=== PATIENT | male | born 1985 | race Caucasian/White ===

== ENCOUNTER 2018-03-03 08:31 | Inpatient (IN) | payer BC ==
--- NOTE | 2018-03-03 08:36 | EDPHY ---
H & P Time Seen by Provider: 03/03/18 08:36 - Medical/Surgical History Hx Asthma: No Hx Chronic Respiratory Disease: No Hx Diabetes: No Hx Cardiac Disease: No Hx Renal Disease: No Hx Cirrhosis: No Hx Alcoholism: No Hx HIV/AIDS: No Hx Splenectomy or Spleen Trauma: No Other PMH: HTN- no meds - Social History Smoking Status: Never smoked Constitutional: Initial Vital Signs Temperature (C) 36.8 C 03/03/18 08:36 Heart Rate 135 H 03/03/18 08:36 Respiratory Rate 18 03/03/18 08:36 Blood Pressure 123/74 H 03/03/18 08:36 O2 Sat (%) 97 03/03/18 08:36 O2 Delivery Mode Room Air Allergies/Adverse Reactions: cephalexin monohydrate [From Keflex] Allergy (Unknown, Verified 11/04/15 17:18) Unknown Penicillins Allergy (Unknown, Verified 11/04/15 17:18) Unknown Home Medications: Medication Instructions Recorded Metoprolol Succinate Xr [Toprol Xl 100 mg PO DAILY 03/03/18 100 mg (*)] amLODIPine BESYLATE [Norvasc 5 mg 5 mg PO DAILY 03/03/18 (*)] Medical Decision Making - Diagnostics Imaging Results: Imaging Impressions Abdomen CT 03/03/18 08:44 Impression: 1. Multiple lytic osseous lesions consistent with metastases or less likely myeloma. 2. Multiple low-attenuation hepatic lesions, suspicious for metastases, but indeterminate. 3. No definite primary malignancy identified. 4. Diffuse bowel wall thickening, with trace ascites. 5. Mildly prominent mesenteric lymph nodes without pathologic enlargement. 6. Additional findings as above. Findings discussed with Michael Cedillo MD on 03/03/2018 at 10:14 a.m. Imaging: Discussed imaging studies w/ order desk caller Radiologist, I viewed and interpreted images myself ED Course/Re-evaluation: CHIEF COMPLAINT: Diarrhea, appetite loss HISTORY OF PRESENT ILLNESS: The patient is a 32 y/o male arriving with his complaining of appetite loss and persistent diarrhea for over two weeks. He had acute onset appetite loss on the 19 of February and a few days afterwards he became significantly fatigued and developed diarrhea. This has since been persistent and he reports 5-10 episodes of non-bloody diarrhea daily and is vomiting on average once per day. He describes his diarrhea as sometimes "dark" with occasionally "fatty-looking tissue in it." Every time he drinks water he develops abdominal cramping, but otherwise denies pain. He saw a doctor for this last week and provided a stool sample to our lab 3 days ago that he does not yet know the results from. He denies antibiotic use, recent travel, drinking from streams, or any other obvious precipitating event. He did travel to [place] over 6 months ago. He is normally healthy. REVIEW OF SYSTEMS: A comprehensive 10 system review of systems is otherwise negative aside from elements mentioned in the history of present illness and medical decision making. PHYSICAL EXAM: HR, BP, O2 Sat, RR. Temp noted General Appearance: Alert, dehydrated, appropriate, pale, thin, ill-appearing. Head: Atraumatic without scalp tenderness or obvious injury Eyes: Pupils equal, round, reactive to light and accommodation, EOMI, no trauma , no injection. Nose: Atraumatic, no rhinorrhea, clear. Throat: Mucus membranes dry. Neck: Supple, nontender, no lymphadenopathy. Respiratory: No retractions, no distress, no wheezes, and no accessory muscle use. Lungs are clear to auscultation bilaterally. Cardiovascular: Tachycardic regular rate and rhythm, no murmurs, rubs, or gallops. Good capillary refill all extremities. Gastrointestinal: Abdomen is soft, diffuse tenderness, non-distended, no masses , no rebound, no guarding, no peritoneal signs. Musculoskeletal: Normal active ROM of all extremities, atraumatic. Neurological: Alert, appropriate, and interactive. The patient has non-focal cranial nerves, motor, sensory, and cerebellar exam. Skin: No rashes, good turgor, no nodules on palpation. Past medical history: Denies Past surgical history: Melanoma resection 2 years ago. Family history: Noncontributory Social history: at bedside. Lives in [place]. Employed at [employer]. DIAGNOSTICS/PROCEDURES/CRITICAL CARE TIME: Abdominal CT: Diffuse colitis, lytic spine lesions, liver lesions, suspect malignancy. Brain MRI: bony metastases. DIFFERENTIAL DIAGNOSIS: The differential diagnosis for the patient's diarrhea and vomiting included but was not limited to infectious causes like hepatitis, gastroenteritis, gastritis, appendicitis, and medication side effect. MEDICAL DECISION MAKING: This is a cachectic but normally healthy 32 y/o male who presents with a 2-week history of persistent diarrhea, intermittent vomiting, and pronounced fatigue. He is pale, thin, and dry on exam with diffuse abdominal tenderness. Recent GI stool panel was negative for pathogens. Presentation is concerning for infections like hepatitis, inflammatory bowel issue, or malignancy. Plan for IV , labs, symptom management, abdominal CT. 2L IV NS and 4mg IV Zofran. Labs indicate dehydration. LFTs are reasonable, pointing away from something like Hepatitis A. 0926: Reassessed patient. He still feels poor, but says "there's moisture in my mouth now." Abdominal CT shows lytic lesions in spine, liver lesions, diffuse colitis. Patient had melanoma resection in [address] Hardin. 1034: Consulted with Dr. Jean, oncology. He will consult during admission. Reassessed patient and discussed findings. Plan for brain MRI and admission. 1120: Spoke with hospitalist service. Dr. Vigil accepts admission. - Data Points Laboratory Results: Laboratory Results 03/03/18 08:45 03/03/18 08:45 03/03/18 03/03/18 03/03/18 10:40 08:49 08:45 WBC RBC Hgb POC Hgb 17.3 gm/dL gm/dL (13.7-17.5) Hct POC Hct 51 % % (40-51) MCV MCH MCHC RDW Plt Count MPV Neut % (Auto) Lymph % (Auto) [place] % (Auto) Eos % (Auto) Baso % (Auto) Nucleat RBC Rel Count Absolute Neuts (auto) Absolute Lymphs (auto) Absolute Monos (auto) Absolute Eos (auto) Absolute Basos (auto) Absolute Nucleated RBC Immature Gran % Seg Neutrophils % Band Neutrophils % Lymphocytes % Monocytes % Eosinophils % Basophils % Metamyelocytes % Myelocytes % Promyelocytes % Blast Cells % Immature Gran # Absolute Seg Neuts Absolute Band Neuts Absolute Lymphocytes Absolute Monocytes Absolute Eosinophils Absolute Basophils Absolute Metamyelocyte Absolute Myelocytes Absolute Promyelocytes Absolute Plasma Cells Nucleated RBCs Absolute Blast Cells Plasma Cells % Platelet Estimate Polychromasia POC Sodium 130 mEq/L L mEq/L (135-145) Sodium 129 mEq/L L mEq/L (135-145) POC Potassium 3.1 mEq/L L mEq/L (3.3-5.0) Potassium 3.2 mEq/L L mEq/L (3.5-5.2) POC Chloride 91 mEq/L L mEq/L (97-110) Chloride 97 mEq/L mEq/L (97-110) Carbon Dioxide 21 mEq/l L mEq/l (22-31) Anion Gap 11 mEq/L mEq/L (6-14) POC BUN 11 mg/dL mg/dL (7-23) BUN 12 mg/dL mg/dL (7-23) Creatinine 1.1 mg/dL mg/dL (0.7-1.3) POC Creatinine 1.1 mg/dL mg/dL (0.7-1.3) Estimated GFR > 60 Glucose 127 mg/dL H mg/dL (70-100) POC Glucose 137 mg/dL H mg/dL (70-100) Calcium 7.1 mg/dL L mg/dL (8.5-10.4) Total Bilirubin 0.7 mg/dL mg/dL (0.1-1.4) Conjugated Bilirubin 0.5 mg/dL mg/dL (0.0-0.5) Unconjugated Bilirubin 0.2 mg/dL mg/dL (0.0-1.1) AST 15 IU/L L IU/L (17-59) ALT 26 IU/L IU/L (21-72) Alkaline Phosphatase 62 IU/L IU/L (38-126) Total Protein 3.5 g/dL L g/dL (6.3-8.2) Albumin 1.7 g/dL L g/dL (3.5-5.0) Lipase 14 IU/L L IU/L (23-300) Urine Color YELLOW Urine Appearance CLEAR Urine pH 6.0 (5.0-7.5) Ur Specific [place] 1.014 (1.002-1.030) Urine Protein NEGATIVE (NEGATIVE) Urine Ketones NEGATIVE (NEGATIVE) Urine Blood NEGATIVE (NEGATIVE) Urine Nitrate NEGATIVE (NEGATIVE) Urine Bilirubin NEGATIVE (NEGATIVE) Urine Urobilinogen NEGATIVE EU EU (0.2-1.0) Ur Leukocyte Esterase NEGATIVE (NEGATIVE) Urine RBC NONE SEEN /hpf /hpf (0-3) Urine WBC 0-1 /hpf /hpf (0-3) Ur Epithelial Cells NONE SEEN /lpf /lpf (NONE-1+) Urine Glucose NEGATIVE (NEGATIVE) 03/03/18 08:45 WBC 12.96 10^3/uL H 10^3/uL (3.80-9.50) RBC 5.86 10^6/uL 10^6/uL (4.40-6.38) Hgb 17.4 g/dL g/dL (13.7-17.5) POC Hgb Hct 48.6 % % (40.0-51.0) POC Hct MCV 82.9 fL fL (81.5-99.8) MCH 29.7 pg pg (27.9-34.1) MCHC 35.8 g/dL g/dL (32.4-36.7) RDW 12.2 % % (11.5-15.2) Plt Count 398 10^3/uL 10^3/uL (150-400) MPV 10.1 fL fL (8.7-11.7) Neut % (Auto) Not Reported Lymph % (Auto) Not Reported [place] % (Auto) Not Reported Eos % (Auto) Not Reported Baso % (Auto) Not Reported Nucleat RBC Rel Count Not Reported Absolute Neuts (auto) Not Reported Absolute Lymphs (auto) Not Reported Absolute Monos (auto) Not Reported Absolute Eos (auto) Not Reported Absolute Basos (auto) Not Reported Absolute Nucleated RBC Not Reported Immature Gran % Not Reported Seg Neutrophils % 34.9 % % Band Neutrophils % 38.8 % % Lymphocytes % 10.7 % % Monocytes % 10.7 % % Eosinophils % 0.0 % % Basophils % 0.0 % % Metamyelocytes % 4.9 % % Myelocytes % 0.0 % % Promyelocytes % 0.0 % % Blast Cells % 0.0 % % Immature Gran # Not Reported Absolute Seg Neuts 4.52 10^3/uL 10^3/uL (1.70-6.50) Absolute Band Neuts 5.03 10^3/uL H 10^3/uL (0.00-0.70) Absolute Lymphocytes 1.39 10^3/uL 10^3/uL (1.00-3.00) Absolute Monocytes 1.39 10^3/uL H 10^3/uL (0.30-0.80) Absolute Eosinophils 0.00 10^3/uL L 10^3/uL (0.03-0.40) Absolute Basophils 0.00 10^3/uL L 10^3/uL (0.02-0.10) Absolute Metamyelocyte 0.64 10^3/mL H 10^3/mL (0.00-0.00) Absolute Myelocytes 0.00 10^3/mL 10^3/mL (0.00-0.00) Absolute Promyelocytes 0.00 10^3/uL 10^3/uL (0.00-0.00) Absolute Plasma Cells 0.00 10^3/uL 10^3/uL (0.00-0.00) Nucleated RBCs 1.0 /100 WBC H /100 WBC (0-0) Absolute Blast Cells 0.00 10^3/uL 10^3/uL (0.00-0.00) Plasma Cells % 0.0 % % Platelet Estimate ADEQUATE (ADEQ) Polychromasia 1+ H POC Sodium Sodium POC Potassium Potassium POC Chloride Chloride Carbon Dioxide Anion Gap POC BUN BUN Creatinine POC Creatinine Estimated GFR Glucose POC Glucose Calcium Total Bilirubin Conjugated Bilirubin Unconjugated Bilirubin AST ALT Alkaline Phosphatase Total Protein Albumin Lipase Urine Color Urine Appearance Urine pH Ur Specific [place] Urine Protein Urine Ketones Urine Blood Urine Nitrate Urine Bilirubin Urine Urobilinogen Ur Leukocyte Esterase Urine RBC Urine WBC Ur Epithelial Cells Urine Glucose Medications Given: Discontinued Medications Sodium Chloride (Ns) 1,000 mls @ 0 mls/hr IV EDNOW ONE; Wide Open PRN Reason: Protocol Stop: 03/03/18 08:45 Last Admin: 03/03/18 08:52 Dose: 1,000 mls Sodium Chloride (Ns) 1,000 mls @ 0 mls/hr IV EDNOW ONE; Wide Open PRN Reason: Protocol Stop: 03/03/18 08:45 Last Admin: 03/03/18 08:52 Dose: Not Given Ondansetron HCl (Zofran) 4 mg IVP EDNOW ONE Stop: 03/03/18 08:45 Last Admin: 03/03/18 08:52 Dose: 4 mg Point of Care Test Results: Chemistry 03/03/18 08:49 POC Sodium 130 mEq/L L mEq/L (135-145) POC Potassium 3.1 mEq/L L mEq/L (3.3-5.0) POC Chloride 91 mEq/L L mEq/L (97-110) POC BUN 11 mg/dL mg/dL (7-23) POC Creatinine 1.1 mg/dL mg/dL (0.7-1.3) POC Glucose 137 mg/dL H mg/dL (70-100) ISTAT H&H 03/03/18 08:49 POC Hgb 17.3 gm/dL gm/dL (13.7-17.5) POC Hct 51 % % (40-51) Departure - Departure Disposition: [facility] In[facility] Acute Clinical Impression: Malignancy, Anorexia, Dehydration, possible melanoma Diarrhea Qualifiers: Diarrhea type: unspecified type Qualified Code(s): R19.7 - Diarrhea, unspecified Condition: Fair Report Scribed for: Michael Cedillo Report Scribed by: Dorie Strickland Date of Report: 03/03/18 Time of Report: 09:30
[2018-03-03] MEDS ORDERED: NS 1,000 ML IV ONE (08:44)
[2018-03-03] MEDS ORDERED: ONDANSETRON 4 MG/2 ML VIAL IVP ONE (08:44)
[2018-03-03] MEDS: NS 1,000 ML IV ONE ×2 (08:51→08:52)
[2018-03-03 08:58] LABS: PLATELET COUNT 398 10^3/uL (150-400)
[2018-03-03] MEDS ORDERED: IOPAMIDOL (ISOVUE-300) 100 ML BTL ONE ×2 (09:12→18:24)
[2018-03-03] MEDS ORDERED: GADOBUTROL 10 ML VIAL IVP ONE (10:51)
[2018-03-03] MEDS ORDERED: ONDANSETRON DISINTEGRATING 4 MG TAB PO PRN (12:23)
[2018-03-03] MEDS ORDERED: ONDANSETRON 4 MG/2 ML VIAL IVP PRN (12:23)
--- NOTE | 2018-03-03 12:41 | PDGENHP ---
History and Physical - History of Present Illness 32 Year old male with pmh of HTN and localized melanoma who presented to the ER with complaints of diarrhea, nausea, vomiting, and anorexia for the last 10 days. He says he was in his normal state of health up until 10 days ago when he developed progressive diarrhea, inability to tolerate PO without becoming nauseated and then throwing up. He denies having any pain. He says that his stools have been intermittently dark but he does not think they are black or tarry. He thinks he has been losing weight but is not sure how much. He had low grade fevers, and some night sweats the last two days as well. He denied any headaches, dizziness, changes in vision or other neurologic symptoms. He relates that he had a mole back in 2016 that was cancerous and saw a local mental health coordinator who excised it. He followed up with an oncologist who ordered a few blood tests and told him they thought he had no recurrence. He gets quarterly mole checks where his lymph nodes are also evaluated but has never had any recurrence that he knew of. History Information - Allergies/Home Medication List Allergies/Adverse Reactions: cephalexin monohydrate [From [place]] Allergy (Unknown, Verified 11/04/15 17:18) Unknown Penicillins Allergy (Unknown, Verified 11/04/15 17:18) Unknown Home Medications: Metoprolol Succinate Xr [Toprol Xl 100 mg (*)] 100 mg PO DAILY 03/03/18 [Last Taken Unknown] amLODIPine BESYLATE [Norvasc 5 mg (*)] 5 mg PO DAILY 03/03/18 [Last Taken Unknown] I have personally reviewed and updated: family history, medical history, social history, surgical history - Past Medical History cancer (cancerous mole), hypertension - Surgical History Reports: no pertinent surgical hx - Family History Positive for: non-pertinent - Social History Smoking Status: Never smoked Alcohol Use: Occasionally Drug Use: None Review of Systems Review of Systems: ROS: 10pt was reviewed & negative except for what was stated in HPI & below Physical Exam Physical Exam: Temp Pulse Resp BP Pulse Ox 36.8 C 115 H 16 134/70 H 96 03/03/18 08:36 03/03/18 12:09 03/03/18 12:09 03/03/18 12:09 03/03/18 12:09 Constitutional: cachectic Eyes: PERRL, anicteric sclera, EOMI Ears, Nose, Mouth, Throat: dry mucous membranes Cardiovascular: no murmur, rub, or gallop, tachycardia Peripheral Pulses: 2+: dorsalis-pedis (R), dorsalis-pedis (L) Respiratory: no respiratory distress, no rales or rhonchi, clear to auscultation Gastrointestinal: normoactive bowel sounds, soft, non-tender abdomen, no palpable masses Genitourinary: no bladder fullness, no bladder tenderness Skin: warm, normal color, no rashes or abrasions, no fluctuance, no induration, No mottled Musculoskeletal: full muscle strength, no muscle tenderness, normal joint ROM, no joint effusions Neurologic: AAOx3, CN II-XII Intact Psychiatric: interacting appropriately, not anxious, not encephalopathic, thought process linear Lymph, Heme, Immunologic: no cervical LAD, no supraclavicular LAD Lab Data & Imaging Review 03/03/18 08:45 03/03/18 08:45 WBC 12.96 10^3/uL (3.80-9.50) H 03/03/18 08:45 RBC 5.86 10^6/uL (4.40-6.38) 03/03/18 08:45 Hgb 17.4 g/dL (13.7-17.5) 03/03/18 08:45 POC Hgb 17.3 gm/dL (13.7-17.5) 03/03/18 08:49 Hct 48.6 % (40.0-51.0) 03/03/18 08:45 POC Hct 51 % (40-51) 03/03/18 08:49 MCV 82.9 fL (81.5-99.8) 03/03/18 08:45 MCH 29.7 pg (27.9-34.1) 03/03/18 08:45 MCHC 35.8 g/dL (32.4-36.7) 03/03/18 08:45 RDW 12.2 % (11.5-15.2) 03/03/18 08:45 Plt Count 398 10^3/uL (150-400) 03/03/18 08:45 MPV 10.1 fL (8.7-11.7) 03/03/18 08:45 Neut % (Auto) Not Reported 03/03/18 08:45 Lymph % (Auto) Not Reported 03/03/18 08:45 Bartholomew % (Auto) Not Reported 03/03/18 08:45 Eos % (Auto) Not Reported 03/03/18 08:45 Baso % (Auto) Not Reported 03/03/18 08:45 Nucleat RBC Rel Count Not Reported 03/03/18 08:45 Absolute Neuts (auto) Not Reported 03/03/18 08:45 Absolute Lymphs (auto) Not Reported 03/03/18 08:45 Absolute Monos (auto) Not Reported 03/03/18 08:45 Absolute Eos (auto) Not Reported 03/03/18 08:45 Absolute Basos (auto) Not Reported 03/03/18 08:45 Absolute Nucleated RBC Not Reported 03/03/18 08:45 Immature Gran % Not Reported 03/03/18 08:45 Seg Neutrophils % 34.9 % 03/03/18 08:45 Band Neutrophils % 38.8 % 03/03/18 08:45 Lymphocytes % 10.7 % 03/03/18 08:45 Monocytes % 10.7 % 03/03/18 08:45 Eosinophils % 0.0 % 03/03/18 08:45 Basophils % 0.0 % 03/03/18 08:45 Metamyelocytes % 4.9 % 03/03/18 08:45 Myelocytes % 0.0 % 03/03/18 08:45 Promyelocytes % 0.0 % 03/03/18 08:45 Blast Cells % 0.0 % 03/03/18 08:45 Immature Gran # Not Reported 03/03/18 08:45 Absolute Seg Neuts 4.52 10^3/uL (1.70-6.50) 03/03/18 08:45 Absolute Band Neuts 5.03 10^3/uL (0.00-0.70) H 03/03/18 08:45 Absolute Lymphocytes 1.39 10^3/uL (1.00-3.00) 03/03/18 08:45 Absolute Monocytes 1.39 10^3/uL (0.30-0.80) H 03/03/18 08:45 Absolute Eosinophils 0.00 10^3/uL (0.03-0.40) L 03/03/18 08:45 Absolute Basophils 0.00 10^3/uL (0.02-0.10) L 03/03/18 08:45 Absolute Metamyelocyte 0.64 10^3/mL (0.00-0.00) H 03/03/18 08:45 Absolute Myelocytes 0.00 10^3/mL (0.00-0.00) 03/03/18 08:45 Absolute Promyelocytes 0.00 10^3/uL (0.00-0.00) 03/03/18 08:45 Absolute Plasma Cells 0.00 10^3/uL (0.00-0.00) 03/03/18 08:45 Nucleated RBCs 1.0 /100 WBC (0-0) H 03/03/18 08:45 Absolute Blast Cells 0.00 10^3/uL (0.00-0.00) 03/03/18 08:45 Plasma Cells % 0.0 % 03/03/18 08:45 Platelet Estimate ADEQUATE (ADEQ) 03/03/18 08:45 Polychromasia 1+ H 03/03/18 08:45 POC Sodium 130 mEq/L (135-145) L 03/03/18 08:49 Sodium 129 mEq/L (135-145) L 03/03/18 08:45 POC Potassium 3.1 mEq/L (3.3-5.0) L 03/03/18 08:49 Potassium 3.2 mEq/L (3.5-5.2) L 03/03/18 08:45 POC Chloride 91 mEq/L (97-110) L 03/03/18 08:49 Chloride 97 mEq/L (97-110) 03/03/18 08:45 Carbon Dioxide 21 mEq/l (22-31) L 03/03/18 08:45 Anion Gap 11 mEq/L (6-14) 03/03/18 08:45 POC BUN 11 mg/dL (7-23) 03/03/18 08:49 BUN 12 mg/dL (7-23) 03/03/18 08:45 Creatinine 1.1 mg/dL (0.7-1.3) 03/03/18 08:45 POC Creatinine 1.1 mg/dL (0.7-1.3) 03/03/18 08:49 Estimated GFR > 60 03/03/18 08:45 Glucose 127 mg/dL (70-100) H 03/03/18 08:45 POC Glucose 137 mg/dL (70-100) H 03/03/18 08:49 Calcium 7.1 mg/dL (8.5-10.4) L 03/03/18 08:45 Total Bilirubin 0.7 mg/dL (0.1-1.4) 03/03/18 08:45 Conjugated Bilirubin 0.5 mg/dL (0.0-0.5) 03/03/18 08:45 Unconjugated Bilirubin 0.2 mg/dL (0.0-1.1) 03/03/18 08:45 AST 15 IU/L (17-59) L 03/03/18 08:45 ALT 26 IU/L (21-72) 03/03/18 08:45 Alkaline Phosphatase 62 IU/L (38-126) 03/03/18 08:45 Total Protein 3.5 g/dL (6.3-8.2) L 03/03/18 08:45 Albumin 1.7 g/dL (3.5-5.0) L 03/03/18 08:45 Lipase 14 IU/L (23-300) L 03/03/18 08:45 Urine Color YELLOW 03/03/18 10:40 Urine Appearance CLEAR 03/03/18 10:40 Urine pH 6.0 (5.0-7.5) 03/03/18 10:40 Ur Specific [place] 1.014 (1.002-1.030) 03/03/18 10:40 Urine Protein NEGATIVE (NEGATIVE) 03/03/18 10:40 Urine Ketones NEGATIVE (NEGATIVE) 03/03/18 10:40 Urine Blood NEGATIVE (NEGATIVE) 03/03/18 10:40 Urine Nitrate NEGATIVE (NEGATIVE) 03/03/18 10:40 Urine Bilirubin NEGATIVE (NEGATIVE) 03/03/18 10:40 Urine Urobilinogen NEGATIVE EU (0.2-1.0) 03/03/18 10:40 Ur Leukocyte Esterase NEGATIVE (NEGATIVE) 03/03/18 10:40 Urine RBC NONE SEEN /hpf (0-3) 03/03/18 10:40 Urine WBC 0-1 /hpf (0-3) 03/03/18 10:40 Ur Epithelial Cells NONE SEEN /lpf (NONE-1+) 03/03/18 10:40 Urine Glucose NEGATIVE (NEGATIVE) 03/03/18 10:40 Assessment & Plan Assessment: multiple masses-CT and MRI reviewed by myself and findings highly suspicious and concerning for metastatic disease particularly given his history of melanoma. Also with a mass in the calvarium on MRI but no neurological symptoms on examination. No transaminitis on labs, but does have mild bandemia. Oncology has been consulted and expect patient will need biopsy but will await oncology evaluation. Diarrhea- patient does have a bandemia, and fevers so could have infectious etiology but certainly could be related to masses on imaging. -stools studies -IVNS -loperamide if testing negative Hyponatremia- hypovolemic hyponatremia from poor po intake. -IVNS resuscitation -repeat Na, if fails to correct, check urine lytes, osm to evaluate cause NV- due to multiple masses in liver and throughout PRN zofran protein calorie malnutrition- poor po intake, appears cachectic. Plan: diarrhea Abdominal masses
[2018-03-03] MEDS: NS 1,000 ML IV SCH ×2 (12:44→19:58)
[2018-03-03] MEDS ORDERED: PROTOCOL POTASSIUM 1 DOSE MISC PRN (13:24)
[2018-03-03] MEDS ORDERED: PROTOCOL MAGNESIUM 1 DOSE IV PRN (13:24)
[2018-03-03] MEDS ORDERED: PROTOCOL K PHOSPHATE 1 DOSE IV PRN (13:24)
--- NOTE | 2018-03-03 13:55 | ASMTCMCOM ---
CM Note CM Note Notes: Patient admitted via ED with c/o anorexia and diarrhea. 32 year old male who had melanoma removed sometime ago. Has had follow up and now presents to the ED with likely metastatic disease via imaging. He lives in [place] with his and children. 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 CM to follow for needs, Kurt alvarez requested on his behalf. Plan: TBD Date Signed: 03/03/2018 01:54 PM Electronically Signed By:Cira Wellington RN
--- NOTE | 2018-03-03 14:08 | PDMN ---
Medical Necessity Medical necessity: [facility] oncology: pt presents with decreased appetite, fatigue, abd pain, diarrhea, N,V, CT shows mult. lytic osseous lesions consistent with metastases or less likely myeloma mult hepatic lesions, pt also with hyponatremia, PMHx melanoma 2016. HTN. anticipate > 2 MN ongoing med nec care, further monitoring and eval- Oncology consult pend.
[2018-03-03 15:15] LABS: INR 1.68 (0.83-1.16); PROTIME(PATIENT) 19.9 SEC (12.0-15.0)
[2018-03-03] MEDS ORDERED: NS 500 ML IV ONE (15:53)
[2018-03-03] MEDS: ACETAMINOPHEN 325 MG TAB PO PRN (16:26)
[2018-03-03] MEDS ORDERED: MAGNESIUM SULF 1 GM/DEXTROSE 100 ML IV ONE (17:02)
[2018-03-03] MEDS ORDERED: POTASSIUM Cl (KCl) 100 ML IV SCH (17:30)
--- NOTE | 2018-03-03 17:58 | GCON ---
INPATIENT ONCOLOGY CONSULTATION DATE OF CONSULTATION: 03/03/2018 REFERRING PHYSICIAN: Kleber Mancia MD The patient's oncologist is Dr. Bekah French. REASON FOR CONSULTATION: Possible metastatic melanoma. HISTORY OF PRESENT ILLNESS: The patient is a 32-year-old man who comes into the hospital after not feeling well for several weeks. He has a history of superficial melanoma diagnosed in December 2015. This was on the right side of his lower back. It was removed by Dr. Rodriguez. It was 0.88 mm in thickness with 7 mitoses per high-powered field. At the time, the risk of positive sentinel lymph node and recurrence was felt to be low and no further evaluation was performed. He is seen regularly by Dr. Bekah French for medical oncology followup and does see Dr. Rodriguez every 3 months for skin checks. He also had an episode of hematochezia and had a colonoscopy about a year ago, which was unremarkable. He reports about 2 weeks ago, he began to feel fatigue and malaise. He had poor appetite and vomited a few times. He ultimately sought medical attention. The night before admission, he had a fever to 101.9. His laboratory results revealed leukocytosis with a white count of 13,000 with a left shift. There were 4500 neutrophils, 5000 bands, a few metamyelocytes, and nucleated red blood cells. The remainder of the CBC was normal. Liver function tests notable for an albumin of 1.7, otherwise essentially normal. He had a CT scan performed of the abdomen. This showed multiple indeterminate lesions in the liver, the largest measuring 1 cm, suspicious for metastases. There was mild diffuse thickening of the small bowel without obstruction. There were multiple lytic osseous lesions, most conspicuous in the spine with no pathologic fractures. There was also some mildly prominent mesenteric lymph nodes without pathologic enlargement. He seemed better after the administration of IV fluids. PAST MEDICAL HISTORY: Hypertension. CURRENT MEDICATIONS: Include Lovenox, metoprolol, Zofran. ALLERGIES: To penicillin. FAMILY HISTORY: Noncontributory. SOCIAL HISTORY: He is a nonsmoker. Drinks alcohol occasionally. 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. He is and has 3 children. REVIEW OF SYSTEMS: Aside from pertinent positives in HPI, a 14-point review of systems is negative. PHYSICAL EXAMINATION: VITAL SIGNS: His temperature was 37.3, blood pressure 120/72, heart rate 137, oxygen saturation 95% on room air. GENERAL: He was thin and pale, though in no acute distress. HEENT: Sclerae anicteric. Oropharynx was clear. NECK: Supple without lymphadenopathy. LUNGS: Clear to auscultation bilaterally. CARDIAC: Regular rate and rhythm. No murmurs, gallops, or rubs. ABDOMEN: Normoactive bowel sounds. Nontender. EXTREMITIES: Without edema. 2+ pulses. NEUROLOGIC: Alert and oriented x3. Strength and sensation were normal. LABORATORY/IMAGING DATA: Reviewed in the HPI. IMPRESSION: This is a 32-year-old man with a history of stage I melanoma, now presenting with 2 weeks of fatigue, malaise, fever, possible lesions up to a centimeter in size in the liver, and some apparent lytic bone lesions. Obviously, given his history of melanoma that is the top diagnosis on the differential. However, there are some atypical features about that scenario, including the fact that the melanoma was fairly superficial and unlikely to metastasize, and the fact that his illness seems to be fairly acute in onset. We will need a tissue biopsy, preferably one of the liver lesions, to establish a diagnosis. Other things in the differential include hematological disorder such as myeloma or lymphoma, another malignancy, or a nonmalignant inflammatory condition masquerading as a malignancy. I emphasized to Ganga and his that there is much we do not know at this point and that we need additional laboratory testing as well as a definitive biopsy to establish a diagnosis. PLAN: 1. Ultrasound-guided liver biopsy of one of the lesions. If the lesions cannot be identified on ultrasound, then a biopsy of one of the bone lesions can be done. 2. I sent additional blood tests including serum protein electrophoresis, kappa lambda light chains, and LDH to look for potential hematological disorders. 3. I will order a CT scan of the chest to see if there are any other lesions there. Thank you for this interesting consultation. We will continue to follow patient with you closely while he is in the hospital. /[id number]/MODL MTDD
[2018-03-03] MEDS ORDERED: POTASSIUM CL 20 MEQ/15 ML UDCUP PO ONE (18:00)
[2018-03-04] MEDS: ACETAMINOPHEN 325 MG TAB PO PRN ×2 (02:25→20:40)
[2018-03-04 04:52] LABS: PLATELET COUNT 291 10^3/uL (150-400)
[2018-03-04 05:19] LABS: INR 1.81 (0.83-1.16); PROTIME(PATIENT) 21.1 SEC (12.0-15.0)
[2018-03-04] MEDS ORDERED: LIDOCAINE 1% 300 MG/30 ML SDV ONE (09:09)
[2018-03-04] MEDS: ENOXAPARIN 40 MG/0.4 ML SYR SC SCH (10:02)
[2018-03-04] MEDS: METOPROLOL SUCCINATE XR 100 MG TAB PO SCH (10:03)
[2018-03-04] MEDS: POTASSIUM CL 20 MEQ/15 ML UDCUP PO ONE ×2 (10:04→16:29)
--- NOTE | 2018-03-04 10:35 | SOAPPROG ---
SOAP Progress Note Assessment/Plan: Assessment: 1. history of stage I melanoma 2. Fever 3. Leukocytosis with left shift 4. ?lesions in liver 5. scattered lytic bone lesions 6. subcm lung nodules Differential diagnosis remains extremely broad. Could be an atypical infection, lymphoma, myeloma, melanoma, or other malignancy. Plan: - attempt biopsy of liver lesion - if that is not possible, could consider biopsy of one of the bone lesions - consider ID consult at some point if current workup is not diagnostic 25min spent w/ pt and in coordination of care. 03/04/18 10:33 Subjective: feels about the same. thirsty. Objective: exam: thin, pale, NAD exam unchanged Vital Signs Temp Pulse Resp BP Pulse Ox 36.8 C 105 H 14 109/60 96 03/04/18 08:33 03/04/18 08:33 03/04/18 08:33 03/04/18 08:33 03/04/18 08:33 Microbiology 03/04/18 06:00 Gastrointestinal Tract Panel (PCR) - Final Stool No Organism Detected By Pcr Laboratory Results 03/04/18 04:08 03/04/18 04:08 03/03/18 03/04/18 03/05/18 05:59 05:59 05:59 Intake Total 3018 Balance 3018 PT 21.1 SEC (12.0-15.0) H 03/04/18 04:08 INR 1.81 (0.83-1.16) H 03/04/18 04:08 ICD10 Worksheet Patient Problems: Problems Problem Status Onset Anorexia Acute Dehydration Acute Diarrhea Acute Malignancy Acute
[2018-03-04 12:28] LABS: INR 1.69 (0.83-1.16)
[2018-03-04] MEDS ORDERED: MIDAZOLAM 2 MG/2 ML VIAL IVP PRN (12:36)
[2018-03-04] MEDS ORDERED: MEPERIDINE 25 MG/ML SYR IVP PRN (12:36)
[2018-03-04] MEDS ORDERED: NALOXONE HCL 0.4 MG/ML INJ IVP PRN (12:36)
[2018-03-04] MEDS ORDERED: GLUCAGON HCL 1 MG VIAL IVP PRN (12:36)
[2018-03-04] MEDS ORDERED: fentaNYL 100 MCG/2 ML INJ IVP PRN (12:36)
[2018-03-04] MEDS ORDERED: PROTAMINE SULFATE 50 MG/5 ML VIAL IVP PRN (12:36)
[2018-03-04] MEDS ORDERED: FLUMAZENIL 0.5 MG/5 ML MDV IVP PRN (12:36)
[2018-03-04] MEDS ORDERED: HEPARIN 10,000 UNIT/10 ML MDV (1,000 UNIT/ML) IVP PRN (12:36)
[2018-03-04] MEDS ORDERED: ALTEPLASE 2 MG VIAL IVP PRN (12:36)
[2018-03-04 13:43] LABS: HEPATITIS B CORE AB TOTAL NEGATIVE (NEGATIVE); HEPATITIS C ANTIBODY TOTAL NEGATIVE (NEGATIVE); HIV TYPE 1 AND 2 NEGATIVE (NEGATIVE)
--- NOTE | 2018-03-04 14:32 | PDPROPOC ---
Sedation Plan of Care Sedation Plan of Care: vital signs stable, mental status noted, patient educated of risks, benefits, alternatives, patient can tolerate sedation ASA Classification: ASA 2 Planned drugs: fentanyl, midazolam Mallampati Score: Class 1 Mallampati Reference Image: Patient passed 3-3-2 rule?: Yes
--- NOTE | 2018-03-04 14:32 | PDHPUP ---
History & Physical Update H&P update statement: This history and physical update is based on an assessment of the patient which was completed after admission or registration (within 24 hours), but prior to the surgery/procedure. Liver lesions with history of melanoma, US guided liver lesion biopsy H&P update: H&P reviewed & patient examined, no change in patient's condition since H&P completed
--- NOTE | 2018-03-04 14:33 | PDRADPN ---
Radiology Procedure Note Date of Procedure: 03/04/18 Radiologist: Antelmo Vidal Anesthesia: IV Sedation Pre-op Diagnosis: Melanoma Post-op Diagnosis: Melanoma Indication: Liver lesions Procedure: US guided liver lesions biopsy Finding(s): Numerous hypoechoic liver lesions, dominant 1 cm lesion right lobe targeted. 18 ga cores. Inf/Abcess present in the surg proc area at time of surgery?: No
--- NOTE | 2018-03-04 17:46 | HOSPPROG ---
Hospitalist Progress Note Assessment/Plan: 32yo M with history of stage 1 melanoma s/p excision here with 1.5 weeks of diarrhea, vomiting found to have multiple masses on imaging. First encounter with patient, chart reviewed. 1. Multiple lung (small, <4mm), hepatic (up to 1cm), and bony lytic lesions: Also with mass in calvarium on MRI. Unclear etiology but highly suspicious for metastatic disease with unknown primary. Also on differential is infection ( brucella, fungal - blastomyces, coccidiomyces), Langerhans cell histiocytosis. He does have bandemia and fevers so infection is a possibility. HIV, hep C negative. - Await liver biopsy results - Oncology consulted, discussed with Dr Jean - If liver bx unrevealing, will likely need bone biopsy and will plan to consult ID - SPEP, free light chains pending 2. Coagulopathy: Unclear etiology. LFTs ok. Possibly nutritional. S/p FFP for procedure. Monitor. 3. Diarrhea, n/v: GI PCR negative. Suspect related to #1. - Continue IVF, loperamide PRN. 4. Tachycardia: Probably due to dehydration. PE on differential. No pericardial effusion seen on chest CT (not great test for this). - Check ECG. Cont fluids. 5. Hyponatremia: Didn't improve with isotonic fluids. Likely at least some component of hypovolemia/poor PO but also suspicious for SIADH. - Will check urine lytes/osms. 6. Protein calorie malnutrition: Appears cachectic, BMI 22 - Dietary consult 7. Electrolyte abnormalities: Due to GI losses. - Replacement protocol VTE ppx: LMWH Diet: regular Dispo: Remain inpatient for further evaluation of new masses. Unsafe for dc as not tolerating PO. Subjective: Feeling better than when he came in. Tolerated a few sips of water but not much else. No fever or chills. No rash Objective: Vital Signs Temp Pulse Resp BP Pulse Ox 36.8 C 127 H 19 132/83 H 97 03/04/18 16:57 03/04/18 16:57 03/04/18 16:57 03/04/18 16:57 03/04/18 16:57 Microbiology 03/04/18 06:00 Gastrointestinal Tract Panel (PCR) - Final Stool No Organism Detected By Pcr Laboratory Results 03/04/18 04:08 03/04/18 04:08 03/03/18 03/04/18 03/05/18 05:59 05:59 05:59 Intake Total 3018 Balance 3018 PT 20.0 SEC (12.0-15.0) H 03/04/18 12:05 INR 1.69 (0.83-1.16) H 03/04/18 12:05 - Physical Exam Constitutional: no apparent distress, not in pain, other (thin) Eyes: PERRL, anicteric sclera, EOMI, other (left conjunctival injection) Ears, Nose, Mouth, Throat: moist mucous membranes, hearing normal, ears appear normal, no oral mucosal ulcers Cardiovascular: no murmur, rub, or gallop, tachycardia, No JVD, No edema Respiratory: no respiratory distress, no rales or rhonchi, clear to auscultation Gastrointestinal: normoactive bowel sounds, soft, non-tender abdomen, no palpable masses Genitourinary: no bladder fullness, no bladder tenderness, no renal bruits Skin: other (few telangiectasias (normal)) Musculoskeletal: full muscle strength, no muscle tenderness, normal joint ROM Neurologic: AAOx3, sensation intact bilaterally Psychiatric: interacting appropriately, not anxious, not encephalopathic, thought process linear ICD10 Worksheet Patient Problems: Problems Problem Status Onset Anorexia Acute Dehydration Acute Diarrhea Acute Malignancy Acute
[2018-03-04] MEDS: LOPERAMIDE HCL 2 MG CAP PO PRN (20:47)
--- NOTE | 2018-03-04 21:31 | ASMTCMCOM ---
CM Note CM Note Notes: Met with patient per his request. He is frustrated over timing of testings. I explained my role as disability case manager to help him with with any care needs when he is medically ready to discharge or help home connect to resources in the community. Cm to follow for needs. Biopsy today. Pln: TBD Date Signed: 03/04/2018 01:14 PM Electronically Signed By:Cira Wellington RN
[2018-03-05] MEDS: LOPERAMIDE HCL 2 MG CAP PO PRN (03:19)
--- NOTE | 2018-03-05 05:55 | CPEKG ---
Test Reason : OPEN Blood Pressure : / mmHG Vent. Rate : 126 BPM Atrial Rate : 127 BPM P-R Int : 123 ms QRS Dur : 093 ms QT Int : 303 ms P-R-T Axes : 083 065 -42 degrees QTc Int : 439 ms Sinus tachycardia Borderline T abnormalities, diffuse leads Confirmed by Tyler Will ([id number]) on 03/05/2018 5:54:35 AM Referred By: Confirmed By:Tyler Will
[2018-03-05 06:03] LABS: PLATELET COUNT 353 10^3/uL (150-400)
[2018-03-05] MEDS ORDERED: POTASSIUM CL 10 MEQ TAB PO ONE ×2 (07:40→18:26)
[2018-03-05] MEDS: ENOXAPARIN 40 MG/0.4 ML SYR SC SCH ×3 (08:05→08:39)
[2018-03-05] MEDS: METOPROLOL SUCCINATE XR 100 MG TAB PO SCH (08:36)
--- NOTE | 2018-03-05 11:54 | SOAPPROG ---
[facility] Progress Note Assessment/Plan: Assessment: 1. Metastatic melanoma (prelim results on liver biopsy) 2. Hypokalemia Discussed diagnosis with patient. This is an incurable disease in its metastatic state but can be treated. BRAF mutation test pending on tumor. If BRAF mutation, optimal first line Rx would be BRAF/MEK inhibitors, given what seems to be fairly rapid progression and severe constitutional symptoms. If BRAF WT, then would treat with nivolumab. Will hopefully have those results early next week. Pt can be discharged once his symptoms are better controlled. Consider antiemetics, low dose dex (2-4 mg/d), medical marijuanna or marinol (for appetite stimulation). 35 min spent w/ pt and in coordination of care. Subjective: feeling a little better. Objective: Vital Signs Temp Pulse Resp BP Pulse Ox 37.3 C 108 H 18 119/69 96 03/05/18 07:53 03/05/18 08:36 03/05/18 07:53 03/05/18 08:36 03/05/18 07:53 Microbiology 03/04/18 06:00 Gastrointestinal Tract Panel (PCR) - Final Stool No Organism Detected By Pcr Laboratory Results 03/05/18 04:27 03/05/18 04:27 03/04/18 03/05/18 03/06/18 05:59 05:59 05:59 Intake Total 3018 2575 Output Total 300 Balance 3018 2275 PT 20.0 SEC (12.0-15.0) H 03/04/18 12:05 INR 1.69 (0.83-1.16) H 03/04/18 12:05 ICD10 Worksheet Patient Problems: Problems Problem Status Onset Anorexia Acute Dehydration Acute Diarrhea Acute Malignancy Acute
[2018-03-05] MEDS ORDERED: CODEINE SULF 30 MG TAB PO PRN (14:54)
[2018-03-05] MEDS ORDERED: PROMETHAZINE HCL 25 MG/ML INJ IVP PRN (14:54)
[2018-03-05] MEDS: NS 1,000 ML IV SCH (15:13)
[2018-03-05] MEDS: LOPERAMIDE HCL 2 MG CAP PO SCH ×2 (16:19→19:59)
[2018-03-05] MEDS: SIMETHICONE 80 MG TAB CHEW PO SCH ×2 (18:08→21:56)
--- NOTE | 2018-03-05 18:13 | HOSPPROG ---
Hospitalist Progress Note Assessment/Plan: 32yo M with history of stage 1 melanoma s/p excision here with 1.5 weeks of diarrhea, vomiting found to have multiple masses on imaging. 1. Metastatic malignant melanoma: Per prelim liver biopsy results. Mets to bone , liver, and likely lung. Has mass in calvarium on MRI as well. - Awaiting molecular studies, should get back early next week - Will need to follow up with Dr Jean re: treatment 2. Diarrhea: GI PCR negative. Has diffuse small bowel and rectal thickening on CT. Suspect related to #1. - Schedule imodium, trial codeine, simethicone - If not improving, consider cholestyramine, dicyclomine 3. Nausea: Minimal. Responding to current therapy. Has appetite so will hold on initiating mirtazepine/marinol, etc. 4. Pain: None. Consider dexamethasone if occurs given extensive bony involvement. 5. Coagulopathy: Unclear etiology. LFTs ok. Likely nutritional. S/p FFP for procedure. Monitor. 6. Sinus tachycardia: Due to dehydration. Continue IVF. 7. Hyponatremia: Better with isotonic fluids. Urine studies c/w combo of poor PO and SIADH. Monitor daily. 8. Protein calorie malnutrition: Appears cachectic, BMI 22, albumin 1.5. Dietary consulted. 9. Electrolyte abnormalities: Due to GI losses, poor PO. Replacement protocol. Social: He and have 3 young children. Will discuss resources for family with CM. VTE ppx: LMWH Diet: regular Dispo: Remain inpatient, unsafe to dc as high risk for significant dehydration and electrolyte abnormalities until tolerating PO. Subjective: He was informed of path results this morning. Understandably sad/ upset. Biggest concern with getting out of hospital is diarrhea and abdominal bloating. No pain. Minimal nausea. No emesis. Objective: Vital Signs Temp Pulse Resp BP Pulse Ox 37.1 C 118 H 18 122/78 H 96 03/05/18 16:22 03/05/18 16:22 03/05/18 16:22 03/05/18 16:22 03/05/18 16:22 Laboratory Results 03/05/18 04:27 03/04/18 03/05/18 03/06/18 05:59 05:59 05:59 Intake Total 3018 2575 1000 Output Total 300 Balance 3018 2275 1000 PT 20.0 SEC (12.0-15.0) H 03/04/18 12:05 INR 1.69 (0.83-1.16) H 03/04/18 12:05 - Physical Exam Constitutional: cachectic Eyes: PERRL, anicteric sclera, EOMI Ears, Nose, Mouth, Throat: moist mucous membranes, hearing normal, ears appear normal, no oral mucosal ulcers Cardiovascular: no murmur, rub, or gallop, tachycardia, No edema Respiratory: no respiratory distress, no rales or rhonchi, clear to auscultation Gastrointestinal: normoactive bowel sounds, no palpable masses, tenderness Genitourinary: no bladder fullness, no bladder tenderness, no renal bruits Skin: no rashes or abrasions, no fluctuance, no induration Musculoskeletal: full muscle strength, no muscle tenderness, normal joint ROM Neurologic: AAOx3, sensation intact bilaterally Psychiatric: interacting appropriately, not anxious, not encephalopathic, thought process linear ICD10 Worksheet Patient Problems: Problems Problem Status Onset Anorexia Acute Dehydration Acute Diarrhea Acute Malignancy Acute
[2018-03-05] MEDS ORDERED: NS BOLUS 500 ML (Wide open) IV ONE (20:30)
[2018-03-06] MEDS ORDERED: NS 500 ML IV ONE (00:03)
[2018-03-06] MEDS: NS 1,000 ML IV SCH (01:41)
[2018-03-06 03:05] LABS: INR 1.61 (0.83-1.16); PROTIME(PATIENT) 19.3 SEC (12.0-15.0)
[2018-03-06] MEDS: LOPERAMIDE HCL 2 MG CAP PO SCH ×4 (06:20→21:40)
[2018-03-06] MEDS ORDERED: POTASSIUM CL 10 MEQ TAB PO ONE ×2 (07:33→20:17)
[2018-03-06] MEDS: SIMETHICONE 80 MG TAB CHEW PO SCH ×4 (09:12→21:41)
--- NOTE | 2018-03-06 09:38 | SOAPPROG ---
SOAP Progress Note Assessment/Plan: Assessment: 1. Metastatic melanoma (final results on liver biopsy) 2. Hypokalemia Pt continues to have poor appetite. Likely due to the disseminated malignancy, though seems somewhat out of proportion to the degree of metastatic burden. Plan; - trial of zofran q8h standing, alexsander prior to meals - can consider marinol as second line agent - will check AM cortisol. - await BRAF results to determine best first line therapy. 25 min spent w/ pt and in coordination of care. d/w dr barber. Subjective: continued vomiting after meals. some orthostatic hypotension last night. Objective: Vital Signs Temp Pulse Resp BP Pulse Ox 36.9 C 103 H 16 106/57 L 94 03/06/18 07:47 03/06/18 07:47 03/06/18 07:47 03/06/18 07:47 03/06/18 07:47 Laboratory Results 03/06/18 02:45 03/06/18 02:45 03/05/18 03/06/18 03/07/18 05:59 05:59 05:59 Intake Total 2575 4587 Output Total 300 500 Balance 2275 4087 PT 19.3 SEC (12.0-15.0) H 03/06/18 02:45 INR 1.61 (0.83-1.16) H 03/06/18 02:45 ICD10 Worksheet Patient Problems: Problems Problem Status Onset Anorexia Acute Dehydration Acute Diarrhea Acute Malignancy Acute
--- NOTE | 2018-03-06 14:40 | ASMTCMCOM ---
CM Note CM Note Notes: Plan of care reviewed in rounds. Patient is a 32 year old male diagnosed with metastatic melanoma . He is and has 3 children,. Good support. Some testing pending. Palliative care ordered and patient seen by Pinky. He has challenged with oral intake and diarrhea. Medications adjusted. Will refer to "[facility]" for support. CM to follow for needs. Plan: TBD Date Signed: 03/06/2018 02:40 PM Electronically Signed By:Cira Wellington RN
--- NOTE | 2018-03-06 15:21 | HOSPPROG ---
Hospitalist Progress Note Assessment/Plan: 32yo M with history of stage 1 melanoma s/p excision here with 1.5 weeks of diarrhea, vomiting found to have multiple masses on imaging. 1. Metastatic malignant melanoma: Per prelim liver biopsy results. Mets to bone , liver, and likely lung. Has mass in calvarium on MRI as well. - Rather rapid progression of symptoms is concerning - Palliative care has been consulted - Awaiting molecular studies in order to determine tx options, should get back early next week 2. Diarrhea, n/v: GI PCR negative. Has . His symptoms are rather severe without significant imaging findings (diffuse small bowel and rectal thickening on CT) to correlate with malignancy. - Appreciate palliative assistance with mgmt - Schedule phenergan with meals and make available PRN - Continue imodium, add lomotil PRN - Check AM cortisol, TSH, fecal calprotectin - Will discuss with GI in AM 3. Coagulopathy: Unclear etiology. LFTs ok. Likely nutritional. S/p FFP for procedure. Monitor. 4. Sinus tachycardia: Due to dehydration. Continue IVF. 5. Hyponatremia: Better with isotonic fluids. Urine studies c/w combo of poor PO and SIADH. Monitor daily. 6. Protein calorie malnutrition: Appears cachectic, BMI 22, albumin 1.5. Dietary consulted. Holding on parenteral/enteral nutrition. 7. Electrolyte abnormalities: Due to GI losses, poor PO. Replacement protocol. Social: He and have 3 young children. Will discuss resources for family with CM. VTE ppx: LMWH Diet: regular Dispo: Remain inpatient, unsafe to dc as high risk for significant dehydration and electrolyte abnormalities until tolerating PO. Discussed at length today with patient and . Subjective: Worse today. Not able to keep anything down. Diarrhea a bit less. Appetite ok. No fevers. Family/ concerned re: his rapid decline. Objective: Vital Signs Temp Pulse Resp BP Pulse Ox 36.9 C 115 H 18 109/62 96 03/06/18 11:57 03/06/18 11:57 03/06/18 11:57 03/06/18 11:57 03/06/18 11:57 Laboratory Results 03/06/18 02:45 03/06/18 02:45 03/05/18 03/06/18 03/07/18 05:59 05:59 05:59 Intake Total 9964 8367 900 Output Total 300 500 400 Balance 2275 4087 500 PT 19.3 SEC (12.0-15.0) H 03/06/18 02:45 INR 1.61 (0.83-1.16) H 03/06/18 02:45 - Physical Exam Constitutional: cachectic, other (somnolent) Eyes: PERRL, anicteric sclera, EOMI Ears, Nose, Mouth, Throat: dry mucous membranes Cardiovascular: no murmur, rub, or gallop, tachycardia, No edema Respiratory: no respiratory distress, no rales or rhonchi, clear to auscultation Gastrointestinal: normoactive bowel sounds, no palpable masses, tenderness Genitourinary: no bladder fullness, no bladder tenderness, no renal bruits Skin: no rashes or abrasions, no fluctuance, no induration Musculoskeletal: generalized weakness Neurologic: AAOx3, sensation intact bilaterally Psychiatric: interacting appropriately, not anxious, not encephalopathic, thought process linear ICD10 Worksheet Patient Problems: Problems Problem Status Onset Anorexia Acute Dehydration Acute Diarrhea Acute Malignancy Acute
[2018-03-06] MEDS: ACETAMINOPHEN 325 MG TAB PO PRN (15:55)
[2018-03-06] MEDS: DIPHENOXYLATE/ATROPINE LOMOTIL 1 TAB PO PRN (15:55)
[2018-03-06] MEDS: PROMETHAZINE HCL 25 MG/ML INJ IVP SCH (17:22)
--- NOTE | 2018-03-06 17:36 | ASMTCMCOM ---
CM Note CM Note Notes: [facility] referral completed and sent to [facility]. They will follow-up with patient on Saturday to assess needs. CM will continue to follow case. Plan: TBD Date Signed: 03/06/2018 05:35 PM Electronically Signed By:Eusebia Baker RN
[2018-03-07] MEDS: NS 1,000 ML IV SCH (00:59)
[2018-03-07] MEDS: LOPERAMIDE HCL 2 MG CAP PO SCH ×4 (04:23→19:30)
--- NOTE | 2018-03-07 07:35 | PDPCPN ---
Palliative Care Progress Note Assessment/Plan: Assessment: [facility] [address] [place] [id number] (O) [phone](F) PALLIATIVE CARE NOTE NAME: Ganga Deejsus : 85, 32 VISIT TYPE: Initial LOCATION: [facility] LEVEL OF CARE: Hospice eligible DIAGNOSES: 1. Metastatic melanoma CC: Initial palliative care visit HPI: Mister Dejesus is a 32-year-old male who was diagnosed in 2016 with stage I melanoma. He had wide excision with clean margins at that time. He has had continued monitoring since that time. Approximately 2 weeks ago he began having intractable nausea, vomiting and diarrhea. He sought medical care and was admitted to the inpatient unit at [facility]. Scans were completed and he was found to have multiple sites of metastases including bone liver lung and a calvarial mass. A liver biopsy has been completed which is positive for melanoma. Molecular studies are pending at this time. His scan also indicated diffuse thickening of his bowel. His nausea vomiting and diarrhea have persisted despite antiemetics and antidiarrheal medications. PMH: As above ALLERGIES: FAMILY HISTORY: SOCIAL HISTORY: Lives in [facility] with his and 3 children. 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 Control of his nausea vomiting and diarrhea 2. Start treatment ACTIVE SYMPTOMS/ASSESSMENTS/RECOMMENDATIONS: 1. Metastatic melanoma: C 34.9: Await molecular studies to determine first- line therapy. 2. Nausea/vomiting R 11: Would encourage use of promethazine for nausea and vomiting. Would recommend GI consult for possible endoscopy to further determine the cause of nausea and vomiting. 3. Diarrhea R 19.7: Continue current regimen. 4. Protein calorie malnutrition E 46: Dietary consult. Would consider TPN with his marked hypoalbuminemia. MODIFIED [place] SYMPTOM ASSESSMENT SCALE: 0-none; 1-3 mild; 4-6 moderate; 7-10 severe Unable to Respond: No [ ] Delirium: 0-none Depression: 0-none Anxiety: 3 Tiredness (fatigue): 5 Drowsiness (sleepiness): 0-none Pain: 0-none Nausea: 0-none Anorexia: 0-none Shortness of Breath: 0-none Secretions: 0-none Constipation: 0-none Symptom and side effect management: (acceptable to patient and family) RISK FACTORS FOR RE-HOSPITALIZATION: o CAREGIVER ANXIETY o DISEASE EDUCATION DEFICIT OBJECTIVE FINDINGS Palliative Performance Score: 70 FAST: Not applicable NYHA: n/a Vital Signs: Wt: MAC: Neuro: A&O to person, place, time and event HEENT: Normocephalic; atraumatic RESP: Regular, deep, symmetrical. No cough or wheezing CV: no LE edema GI: soft, round bowel sounds hyperactive : no dysuria or hematuria MSK: Marked muscle wasting. Ambulatory SKIN: intact LAB Data: N/A Disposition: Inpatient hospitalization ADVANCE CARE PLANNING DISCUSSION Sakshi has been designated as medical power of assistant district attorney PLAN: 1. admit to community palliative services upon discharge 2. will need social work support upon discharge Thank you for the opportunity to participate in the care of this patient. TIME SPENT: [id number] 75 min >50% of the time spent counseling, educating and coordinating the above topics. [facility] Plan: 03/07/18 07:34 Objective: Vital Signs Temp Pulse Resp BP Pulse Ox 36.7 C 120 H 18 133/76 H 93 03/07/18 04:00 03/07/18 04:00 03/07/18 04:00 03/07/18 04:00 03/07/18 04:00 Laboratory Results 03/06/18 02:45 03/07/18 04:58 03/06/18 03/07/18 03/08/18 05:59 05:59 05:59 Intake Total 4587 4461 Output Total 500 4600 Balance 4087 -139 PT 19.3 SEC (12.0-15.0) H 03/06/18 02:45 INR 1.61 (0.83-1.16) H 03/06/18 02:45 ICD10 Worksheet Patient Problems: Problems Problem Status Onset Anorexia Acute Dehydration Acute Diarrhea Acute Malignancy Acute
[2018-03-07] MEDS: ENOXAPARIN 40 MG/0.4 ML SYR SC SCH (07:54)
[2018-03-07] MEDS: PROMETHAZINE HCL 25 MG/ML INJ IVP SCH ×3 (07:54→17:11)
[2018-03-07] MEDS ORDERED: POTASSIUM CL 10 MEQ TAB PO ONE (08:19)
[2018-03-07] MEDS ORDERED: NS W/ 20 KCl/L 1,000 ML IV SCH (08:30)
[2018-03-07] MEDS: SIMETHICONE 80 MG TAB CHEW PO SCH ×4 (09:52→19:55)
[2018-03-07] MEDS: PROMETHAZINE HCL 25 MG/ML INJ IVP PRN ×2 (09:58→20:24)
--- NOTE | 2018-03-07 11:26 | SOAPPROG ---
SOAP Progress Note Assessment/Plan: Assessment: 1. Metastatic melanoma (final results on liver biopsy) 2. Hypokalemia Pt continues to have poor appetite with nausea and vomiting. Likely due to the disseminated malignancy, though seems somewhat out of proportion to the degree of metastatic burden. Plan; - will add dex 4q6h and zofran standing to help with nausea - head CT to r/o acute intracranial hemorrhage (unlikely given normal MRI 4 days ago) - recheck LFTs - could consider TPN at some point, though would prefer to avoid given potential hepatotoxicity - could consider EGD or other GI studies - BRAF results pending - will determine initial treatment plan d/w patient and family d/w Dr. Pope 40 min spent w/ pt and in coordination of care. Subjective: pt feeling more poorly. persistent nausea/vomiting. Objective: exam: tired appearing Lungs CTAB CV RRR no MGr ABd: +Bs NT ND Ext: no edema Neuro: tired but oriented. no focal findings. gait not tested. Vital Signs Temp Pulse Resp BP Pulse Ox 36.4 C 134 H 16 106/78 96 03/07/18 08:03 03/07/18 08:03 03/07/18 08:03 03/07/18 08:03 03/07/18 08:03 Laboratory Results 03/06/18 02:45 03/07/18 04:58 03/06/18 03/07/18 03/08/18 05:59 05:59 05:59 Intake Total 4587 4461 Output Total 500 4600 450 Balance 4087 -139 -450 PT 19.3 SEC (12.0-15.0) H 03/06/18 02:45 INR 1.61 (0.83-1.16) H 03/06/18 02:45 ICD10 Worksheet Patient Problems: Problems Problem Status Onset Anorexia Acute Dehydration Acute Diarrhea Acute Malignancy Acute
[2018-03-07] MEDS: ONDANSETRON 4 MG/2 ML VIAL IVP SCH ×2 (11:49→19:31)
[2018-03-07] MEDS: DEXAMETHASONE 4 MG/ML VIAL IVP SCH ×3 (11:49→23:34)
[2018-03-07] MEDS: POTASSIUM Cl (KCl) 40 MEQ in NS 1,000 ML IV SCH ×2 (14:22→22:11)
[2018-03-07] MEDS ORDERED: ALTEPLASE 2 MG VIAL IVP PRN (15:20)
--- NOTE | 2018-03-07 17:05 | ASMTCMCOM ---
CM Note CM Note Notes: of pt requested that hospitalist complete Paid Disability papers for pt. [facility] hospitalists do not have all of the information necessary for the form; the family has been instructed to have as much filled out as necessary and then faxed in. This form has been left in front of the [address] [place] [address]'s computer and needs to be given to tomorrow's hospitalist if Dr Pope does not fill it out this evening. of pt is aware of this and will be chacking in on its progress tomorrow. Date Signed: 03/07/2018 05:05 PM Electronically Signed By:Joann Arroyo
--- NOTE | 2018-03-07 17:12 | HOSPPROG ---
Hospitalist Progress Note Assessment/Plan: 32yo M with history of stage 1 melanoma s/p excision here with 1.5 weeks of diarrhea, vomiting found to have multiple masses on imaging. 1. Metastatic malignant melanoma: Mets to bone, liver, and likely lung. Has mass in calvarium on MRI and mandible on CT. - Rather rapid progression of symptoms is concerning - Palliative care has been consulted, appreciate assistance - Awaiting molecular studies in order to determine tx options, should get back early next week 2. Diarrhea, n/v: GI PCR negative. LFTs/lipase ok. AM cortisol, TSH normal. CT shows diffuse small bowel and rectal thickening but severe symptoms seem out of proportion to these findings. - Head CT today with no acute findings to explain symptoms - Started dexamethasone - Trial marinol - Schedule zofran - Continue imodium, add lomotil PRN - Will discuss with GI tomorrow re: additional evaluation/need for endoscopy 3. Protein calorie malnutrition: Appears cachectic, BMI 22, albumin 1.5. Dietary consulted. - Holding on parenteral nutrition but may need if GI symptoms not better in next 24-48 hours 4. Coagulopathy: LFTs ok. Likely nutritional. S/p FFP for procedure. Monitor. 5. Sinus tachycardia: Due to dehydration. Continue IVF. 6. Hyponatremia: Better with isotonic fluids. Urine studies c/w combo of poor PO and SIADH. Monitor daily. 7. Electrolyte abnormalities: Due to GI losses, poor PO. Replacement protocol. Now has PICC. Social: He and have 3 young children. Will discuss resources for family with CM. VTE ppx: LMWH Diet: regular Dispo: Remain inpatient, unsafe to dc as high risk for significant dehydration and electrolyte abnormalities until tolerating PO. Subjective: Lots of emesis this AM. Also had several episodes of loose stools. Lethargic. Objective: Vital Signs Temp Pulse Resp BP Pulse Ox 36.8 C 118 H 16 114/75 94 03/07/18 17:09 03/07/18 17:09 03/07/18 17:09 03/07/18 17:09 03/07/18 17:09 Laboratory Results 03/06/18 02:45 03/07/18 04:58 03/06/18 03/07/18 03/08/18 05:59 05:59 05:59 Intake Total 4587 4461 2190 Output Total 500 4600 3400 Balance 4087 -139 -1210 PT 19.3 SEC (12.0-15.0) H 03/06/18 02:45 INR 1.61 (0.83-1.16) H 03/06/18 02:45 - Physical Exam Constitutional: cachectic, other (ill appearing) Eyes: PERRL, anicteric sclera Ears, Nose, Mouth, Throat: dry mucous membranes Cardiovascular: no murmur, rub, or gallop, tachycardia, No edema Respiratory: no respiratory distress, no rales or rhonchi, clear to auscultation Gastrointestinal: tenderness Genitourinary: no bladder fullness, no bladder tenderness, no renal bruits Skin: no rashes or abrasions, no fluctuance, no induration Musculoskeletal: other (muscle wasting) Neurologic: AAOx3 Psychiatric: not encephalopathic ICD10 Worksheet Patient Problems: Problems Problem Status Onset Anorexia Acute Dehydration Acute Diarrhea Acute Malignancy Acute
[2018-03-07] MEDS ORDERED: POTASSIUM CL 20 MEQ/15 ML UDCUP PO ONE (19:17)
[2018-03-07] MEDS: DRONABINOL 2.5 MG CAP PO SCH (19:30)
[2018-03-08] MEDS: ONDANSETRON 4 MG/2 ML VIAL IVP SCH ×3 (04:54→20:12)
[2018-03-08] MEDS: DEXAMETHASONE 4 MG/ML VIAL IVP SCH ×3 (04:56→17:31)
[2018-03-08] MEDS: LOPERAMIDE HCL 2 MG CAP PO SCH ×4 (04:59→20:13)
[2018-03-08 05:43] LABS: INR 1.79 (0.83-1.16); PROTIME(PATIENT) 20.9 SEC (12.0-15.0)
[2018-03-08] MEDS: PROMETHAZINE HCL 25 MG/ML INJ IVP SCH ×3 (08:34→16:20)
[2018-03-08] MEDS: DRONABINOL 2.5 MG CAP PO SCH ×2 (08:34→20:13)
[2018-03-08] MEDS: ENOXAPARIN 40 MG/0.4 ML SYR SC SCH (08:34)
[2018-03-08] MEDS: SIMETHICONE 80 MG TAB CHEW PO SCH ×4 (09:17→20:28)
[2018-03-08] MEDS: POTASSIUM Cl (KCl) 40 MEQ in NS 1,000 ML IV SCH ×2 (11:31→21:34)
--- NOTE | 2018-03-08 12:18 | GCON ---
DATE OF CONSULTATION: 03/08/2018 REFERRING PHYSICIAN: Rashi Pope MD Dear Dr. Pope: Thank you for asking me to evaluate the patient for a chief complaint of chronic diarrhea. He is an unfortunate 32-year-old gentleman who was admitted to the hospital on March 03 for fatigue and diarrhea and was found to have metastatic bony lesions and liver metastases that have been biopsy proven to be malignant and metastatic melanoma. He has been having loose, watery bowel movements with nausea, loss of appetite, and generalized fatigue and malaise for many weeks. It has been worsening. His stool studies on March 04 by PCR were negative for infection. Blood cultures have also been drawn and were negative. He has not had a long-standing history of diarrhea before this illness. His laboratories have shown evidence of hypoalbuminemia that has been fairly severe, with a total protein of 2.6 and an albumin of 1.2. He does not have renal failure. CT imaging showed some mild thickening to the small bowel and colon, but no distention, with a normal caliber of the colon and small bowel. There was also some ascites. The appendix was normal. The liver revealed multiple metastatic lesions, but no biliary dilatation. The pancreas was normal. I am asked to assist with further evaluation and management of his diarrhea, anorexia, nausea, and malnutrition. PAST MEDICAL HISTORY: Significant for a melanoma and hypertension. PAST SURGICAL HISTORY: Resection of the malignant mole. FAMILY HISTORY: Negative for Crohn's, ulcerative colitis, or celiac disease. SOCIAL HISTORY: Negative for tobacco or alcohol. No substance abuse. REVIEW OF SYSTEMS: CONSTITUTIONAL: Malaise, fatigue, loss of appetite. HEENT: No neck pain. No trouble swallowing. No headache. PULMONARY: No cough or shortness of breath. CARDIOVASCULAR: No chest pain or palpitations. GI: No abdominal pain. No dysphagia. No heartburn. He has been nauseous, without vomiting. He also reports hiccups. His stools have been loose and watery and frequent. He does report they have been a bit dark green in color, and at home prior to admission, reports that maybe they were a bit greasy. No hematochezia. He has not been constipated. There has been no anal or rectal pain. HEMATOLOGIC: No bruising or epistaxis. NEUROLOGIC: No headache. No paresthesias. No visual disturbances. MUSCULOSKELETAL: He denies myalgias or arthralgias. NEURO: No paresthesias or focal motor weakness. No seizure. No syncope. RHEUMATOLOGIC: No joint pain. LYMPH: Denies adenopathy. DERMATOLOGIC: No pruritus, jaundice, or rash. MEDICATIONS: On admission include metoprolol and amlodipine. ALLERGIES: Keflex and penicillin. PHYSICAL EXAM: VITAL SIGNS: Blood pressure is 120/83. His pulse is 128. Oxygenation is 95% on room air. Respirations are 16, temperature 36.3. GENERAL : Pale and chronically ill-appearing male. Somewhat lethargic. Arousable and communicates, but again, very tired appearing. HEENT: Normocephalic, atraumatic. Mucous membranes are dry. Neck is supple. No lymphadenopathy. Sclerae anicteric. No oral thrush. PULMONARY: Clear to auscultation bilaterally. CARDIOVASCULAR: Fairly hyperdynamic, with tachycardia. There is a systolic murmur at the left sternal border. ABDOMEN: Soft, compressible. I do not appreciate any ascites. There is no tenderness, rebound or guarding. No abdominal bruit. EXTREMITIES: The right arm has a PICC line. There is swelling to the hand and to the upper extremity more so than the left. Radial and ulnar pulses are 2+ bilaterally. The brachial pulse is palpable and normal. The PICC line site looks good. SKIN: Pale. No jaundice. NEUROLOGIC : Alert to person, place, and time. Speech is again somewhat slow, and he is a bit lethargic, but appropriate. He answers questions normally. He moves all extremities appropriately, but he is very weak and tired. No asterixis that I can appreciate. LYMPH: Without adenopathy. LABORATORY DATA: Database includes the following: His white blood count is 20.4. Hematocrit is 44.5. Platelets are 357. PT is 20.9. INR is 1.79. Serology: Hepatitis B surface antigen is negative. Hepatitis B core total antibody negative. Hepatitis C antibody negative. HIV 1 and 2 are negative. Stool PCR is negative for infection. Sodium 136, potassium 4.0, chloride 115, bicarbonate 15. BUN is 25, with a creatinine of 0.9. Calcium is low at 7.3, but corrects normally with his hypoalbuminemia. Albumin is 1.2, with a total protein of 2.6. AST is 17. ALT is 23. Alkaline phosphatase is 94. Total bilirubin is 0.3. IMAGING: Includes a CT scan of the abdomen and pelvis done on March 03, 2018 , shows multiple lytic osseous lesions consistent with metastasis, multiple low- attenuation hepatic lesions suspicious for metastasis. One of these underwent an ultrasound-guided biopsy documenting melanoma. There is diffuse bowel wall thickening with trace ascites. There are prominent mesenteric lymph nodes, but not pathologically enlarged. IMPRESSION: 1. Diarrhea. 2. Nausea. 3. Anorexia. 4. Malaise. 5. Leukocytosis. 6. Coagulopathy. 7. Metastatic melanoma. 8. Right arm swelling RECOMMENDATIONS: 1. 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 This might explain his profound hypoalbuminemia. This could be causing the bowel wall thickening on CT imaging and his ascites. 2. Work toward aggressive nutritional support, and if he is not able to eat and drink enough, I would consider a Dobhoff tube for enteral feeding. For now, start TPN and after endoscopic evaluation can ADAT and consider bridge to enteral feeding if needed. 3. Upper endoscopy and flexible sigmoidoscopy for biopsy specimens to rule out things such as amyloidosis or other enteropathy that might be causing some of this. We had discussed the possibility of a full colonoscopy, but the patient does not feel like he could tolerate the prolonged fasting it would require overnight and for the day of the preparation and does not feel like he could tolerate a GoLYTELY prep. Because of this, we will do a limited evaluation of the left colon with biopsies, which would still be helpful. 4. Given his right arm swelling, I would recommend an upper extremity ultrasound to rule out an upper extremity DVT or complication from the PICC line placement. 5. We will plan for his procedures on Saturday morning 8am, with further recommendations to follow. 6. Stool for fecal elastase to help with evaluation for pancreatic insufficiency and also stool for alpha-1 antitrypsin level for protein-losing enteropathy. 7. I would recommend a urinalysis for protein to exclude a nephrotic syndrome. 8. Further recommendations to follow. /[id number]/MODL MTDD
[2018-03-08] MEDS ORDERED: HEPARIN 10,000 UNIT/10 ML MDV (1,000 UNIT/ML) IVP PRN (13:10)
[2018-03-08] MEDS ORDERED: HEPARIN 10,000 UNIT/10 ML MDV (1,000 UNIT/ML) IVP ONE (13:10)
[2018-03-08] MEDS ORDERED: HEPARIN/DEXTROSE 500 ML IV SCH (13:15)
[2018-03-08] MEDS ORDERED: D10W 1,000 ML IV PRN (13:22)
[2018-03-08 13:39] LABS: PLATELET COUNT 398 10^3/uL (150-400)
[2018-03-08 13:49] LABS: INR 2.12 (0.83-1.16); PROTIME(PATIENT) 23.8 SEC (12.0-15.0)
--- NOTE | 2018-03-08 13:59 | SOAPPROG ---
SOAP Progress Note Assessment/Plan: Assessment: Ganga is a 32-year-old male with an unfortunate diagnosis of metastatic melanoma. 1. Metastatic melanoma: BRAF mutation is pending. I explained to the family that he has a good chance of obtaining along response with immunotherapy. However, we need to optimize nutritional status and have him be able to tolerate p.o. Prior to discharge. 2. Diarrhea, poor p.o. Intake, cachexia: I appreciate gastroenterology input. I think it is reasonable to proceed with upper and lower endoscopy although it might be difficult for him to undergo preparation for the lower. I also agree with proceeding with TPN. 3. Catheter-related DVT: He clearly is a high risk for blood clots with his underlying malignancy. I would refrain from placing a new PICC in the other arm for the time being. I agree with initiating heparin and using the catheter in the interim. 03/08/18 13:53 Subjective: He had a PICC line placed and developed swelling in the right extremity fairly quickly after that. He is ambulating but only to the bathroom. He is tolerating minimal p.o. Continues to have significant nausea. ROS: A 10 point review of systems obtained was otherwise negative unless stated above. Objective: Vital Signs Temp Pulse Resp BP Pulse Ox 36.3 C 128 H 16 120/83 H 95 03/08/18 09:36 03/08/18 09:36 03/08/18 09:36 03/08/18 09:36 03/08/18 09:36 Laboratory Results 03/08/18 13:20 03/08/18 05:15 03/07/18 03/08/18 03/09/18 05:59 05:59 05:59 Intake Total 4461 5587 Output Total 4600 7300 Balance -139 -1713 PT 23.8 SEC (12.0-15.0) H 03/08/18 13:20 INR 2.12 (0.83-1.16) H 03/08/18 13:20 General: Pleasant male, thin, no acute distress, mother and for a bedside HEENT: Oropharynx is clear extra movements are intact Cardiovascular: Regular rhythm Pulmonary: Clear to auscultation bilaterally Skin: No skin lesions Abdomen: Soft nontender nondistended bowel sounds are present Extremities: Right upper extremity with single-lumen PICC with 1+ edema. Trace bilateral lower extremity edema Psych: Flat affect Neuro: Moving all extremities equally ICD10 Worksheet Patient Problems: Problems Problem Status Onset Anorexia Acute Dehydration Acute Diarrhea Acute Malignancy Acute
--- NOTE | 2018-03-08 16:42 | HOSPPROG ---
Hospitalist Progress Note Assessment/Plan: 32yo M with history of stage 1 melanoma s/p excision here with 1.5 weeks of diarrhea, vomiting found to have multiple masses on imaging. 1. Metastatic malignant melanoma: Mets to bone, liver, and likely lung. Has mass in calvarium on MRI and mandible on CT. - Rather rapid progression of symptoms is concerning - Palliative care has been consulted, appreciate assistance - Awaiting molecular studies in order to determine tx options, should get back early next week 2. RUE DVT: Involving subclavian vein. Developed <24hrs after picc placement. - Start IV heparin, keep picc in place 3. Diarrhea, n/v: GI PCR negative. LFTs/lipase ok. AM cortisol, TSH normal. CT shows diffuse small bowel and rectal thickening but severe symptoms seem out of proportion to these findings. Concern that this could be a protein-losing enteropathy somehow r/t his malignancy but overall etiology is unclear. - GI consulted, appreciate assistance - Check fecal elastase, fecal [id number] - Plan for egd and flex sig on Saturday (won't tolerate prep for colonoscopy) - Continue empiric steroids to help with appetite, nausea - Continue symptom management (imodium, anti-emetics, etc) 4. Protein calorie malnutrition: Cachectic, BMI 22, albumin 1.5. Dietary consulted. - Start TPN via PICC 5. Coagulopathy: INR rising. Suspect nutritional. Consider vit K challenge. Monitor. 6. Sinus tachycardia: Due to dehydration but also strong possibility of PE. Holding on CTA chest as won't telephone exchange operator at moment. Continue IVF. 7. Hyponatremia: Better with isotonic fluids. Urine studies c/w combo of poor PO and SIADH. Monitor daily. 8. Electrolyte abnormalities: Due to GI losses, poor PO. Replacement protocol. Now has PICC. Social: He and have 3 young children. Will discuss resources for family with CM. VTE ppx: LMWH Diet: regular Dispo: Remain inpatient, unsafe to dc as high risk for significant dehydration and electrolyte abnormalities until tolerating PO. I am concerned that he is not improving and has a severely poor nutritional status. Appreciate palliative care continuing to follow along. Subjective: Not any better. Still several loose stools. Lots of nausea and not eating. No emesis this AM. No fevers. Minimally interactive. Objective: Vital Signs Temp Pulse Resp BP Pulse Ox 36.4 C 112 H 20 119/78 93 03/08/18 15:36 03/08/18 15:36 03/08/18 15:36 03/08/18 15:36 03/08/18 15:36 Laboratory Results 03/08/18 13:20 03/08/18 05:15 03/07/18 03/08/18 03/09/18 05:59 05:59 05:59 Intake Total 4461 5587 Output Total 4600 7300 Balance -139 -1713 PT 23.8 SEC (12.0-15.0) H 03/08/18 13:20 INR 2.12 (0.83-1.16) H 03/08/18 13:20 - Physical Exam Constitutional: cachectic, other (somnolent) Eyes: PERRL, anicteric sclera, EOMI Ears, Nose, Mouth, Throat: no oral mucosal ulcers, dry mucous membranes Cardiovascular: tachycardia, edema (1+ BLE pitting edema) Respiratory: no respiratory distress, no rales or rhonchi, clear to auscultation Gastrointestinal: normoactive bowel sounds, tenderness, No distension Genitourinary: no bladder fullness, no bladder tenderness, no renal bruits Skin: no rashes or abrasions, no fluctuance, no induration Musculoskeletal: generalized weakness Neurologic: AAOx3 Psychiatric: not encephalopathic ICD10 Worksheet Patient Problems: Problems Problem Status Onset Anorexia Acute Dehydration Acute Diarrhea Acute Malignancy Acute
[2018-03-09] MEDS: DEXAMETHASONE 4 MG/ML VIAL IVP SCH ×3 (00:15→12:51)
[2018-03-09] MEDS: ONDANSETRON 4 MG/2 ML VIAL IVP SCH ×3 (04:03→20:32)
[2018-03-09 04:29] LABS: PLATELET COUNT 354 10^3/uL (150-400)
[2018-03-09 04:36] LABS: INR 2.84 (0.83-1.16); PROTIME(PATIENT) 29.7 SEC (12.0-15.0)
[2018-03-09] MEDS: POTASSIUM Cl (KCl) 40 MEQ in NS 1,000 ML IV SCH (04:36)
[2018-03-09] MEDS: LOPERAMIDE HCL 2 MG CAP PO SCH ×4 (06:23→20:32)
[2018-03-09] MEDS: ENOXAPARIN 40 MG/0.4 ML SYR SC SCH (08:06)
[2018-03-09] MEDS: PROMETHAZINE HCL 25 MG/ML INJ IVP SCH ×3 (08:10→17:32)
[2018-03-09] MEDS: SIMETHICONE 80 MG TAB CHEW PO SCH ×4 (08:55→21:00)
[2018-03-09] MEDS: DRONABINOL 2.5 MG CAP PO SCH (10:47)
--- NOTE | 2018-03-09 10:52 | SOAPPROG ---
SOAP Progress Note Assessment/Plan: Assessment: 1. Diarrhea 2. Hypoalbuminemia 3. Nausea 4. Elevated fecal calprotectin 5. New UE DVT 6. Coagulopathy Plan: 1. Suspect protein losing enteropathy or enteritis/colitis of some type 2. Proceed with EGD and flexible sigmoidoscopy tomorrow AM 3. Hold heparin 2 hours prior to procedure 4. Vit K 10mg IV now 5. Start TPN 6. 2 units FFP today. Check INR in AM. 7. Goal for INR is less then 1.5. May need additional FFP. 8. Discussed plan with patient, family and hospitalist today. 25 minutes of face to face patient time coordinating care today and answering questions. 9. NPO after midnight 10. Await additional stool studies. 03/09/18 10:49 Subjective: CC: more alert today but still very fatigued. Ongoing diarrhea. Denies fever or abdominal pain. Objective: Vital Signs Temp Pulse Resp BP Pulse Ox 36.3 C 106 H 16 126/89 H 94 03/09/18 08:40 03/09/18 08:40 03/09/18 08:40 03/09/18 08:40 03/09/18 08:40 Microbiology 03/03/18 16:43 Blood Culture - Final Blood 03/03/18 16:30 Blood Culture - Final Blood Laboratory Results 03/09/18 03:52 03/09/18 03:52 03/08/18 03/09/18 03/10/18 05:59 05:59 05:59 Intake Total 5587 3240 Output Total 7300 1000 Balance -1713 2240 PT 29.7 SEC (12.0-15.0) H 03/09/18 03:52 INR 2.84 (0.83-1.16) H 03/09/18 03:52 RU extremity U/S:occlusive DVT in subclavian and basilic veins. Physical Exam - Physical Exam General Appearance: no apparent distress, thin EENT: normal ENT inspection Neck: supple Respiratory: lungs clear Cardiac/Chest: tachycardia, No systolic murmur Abdomen: normal bowel sounds, non-tender, soft, No ascites Skin: pallor, No diaphoresis, No jaundice Lymphatic: No no adenopathy Extremities: non-tender, swelling, other (Right UE PICC line. Right arm swelling. 2+ radial and ulnar pulse. 2+ brachial pulse.) ICD10 Worksheet Patient Problems: Problems Problem Status Onset Anorexia Acute Dehydration Acute Diarrhea Acute Malignancy Acute
[2018-03-09] MEDS ORDERED: PHYTONADIONE 10 MG in NS 50 ML IV ONE (11:05)
--- NOTE | 2018-03-09 11:19 | HOSPPROG ---
Hospitalist Progress Note Assessment/Plan: 32yo M with history of stage 1 melanoma s/p excision here with 1.5 weeks of diarrhea, vomiting found to have multiple masses on imaging. 1. Metastatic malignant melanoma: Mets to bone, liver, and likely lung. - Palliative care has been consulted, appreciate assistance - Awaiting molecular studies in order to determine tx options, should get back early next week 2. PICC-associated RUE DVT: Involving subclavian. Developed <24hrs after picc placement. - On IV heparin for procedures, keep picc in place. Stop heparin at 6am tomorrow morning for procedure 3. Diarrhea, n/v: GI PCR negative. LFTs/lipase ok. AM cortisol, TSH normal. CT shows diffuse small bowel and rectal thickening. Fecal calprotectin very high. Unclear that this is related to melanoma. Query if had underlying inflammatory bowel disease that was unmasked by cancer vs protein-losing enteropathy. - GI consulted, appreciate assistance - Fecal elastase, fecal [id number] pending - Plan for egd and flex sig tomorrow, reversing coagulopathy as below. - Continue empiric steroids to help with appetite, nausea. Unfortunately this could interfere with biopsy results - Continue symptom management (imodium, anti-emetics, etc) 4. Protein calorie malnutrition: Cachectic, BMI 22, albumin 1.5. Dietary consulted. - Starting TPN via PICC today. At risk for refeeding syndrome, monitor electrolytes per protocol 5. Coagulopathy: INR rising. Suspect nutritional. - Give 2u FFP, IV vitamin K today in anticipation of procedure tomorrow. 6. Sinus tachycardia: Due to dehydration but also possibility of PE. Holding on CTA chest as won't jacket changer at moment. Continue IVF. 7. Hyponatremia: Better with isotonic fluids. Urine studies c/w combo of poor PO and SIADH. Monitor daily. 8. Electrolyte abnormalities: Due to GI losses, poor PO. Replacement protocol. Now has PICC. Social: He and have 3 young children. VTE ppx: therapeutic anticoagulation Diet: regular, TPN Code: full Dispo: Remain inpatient, unsafe to dc as high risk for significant dehydration and electrolyte abnormalities until tolerating PO. Subjective: No significant change, still with watery loose stools, vomiting, not eating. Some sips. Lethargic. Not very interactive. Objective: Vital Signs Temp Pulse Resp BP Pulse Ox 36.3 C 106 H 16 126/89 H 94 03/09/18 08:40 03/09/18 08:40 03/09/18 08:40 03/09/18 08:40 03/09/18 08:40 Microbiology 03/03/18 16:43 Blood Culture - Final Blood 03/03/18 16:30 Blood Culture - Final Blood Laboratory Results 03/09/18 03:52 03/09/18 03:52 03/08/18 03/09/18 03/10/18 05:59 05:59 05:59 Intake Total 5587 3240 Output Total 7300 1000 Balance -1713 2240 PT 29.7 SEC (12.0-15.0) H 03/09/18 03:52 INR 2.84 (0.83-1.16) H 03/09/18 03:52 - Physical Exam Constitutional: cachectic Eyes: anicteric sclera Ears, Nose, Mouth, Throat: dry mucous membranes Cardiovascular: tachycardia, edema (LUE, BLE) Respiratory: no respiratory distress, no rales or rhonchi, clear to auscultation Gastrointestinal: normoactive bowel sounds, soft, non-tender abdomen, no palpable masses Genitourinary: no bladder fullness, no bladder tenderness, no renal bruits Skin: no rashes or abrasions, no fluctuance, no induration Musculoskeletal: generalized weakness Neurologic: AAOx3, sensation intact bilaterally, other (somnolent) Psychiatric: not encephalopathic ICD10 Worksheet Patient Problems: Problems Problem Status Onset Anorexia Acute Dehydration Acute Diarrhea Acute Malignancy Acute
[2018-03-09] MEDS: LR 1,000 ML IV SCH (11:24)
--- NOTE | 2018-03-09 13:41 | SOAPPROG ---
SOAP Progress Note Assessment/Plan: Assessment: Ganga is a 32-year-old male with an unfortunate diagnosis of metastatic melanoma. 1. Metastatic melanoma: BRAF mutation is pending. I had an extensive discussion with Ganga, his and his mother that with immunotherapy could potentially have a long-term response. I explained to them that I would continue with aggressive measures to turn around his nutritional status of than we can get him to treatment. 2. Diarrhea, poor p.o. Intake, cachexia: TPN will be started today. Unclear what the cause of this enteropathy, with infectious workup being negative. Appreciate GI input. Proceeding with endoscopy tomorrow. 3. Catheter-related DVT: He clearly is a high risk for blood clots with his underlying malignancy. I would refrain from placing a new PICC in the other arm for the time being. I agree with proceeding with heparin. 03/09/18 13:40 Subjective: Her Ganga feels fairly down today. He denies any chest pain or shortness of breath. He continues to have diarrhea. Objective: Vital Signs Temp Pulse Resp BP Pulse Ox 36.5 C 107 H 16 123/76 H 93 03/09/18 12:00 03/09/18 12:00 03/09/18 12:00 03/09/18 12:00 03/09/18 12:00 Microbiology 03/03/18 16:43 Blood Culture - Final Blood 03/03/18 16:30 Blood Culture - Final Blood Laboratory Results 03/09/18 03:52 03/09/18 03:52 03/08/18 03/09/18 03/10/18 05:59 05:59 05:59 Intake Total 5587 3240 Output Total 7300 1000 Balance -1713 2240 PT 29.7 SEC (12.0-15.0) H 03/09/18 03:52 INR 2.84 (0.83-1.16) H 03/09/18 03:52 General: Thin-appearing male in no acute distress Psych: Flat affect, does not engage in conversation Cardiovascular: Regular rhythm Pulmonary: Clear to auscultation bilaterally GI: Bowel sounds are present, soft nontender nondistended no hepatosplenomegaly Skin: No skin lesions Lymph: No lymphadenopathy Neuro: Moving all extremities ICD10 Worksheet Patient Problems: Problems Problem Status Onset Anorexia Acute Dehydration Acute Diarrhea Acute Malignancy Acute
[2018-03-09 19:00] LABS: INR 1.36 (0.83-1.16); PROTIME(PATIENT) 16.9 SEC (12.0-15.0)
[2018-03-09] MEDS ORDERED: POTASSIUM CL 10 MEQ TAB PO ONE (20:28)
[2018-03-09] MEDS ORDERED: POTASSIUM Cl (KCl) 100 ML IV SCH (21:00)
[2018-03-09] MEDS: TPN 1 EA BAG IV SCH (21:39)
[2018-03-10] MEDS: PROMETHAZINE HCL 25 MG/ML INJ IVP PRN ×2 (00:06→21:51)
[2018-03-10] MEDS: LR 1,000 ML IV SCH (00:11)
[2018-03-10] MEDS: ONDANSETRON 4 MG/2 ML VIAL IVP SCH ×3 (03:54→18:42)
[2018-03-10 05:34] LABS: INR 1.18 (0.83-1.16); PROTIME(PATIENT) 15.2 SEC (12.0-15.0)
[2018-03-10 05:39] LABS: PLATELET COUNT 245 10^3/uL (150-400)
[2018-03-10] MEDS: LOPERAMIDE HCL 2 MG CAP PO SCH ×4 (06:05→22:18)
[2018-03-10] MEDS ORDERED: NS 1,000 ML IV ONE (08:14)
[2018-03-10] MEDS ORDERED: NALOXONE HCL 0.4 MG/ML INJ IVP PRN (08:25)
[2018-03-10] MEDS ORDERED: NS 500 ML IV PRN (08:25)
[2018-03-10] MEDS ORDERED: ONDANSETRON 4 MG/2 ML VIAL IVP PRN (08:25)
[2018-03-10] MEDS ORDERED: fentaNYL 100 MCG/2 ML INJ IVP PRN (08:25)
[2018-03-10] MEDS ORDERED: ALBUTEROL 3 ML DEYVIAL IH PRN (08:25)
--- NOTE | 2018-03-10 08:25 | PDANEPAE ---
ANE History of Present Illness here for EGD flex sig ANE Past Medical History - Cardiovascular History Hx Hypertension: Yes Hx Arrhythmias: No Hx Chest Pain: No Hx Coronary Artery / Peripheral Vascular Disease: No Hx CHF / Valvular Disease: No Hx Palpitations: No - Pulmonary History Hx COPD: No Hx Asthma/Reactive Airway Disease: No Hx Recent Upper Respiratory Infection: No Hx Oxygen in Use at Home: No Hx Sleep Apnea: No Sleep Apnea Screening Result - Last Documented: Positive - Endocrine History Hx Diabetes: No Hypothyroid: No Hyperthyroid: No Obesity: no - Renal History Hx Renal Disorders: No - Liver History Hx Hepatic Disorders: Yes Hepatic History Comment: metastic melanoma to liver - Cancer History Hx Cancer: Yes Cancer History Comment: metastatic melanoma - Congenital Disorder History Hx Congenital Disorders: Yes - GI History Hx Gastrointestinal Disorders: Yes ANE Review of Systems Review of systems is: negative Review of Systems: - Exercise capacity Exercise capacity: <4 METS ANE Patient History - Allergies Allergies/Adverse Reactions: cephalexin monohydrate [From Keflex] Allergy (Unknown, Verified 11/04/15 17:18) Unknown Penicillins Allergy (Unknown, Verified 11/04/15 17:18) Unknown adhesive Allergy (Verified 03/03/18 12:54) - Home Medications Home Medications: Metoprolol Succinate Xr [Toprol Xl 100 mg (*)] 100 mg PO DAILY 03/03/18 [Last Taken Unknown] amLODIPine BESYLATE [Norvasc 5 mg (*)] 5 mg PO DAILY 03/03/18 [Last Taken Unknown] - NPO status NPO Since - Liquids (Date): 03/09/18 NPO Since - Liquids (Time): 00:00 NPO Since - Solids (Date): 03/09/18 NPO Since - Solids (Time): 08:11 - Smoking Hx Smoking Status: Never smoked - Alcohol Use Alcohol Use: Occasionally ANE Labs/Vital Signs - Labs Result Diagrams: 03/10/18 04:43 03/10/18 04:43 - Vital Signs Vital Signs: reviewed preoperatively; see RN documention for details Blood Pressure: 125/81 Heart Rate: 97 Respiratory Rate: 16 O2 Sat (%): 97 Height: 187.96 cm Weight: 77.7 kg ANE Physical Exam - Airway Neck exam: FROM Mallampati Score: Class 1 - Pulmonary Pulmonary: no respiratory distress - Cardiovascular Cardiovascular: regular rate and rhythym - ASA Status ASA Status: III ANE Anesthesia Plan Anesthesia Plan: GA with mask
[2018-03-10] MEDS ORDERED: PROPOFOL/EMULSION 500 MG/50 ML BOTTLE IV ONE (08:53)
--- NOTE | 2018-03-10 09:19 | GIREPORT ---
[facility] Surgical Services - Endoscopy Department Patient Name: Ganga Dejesus Procedure Date: 03/10/2018 7:29 AM Patient Type: Inpatient Attending MD/ ER Physician: Sharath Wilder MD Procedure: Upper GI endoscopy Indications: Abnormal CT of the GI tract, Anorexia, Nausea Providers: Sharath Wilder MD Medicines: Propofol per Anesthesia Complications: No immediate complications. Description of Procedure: After obtaining informed consent, the endoscope was passed under direct vision. Throughout the procedure, the patient's blood pressure, pulse, and oxygen saturations were monitored continuously. The Endoscope was intro duced through the mouth, and advanced to the second part of duodenum. The [facility] er GI endoscopy was accomplished without difficulty. The patient tolerated th e procedure well. Findings: The esophagus was normal. Diffuse severe mucosal changes characterized by congestion, discolorati on, granularity and nodularity were found in the entire examined stomach. Biopsies were taken with a cold forceps for histology. Diffuse severe mucosal changes characterized by erythema, flattening, friability (with contact bleeding), granularity and nodularity were fou nd in the entire duodenum. Biopsies were taken with a cold forceps for histol ogy. Estimated Blood Loss: Estimated blood loss: none. Post Op Diagnosis: - Normal esophagus. - Congested, discolored, granular and nodular mucosa in the stomach. Biopsied. - Mucosal changes in the duodenum. Biopsied. - The impression from the upper endoscopy is for a diffuse mucosal proc ess that is likely causing his symptoms. This may be lymphoma or other infiltrative problem like amyloidosis. Recommendation: - Await pathology results. - Perform a colonoscopy today. - [facility]. - Continue present medications. - Oral intake as tolerated. - BID PPI - Continue TPN - Resume heparin now. - Thank you for allowing me to be involved in the care of your patient. Attending Participation: I personally performed the entire procedure without the assistance of a fellow, resident or surg ical it administrative assistant. Sharath Wilder MD Sharath Wilder MD 03/10/2018 9:18:51 AM This report has been signed electronicallyDavid MD Meño Number of Addenda: 0 Note Initiated On: 03/10/2018 7:29 AM [email or web address]
--- NOTE | 2018-03-10 09:40 | GIREPORT ---
[facility] Surgical Services - Endoscopy Department Patient Name: Ganga Dejesus Procedure Date: 03/10/2018 7:29 AM Patient Type: Inpatient Attending MD/ ER Physician: Sharath Wilder MD Procedure: Colonoscopy Indications: Chronic diarrhea, Abnormal CT of the GI tract Providers: Sharath Wilder MD Medicines: Propofol per Anesthesia Complications: No immediate complications. Description of Procedure: After obtaining informed consent, the scope was passed under direct vis ion. Throughout the procedure, the patient's blood pressure, pulse, and oxyg en saturations were monitored continuously. The Colonoscope was introduced through the anus and advanced to the terminal ileum. After obtaining informed consent, the scope was passed under direct vision. Throughout the procedure, the patient's blood pressure, pulse, and oxygen saturations were monitored continuously.The colonoscopy was performed without difficulty . The patient tolerated the procedure well. The quality of the bowel preparat ion was good. The terminal ileum, ileocecal valve, appendiceal orifice, and rectum were photographed. Findings: The digital rectal exam findings include non-thrombosed external hemorrhoids. Pertinent negatives include normal sphincter tone, no palp able rectal lesions and normal prostate (size, shape, and consistency). The terminal ileum appeared normal. Biopsies were taken with a cold for ceps for histology. A diffuse area of mildly congested and erythematous mucosa was found in the entire colon. Biopsies were taken with a cold forceps for histology. Estimated Blood Loss: Estimated blood loss was minimal. Post Op Diagnosis: - Non-thrombosed external hemorrhoids found on digital rectal exam. - The examined portion of the ileum was normal. Biopsied. - Congested and erythematous mucosa in the entire examined colon. Biops ied. - I do not feel the endoscopic findings from today's colonoscopy explai n his symptoms. I feel it is most consistent with edema (colopathy) related t o hypoalbuminemia. - The predominant abnormalities are on his EGD today (see report) and a re more diagnostically helpful (and abnormal). Recommendation: - Await pathology results. - Resume Heparin at full dose without bolus - Proceed with TPN - Bilteral lower extremity U/S and Bilateral UE U/S to better define hi s clot burden given the edema of his extremities on exam and known Right UE DVT. - Repeat colonoscopy is not recommended for surveillance. - Return patient to [facility] for ongoing care. - Thank you for allowing me to be involved in the care of your patient. Attending Participation: I personally performed the entire procedure without the assistance of a fellow, resident or surg ical anesthesiologists' assistant. Sharath Wilder MD Sharath Wilder MD 03/10/2018 9:39:08 AM This report has been signed electronicallyDavid MD Meño Number of Addenda: 0 Note Initiated On: 03/10/2018 7:29 AM Total Procedure Duration Time 0 hours 12 minutes 47 seconds [email or web address]
--- NOTE | 2018-03-10 10:26 | SOAPPROG ---
SOAP Progress Note Assessment/Plan: Assessment: Ganga is a 32-year-old male with an unfortunate diagnosis of metastatic melanoma. 1. Metastatic melanoma: BRAF mutation is pending. We again discussed today with his and mother the course of action. I explained to them that if we cannot obtain enteral feeding that I would prefer to initiate him with immunotherapy soon as possible. We will discuss if that is feasible on an inpatient basis. 2. Diarrhea, poor p.o. Intake, cachexia: He currently is receiving TPN. He did have an endoscopy that demonstrated thickening within the duodenum. Biopsies were obtained and will be pending likely back next week. 3. Catheter-related DVT: He previously is receiving heparin. Can transition to Lovenox given no further procedures planned for the time being. 03/10/18 10:25 Subjective: Currently in endoscopy. Family is at bedside. Objective: Vital Signs Temp Pulse Resp BP Pulse Ox 36.3 C 97 14 136/75 H 97 03/10/18 09:39 03/10/18 08:25 03/10/18 10:15 03/10/18 10:15 03/10/18 10:15 Microbiology 03/03/18 16:43 Blood Culture - Final Blood 03/03/18 16:30 Blood Culture - Final Blood Laboratory Results 03/10/18 04:43 03/10/18 04:43 03/09/18 03/10/18 03/11/18 05:59 05:59 05:59 Intake Total 3240 2000 300 Output Total 1000 1600 Balance 2240 400 300 PT 15.2 SEC (12.0-15.0) H 03/10/18 04:43 INR 1.18 (0.83-1.16) H 03/10/18 04:43 Patient could not be examined as he is in the endoscopy suite. ICD10 Worksheet Patient Problems: Problems Problem Status Onset Anorexia Acute Dehydration Acute Diarrhea Acute Malignancy Acute
[2018-03-10] MEDS: PROMETHAZINE HCL 25 MG/ML INJ IVP SCH ×3 (11:21→18:43)
[2018-03-10] MEDS ORDERED: D50W 25 GM/50 ML SYR IVP PRN (11:24)
[2018-03-10] MEDS: ENOXAPARIN 80 MG/0.8 ML SYR SC SCH ×2 (11:25→22:28)
[2018-03-10] MEDS: SIMETHICONE 80 MG TAB CHEW PO SCH ×4 (11:27→21:00)
[2018-03-10] MEDS ORDERED: K PHOS 10 MMOL in D5W 250 ML IV ONE (12:00)
--- NOTE | 2018-03-10 12:24 | POSTANESTH ---
Post Anesthetic Evaluation Cardiovascular Status: Normal, Stable Respiratory Status: Normal, Stable Level of Consciousness/Mental Status: Can Participate in Eval Pain Control: Adequate, Prn Tx Ordered Nausea/Vomiting Control: Adequate, Prn Tx Ordered Complications Possibly Related to Anesthesia: None Noted
[2018-03-10] MEDS: INSULIN LISPRO 100 UNIT/ML SC SCH ×2 (12:46→18:44)
--- NOTE | 2018-03-10 12:59 | HOSPPROG ---
Hospitalist Progress Note Assessment/Plan: # metastatic melanoma - BRAF mutation pending # diffuse upper GI mucosal process - biopsy pending - cont TPN # PICC associated DVT - cont lovenox - check bilat UE and LE US Subjective: s/p EGD and colonoscopy today; no abd pain Objective: Vital Signs Temp Pulse Resp BP Pulse Ox 37.2 C 95 18 133/77 H 95 03/10/18 12:10 03/10/18 12:10 03/10/18 12:10 03/10/18 12:10 03/10/18 12:10 Microbiology 03/03/18 16:43 Blood Culture - Final Blood 03/03/18 16:30 Blood Culture - Final Blood Laboratory Results 03/10/18 04:43 03/10/18 04:43 03/09/18 03/10/18 03/11/18 05:59 05:59 05:59 Intake Total 3240 2000 300 Output Total 1000 1600 Balance 2240 400 300 PT 15.2 SEC (12.0-15.0) H 03/10/18 04:43 INR 1.18 (0.83-1.16) H 03/10/18 04:43 chart reviewed discussed with Dr Wilder and José Miguel CT reviewed - Physical Exam Constitutional: uncomfortable Cardiovascular: regular rate and rhythym, no murmur, rub, or gallop Respiratory: no respiratory distress, no rales or rhonchi, clear to auscultation Gastrointestinal: soft, non-tender abdomen, no palpable masses, No guarding, No rebound ICD10 Worksheet Patient Problems: Problems Problem Status Onset Malignancy Acute Diarrhea Acute Anorexia Acute Dehydration Acute
--- NOTE | 2018-03-10 17:02 | ASMTCMCOM ---
CM Note CM Note Notes: Patient plan of care reviewed in am rounds. He is undergoing EGD for nausea and diarrhea. Met with his regarding paid disability paperwork. CM faxed in paperwork and verified fax receipt. Patient is not medically ready for discharge. Family is connected to " [facility]" and has good support from friends and community. CM to follow for needs. Plan: TBD Date Signed: 03/10/2018 05:02 PM Electronically Signed By:Cira Wellington RN
[2018-03-10] MEDS: TPN 1 EA BAG IV SCH (22:23)
[2018-03-11] MEDS: LR 1,000 ML IV SCH ×2 (03:03→15:40)
[2018-03-11] MEDS: ONDANSETRON 4 MG/2 ML VIAL IVP SCH ×3 (03:04→20:34)
[2018-03-11 03:56] LABS: PLATELET COUNT 216 10^3/uL (150-400)
[2018-03-11 04:07] LABS: INR 1.11 (0.83-1.16); PROTIME(PATIENT) 14.5 SEC (12.0-15.0)
[2018-03-11] MEDS: LOPERAMIDE HCL 2 MG CAP PO SCH ×4 (06:36→20:34)
[2018-03-11] MEDS: INSULIN LISPRO 100 UNIT/ML SC SCH ×3 (07:29→19:39)
[2018-03-11] MEDS: PROMETHAZINE HCL 25 MG/ML INJ IVP SCH ×3 (07:30→17:53)
[2018-03-11] MEDS: SIMETHICONE 80 MG TAB CHEW PO SCH ×4 (08:22→20:34)
[2018-03-11] MEDS: ENOXAPARIN 80 MG/0.8 ML SYR SC SCH ×2 (08:22→20:33)
--- NOTE | 2018-03-11 13:29 | HOSPPROG ---
Hospitalist Progress Note Assessment/Plan: # metastatic melanoma - BRAF mutation pending - considering treatment with nivolumab here # herpes labialis - acv IV started today # diffuse upper GI mucosal process - biopsy pending - cont TPN # PICC associated DVT - cont lovenox Subjective: c/o mouth sores today; otherwise ongoing diarrhea, no emesis x 2 days Objective: Vital Signs Temp Pulse Resp BP Pulse Ox 36.4 C 116 H 16 126/73 H 93 03/11/18 11:44 03/11/18 11:47 03/11/18 11:44 03/11/18 11:47 03/11/18 11:44 Laboratory Results 03/11/18 03:38 03/11/18 03:38 03/10/18 03/11/18 03/12/18 05:59 05:59 05:59 Intake Total 1999 3229 850 Output Total 1600 1200 2250 Balance 400 2029 -1400 PT 14.5 SEC (12.0-15.0) 03/11/18 03:38 INR 1.11 (0.83-1.16) 03/11/18 03:38 high risk requiring ongoing TPN - Physical Exam Constitutional: uncomfortable Ears, Nose, Mouth, Throat: other (candido-oral sores) Cardiovascular: regular rate and rhythym, no murmur, rub, or gallop Respiratory: no respiratory distress, no rales or rhonchi, clear to auscultation Gastrointestinal: soft, non-tender abdomen, no palpable masses, No ascites ICD10 Worksheet Patient Problems: Problems Problem Status Onset Malignancy Acute Diarrhea Acute Anorexia Acute Dehydration Acute
[2018-03-11] MEDS: ACYCLOVIR IV SCH ×2 (14:07→22:23)
[2018-03-11] MEDS: D5W IV SCH ×2 (14:07→22:23)
--- NOTE | 2018-03-11 14:11 | SOAPPROG ---
SOAP Progress Note Assessment/Plan: Assessment: Ganga is a 32-year-old male with an unfortunate diagnosis of metastatic melanoma. 1. Metastatic melanoma: BRAF mutation is pending. We again discussed today with his and other family members the coarse of action. We will await the BRAF mutation, but I explained to them that if we cannot obtain enteral feeding that I would prefer to initiate him with immunotherapy soon as possible. Will follow up with pharmacy if that's possible on an inpatient basis. 2. Diarrhea, poor p.o. Intake, cachexia: He currently is receiving TPN. He did have an endoscopy that demonstrated thickening within the duodenum. Biopsies were obtained and will be pending likely back next week. 3. Catheter-related DVT: On lovenox. 4. Herpetic eruption: On acyclovir. 03/11/18 14:11 Subjective: Overnight he developed herpetic eruption around his mouth. Since initiating TPN he has noticed some improvement in his overall energy levels. He is ambulating with assistance to the bathroom. Objective: Vital Signs Temp Pulse Resp BP Pulse Ox 36.4 C 116 H 16 126/73 H 93 03/11/18 11:44 03/11/18 11:47 03/11/18 11:44 03/11/18 11:47 03/11/18 11:44 Laboratory Results 03/11/18 03:38 03/11/18 03:38 03/10/18 03/11/18 03/12/18 05:59 05:59 05:59 Intake Total 1999 3229 850 Output Total 1600 1200 2250 Balance 400 2029 -1400 PT 14.5 SEC (12.0-15.0) 03/11/18 03:38 INR 1.11 (0.83-1.16) 03/11/18 03:38 General: Thin male, conversant, withdrawn with regards to conversation, multiple family members at bedside HEENT: Herpetic rash in noted on the lips, otherwise oropharynx is clear, extraocular movements are intact Pulmonary: Clear to auscultation bilaterally Cardiovascular: Regular rhythm no murmurs gallops or rubs Extremities: No cyanosis clubbing or edema Skin: No skin lesions Psych: Flat affect GI: Soft nontender bowel sounds are present Neuro: Moving all extremities ICD10 Worksheet Patient Problems: Problems Problem Status Onset Anorexia Acute Dehydration Acute Diarrhea Acute Malignancy Acute
--- NOTE | 2018-03-11 16:12 | ASMTCMCOM ---
CM Note CM Note Notes: Patient plan of care reviewed in am rounds. He is to start on acycolvir for presentation of an oral viral outbreak. CM contacted his insurance regarding authorization of a dose of Nivolamad. His inpatient stay has been authorized. J code request placed in file. They do not guarantee benefits. His current authorization number is [id number]. Because he remains inpatient they will not create another authorization at this time. We can fax medical updates to [phone]. CM to follow for needs. Plan: To be determined. Date Signed: 03/11/2018 04:12 PM Electronically Signed By:Cira Wellington RN
[2018-03-11] MEDS ORDERED: K PHOS 10 MMOL in D5W 250 ML IV ONE (18:00)
[2018-03-11] MEDS ORDERED: LORazepam 2 MG/ML INJ ONE (18:22)
[2018-03-11] MEDS ORDERED: LORazepam 2 MG/ML INJ IVP ONE (18:30)
[2018-03-11] MEDS: TPN 1 EA BAG IV SCH (20:35)
--- NOTE | 2018-03-11 22:22 | HOSPPROG ---
Hospitalist Progress Note Assessment/Plan: Cross cover: CAlled on STAT call to patients bedside for increased HR. Nursing notes heart rate had been in low 100-130s all day but now increased to 150s. BP stable, patient noted to be shaking. Per patient he became very anxious immediately before the heart rate went up and that he is prone to anxiety attacks. He has had issues with shaking when very anxious. Ativan improved sxs though his HR stayed high. Labs sent including lactate--wnl, wbc trending down. ECG reviewed notable for sinus tach. CXR ordered with mild haziness, ? pneumonitis. Patient appears dry and anxious on exam. Given 1L Ns bolus, started prn ativan for possible anxiety attack. Blood cultures sent. With associated hypoxia and persistent tachycardia in setting of known malignancy, concerning for possible PE as well. Will obtain CTA given ongoing tachycardia, new onset hypoxia and unclear etiology. > 35 min critical care time spent in response to STAT team, interpretation of labs/ecg/imaging and coordination with nursing other MD Objective: Vital Signs Temp Pulse Resp BP Pulse Ox 36.7 C 141 H 19 105/69 94 03/11/18 20:49 03/11/18 19:59 03/11/18 19:59 03/11/18 19:59 03/11/18 19:59 Laboratory Results 03/11/18 03:38 03/11/18 03:38 03/10/18 03/11/18 03/12/18 05:59 05:59 05:59 Intake Total 19999 850 Output Total 1600 1200 3350 Balance 400 2029 -2500 PT 14.5 SEC (12.0-15.0) 03/11/18 03:38 INR 1.11 (0.83-1.16) 03/11/18 03:38 ICD10 Worksheet Patient Problems: Problems Problem Status Onset Malignancy Acute Diarrhea Acute Anorexia Acute Dehydration Acute
[2018-03-11] MEDS ORDERED: IOPAMIDOL (ISOVUE 370) 100 ML BTL IV ONE (22:52)
[2018-03-11] MEDS ORDERED: IOPAMIDOL (ISOVUE-300) 100 ML BTL ONE (22:55)
[2018-03-12] MEDS: ONDANSETRON 4 MG/2 ML VIAL IVP SCH ×3 (03:26→21:02)
[2018-03-12] MEDS: D5W IV SCH ×2 (05:52→15:18)
[2018-03-12] MEDS: ACYCLOVIR IV SCH ×2 (05:52→15:18)
[2018-03-12] MEDS: LOPERAMIDE HCL 2 MG CAP PO SCH ×4 (05:52→21:08)
[2018-03-12 06:43] LABS: PLATELET COUNT 151 10^3/uL (150-400)
[2018-03-12] MEDS ORDERED: CALCIUM GLUCONATE 50 ML IV ONE (07:30)
[2018-03-12] MEDS ORDERED: CALCIUM GLUCONATE 1 GM in D5W 50 ML IV ONE (07:30)
[2018-03-12] MEDS: PROMETHAZINE HCL 25 MG/ML INJ IVP SCH ×2 (07:41→13:22)
[2018-03-12] MEDS: LORazepam 2 MG/ML INJ IVP PRN (08:30)
[2018-03-12] MEDS: ENOXAPARIN 80 MG/0.8 ML SYR SC SCH ×2 (10:17→21:06)
[2018-03-12] MEDS: INSULIN LISPRO 100 UNIT/ML SC SCH ×2 (13:21→18:33)
[2018-03-12] MEDS: SIMETHICONE 80 MG TAB CHEW PO SCH ×4 (13:22→21:07)
--- NOTE | 2018-03-12 13:39 | HOSPPROG ---
Hospitalist Progress Note Assessment/Plan: #G+ Cocci in Cluster Bacteremia vs Sepsis, source unclear #Tachycardia #Dehydration # metastatic melanoma - BRAF mutation pending - considering treatment with nivolumab here # herpes labialis - acv IV #Nausea # diffuse upper GI mucosal process - biopsy pending - cont TPN # PICC associated DVT - cont lovenox Called to bedside stat due to Tachycardia and Nausea. The pt appears very dry. He was started on IV Hydration. BC'x from yesterday show possible bacteremia per above. Will start Vancomycin while awaiting further w/u. He denies any resp issues. He denies any abd pain, flank pain, or urinary sx's He was seen again after bolus IVF and Vital signs are better. He does report that he has been on Metoprolol for HTN and possible Tachycardia as an outpatient. His tachycardia is likely from dehydration and infection but can also be due to chronic tachycardia of unspecified etiology. For now, I will not restart his home BB and determine HR response to abx and fluids first Stop Phenergan D/W nursing, pharmacy, palliative care, family, patient total CCT spent on this pt with tachycardia and likely active infection is 50 minutes Subjective: called to bedside urgently. no cp or sob. afebrile Objective: Vital Signs Temp Pulse Resp BP Pulse Ox 36.8 C 122 H 16 102/62 95 03/12/18 12:37 03/12/18 13:28 03/12/18 13:28 03/12/18 13:28 03/12/18 13:28 Laboratory Results 03/12/18 05:55 03/12/18 05:55 03/11/18 03/12/18 03/13/18 05:59 05:59 05:59 Intake Total 3229 2900 Output Total 1200 5650 800 Balance 2028 -2750 -800 PT 14.5 SEC (12.0-15.0) 03/11/18 03:38 INR 1.11 (0.83-1.16) 03/11/18 03:38 - Physical Exam Constitutional: no apparent distress Eyes: PERRL, EOMI Ears, Nose, Mouth, Throat: hearing normal, dry mucous membranes Cardiovascular: tachycardia, No edema Respiratory: no respiratory distress, clear to auscultation Gastrointestinal: normoactive bowel sounds, soft, non-tender abdomen Skin: warm Musculoskeletal: full muscle strength Neurologic: AAOx3 Lymph, Heme, Immunologic: No petechiae ICD10 Worksheet Patient Problems: Problems Problem Status Onset Anorexia Acute Dehydration Acute Diarrhea Acute Malignancy Acute
[2018-03-12] MEDS ORDERED: NS 500 ML IV ONE (13:41)
--- NOTE | 2018-03-12 13:42 | ASMTCMCOM ---
CM Note CM Note Notes: Patient reviewed in rounds. 32 year old male with metastatic melenoma. He had a stat call this am due to tachycardia. Spoke with his and re-faxed his disability paper work per her request . She is also seeking [employer] support to seek a second opinion. [facility] following and [facility]" is involves as well. Needs remain indeterminant at present. On TPN for nutritional support. Plan: TBD Date Signed: 03/12/2018 01:41 PM Electronically Signed By:Cira Wellington RN
--- NOTE | 2018-03-12 14:01 | CPEKG ---
Test Reason : OPEN Blood Pressure : / mmHG Vent. Rate : 182 BPM Atrial Rate : 180 BPM P-R Int : 106 ms QRS Dur : 094 ms QT Int : 310 ms P-R-T Axes : 083 -71 121 degrees QTc Int : 540 ms Poor quality data, interpretation may be affected Sinus tachycardia can not exclude long r-p tachycardia/atrial flutter Confirmed by Gabriel Osorio ([id number]) on 03/12/2018 2:01:18 PM Referred By: Confirmed By:Gabriel Osorio
--- NOTE | 2018-03-12 14:02 | CPEKG ---
Test Reason : OPEN Blood Pressure : / mmHG Vent. Rate : 182 BPM Atrial Rate : 180 BPM P-R Int : 106 ms QRS Dur : 094 ms QT Int : 310 ms P-R-T Axes : 083 -71 121 degrees QTc Int : 540 ms Poor quality data, interpretation may be affected Sinus tachycardia can not exclude long r-p tachycardia/atrial flutter Confirmed by Gabriel Osorio ([id number]) on 03/12/2018 2:01:51 PM Referred By: Confirmed By:Gabriel Osorio
[2018-03-12] MEDS: LR 1,000 ML IV SCH (15:22)
[2018-03-12] MEDS: VANCOMYCIN 1.25 GM in NS 250 ML IV SCH (16:15)
--- NOTE | 2018-03-12 16:17 | PDPCPN ---
Palliative Care Progress Note Assessment/Plan: Assessment: [facility] [address] [place] [phone] (O) [phone](F) PALLIATIVE CARE NOTE NAME: Ganga Dejesus : 85, 32 VISIT TYPE: Initial LOCATION: On license of [facility] LEVEL OF CARE: Hospice eligible DIAGNOSES: 1. Metastatic melanoma CC: Initial palliative care visit HPI: Mister Dejesus is a 32-year-old male who was diagnosed in 2016 with stage I melanoma. He had wide excision with clean margins at that time. He has had continued monitoring since that time. Approximately 2 weeks ago he began having intractable nausea, vomiting and diarrhea. He sought medical care and was admitted to the inpatient unit at [facility] of [facility]. Scans were completed and he was found to have multiple sites of metastases including bone liver lung and a calvarial mass. A liver biopsy has been completed which is positive for melanoma. Molecular studies are pending at this time. His scan also indicated diffuse thickening of his bowel. His nausea vomiting and diarrhea have persisted despite antiemetics and antidiarrheal medications. PMH: As above ALLERGIES: FAMILY HISTORY: SOCIAL HISTORY: Lives in [facility] with his and 3 children. 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 Control of his nausea vomiting and diarrhea 2. Start treatment ACTIVE SYMPTOMS/ASSESSMENTS/RECOMMENDATIONS: 1. Metastatic melanoma: C 34.9: Await molecular studies to determine first- line therapy. 2. Nausea/vomiting R 11: Would encourage use of promethazine for nausea and vomiting. Would recommend GI consult for possible endoscopy to further determine the cause of nausea and vomiting. 3. Diarrhea R 19.7: Continue current regimen. 4. Protein calorie malnutrition E 46: Dietary consult. Would consider TPN with his marked hypoalbuminemia. MODIFIED [place] SYMPTOM ASSESSMENT SCALE: 0-none; 1-3 mild; 4-6 moderate; 7-10 severe Unable to Respond: No [ ] Delirium: 0-none Depression: 0-none Anxiety: 3 Tiredness (fatigue): 5 Drowsiness (sleepiness): 0-none Pain: 0-none Nausea: 0-none Anorexia: 0-none Shortness of Breath: 0-none Secretions: 0-none Constipation: 0-none Symptom and side effect management: (acceptable to patient and family) RISK FACTORS FOR RE-HOSPITALIZATION: o CAREGIVER ANXIETY o DISEASE EDUCATION DEFICIT OBJECTIVE FINDINGS Palliative Performance Score: 70 FAST: Not applicable NYHA: n/a Vital Signs: Wt: MAC: Neuro: A&O to person, place, time and event HEENT: Normocephalic; atraumatic RESP: Regular, deep, symmetrical. No cough or wheezing CV: no LE edema GI: soft, round bowel sounds hyperactive : no dysuria or hematuria MSK: Marked muscle wasting. Ambulatory SKIN: intact LAB Data: N/A Disposition: Inpatient hospitalization ADVANCE CARE PLANNING DISCUSSION Sakshi has been designated as medical power of research attorney PLAN: 1. admit to community palliative services upon discharge 2. will need social work support upon discharge Thank you for the opportunity to participate in the care of this patient. TIME SPENT: [id number] 75 min >50% of the time spent counseling, educating and coordinating the above topics. Mk Welsl ANPBC Plan: 03/07/18 07:34 Subjective: [facility] [address] [place] [phone] (O) [phone](F) PALLIATIVE CARE NOTE NAME: Ganga Dejesus : 85, 32 VISIT TYPE: Follow-up hospital palliative visit LOCATION: On license of [facility] LEVEL OF CARE: Hospice eligible DIAGNOSES: 1. Metastatic melanoma CC: Initial palliative care visit HPI: Mister Dejesus is a 32-year-old male who was diagnosed in 2016 with stage I melanoma. He had wide excision with clean margins at that time. He has had continued monitoring since that time. Approximately 3 weeks ago he began having intractable nausea, vomiting and diarrhea. He sought medical care and was admitted to the inpatient unit at [facility]. Scans were completed and he was found to have multiple sites of metastases including bone liver lung and a calvarial mass. A liver biopsy has been completed which is positive for melanoma. Molecular studies are pending at this time. His scan also indicated diffuse thickening of his bowel. His nausea vomiting and diarrhea have persisted despite antiemetics and antidiarrheal medications. He has undergone endoscopy and sigmoidoscopy and biopsies are positive for melanoma. He has been started on TPN. The plan is to move forward with immunotherapy with [employer]. He also has positive blood cultures for gram- positive cocci. PMH: As above ALLERGIES: FAMILY HISTORY: SOCIAL HISTORY: Lives in [facility] with his and 3 children. 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 Control of his nausea vomiting and diarrhea 2. Start treatment ACTIVE SYMPTOMS/ASSESSMENTS/RECOMMENDATIONS: 1. Metastatic melanoma: C 34.9: Await molecular studies to determine first- line therapy. 2. Nausea/vomiting R 11: His nausea has improved slightly. Positive biopsies for melanoma. Would recommend scheduled Haldol 1 mg every 4 hours. 3. Diarrhea R 19.7: Continue current regimen.Would recommend scheduled Haldol 1 mg every 4 hours with anticholinergic effect he may have a slight decrease in diarrhea. 4. Protein calorie malnutrition E 46: TPN has been started MODIFIED [place] SYMPTOM ASSESSMENT SCALE: 0-none; 1-3 mild; 4-6 moderate; 7-10 severe Unable to Respond: No [ ] Delirium: 0-none Depression: 0-none Anxiety: 3 Tiredness (fatigue): 5 Drowsiness (sleepiness): 0-none Pain: 0-none Nausea: 0-none Anorexia: 0-none Shortness of Breath: 0-none Secretions: 0-none Constipation: 0-none Symptom and side effect management: (acceptable to patient and family) RISK FACTORS FOR RE-HOSPITALIZATION: o CAREGIVER ANXIETY o DISEASE EDUCATION DEFICIT OBJECTIVE FINDINGS Palliative Performance Score: 70 FAST: Not applicable NYHA: n/a Vital Signs: Wt: MAC: Neuro: A&O to person, place, time and event HEENT: Normocephalic; atraumatic RESP: Regular, deep, symmetrical. No cough or wheezing CV: no LE edema GI: soft, round bowel sounds hyperactive : no dysuria or hematuria MSK: Marked muscle wasting. Ambulatory SKIN: intact LAB Data: N/A Disposition: Inpatient hospitalization ADVANCE CARE PLANNING DISCUSSION Sakshi has been designated as medical power of research attorney. Discussion today with his regarding his condition and concern for the severity of his disease. She is appropriately tearful. Continue to have discussions regarding goals of care. PLAN: 1. admit to community palliative services upon discharge 2. will need social work support upon discharge Thank you for the opportunity to participate in the care of this patient. TIME SPENT: [id number] 60 min >50% of the time spent counseling, educating and coordinating the above topics. Mk Wells [facility] Objective: Vital Signs Temp Pulse Resp BP Pulse Ox 36.8 C 123 H 16 102/60 95 03/12/18 12:37 03/12/18 14:28 03/12/18 13:28 03/12/18 14:28 03/12/18 13:28 Microbiology 03/11/18 19:41 Blood Panel (PCR) - Final Blood S.aureus Methicillin Suscept. Laboratory Results 03/12/18 05:55 03/12/18 05:55 03/11/18 03/12/18 03/13/18 05:59 05:59 05:59 Intake Total 3229 2900 Output Total 1200 5650 1300 Balance 2029 -2750 -1300 PT 14.5 SEC (12.0-15.0) 03/11/18 03:38 INR 1.11 (0.83-1.16) 03/11/18 03:38 ICD10 Worksheet Patient Problems: Problems Problem Status Onset Anorexia Acute Dehydration Acute Diarrhea Acute Malignancy Acute
--- NOTE | 2018-03-12 18:40 | SOAPPROG ---
SOAP Progress Note Assessment/Plan: Assessment: Ganga is a 32-year-old male with an unfortunate diagnosis of metastatic melanoma. 1. Metastatic melanoma: I reviewed with Ganga and his family again the course of action. I have requested Nivolumab and we have gotten approval to get this done expedited as an inpatient. I explained to him that my concern is that he might not be able to tolerate oral BRAF directed therapy if he truly does have a B PAM mutation. I recommend the time being proceeding with immunotherapy. 2. Diarrhea, poor p.o. Intake, cachexia: I reviewed with him the biopsy results that demonstrates he has metastatic melanoma affecting the gut which explains his ongoing GI symptoms. He currently is receiving TPN. 3. Catheter-related DVT: On lovenox. I would favor if at all possible leaving the PICC in place until were able to clear the MSSA. My fear is that another line would likely get clotted. One option would be to see if we could exchange the PICC line within that same arm. 4. Herpetic eruption: On acyclovir. 5. MSSA bacteremia: Appreciate ID input. Likely source is right-sided PICC. 03/12/18 18:37 Subjective: No acute events overnight. Overall he feels well. He states that his overall strength is improving while on TPN. He feels that the areas around his lips are slowly crusting over. A 12 point review systems was obtained was otherwise negative Objective: Vital Signs Temp Pulse Resp BP Pulse Ox 37.1 C 126 H 14 114/71 93 03/12/18 16:00 03/12/18 16:00 03/12/18 16:00 03/12/18 16:00 03/12/18 16:00 Microbiology 03/11/18 19:41 Blood Panel (PCR) - Final Blood S.aureus Methicillin Suscept. Laboratory Results 03/12/18 05:55 03/12/18 05:55 03/11/18 03/12/18 03/13/18 05:59 05:59 05:59 Intake Total 3229 2900 Output Total 1200 5650 1300 Balance 9 -2750 -1300 PT 14.5 SEC (12.0-15.0) 03/11/18 03:38 INR 1.11 (0.83-1.16) 03/11/18 03:38 General: Pleasant appearing male in no acute distress HEENT crusted over lesions of her bilateral lips noted. Oropharynx otherwise clear Cardiovascular: Regular rate and rhythm no murmurs gallops rubs Pulmonary: Clear to auscultation bilaterally GI: Soft nontender nondistended bowel sounds are present Extremities right-sided PICC in place with 1+ edema of the right upper extremity no sinus clubbing Neuro: Moving all extremities Psych: Flat affect Lymph nodes no appreciable lymph and not ICD10 Worksheet Patient Problems: Problems Problem Status Onset Anorexia Acute Dehydration Acute Diarrhea Acute Malignancy Acute
[2018-03-12] MEDS: valACYclovir 500 MG TAB PO SCH (21:07)
[2018-03-12] MEDS: TPN 1 EA BAG IV SCH (22:13)
[2018-03-12] MEDS ORDERED: POTASSIUM CL 10 MEQ TAB PO ONE (22:16)
[2018-03-13] MEDS: VANCOMYCIN 1.25 GM in NS 250 ML IV SCH ×2 (04:09→15:45)
[2018-03-13] MEDS: ONDANSETRON 4 MG/2 ML VIAL IVP SCH ×3 (04:09→20:02)
[2018-03-13] MEDS: LOPERAMIDE HCL 2 MG CAP PO SCH ×4 (04:36→21:03)
[2018-03-13 04:45] LABS: PLATELET COUNT 146 10^3/uL (150-400)
[2018-03-13] MEDS: LR 1,000 ML IV SCH (06:03)
--- NOTE | 2018-03-13 06:03 | GCON ---
INFECTIOUS DISEASE CONSULTATION DATE OF CONSULTATION: 03/12/2018 REFERRING PHYSICIAN: Moe Fernandez MD REASON FOR CONSULTATION: MSSA bacteremia. HISTORY OF PRESENT ILLNESS: The patient is a 32-year-old male with a past medical history of melanoma, who was admitted on 03/03/2018, with nausea, vomiting, diarrhea, and anorexia for approximately 10 days prior to admission. He also noted a day of fever prior to presentation. The patient's initial melanoma was excised without additional therapy undertaken based on margins. Evaluation during this hospitalization included imaging, which showed findings concerning for hepatic metastases, which were confirmed by liver biopsy. Additionally, endoscopy was performed based on the persistent diarrhea and gastrointestinal symptoms, which revealed evidence of metastatic melanoma in the stomach, duodenum, and ileum. A PICC line was placed on 03/07/2018. The following day, an ultrasound was obtained, which showed evidence of PICC associated DVT affecting the right subclavian and proximal basilic vein. The patient has been treated with Lovenox based on presence of DVT. The PICC line was inserted for treatment with TPN given the patient's inability to tolerate oral intake. The patient also developed oral ulcerations consistent with oral HSV, prompting initiation of IV acyclovir yesterday due to poor oral intake. The patient had a low-grade temperature with chills yesterday, at which point in time, blood cultures were obtained. Two of 2 sets have shown growth of MSSA with cultures being positive at less than 24 hours. The patient was started empirically on vancomycin at time of positivity given prior cephalexin and penicillin allergy. Given the above findings, I am now asked to assist in his ongoing management. PAST MEDICAL HISTORY: Metastatic melanoma as above, hypertension. PAST SURGICAL HISTORY: Melanoma excision. CURRENT MEDICATIONS: Vancomycin 1.25 g IV q.12 hours, acyclovir 400 mg IV q.8 hours, Lovenox 80 mg subcutaneous twice daily, insulin sliding scale, Imodium 4 mg p.o. q.i.d., Toprol-XL 100 mg p.o. daily, Mylicon 80 mg p.o. q.h.s., TPN. ALLERGIES: Penicillin associated with rash. 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 No history of anaphylaxis to either agent. SOCIAL HISTORY: No tobacco use. Occasional alcohol use. FAMILY HISTORY: Panic attacks. REVIEW OF SYSTEMS: Outside that noted in the HPI, the remainder of 10-system review is unremarkable except for bilateral upper extremity swelling. PHYSICAL EXAMINATION: VITAL SIGNS: Temperature 37.1, heart rate 126, respiratory rate, blood pressure 114/71, oxygen saturation 93% on room air. GENERAL: Patient is chronically ill-appearing, in no acute distress. He appears nontoxic. HEENT: There is no scleral icterus, conjunctival injection, or conjunctival petechiae. Oropharynx shows diffuse ulcerations over the lips with scabbing present primarily with some erosive change present. There is no thrush. No intraoral ulceration. No nasal discharge or sinus tenderness. NECK : Supple without palpable lymphadenopathy or thyromegaly. CHEST: Clear to auscultation bilaterally without adventitious sounds. Respiratory effort is normal. CARDIOVASCULAR: Tachycardic, without murmurs, gallops, or rubs. ABDOMEN: Soft, nontender, nondistended. There is no palpable organomegaly. Bowel sounds are present. MUSCULOSKELETAL: The right upper extremity has a PICC line in place without erythema, tenderness or drainage. There is edema of the forearms bilaterally. This is pitting in nature. There is 1+ lower extremity edema bilaterally. SKIN: There are no stigmata of endocarditis. No rashes present. The skin is warm and dry to touch. NEUROLOGIC: Patient is slightly sleepy, but interacts appropriately. Cranial nerves 2-12 are grossly intact. Sensation is grossly intact. LYMPHATICS: No cervical or supraclavicular nodes. DATA REVIEWED: Laboratory data: White blood cell count 13.8, hematocrit 39.5, platelets 151, neutrophils 37%, lymphocytes 49%. Serum creatinine is 0.7, AST 20, ALT 31, alkaline phosphatase 80, bilirubin 0.3, albumin 1.2, HIV antibody negative, hepatitis C antibody negative, hepatitis B core total antibody negative. Urinalysis is negative. Blood cultures on 03/11/2018, show 2 of 2 sets with MSSA with growth being present in less than 24 hours; GI pathogen panel on 03/04/2018, is no growth, blood cultures x2 on 03/03/[address] scan of the chest shows no evidence of pulmonary emboli. IMPRESSION: Methicillin-susceptible Staphylococcus aureus bacteremia: Likely this is peripherally inserted catheter associated with concomitant deep vein thrombosis also a contributor. Complex circumstance where typically peripherally inserted catheter line would be removed in the setting of Staph aureus bacteremia, but this is complicated by need for ongoing TPN and concern that the patient is hypercoagulable related to underlying malignancy with possibility of clotting new peripherally inserted catheter line if placed in different location. The family is concerned about removal of peripherally inserted catheter line with ongoing need for TPN and potential for additional clots. This was reviewed with both Oncology and Hospitalist service with plans to, therefore, attempt to clear bacteremia without removal of peripherally inserted catheter line. It was discussed with the patient and his family that this may not be successful at which point peripherally inserted catheter line would have to be removed. Given his prior allergies to cephalexin and penicillin, will proceed with vancomycin therapy. May be feasible to challenge with beta-lactam at later point. Will repeat blood cultures on 03/14/2018, to assess for clearing of bacteremia. RECOMMENDATIONS: 1. Agree with vancomycin 1.25 g IV q.12 hours. 2. We will discontinue IV acyclovir and change to Valtrex 1 g orally twice daily given improvement in oral HSV and would like to avoid risk of nephrotoxicity associated with concomitant vancomycin and acyclovir use. 3. Repeat blood cultures on 03/14/2018, to assess for clearing of bacteremia. 4. Will retain PICC line at this point in time based on above decision making. If blood cultures fail to clear this may ultimately necessitate removal. 5. Clinical findings and plan were discussed with patient, family, Dr. Fernandez , and Dr. Venegas. Thank you for this consultation. We will continue to follow the patient with you. /[id number]/MODL MTDD
[2018-03-13] MEDS ORDERED: CALCIUM GLUCONATE 1 GM in D5W 50 ML IV ONE (07:00)
[2018-03-13] MEDS ORDERED: MAGNESIUM SULF 1 GM/DEXTROSE 100 ML IV ONE (07:00)
--- NOTE | 2018-03-13 08:24 | SOAPPROG ---
SOAP Progress Note Assessment/Plan: Assessment: Ganga is a 32-year-old male with an unfortunate diagnosis of metastatic melanoma. 1. Metastatic melanoma: BRAF mutation is currently pending. We have ordered Nivolumab for inpatient administration. I have also ordered Dabrafenib/ Trametenib through the outpatient pharmacy to have on hold in the even he is mutated. I previously explained to the family that a subset of patients can have senior living responses with immunotherapy with metastatic disease. I would recommend continuing aggressive measure for him while inpatient. 2. Diarrhea, poor p.o. Intake, cachexia: This is secondary to metastatic disease involving the intestines, which is biopsy proven. He is on TPN as he is only tolerating minimal liquids. 3. Catheter-related DVT: On lovenox. 4. Herpetic eruption: On acyclovir. 5. MSSA bacteremia: Appreciate ID input. Likely source is right-sided PICC. I would avoid placing a PICC on the left side as he likely will develop a blood clot given his hypercoagulable state, although he is on lovenox now. If possible , one consideration would be to clear his bacteremia, and then replace the PICC on the same side or place it more proximally. 03/13/18 08:16 Subjective: No acute events overnight. Clinically he feels about the same. He denies any chest pain shortness of breath. Continues have right upper extremity swelling. Ten point review systems obtained was otherwise negative. Objective: Vital Signs Temp Pulse Resp BP Pulse Ox 37 C 119 H 16 119/69 94 03/13/18 07:24 03/13/18 07:24 03/13/18 07:24 03/13/18 07:24 03/13/18 07:24 Microbiology 03/11/18 19:41 Blood Panel (PCR) - Final Blood S.aureus Methicillin Suscept. Laboratory Results 03/13/18 04:15 03/13/18 04:15 03/12/18 03/13/18 03/14/18 05:59 05:59 05:59 Intake Total 2900 1708 Output Total 5650 3600 Balance -2750 -1892 PT 14.5 SEC (12.0-15.0) 03/11/18 03:38 INR 1.11 (0.83-1.16) 03/11/18 03:38 General: Pleasant male appears in no acute distress HEENT: Crusted lesions noted on upper and lower lips Cardiovascular: Regular rhythm no murmurs gallops rubs Pulmonary: Clear to auscultation bilaterally GI: Soft nontender nondistended bowel sounds are present Extremities: Right upper extremity swelling noted trace bilateral lower extremity edema Skin: Otherwise no skin lesions Psych: Flat affect Neuro: Moving all extremities ICD10 Worksheet Patient Problems: Problems Problem Status Onset Anorexia Acute Dehydration Acute Diarrhea Acute Malignancy Acute
[2018-03-13] MEDS: INSULIN LISPRO 100 UNIT/ML SC SCH ×2 (09:01→16:09)
[2018-03-13] MEDS: ENOXAPARIN 80 MG/0.8 ML SYR SC SCH ×2 (09:33→21:03)
[2018-03-13] MEDS: ACETAMINOPHEN 325 MG TAB PO PRN ×2 (09:33→15:56)
[2018-03-13] MEDS: DIPHENOXYLATE/ATROPINE LOMOTIL 1 TAB PO PRN ×2 (09:33→18:29)
[2018-03-13] MEDS: valACYclovir 500 MG TAB PO SCH ×2 (09:34→21:03)
[2018-03-13] MEDS: SIMETHICONE 80 MG TAB CHEW PO SCH ×4 (09:34→21:03)
--- NOTE | 2018-03-13 10:51 | PCMIDPN ---
Assessment/Plan: #PICC associated MRSA bacteremia w associated DVT in R brachial vein. --continue IV vancomycin --hold off on PICC line change --repeat blood cx tomorrow morning --check vanco T tomorrow # Perioral HSV: Valacyclovir 1gm PO BID, higher dose utilized due to underlying immune compromise and young age # PCN and cephalosporin allergy: reported as previously life threatening, difficult to sort out exact reaction, with multiple other issues - do not think worthwhile to re-challenge at this point meds valtrex 1gm PO BID Vancomycin 1.25gm IV q12h, # 2 Subjective: difficult to assess any changes because so many things going on denies pain or worsening R arm swelling Objective: Vital Signs Temp Pulse Resp BP Pulse Ox 37 C 119 H 16 119/69 94 03/13/18 07:24 03/13/18 07:24 03/13/18 07:24 03/13/18 07:24 03/13/18 07:24 Microbiology 03/11/18 19:41 Blood Panel (PCR) - Final Blood S.aureus Methicillin Suscept. Laboratory Results 03/13/18 04:15 03/13/18 04:15 03/12/18 03/13/18 03/14/18 05:59 05:59 05:59 Intake Total 2900 1708 Output Total 5650 9130 670 Balance -9288 -1892 -670 - Physical Exam General Appearance: cachetic EENT: pale conjunctiva, other (Edyta oral ulceration) Respiratory: lungs clear, No accessory muscle use Cardiac/Chest: tachycardia Extremities: pedal edema, swelling (R arm) Abdomen: non-tender, soft, distended, ascites (possible) Skin: other (Faint punctate eruption upper chest wall) Neuro/Psych: alert, oriented x 3, depressed affect - Line/s RUE PICC Lines: other (Arm swollen, range of motion of hand intact, no tenderness to palpation), No drainage, No erythema - Time Spent With Patient Time Spent with Patient: greater than 35 minutes (Care coordinated with hematology/oncology, care reviewed with patient and his ) Time Spent with Patient: Greater than 35 minutes spent on this patients care, greater than 50% of time spent counseling, educating, and coordinating care regarding the above mentioned plan. ICD10 Worksheet Patient Problems: Problems Problem Status Onset Anorexia Acute Dehydration Acute Diarrhea Acute Malignancy Acute
[2018-03-13] MEDS ORDERED: NIVOLUMAB IV SCH (14:00)
[2018-03-13] MEDS ORDERED: NS IV SCH (14:00)
--- NOTE | 2018-03-13 14:02 | HOSPPROG ---
Hospitalist Progress Note Assessment/Plan: #Right sided PICC associated infection and bacteremia/MSSA #Tachycardia #Dehydration # metastatic melanoma - BRAF mutation pending - considering treatment with nivolumab here # herpes labialis - acv IV #Nausea # diffuse upper GI mucosal process - biopsy pending - cont TPN # PICC associated DVT - cont lovenox Overall appear improving since yesterday Immunotherapy per Oncology continue with Vancomycin (multiple abx allergy) he reports nausea is improving cont with antidiarrhea mgmt TPN/IVF at current rate Lovenox, treatment dose cont with current PICC noting hypercoagulable state OK to stop Tele OK to stop ISS per nurses request Subjective: no cp or sob. feels better. still with concentrated urine. afebrile Objective: Vital Signs Temp Pulse Resp BP Pulse Ox 36.8 C 127 H 17 126/76 H 97 03/13/18 12:18 03/13/18 12:18 03/13/18 12:18 03/13/18 12:18 03/13/18 12:18 Microbiology 03/11/18 19:41 Blood Panel (PCR) - Final Blood S.aureus Methicillin Suscept. Laboratory Results 03/13/18 04:15 03/13/18 04:15 03/12/18 03/13/18 03/14/18 05:59 05:59 05:59 Intake Total 2900 1708 Output Total 5650 3600 1470 Balance -2750 -1892 -1470 PT 14.5 SEC (12.0-15.0) 03/11/18 03:38 INR 1.11 (0.83-1.16) 03/11/18 03:38 - Physical Exam Constitutional: no apparent distress Eyes: PERRL, EOMI Ears, Nose, Mouth, Throat: moist mucous membranes, hearing normal Cardiovascular: tachycardia, No edema Respiratory: no respiratory distress Gastrointestinal: normoactive bowel sounds, soft, non-tender abdomen Skin: warm Neurologic: AAOx3 Psychiatric: interacting appropriately, not anxious, not encephalopathic Lymph, Heme, Immunologic: No petechiae ICD10 Worksheet Patient Problems: Problems Problem Status Onset Anorexia Acute Dehydration Acute Diarrhea Acute Malignancy Acute
--- NOTE | 2018-03-13 16:07 | PDPCPN ---
Palliative Care Progress Note Assessment/Plan: Assessment: [facility] [address] [place] [id number] (O) [phone](F) PALLIATIVE CARE NOTE NAME: Ganga Dejesus : 85, 32 VISIT TYPE: Initial LOCATION: [facility] LEVEL OF CARE: Hospice eligible DIAGNOSES: 1. Metastatic melanoma CC: Initial palliative care visit HPI: Mister Dejesus is a 32-year-old male who was diagnosed in 2016 with stage I melanoma. He had wide excision with clean margins at that time. He has had continued monitoring since that time. Approximately 2 weeks ago he began having intractable nausea, vomiting and diarrhea. He sought medical care and was admitted to the inpatient unit at [facility]. Scans were completed and he was found to have multiple sites of metastases including bone liver lung and a calvarial mass. A liver biopsy has been completed which is positive for melanoma. Molecular studies are pending at this time. His scan also indicated diffuse thickening of his bowel. His nausea vomiting and diarrhea have persisted despite antiemetics and antidiarrheal medications. PMH: As above ALLERGIES: FAMILY HISTORY: SOCIAL HISTORY: Lives in [place] with his and 3 children. 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 Control of his nausea vomiting and diarrhea 2. Start treatment ACTIVE SYMPTOMS/ASSESSMENTS/RECOMMENDATIONS: 1. Metastatic melanoma: C 34.9: Await molecular studies to determine first- line therapy. 2. Nausea/vomiting R 11: Would encourage use of promethazine for nausea and vomiting. Would recommend GI consult for possible endoscopy to further determine the cause of nausea and vomiting. 3. Diarrhea R 19.7: Continue current regimen. 4. Protein calorie malnutrition E 46: Dietary consult. Would consider TPN with his marked hypoalbuminemia. MODIFIED [place] SYMPTOM ASSESSMENT SCALE: 0-none; 1-3 mild; 4-6 moderate; 7-10 severe Unable to Respond: No [ ] Delirium: 0-none Depression: 0-none Anxiety: 3 Tiredness (fatigue): 5 Drowsiness (sleepiness): 0-none Pain: 0-none Nausea: 0-none Anorexia: 0-none Shortness of Breath: 0-none Secretions: 0-none Constipation: 0-none Symptom and side effect management: (acceptable to patient and family) RISK FACTORS FOR RE-HOSPITALIZATION: o CAREGIVER ANXIETY o DISEASE EDUCATION DEFICIT OBJECTIVE FINDINGS Palliative Performance Score: 70 FAST: Not applicable NYHA: n/a Vital Signs: Wt: MAC: Neuro: A&O to person, place, time and event HEENT: Normocephalic; atraumatic RESP: Regular, deep, symmetrical. No cough or wheezing CV: no LE edema GI: soft, round bowel sounds hyperactive : no dysuria or hematuria MSK: Marked muscle wasting. Ambulatory SKIN: intact LAB Data: N/A Disposition: Inpatient hospitalization ADVANCE CARE PLANNING DISCUSSION Sakshi has been designated as medical power of corporate associate attorney PLAN: 1. admit to community palliative services upon discharge 2. will need social work support upon discharge Thank you for the opportunity to participate in the care of this patient. TIME SPENT: [id number] 75 min >50% of the time spent counseling, educating and coordinating the above topics. Mk Wells ANPBC Plan: 03/07/18 07:34 Subjective: [facility] [address] [place] [id number] (O) [phone](F) PALLIATIVE CARE NOTE NAME: Ganga Dejesus : 85, 32 Date: 03/13/2018 VISIT TYPE: Follow-up hospital palliative visit LOCATION: [facility] LEVEL OF CARE: Hospice eligible DIAGNOSES: 1. Metastatic melanoma CC: Initial palliative care visit HPI: Mister Dejesus is a 32-year-old male who was diagnosed in 2016 with stage I melanoma. He had wide excision with clean margins at that time. He has had continued monitoring since that time. Approximately 3 weeks ago he began having intractable nausea, vomiting and diarrhea. He sought medical care and was admitted to the inpatient unit at [facility]. Scans were completed and he was found to have multiple sites of metastases including bone liver lung and a calvarial mass. A liver biopsy has been completed which is positive for melanoma. Molecular studies are pending at this time. His scan also indicated diffuse thickening of his bowel. He has undergone endoscopy and sigmoidoscopy and biopsies are positive for melanoma. He has been started on TPN. His nausea and vomiting has improved at this time. He continues to have voluminous diarrhea. The plan is to move forward with immunotherapy with Optivo. He also has positive blood cultures for gram-positive cocci. PMH: As above ALLERGIES: FAMILY HISTORY: SOCIAL HISTORY: Lives in [place] with his and 3 children. 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 Control of his nausea vomiting and diarrhea 2. Start treatment ACTIVE SYMPTOMS/ASSESSMENTS/RECOMMENDATIONS: 1. Metastatic melanoma: C 34.9: Await molecular studies to determine first- line therapy. The plan is to move forward with Optivo as he very likely would not tolerate the oral medications for the molecular mutations. 2. Nausea/vomiting R 11: His nausea has improved slightly. Positive biopsies for melanoma. 3. Diarrhea R 19.7: Continue current regimen.Would recommend scheduled Haldol 1 mg every 4 hours with anticholinergic effect he may have a slight decrease in the volume of diarrhea. 4. Protein calorie malnutrition E 46: TPN has been started MODIFIED [place] SYMPTOM ASSESSMENT SCALE: 0-none; 1-3 mild; 4-6 moderate; 7-10 severe Unable to Respond: No [ ] Delirium: 0-none Depression: 0-none Anxiety: 3 Tiredness (fatigue): 5 Drowsiness (sleepiness): 0-none Pain: 0-none Nausea: 0-none Anorexia: 0-none Shortness of Breath: 0-none Secretions: 0-none Constipation: 0-none Symptom and side effect management: (acceptable to patient and family) RISK FACTORS FOR RE-HOSPITALIZATION: o CAREGIVER ANXIETY o DISEASE EDUCATION DEFICIT OBJECTIVE FINDINGS Palliative Performance Score: 70 FAST: Not applicable NYHA: n/a Vital Signs: Wt: MAC: Neuro: A&O to person, place, time and event HEENT: Normocephalic; atraumatic RESP: Regular, deep, symmetrical. No cough or wheezing CV: no LE edema GI: soft, round bowel sounds hyperactive : no dysuria or hematuria MSK: Marked muscle wasting. Ambulatory SKIN: intact LAB Data: N/A Disposition: Inpatient hospitalization ADVANCE CARE PLANNING DISCUSSION Sakshi has been designated as medical power of corporate associate attorney. PLAN: 1. admit to community palliative services upon discharge 2. will need social work support upon discharge Thank you for the opportunity to participate in the care of this patient. TIME SPENT: [id number] 45 min >50% of the time spent counseling, educating and coordinating the above topics. Mk Wells [facility] Objective: Vital Signs Temp Pulse Resp BP Pulse Ox 36.8 C 127 H 17 126/76 H 97 03/13/18 12:18 03/13/18 12:18 03/13/18 12:18 03/13/18 12:18 03/13/18 12:18 Microbiology 03/11/18 19:41 Blood Panel (PCR) - Final Blood S.aureus Methicillin Suscept. Laboratory Results 03/13/18 04:15 03/13/18 04:15 03/12/18 03/13/18 03/14/18 05:59 05:59 05:59 Intake Total 2900 1708 350 Output Total 5650 3600 1470 Balance -2750 -1892 -1120 PT 14.5 SEC (12.0-15.0) 03/11/18 03:38 INR 1.11 (0.83-1.16) 03/11/18 03:38 ICD10 Worksheet Patient Problems: Problems Problem Status Onset Anorexia Acute Dehydration Acute Diarrhea Acute Malignancy Acute
[2018-03-13] MEDS: TPN 1 EA BAG IV SCH (20:51)
[2018-03-14] MEDS: VANCOMYCIN 1.25 GM in NS 250 ML IV SCH ×2 (03:36→17:18)
[2018-03-14] MEDS: ONDANSETRON 4 MG/2 ML VIAL IVP SCH ×3 (03:37→18:39)
[2018-03-14] MEDS: LOPERAMIDE HCL 2 MG CAP PO SCH ×4 (05:25→20:33)
[2018-03-14] MEDS: ENOXAPARIN 80 MG/0.8 ML SYR SC SCH ×2 (08:43→20:33)
[2018-03-14] MEDS: SIMETHICONE 80 MG TAB CHEW PO SCH ×4 (08:46→20:34)
[2018-03-14] MEDS: valACYclovir 500 MG TAB PO SCH ×2 (08:47→20:33)
[2018-03-14] MEDS ORDERED: MAGNESIUM SULF 1 GM/DEXTROSE 100 ML IV ONE (09:00)
[2018-03-14] MEDS ORDERED: CALCIUM GLUCONATE 1 GM in D5W 50 ML IV ONE (09:00)
--- NOTE | 2018-03-14 14:46 | HOSPPROG ---
Hospitalist Progress Note Objective: Vital Signs Temp Pulse Resp BP Pulse Ox 37.1 C 112 H 15 131/69 H 93 03/14/18 12:00 03/14/18 12:00 03/14/18 12:00 03/14/18 12:00 03/14/18 12:00 Microbiology 03/11/18 19:46 Blood Culture - Final Blood Staphylococcus Aureus 03/11/18 19:41 Blood Culture - Final Blood Staphylococcus Aureus Blood Panel (PCR) - Final S.aureus Methicillin Suscept. Laboratory Results 03/13/18 04:15 03/14/18 05:30 03/13/18 03/14/18 03/15/18 05:59 05:59 05:59 Intake Total 1708 2800 1747 Output Total 3600 4920 3600 Balance -1892 -2120 -1853 PT 14.5 SEC (12.0-15.0) 03/11/18 03:38 INR 1.11 (0.83-1.16) 03/11/18 03:38 ICD10 Worksheet Patient Problems: Problems Problem Status Onset Anorexia Acute Dehydration Acute Diarrhea Acute Malignancy Acute
--- NOTE | 2018-03-14 14:46 | SOAPPROG ---
SOAP Progress Note Assessment/Plan: Assessment: Ganga is a 32-year-old male with an unfortunate diagnosis of metastatic melanoma. 1. Metastatic melanoma: I did receive results that he is BRAF V600e mutated. I recommended initiating Dabrafenib/Trametenib which will be delivered tonight. I did review with him and his family the side effect profile including but not limited to fever, bowel perforation, skin changes, among other side effects. I explained to them I am not sure how much he will absorb given GI involvement with melanoma in his ongoing diarrhea. I explained to him that is worth trying. He did receive a dose of nivolumab developed yesterday while we are waiting for the BR AF mutation. I still think it was worthwhile to initiate immunotherapy as I am not sure how much she will tolerate oral medications let alone absorption. 2. Diarrhea, poor p.o. Intake, cachexia: This is secondary to metastatic disease involving the intestines, which is biopsy proven. He is on TPN as he is only tolerating minimal liquids. Agree with up titrating his antidiarrheals. 3. Catheter-related DVT: On lovenox. 4. Herpetic eruption: On Valtrex 5. MSSA bacteremia: Appreciate ID input. Likely source is right-sided PICC. Currently is receiving vancomycin. 6. Rash: I do not think this is secondary to immunotherapy. The most likely culprit is other medications including antibiotics. He has been on vancomycin for 2 days. He previously has a significant allergic reaction to penicillins therefore the that was avoided with his MSSA. 03/14/18 14:42 Subjective: Tolerated opdivo well yesterday. His diarrhea persists. Tolerating some liquids. He feels more energetic today. Objective: Vital Signs Temp Pulse Resp BP Pulse Ox 37.1 C 112 H 15 131/69 H 93 03/14/18 12:00 03/14/18 12:00 03/14/18 12:00 03/14/18 12:00 03/14/18 12:00 Microbiology 03/11/18 19:46 Blood Culture - Final Blood Staphylococcus Aureus 03/11/18 19:41 Blood Culture - Final Blood Staphylococcus Aureus Blood Panel (PCR) - Final S.aureus Methicillin Suscept. Laboratory Results 03/13/18 04:15 03/14/18 05:30 12/20/18 12/21/18 12/22/18 05:59 05:59 05:59 Intake Total 1708 2800 1747 Output Total 3600 7940 3600 Balance -1892 -2864 -0303 PT 14.5 SEC (12.0-15.0) 03/11/18 03:38 INR 1.11 (0.83-1.16) 03/11/18 03:38 General: Pleasant, conversant, in no acute distress HEENT: Crusted over lesions noted on both lips, extraocular movements are intact pupils equal round reactive to light Cardiovascular: Regular rhythm no murmurs gallops rubs Pulmonary: Clear to auscultation bilaterally Abdomen: Soft nontender nondistended bowel sounds are present Psych: Flat affect Neuro: Moving all extremities Extremities: 1+ edema in the right upper extremity, right-sided PICC line in place, bilateral 1+ edema in lower extremities Skin: Faint punctate lesions noted on the bilateral shoulders and chest ICD10 Worksheet Patient Problems: Problems Problem Status Onset Anorexia Acute Dehydration Acute Diarrhea Acute Malignancy Acute
--- NOTE | 2018-03-14 14:56 | HOSPPROG ---
Hospitalist Progress Note Assessment/Plan: #Right sided PICC associated infection and bacteremia/MSSA #Tachycardia #Dehydration # metastatic melanoma - BRAF mutation pending - considering treatment with nivolumab here # herpes labialis - acv IV #Nausea #Diarrhea # diffuse upper GI mucosal process - biopsy pending #SPCMN # PICC associated DVT - cont lovenox Immunotherapy per Oncology continue with Vancomycin (multiple abx allergy) he reports nausea is improving cont with antidiarrhea mgmt Start Haldol TPN/IVF at current rate Lovenox, treatment dose cont with current PICC noting hypercoagulable state Subjective: nausea is better. still with diarrhea. afebrile Objective: Vital Signs Temp Pulse Resp BP Pulse Ox 37.1 C 112 H 15 131/69 H 93 03/14/18 12:00 03/14/18 12:00 03/14/18 12:00 03/14/18 12:00 03/14/18 12:00 Microbiology 03/11/18 19:46 Blood Culture - Final Blood Staphylococcus Aureus 03/11/18 19:41 Blood Culture - Final Blood Staphylococcus Aureus Blood Panel (PCR) - Final S.aureus Methicillin Suscept. Laboratory Results 03/13/18 04:15 03/14/18 05:30 03/13/18 03/14/18 03/15/18 05:59 05:59 05:59 Intake Total 1708 2800 1747 Output Total 3600 4920 3600 Balance -1892 -2120 -1853 PT 14.5 SEC (12.0-15.0) 03/11/18 03:38 INR 1.11 (0.83-1.16) 03/11/18 03:38 - Physical Exam Constitutional: chronically ill appearing Eyes: PERRL, EOMI Ears, Nose, Mouth, Throat: moist mucous membranes, hearing normal, ears appear normal Cardiovascular: regular rate and rhythym Respiratory: no respiratory distress Gastrointestinal: normoactive bowel sounds, soft, non-tender abdomen Skin: warm Neurologic: AAOx3 Psychiatric: interacting appropriately, not anxious, not encephalopathic Lymph, Heme, Immunologic: No petechiae ICD10 Worksheet Patient Problems: Problems Problem Status Onset Anorexia Acute Dehydration Acute Diarrhea Acute Malignancy Acute
--- NOTE | 2018-03-14 15:19 | ASMTCMCOM ---
CM Note CM Note Notes: Patient plan of care reviewed in am rounds. He is likely to start immunotherapy today. He still is having profuse amounts of liquid stool. On TPN for nutrition. Supportive family and social network. Per RN taking in more orally Per pharmacy, electrolytes repleted. Being followed by [facility] and "there with Care" involved for family support CM to follow. Plan: TBD Date Signed: 03/14/2018 03:11 PM Electronically Signed By:Cira Wellington RN
--- NOTE | 2018-03-14 17:02 | PCMIDPN ---
Assessment/Plan: Assessment/Plan: * MSSA bacteremia most likely PICC associated with concomitant DVT: Repeat blood cultures performed today to assess for clearing of bacteremia. Will continue vancomycin based on prior penicillin and cephalosporin allergies. Will increase vancomycin 1.5 g IV q.12 hours based on trough value obtained today. * Oral HSV: Lesions are crusting. Continue oral Valtrex although may be limited absorption based on melanoma involvement of GI tract. * Rash: Mild maculopapular rash over upper chest, neck and upper arms which may be vancomycin related. Will continue to monitor this as is not currently limiting. If progresses, will change vancomycin to daptomycin. Clinical findings and plan reviewed with patient and family including continued followup of rash over time. 03/14/18 16:58 03/14/18 17:00 Subjective: Patient complains of feeling bloated. Continues to have diarrhea. Received dose of Nivolumab yesterday for melanoma. Objective: Vital Signs Temp Pulse Resp BP Pulse Ox 37.2 C 118 H 16 125/81 H 95 03/14/18 16:00 03/14/18 16:00 03/14/18 16:00 03/14/18 16:00 03/14/18 16:00 Microbiology 03/11/18 19:46 Blood Culture - Final Blood Staphylococcus Aureus 03/11/18 19:41 Blood Culture - Final Blood Staphylococcus Aureus Blood Panel (PCR) - Final S.aureus Methicillin Suscept. Laboratory Results 03/13/18 04:15 03/14/18 05:30 03/13/18 03/14/18 03/15/18 05:59 05:59 05:59 Intake Total 1708 2800 2097 Output Total 3600 4920 3600 Balance -1892 -2120 -1503 Vancomycin 1.25 g IV q.12 hours # 3 Valtrex 1 g p.o. Twice daily Laboratory Tests 03/14/18 14:55 Vancomycin Trough 6.7 - Physical Exam General Appearance: alert, no apparent distress EENT: other (Oral ulcerations over lips primarily scabbed), No scleral icterus, No conjunctival petechiae Respiratory: lungs clear, No respiratory distress Cardiac/Chest: tachycardia Extremities: No inflammation Abdomen: non-tender, distended Skin: rash (Fine maculopapular rash over neck, upper chest and upper arm; irritant type rash over back) Neuro/Psych: No confused - Line/s RUE PICC Lines: other (Edema distal to PICC insertion), No drainage, No erythema ICD10 Worksheet Patient Problems: Problems Problem Status Onset Anorexia Acute Dehydration Acute Diarrhea Acute Malignancy Acute
[2018-03-14] MEDS: HALOPERIDOL 1 MG TAB PO PRN (17:20)
[2018-03-14] MEDS: VANCOMYCIN 1.5 GM in D5W 250 ML IV SCH (17:20)
[2018-03-14] MEDS: DIPHENOXYLATE/ATROPINE LOMOTIL 1 TAB PO SCH (20:34)
[2018-03-14] MEDS: TPN 1 EA BAG IV SCH (20:34)
[2018-03-14] MEDS: DABRAFENIB 75 MG PO SCH (22:10)
[2018-03-14] MEDS: LR 1,000 ML IV SCH (22:11)
[2018-03-15] MEDS: ONDANSETRON 4 MG/2 ML VIAL IVP SCH ×3 (03:42→21:37)
[2018-03-15] MEDS: VANCOMYCIN 1.5 GM in D5W 250 ML IV SCH ×2 (06:18→16:32)
[2018-03-15] MEDS: LOPERAMIDE HCL 2 MG CAP PO SCH ×4 (07:44→21:42)
[2018-03-15] MEDS ORDERED: CALCIUM GLUCONATE 2 GM in D5W 50 ML IV ONE (08:30)
[2018-03-15 08:44] LABS: PLATELET COUNT 173 10^3/uL (150-400)
[2018-03-15] MEDS: DIPHENOXYLATE/ATROPINE LOMOTIL 1 TAB PO SCH ×2 (08:56→21:41)
[2018-03-15] MEDS: SIMETHICONE 80 MG TAB CHEW PO SCH ×4 (08:57→21:41)
[2018-03-15] MEDS: valACYclovir 500 MG TAB PO SCH ×2 (08:57→21:41)
[2018-03-15] MEDS: ENOXAPARIN 80 MG/0.8 ML SYR SC SCH ×2 (08:57→21:52)
[2018-03-15] MEDS: DABRAFENIB 75 MG PO SCH ×2 (10:06→21:44)
--- NOTE | 2018-03-15 14:18 | HOSPPROG ---
Hospitalist Progress Note Assessment/Plan: #Right sided PICC associated infection and bacteremia/MSSA #Tachycardia #Dehydration # metastatic melanoma - BRAF + mutation # herpes labialis #Nausea #Diarrhea # diffuse upper GI mucosal process - biopsy pending #SPCMN/Edema # PICC associated DVT - cont lovenox #Hypocalcemia Plan: Immunotherapy per Oncology continue with Vancomycin (multiple abx allergy) he reports nausea is improving cont with antidiarrhea mgmt: Scheduled Immodium and Lomotil. Haldo PRN TPN/IVF. Decrease rate Lovenox, treatment dose cont with current PICC noting hypercoagulable state Subjective: says he feels better. Less Tachycardia. no cp or sob. diarrhea is improving. Objective: Vital Signs Temp Pulse Resp BP Pulse Ox 37.1 C 112 H 16 119/75 94 03/15/18 12:29 03/15/18 12:29 03/15/18 12:29 03/15/18 12:29 03/15/18 12:29 Microbiology 03/11/18 19:46 Blood Culture - Final Blood Staphylococcus Aureus 03/11/18 19:41 Blood Culture - Final Blood Staphylococcus Aureus Blood Panel (PCR) - Final S.aureus Methicillin Suscept. Laboratory Results 03/15/18 07:50 03/15/18 07:50 03/14/18 03/15/18 03/16/18 05:59 05:59 05:59 Intake Total 2800 3966 1754 Output Total 6920 7000 600 Balance -4120 -3034 1154 PT 14.5 SEC (12.0-15.0) 03/11/18 03:38 INR 1.11 (0.83-1.16) 03/11/18 03:38 - Physical Exam Constitutional: no apparent distress, chronically ill appearing Eyes: PERRL Ears, Nose, Mouth, Throat: moist mucous membranes, hearing normal Cardiovascular: regular rate and rhythym, edema Respiratory: no respiratory distress, no rales or rhonchi, clear to auscultation Gastrointestinal: normoactive bowel sounds, soft, non-tender abdomen Skin: warm Neurologic: AAOx3 Psychiatric: interacting appropriately, not anxious, not encephalopathic Lymph, Heme, Immunologic: No petechiae ICD10 Worksheet Patient Problems: Problems Problem Status Onset Anorexia Acute Dehydration Acute Diarrhea Acute Malignancy Acute
--- NOTE | 2018-03-15 14:23 | PCMIDPN ---
Assessment/Plan: Assessment/Plan: * MSSA bacteremia most likely PICC associated with concomitant DVT: Repeat blood cultures are no growth at 24 hours and no further fever last 24 hrs. Continue vancomycin 1.5 g IV q.12 hours. Will repeat trough tomorrow. May ultimately require Q 8 hr or continuous infusion. * Oral HSV: Lesions are crusting. Continue oral Valtrex. * Rash: Less prominent today. Continue to monitor clinically. 03/15/18 14:18 Subjective: Patient started new chemotherapeutic meds for melanoma. Continues to have diarrhea. Objective: Vital Signs Temp Pulse Resp BP Pulse Ox 37.1 C 112 H 16 119/75 94 03/15/18 12:29 03/15/18 12:29 03/15/18 12:29 03/15/18 12:29 03/15/18 12:29 Microbiology 03/11/18 19:46 Blood Culture - Final Blood Staphylococcus Aureus 03/11/18 19:41 Blood Culture - Final Blood Staphylococcus Aureus Blood Panel (PCR) - Final S.aureus Methicillin Suscept. Laboratory Results 03/15/18 07:50 03/15/18 07:50 03/14/18 03/15/18 03/16/18 05:59 05:59 05:59 Intake Total 2800 3966 1754 Output Total 6920 7000 600 Balance -4120 -3034 1154 Vancomycin # 4 Blood cultures 03/14/2018 no growth to date Valtrex 1 g p.o. Twice daily - Physical Exam General Appearance: alert, no apparent distress, non-toxic EENT: other (Oral HSV crusting) Respiratory: lungs clear, No respiratory distress Cardiac/Chest: tachycardia Extremities: other (Bilateral forearm edema; no pain at PICC line insertion) Skin: rash (Rash over neck, chest and upper extremity significantly less prominent; irritant rash over back unchanged) ICD10 Worksheet Patient Problems: Problems Problem Status Onset Anorexia Acute Dehydration Acute Diarrhea Acute Malignancy Acute
--- NOTE | 2018-03-15 14:59 | SOAPPROG ---
SOAP Progress Note Assessment/Plan: E&M for Melanoma * Metastatic melanoma, BRAF mutated: Prior to the results of the testing he received 1 dose of nivolumab. He since started Dabrafenib/Trametenib last night. Thus far he seems to be tolerating treatment well but the typical side effects tend to show up about a week or 2 later. These include but not limited to fever, bowel perforation, rash. * Diarrhea, poor p.o. Intake, cachexia: This is secondary to metastatic involvement of the bowels. He seems to be having less diarrhea and starting to tolerate oral intake. Hopefully he will be able to taper off TPN over the next few days. * Catheter-related DVT: Recommend continuing low molecular weight heparin for now. Once he is able to take p.o. and it is clearly absorbing well we could consider switching him to a DOAC. * Oral Herpetic eruption: On Valtrex * MSSA bacteremia: ID is assisting with management. Source is probably right side PICC line. He is currently on vancomycin. Subjective: I saw him today in his room along with his 2 brothers. He is having more energy than he had been having before. He is starting to eat and has more of an appetite. He still has some loose stools but the volume is down about 50-75% . He denies any problems with the new oral chemotherapy. Objective: Vital Signs Temp Pulse Resp BP Pulse Ox 37.1 C 112 H 16 119/75 94 03/15/18 12:29 03/15/18 12:29 03/15/18 12:29 03/15/18 12:29 03/15/18 12:29 Microbiology 03/11/18 19:46 Blood Culture - Final Blood Staphylococcus Aureus Laboratory Results 03/15/18 07:50 03/15/18 07:50 03/14/18 03/15/18 03/16/18 05:59 05:59 05:59 Intake Total 2800 3966 1754 Output Total 6920 7000 600 Balance -4120 -3034 1154 PT 14.5 SEC (12.0-15.0) 03/11/18 03:38 INR 1.11 (0.83-1.16) 03/11/18 03:38 Physical Exam - Physical Exam General Appearance: no apparent distress, cachetic EENT: other (healing wounds on lips) Respiratory: lungs clear Cardiac/Chest: tachycardia Abdomen: normal bowel sounds, soft, distended ICD10 Worksheet Patient Problems: Problems Problem Status Onset Anorexia Acute Dehydration Acute Diarrhea Acute Malignancy Acute
[2018-03-15] MEDS: TPN 1 EA BAG IV SCH (21:52)
[2018-03-16] MEDS: ONDANSETRON 4 MG/2 ML VIAL IVP SCH ×3 (04:44→18:58)
[2018-03-16] MEDS: VANCOMYCIN 1.5 GM in D5W 250 ML IV SCH ×2 (04:45→17:28)
[2018-03-16 05:26] LABS: PLATELET COUNT 227 10^3/uL (150-400)
[2018-03-16] MEDS ORDERED: CALCIUM GLUCONATE 50 ML IV ONE (06:14)
[2018-03-16] MEDS ORDERED: CALCIUM GLUCONATE 1 GM in D5W 50 ML IV ONE (06:30)
[2018-03-16] MEDS: LOPERAMIDE HCL 2 MG CAP PO SCH ×4 (09:02→21:32)
[2018-03-16] MEDS: SIMETHICONE 80 MG TAB CHEW PO SCH ×4 (09:03→21:32)
[2018-03-16] MEDS: DIPHENOXYLATE/ATROPINE LOMOTIL 1 TAB PO SCH ×2 (09:03→21:31)
[2018-03-16] MEDS: valACYclovir 500 MG TAB PO SCH ×2 (09:03→21:31)
[2018-03-16] MEDS: ENOXAPARIN 80 MG/0.8 ML SYR SC SCH ×2 (09:04→21:31)
[2018-03-16] MEDS: DABRAFENIB 75 MG PO SCH ×2 (10:13→22:05)
--- NOTE | 2018-03-16 11:50 | SOAPPROG ---
SO[facility]AM Progress Note Assessment/Plan: E&M for Melanoma * Metastatic melanoma, BRAF mutated: Prior to the results of the testing he received 1 dose of nivolumab 03/13. He started Dabrafenib/Trametenib 03/14. He is tolerating treatment but the typical side effects, such as fever and rash tend to show up about a week or 2 later. * Diarrhea, poor p.o. Intake, cachexia: This is secondary to metastatic involvement of the bowels. Diarrhea comes and goes but may be better. Continue oral intake. Hopefully he will be able to taper off TPN over the next few days. * Catheter-related DVT: Recommend continuing low molecular weight heparin for now. Once he is able to take p.o. and it is clearly absorbing well we could consider switching him to a DOAC. * Oral Herpetic eruption: On Valtrex * MSSA bacteremia: ID is assisting with management. Source is probably right side PICC line. He is currently on vancomycin. Subjective: He still having diarrhea off and on. Overall he may be starting to feel better with little more energy. He is eating a little bit more but still small amounts scattered throughout the day. He denies any pain or worsening swelling in his right arm. He is sitting up in a chair and his brother and mother are in the room with him. Objective: Vital Signs Temp Pulse Resp BP Pulse Ox 36.8 C 111 H 18 120/75 95 03/16/18 09:37 03/16/18 09:37 03/16/18 09:37 03/16/18 09:37 03/16/18 09:37 Laboratory Results 03/16/18 04:40 03/16/18 04:40 03/15/18 03/16/18 03/17/18 05:59 05:59 05:59 Intake Total 3966 6010 Output Total 7000 5500 1000 Balance -3034 510 -1000 PT 14.5 SEC (12.0-15.0) 03/11/18 03:38 INR 1.11 (0.83-1.16) 03/11/18 03:38 Physical Exam - Physical Exam General Appearance: no apparent distress Respiratory: lungs clear Cardiac/Chest: tachycardia Abdomen: non-tender, soft ICD10 Worksheet Patient Problems: Problems Problem Status Onset Anorexia Acute Dehydration Acute Diarrhea Acute Malignancy Acute
[2018-03-16] MEDS: LR 1,000 ML IV SCH (13:33)
--- NOTE | 2018-03-16 16:31 | ASMTCMCOM ---
CM Note CM Note Notes: Patient chart reviewed. He is tolerating some foods. Energy a little better. Referral in [facility] for infusion services to [facility]. Plan: Likely home with [facility] and home infusion services. Date Signed: 03/16/2018 04:30 PM Electronically Signed By:Cira Wellington RN
[2018-03-16] MEDS: VANCOMYCIN 1.25 GM in NS 250 ML IV SCH (17:29)
[2018-03-16] MEDS ORDERED: VANCOMYCIN 1.25 GM in D5W 250 ML IV SCH (17:30)
--- NOTE | 2018-03-16 18:01 | PCMIDPN ---
Assessment/Plan: Assessment/Plan: * MSSA bacteremia most likely PICC associated with concomitant DVT: Repeat blood cultures remain no growth. Vancomycin trough at 7. Will increase vancomycin 1.25 g IV q.8 hours with goal trough 10-15. Likely will utilize continuous infusion at time of hospital discharge. * Oral HSV: Lesions crusted. Continue oral Valtrex. * Rash: Resolved. 03/16/18 17:58 Subjective: Patient ate bowl of soup earlier today. Complains of feeling fatigued. Continue diarrhea. Objective: Vital Signs Temp Pulse Resp BP Pulse Ox 36.8 C 122 H 18 146/87 H 96 03/16/18 16:00 03/16/18 16:00 03/16/18 16:00 03/16/18 16:00 03/16/18 16:00 Laboratory Results 03/16/18 04:40 03/16/18 04:40 03/15/18 03/16/18 03/17/18 05:59 05:59 05:59 Intake Total 3966 6010 400 Output Total 7000 5500 2400 Balance -3034 510 -2000 Vancomycin # 5 Blood cultures 03/14/2018 no growth to date Valtrex 1 g p.o. Twice daily Laboratory Tests 03/16/18 16:00 Vancomycin Trough 7.0 - Physical Exam General Appearance: no apparent distress, non-toxic, other (Sleepy but easily arousable) EENT: other (Oral HSV crusted), No scleral icterus, No thrush Respiratory: lungs clear, No respiratory distress Cardiac/Chest: tachycardia Extremities: other (Right upper extremity edema gradually decreasing) Abdomen: non-tender, No distended Skin: rash (Maculopapular rash over neck, upper chest and upper extremities resolved) - Line/s RUE PICC Lines: No drainage, No erythema ICD10 Worksheet Patient Problems: Problems Problem Status Onset Anorexia Acute Dehydration Acute Diarrhea Acute Malignancy Acute
--- NOTE | 2018-03-16 20:18 | HOSPPROG ---
Hospitalist Progress Note Assessment/Plan: #Right sided PICC associated infection and bacteremia/MSSA #Tachycardia #Dehydration # metastatic melanoma - BRAF + mutation # herpes labialis #Nausea #Diarrhea # diffuse upper GI mucosal process - biopsy pending #SPCMN/Edema # PICC associated DVT - cont lovenox #Hypocalcemia Plan: Immunotherapy per Oncology continue with Vancomycin (multiple abx allergy) cont with antidiarrhea mgmt: Scheduled Immodium and Lomotil. Haldol PRN TPN/IVF. Will decrease TPN further today. Goal is to wean TPN and if able to would decrease further tomorrow. Still on IVF. Overall hydration is significantly better. Would consider stopping IVF tomorrow Lovenox, treatment dose. Would not change to an oral agent on discharge. Na is decreased due to volume overload/edema which is likely from low Protein and the IVF he has received. Once hydration is optimized, he may benefit from diuresis if he can tolerate it cont with current PICC noting hypercoagulable state Dispo/Goal: will need to wean TPN and ensure he is able to maintain adequate hydration and oral intake. IV abx/infusion will need to be set up. Subjective: no fever. eating better. nausea better. diarrhea better, but present Objective: Vital Signs Temp Pulse Resp BP Pulse Ox 36.9 C 123 H 16 122/78 H 94 03/16/18 19:49 03/16/18 19:49 03/16/18 19:49 03/16/18 19:49 03/16/18 19:49 Laboratory Results 03/16/18 04:40 03/16/18 04:40 03/15/18 03/16/18 03/17/18 05:59 05:59 05:59 Intake Total 3966 6010 2973 Output Total 7000 5500 3600 Balance -3034 510 -627 PT 14.5 SEC (12.0-15.0) 03/11/18 03:38 INR 1.11 (0.83-1.16) 03/11/18 03:38 - Physical Exam Constitutional: no apparent distress Eyes: PERRL Ears, Nose, Mouth, Throat: moist mucous membranes Cardiovascular: regular rate and rhythym, edema Respiratory: no respiratory distress Gastrointestinal: normoactive bowel sounds Skin: warm Neurologic: AAOx3 Psychiatric: interacting appropriately Lymph, Heme, Immunologic: No petechiae ICD10 Worksheet Patient Problems: Problems Problem Status Onset Anorexia Acute Dehydration Acute Diarrhea Acute Malignancy Acute
[2018-03-16] MEDS: TPN 1 EA BAG IV SCH (21:31)
[2018-03-17] MEDS: VANCOMYCIN 1.25 GM in NS 250 ML IV SCH ×3 (01:47→18:04)
[2018-03-17] MEDS: ONDANSETRON 4 MG/2 ML VIAL IVP SCH ×3 (02:25→18:27)
[2018-03-17] MEDS: LOPERAMIDE HCL 2 MG CAP PO SCH ×4 (05:03→21:19)
[2018-03-17 05:23] LABS: PLATELET COUNT 265 10^3/uL (150-400)
[2018-03-17 05:29] LABS: INR 1.03 (0.83-1.16); PROTIME(PATIENT) 13.7 SEC (12.0-15.0)
[2018-03-17] MEDS ORDERED: CALCIUM GLUCONATE 1 GM in D5W 50 ML IV ONE (08:30)
--- NOTE | 2018-03-17 09:55 | PCMIDPN ---
Assessment/Plan: Assessment: MSSA bacteremia associated with PICC line. PICC line has clot associated with it probably secondary to hypercoagulability due to disseminated malignancy. Plan to continue the current dose of vancomycin given his history of allergy issues with beta lactams. Patient recently switched to 3 times daily dosing for vancomycin. Will recheck trough level tomorrow. Also currently taking well acyclovir for oral HSV reactivation. Seems to be doing well. Patient continues to have some gastrointestinal symptoms and vomited last night. I think this is not secondary to antibiotic use but likely secondary to gastrointestinal involvement with melanoma. Plan: 1. Continue IV vancomycin three times daily. 2. Continue oral Valtrex. 3. Plan to recheck vancomycin trough tomorrow. 03/17/18 09:52 Subjective: Patient is resting in his hospital bed. He appears quite fatigued and chronically ill. Reports that he threw up once last night. Currently no symptoms. No fevers. PICC line is working as expected. Objective: Vancomycin # 6 Valtrex # 5 Vital Signs Temp Pulse Resp BP Pulse Ox 36.9 C 125 H 14 118/69 93 03/17/18 08:00 03/17/18 08:00 03/17/18 08:00 03/17/18 08:00 03/17/18 08:00 Laboratory Results 03/17/18 05:00 03/17/18 05:00 03/16/18 03/17/18 03/18/18 05:59 05:59 05:59 Intake Total 6010 4395 Output Total 5500 6200 Balance 510 -1805 - Physical Exam General Appearance: WD/WN, alert, no apparent distress, non-toxic, other ( Chronically ill-appearing) Respiratory: lungs clear, normal breath sounds, No respiratory distress Cardiac/Chest: regular rate, rhythm, No tachycardia, No systolic murmur Extremities: non-tender, normal inspection Skin: normal color, warm/dry, No rash Neuro/Psych: alert, normal mood/affect, oriented x 3 ICD10 Worksheet Patient Problems: Problems Problem Status Onset Anorexia Acute Dehydration Acute Diarrhea Acute Malignancy Acute
[2018-03-17] MEDS: DABRAFENIB 75 MG PO SCH ×2 (10:30→21:19)
[2018-03-17] MEDS: ENOXAPARIN 80 MG/0.8 ML SYR SC SCH ×2 (10:34→21:18)
[2018-03-17] MEDS: DIPHENOXYLATE/ATROPINE LOMOTIL 1 TAB PO SCH ×2 (10:34→21:19)
[2018-03-17] MEDS: SIMETHICONE 80 MG TAB CHEW PO SCH ×4 (10:35→21:19)
[2018-03-17] MEDS: valACYclovir 500 MG TAB PO SCH ×2 (10:35→21:19)
[2018-03-17] MEDS: HALOPERIDOL 1 MG TAB PO PRN ×2 (13:29→19:38)
--- NOTE | 2018-03-17 14:24 | SOAPPROG ---
SOAP Progress Note Assessment/Plan: Assessment: * Metastatic melanoma, BRAF mutated: Prior to the results of the testing he received 1 dose of nivolumab 03/13. He started Dabrafenib/Trametenib 03/14. He is tolerating treatment without new symptoms, but the typical side effects, such as fever and rash tend to show up about a week or 2 later. * Diarrhea, poor p.o. Intake, cachexia: This is secondary to metastatic involvement of the bowels. He had a large BM today. He is trying to eat a little. Still on TPN. Oral intake is still poor. * Catheter-related DVT: Recommend continuing low molecular weight heparin for now. Once he is able to take p.o. and it is clearly absorbing well we could consider switching him to a DOAC. * Oral Herpetic eruption: On Valtrex * MSSA bacteremia: ID is assisting with management. Source is probably right side PICC line. He is currently on vancomycin. Plan: - Continue BRAF/MEK inhibitor combo - Continue TPN - Change to DOAC when taking PO well. - Abx per ID Subjective: Very weak. Trying to eat. Objective: Vital Signs Temp Pulse Resp BP Pulse Ox 36.9 C 130 H 14 103/71 93 03/17/18 12:00 03/17/18 12:00 03/17/18 12:00 03/17/18 12:00 03/17/18 12:00 Laboratory Results 03/17/18 05:00 03/17/18 05:00 03/15/18 03/16/18 03/17/18 23:59 23:59 23:59 Intake Total 4747 9737 1422 Output Total 1678 3859 4000 Balance -781 -9042 -2695 PT 13.7 SEC (12.0-15.0) 03/17/18 05:00 INR 1.03 (0.83-1.16) 03/17/18 05:00 Physical Exam - Physical Exam General Appearance: moderate distress Respiratory: lungs clear Cardiac/Chest: regular rate, rhythm, edema (2+ bilateral) Abdomen: normal bowel sounds, distended Skin: pallor Extremities: swelling Neuro/Psych: oriented x 3, depressed affect ICD10 Worksheet Patient Problems: Problems Problem Status Onset Anorexia Acute Dehydration Acute Diarrhea Acute Malignancy Acute
[2018-03-17] MEDS: LR 1,000 ML IV SCH (15:12)
--- NOTE | 2018-03-17 19:10 | HOSPPROG ---
Hospitalist Progress Note Assessment/Plan: The patient is a 32-year-old male with PMH localized melanoma who was admitted for diarrhea, hyponatremia, nausea and vomiting, malnutrition-- found to have melanoma metastasis. This patient is new to me. Reviewed patient's chart/records for this visit. 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 MSSA bacteremia, a/w PICC line DVT RUE, a/w PICC line Malabsorption 2/2 diffuse gastroenteritis 2/2 metastases -w/ diarrhea, vomiting Hyponatremia Hypoalbuminemia, 2/2 malabsorption/cancer Anasarca, 2/2 hypoalbuminemia/cancer Severe protein calorie malnutrition, 2/2 to cancer HSV infection, orolabial Normocytic anemia, stable Leukocytosis, 2/2 infection/blood clot Coagulopathy, resolved -ID recs appreciated. Pt on vanco TID, Valtrex. -Discussed w/ pharmacist - to increase nutrition in TPN (higher calories, more amino acids). -Continue po intake as tolerated. Encouraged pt to eat as much as he can tolerate. -Consider to replace PICC line soon. -Oncology recs appreciated. -typical antidiarrheals have not helped; using prn haloperidol now which was recommended by Palliative Care. Additional Pall Med recs appreciated. -Cut back on fluid rate tonight. Consider to stop IVF in AM and give a dose of Lasix in AM to help w/ edema, if pt is no longer vomiting and if diarrhea improves. VTE prophylaxis: Lovenox, full dose Code Status: Full code Status: Inpatient for greater than 2 midnight stay. Disposition: Med surg ____ SUBJECTIVE: Today the patient feels okay. He continues to have swelling all over his body. He had an episode of emesis this afternoon and once last night. Continues to have liquid diarrhea. OBJECTIVE: Physical Exam: General: The patient is a male who is alert and in no acute distress. HEENT: normocephalic, extraocular movements intact, conjunctivae clear. Mucous membranes moist. Neck: trachea midline. CV: Tachycardic. Resp: unlabored Abd: soft and nondistended. Musculoskeletal: Normal muscle tone/bulk. Neuro: cranial nerves II XII grossly intact. Intact gross motor and sensory function. Psych: Appropriate mood and appropriate affect. Skin: + pallor. No petechiae. Heme/lymph: +3 peripheral edema at bilateral lower extremities, +2 bilateral arms/hands. Labs/Imaging/Other Tests: Personally reviewed/interpreted. Abdomen/pelvis CT with contrast: Impression: 1. Multiple lytic osseous lesions consistent with metastases or less likely myeloma. 2. Multiple low-attenuation hepatic lesions, suspicious for metastases, but indeterminate. 3. No definite primary malignancy identified. 4. Diffuse bowel wall thickening, with trace ascites. 5. Mildly prominent mesenteric lymph nodes without pathologic enlargement. 6. Additional findings as above. Bone scan: No bone scan correlates for multiple osseous metastases seen on the comparisons. Brain MRI: calvarium mass, no brain masses. Chest CT w/ contrast: Suspicious for small lung parenchymal, bone and hepatic metastases. CTA chest: Impression: 1. No evidence of pulmonary embolus using CT protocol. 2. Small less than 5 mm pulmonary metastatic lesions as well as small lucent osseous metastatic lesions once again noted. 3. Small hepatic lesions were better seen with ultrasound. Head CT w/o contrast: Impression: 1. No evidence of intracranial hemorrhage. 2. Clival and left mandibular osseous metastases. Bilat Doppler Venous UE/LE: Impression: 1. Positive deep venous thrombosis in the right arm brachial vein associated with the PIC line. 2. Minimal superficial thrombophlebitis in the left antecubital cephalic vein. Impression: No deep venous thrombosis bilateral legs. Biopsies: Liver, gastric, ileum, duodenum - metastic melanoma. Objective: Vital Signs Temp Pulse Resp BP Pulse Ox 36.9 C 126 H 16 120/74 95 03/17/18 15:59 03/17/18 15:59 03/17/18 15:59 03/17/18 15:59 03/17/18 15:59 Laboratory Results 03/17/18 05:00 03/17/18 05:00 03/16/18 03/17/18 03/18/18 05:59 05:59 05:59 Intake Total 6010 4395 2222.2 Output Total 5500 6200 5000 Balance 510 -1805 -2777.8 PT 13.7 SEC (12.0-15.0) 03/17/18 05:00 INR 1.03 (0.83-1.16) 03/17/18 05:00 - Time Spent With Patient Time Spent with Patient: greater than 35 minutes Time Spent with Patient: Greater than 35 minutes spent on this patients care, greater than 50% of time spent counseling, educating, and coordinating care regarding the above mentioned plan. ICD10 Worksheet Patient Problems: Problems Problem Status Onset Anorexia Acute Dehydration Acute Diarrhea Acute Malignancy Acute
[2018-03-17] MEDS: TPN 1 EA BAG IV SCH (21:18)
[2018-03-17] MEDS: LORazepam 2 MG/ML INJ IVP PRN (21:29)
[2018-03-18] MEDS: VANCOMYCIN 1.25 GM in NS 250 ML IV SCH ×3 (01:31→17:20)
[2018-03-18] MEDS: HALOPERIDOL 1 MG TAB PO PRN ×3 (01:32→16:33)
[2018-03-18] MEDS: ONDANSETRON 4 MG/2 ML VIAL IVP SCH ×3 (02:55→21:22)
[2018-03-18] MEDS: LOPERAMIDE HCL 2 MG CAP PO SCH ×4 (05:29→21:47)
[2018-03-18 05:43] LABS: PLATELET COUNT 269 10^3/uL (150-400)
[2018-03-18] MEDS: SIMETHICONE 80 MG TAB CHEW PO SCH ×4 (08:25→22:01)
[2018-03-18] MEDS: valACYclovir 500 MG TAB PO SCH ×2 (08:25→21:46)
[2018-03-18] MEDS: ENOXAPARIN 80 MG/0.8 ML SYR SC SCH ×2 (08:25→21:53)
[2018-03-18] MEDS: DIPHENOXYLATE/ATROPINE LOMOTIL 1 TAB PO SCH ×2 (08:25→21:48)
[2018-03-18] MEDS ORDERED: CALCIUM GLUCONATE 1 GM in D5W 50 ML IV ONE (09:30)
[2018-03-18] MEDS: DABRAFENIB 75 MG PO SCH ×2 (10:06→21:52)
--- NOTE | 2018-03-18 10:30 | PCMIDPN ---
Assessment/Plan: Assessment: MSSA bacteremia associated with PICC line. Repeat blood cultures on 03/14 are no growth to date. PICC line has clot associated with it probably secondary to hypercoagulability due to disseminated malignancy. Plan to continue the current dose of vancomycin given his history of allergy issues with beta lactams. Patient recently switched to 3 times daily dosing for vancomycin. Trough level is good at 14.1. Also currently taking well acyclovir for oral HSV reactivation. Patient continues to have some continued gastrointestinal symptoms but notes that his diarrhea is improved slightly and that he overall feels somewhat better. Plan: 1. Continue IV vancomycin three times daily. 2. Continue oral Valtrex. 3. Follow clinical improvement. Subjective: Patient is resting comfortably in his hospital bed. He notes that he still has looser stool although it is not as liquid as before. He also notes that he goes to the restroom with less frequency than a couple of days ago. He denies any fevers or chills. He states that overall he feels some improvement subjectively. Objective: Vancomycin # 7 Vital Signs Temp Pulse Resp BP Pulse Ox 36.8 C 106 H 16 119/63 97 03/18/18 07:46 03/18/18 07:46 03/18/18 07:46 03/18/18 07:46 03/18/18 07:46 Laboratory Results 03/18/18 05:35 03/18/18 05:35 03/17/18 03/18/18 03/19/18 05:59 05:59 05:59 Intake Total 4395 2222.2 800 Output Total 6200 6000 1025 Balance -1805 -3777.8 -225 - Physical Exam General Appearance: WD/WN, alert, no apparent distress, thin, non-toxic Respiratory: lungs clear, normal breath sounds, No respiratory distress Cardiac/Chest: regular rate, rhythm, tachycardia, No systolic murmur Skin: normal color, warm/dry, No rash Neuro/Psych: alert, normal mood/affect, oriented x 3 ICD10 Worksheet Patient Problems: Problems Problem Status Onset Anorexia Acute Dehydration Acute Diarrhea Acute Malignancy Acute
--- NOTE | 2018-03-18 10:44 | SOAPPROG ---
SOAP Progress Note Assessment/Plan: Assessment: 1. Metastatic melanoma, BRAF mutated 2. Mets to GI tract, liver 3. Malnutrition 4. Septic thrombophlebitis associated w/ PICC 5. MSSA bacteremia Pt appears clinically improved, and GI symptoms improving since initiation of anti-BRAF/MEK therapy. Got single dose of nivolumab 03/13, then started zelboraf/mekinist 03/14. Plan: - continue zelboraf/mekinist. would prioritize these oral meds over others to ensure that he is getting them and absorbing them - continue abx per ID - continue TPN for now. can consider weaning at some point if enteral intake improves 25 min spent w/ pt and in coordination of care. Subjective: feeling somewhat better. able to take pills and small amts of food w/o emesis. diarrhea slowing down. Objective: exam: pale, tired, but appears improved compared to my last exam 10 days ago Lungs CTAB CV RRR no MGR Abd: +BS NT ND Ext: no edema Neuro: a+ox3. Vital Signs Temp Pulse Resp BP Pulse Ox 36.8 C 106 H 16 119/63 97 03/18/18 07:46 03/18/18 07:46 03/18/18 07:46 03/18/18 07:46 03/18/18 07:46 Laboratory Results 03/18/18 05:35 03/18/18 05:35 03/17/18 03/18/18 03/19/18 05:59 05:59 05:59 Intake Total 4395 2222.2 800 Output Total 6200 6000 1025 Balance -1805 -3777.8 -225 PT 13.7 SEC (12.0-15.0) 03/17/18 05:00 INR 1.03 (0.83-1.16) 03/17/18 05:00 ICD10 Worksheet Patient Problems: Problems Problem Status Onset Anorexia Acute Dehydration Acute Diarrhea Acute Malignancy Acute
--- NOTE | 2018-03-18 13:40 | HOSPPROG ---
Hospitalist Progress Note Assessment/Plan: The patient is a 32-year-old male with PMH localized melanoma who was admitted for diarrhea, hyponatremia, nausea and vomiting, malnutrition-- found to have melanoma metastases. 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 MSSA bacteremia, a/w PICC line DVT RUE, a/w PICC line Malabsorption 2/2 diffuse gastroenteritis 2/2 metastases -w/ diarrhea, vomiting Hyponatremia Hypoalbuminemia, 2/2 malabsorption/cancer Anasarca, 2/2 hypoalbuminemia/cancer Severe protein calorie malnutrition, 2/2 to cancer HSV infection, orolabial Normocytic anemia, stable Leukocytosis, 2/2 infection/blood clot Coagulopathy, resolved -ID recs appreciated. Pt on vanco TID, Valtrex. -Continue po intake as tolerated. Encouraged pt to eat as much as he can tolerate. -Consider to replace PICC line soon. -Oncology recs appreciated- pt on anti-BRAF Tx and immunotherapy -typical antidiarrheals have not helped; using prn haloperidol now which was recommended by Palliative Care. Additional Pall Med recs appreciated. -Discussed w/ ID, Onc, Pharmacist. Cutting back on IV fluid intake since pt tolerating po better today. VTE prophylaxis: Lovenox, full dose Code Status: Full code Status: Inpatient for greater than 2 midnight stay. Disposition: Med surg ____ SUBJECTIVE: Today pt reports smaller volume and less frequency of diarrhea. He did not have emesis o/n or today and is tolerating chicken noodle soup and some other light foods. OBJECTIVE: Physical Exam: General: The patient is a male who is alert and in no acute distress. HEENT: normocephalic, extraocular movements intact, conjunctivae clear. Mucous membranes moist. Neck: trachea midline. CV: +S1/S2, tachy rate R R, no MRG. Resp: unlabored, CTAB no RRW. Abd: soft and mildly distended. Nontender throughout. Musculoskeletal: Normal muscle tone/bulk. Neuro: cranial nerves II XII grossly intact. Intact gross motor and sensory function. Psych: Appropriate mood and appropriate affect. Skin: + pallor. No petechiae. Heme/lymph: +3 peripheral edema at bilateral lower extremities, +2 bilateral arms/hands. Labs/Imaging/Other Tests: Personally reviewed/interpreted. Abdomen/pelvis CT with contrast: Impression: 1. Multiple lytic osseous lesions consistent with metastases or less likely myeloma. 2. Multiple low-attenuation hepatic lesions, suspicious for metastases, but indeterminate. 3. No definite primary malignancy identified. 4. Diffuse bowel wall thickening, with trace ascites. 5. Mildly prominent mesenteric lymph nodes without pathologic enlargement. 6. Additional findings as above. Bone scan: No bone scan correlates for multiple osseous metastases seen on the comparisons. Brain MRI: calvarium mass, no brain masses. Chest CT w/ contrast: Suspicious for small lung parenchymal, bone and hepatic metastases. CTA chest: Impression: 1. No evidence of pulmonary embolus using CT protocol. 2. Small less than 5 mm pulmonary metastatic lesions as well as small lucent osseous metastatic lesions once again noted. 3. Small hepatic lesions were better seen with ultrasound. Head CT w/o contrast: Impression: 1. No evidence of intracranial hemorrhage. 2. Clival and left mandibular osseous metastases. Bilat Doppler Venous UE/LE: Impression: 1. Positive deep venous thrombosis in the right arm brachial vein associated with the PIC line. 2. Minimal superficial thrombophlebitis in the left antecubital cephalic vein. Impression: No deep venous thrombosis bilateral legs. Biopsies: Liver, gastric, ileum, duodenum - metastic melanoma. Objective: Vital Signs Temp Pulse Resp BP Pulse Ox 36.8 C 113 H 14 128/82 H 95 03/18/18 11:31 03/18/18 11:31 03/18/18 11:31 03/18/18 11:31 03/18/18 11:31 Laboratory Results 03/18/18 05:35 03/18/18 05:35 03/17/18 03/18/18 03/19/18 05:59 05:59 05:59 Intake Total 4395 2222.2 800 Output Total 6200 6000 1025 Balance -1805 -3777.8 -225 PT 13.7 SEC (12.0-15.0) 03/17/18 05:00 INR 1.03 (0.83-1.16) 03/17/18 05:00 ICD10 Worksheet Patient Problems: Problems Problem Status Onset Anorexia Acute Dehydration Acute Diarrhea Acute Malignancy Acute
--- NOTE | 2018-03-18 14:26 | ASMTCMCOM ---
CM Note CM Note Notes: Chart reviewed for discharge planning purposes. He is tolerating some orals. Really needs PT and OT. On TPN for nutritional support. Current with [facility] , CM to continue to follow for developing needs. Plan: Likely home with supportive services, HHC, Infusion services when medically cleared for discharge. Date Signed: 03/18/2018 02:25 PM Electronically Signed By:Cira Wellington RN
[2018-03-18] MEDS: TPN W/ FAMOTIDINE 1 EA BAG IV SCH (21:10)
[2018-03-18] MEDS: LORazepam 2 MG/ML INJ IVP PRN (21:44)
[2018-03-19] MEDS: VANCOMYCIN 1.25 GM in NS 250 ML IV SCH ×4 (00:53→18:43)
[2018-03-19] MEDS: ONDANSETRON 4 MG/2 ML VIAL IVP SCH ×3 (02:49→18:44)
[2018-03-19] MEDS: LOPERAMIDE HCL 2 MG CAP PO SCH ×4 (06:15→21:23)
[2018-03-19] MEDS ORDERED: CALCIUM GLUCONATE 1 GM in D5W 50 ML IV ONE (08:00)
[2018-03-19] MEDS ORDERED: CALCIUM GLUCONATE 50 ML IV ONE (08:00)
[2018-03-19] MEDS ORDERED: POTASSIUM Cl (KCl) 100 ML IV SCH (08:00)
[2018-03-19] MEDS: valACYclovir 500 MG TAB PO SCH ×2 (08:51→21:24)
[2018-03-19] MEDS: DIPHENOXYLATE/ATROPINE LOMOTIL 1 TAB PO SCH ×2 (08:51→21:24)
[2018-03-19] MEDS: ENOXAPARIN 80 MG/0.8 ML SYR SC SCH ×2 (08:52→21:24)
[2018-03-19] MEDS: SIMETHICONE 80 MG TAB CHEW PO SCH ×4 (08:53→21:24)
[2018-03-19] MEDS: HALOPERIDOL 1 MG TAB PO PRN ×2 (09:08→19:38)
[2018-03-19] MEDS ORDERED: POTASSIUM CL 10 MEQ TAB PO ONE (09:45)
[2018-03-19] MEDS: DABRAFENIB 75 MG PO SCH ×2 (10:00→22:02)
[2018-03-19] MEDS: LR 1,000 ML IV SCH (12:12)
--- NOTE | 2018-03-19 12:39 | SOAPPROG ---
SOAP Progress Note Assessment/Plan: Assessment: * Metastatic melanoma, BRAF mutated: Prior to the results of the testing he received 1 dose of nivolumab 03/13. He started Dabrafenib/Trametenib 03/14. He is tolerating treatment without new symptoms, but the typical side effects, such as fever and rash tend to show up about a week or 2 later. * Diarrhea, poor p.o. Intake, cachexia: This is secondary to metastatic involvement of the bowels. His BMs are becoming more normal. He is trying to eat more. Calorie intake in the 500-600 kcal range PO + TPN. His albumin is very low at 1.0. * Catheter-related DVT: Recommend continuing low molecular weight heparin for now. Once he is able to take p.o. and it is clearly absorbing well we could consider switching him to a DOAC. * Oral Herpetic eruption: On Valtrex. Improving. * MSSA bacteremia: ID is assisting with management. Source is probably right side PICC line. He is currently on vancomycin. * He is clearly feeling better. I spoke with the patient, his , and assorted family members today. He can be evaluated for response at about 4 weeks from the start of treatment. He currently remains in the hospital to treat his severe malnutrition/deconditioning. Plan: - Continue BRAF/MEK inhibitor combo - Continue TPN - Change to DOAC when taking PO well. - Abx per ID Subjective: Feels better. Smiling. Objective: Vital Signs Temp Pulse Resp BP Pulse Ox 36.7 C 97 18 125/75 H 96 03/19/18 11:11 03/19/18 11:11 03/19/18 11:11 03/19/18 11:11 03/19/18 11:11 Microbiology 03/14/18 05:35 Blood Culture - Final Blood 03/14/18 05:02 Blood Culture - Final Blood Laboratory Results 03/18/18 05:35 03/19/18 06:23 03/17/18 03/18/18 03/19/18 23:59 23:59 23:59 Intake Total 3644.2 4719 150 Output Total 7500 3975 Balance -3855.8 744 150 PT 13.7 SEC (12.0-15.0) 03/17/18 05:00 INR 1.03 (0.83-1.16) 03/17/18 05:00 Physical Exam - Physical Exam General Appearance: alert, mild distress Respiratory: lungs clear Cardiac/Chest: regular rate, rhythm Abdomen: distended Skin: pallor Lymphatic: other (anasarca) Neuro/Psych: alert, oriented x 3 ICD10 Worksheet Patient Problems: Problems Problem Status Onset Anorexia Acute Dehydration Acute Diarrhea Acute Malignancy Acute
--- NOTE | 2018-03-19 16:40 | PCMIDPN ---
Assessment/Plan: Assessment/Plan: * MSSA bacteremia most likely PICC associated with concomitant DVT: Improved trough with Q 8 hr dosing. Anticipate transition to 3 g IV Q 24 hr by continuous infusion at time of discharge. PICC line to be exchanged today given bacteremia and will be changed to double-lumen PICC line given need for both TPN and additional infusions including antibiotics. * Oral HSV: Lesions crusted. Continue oral Valtrex which may be able to be discontinued soon. * Rash: Resolved. 03/19/18 16:37 Subjective: Patient feels improved. Diarrhea present but less frequent. Able to eat omlette earlier today. Objective: Vital Signs Temp Pulse Resp BP Pulse Ox 36.7 C 97 18 125/75 H 96 03/19/18 11:11 03/19/18 11:11 03/19/18 11:11 03/19/18 11:11 03/19/18 11:11 Microbiology 03/14/18 05:35 Blood Culture - Final Blood 03/14/18 05:02 Blood Culture - Final Blood Laboratory Results 03/18/18 05:35 03/19/18 06:23 03/18/18 03/19/18 03/20/18 05:59 05:59 05:59 Intake Total 2222.2 4869 Output Total 6000 3975 Balance -3777.8 894 Vancomycin 1.25 g IV q.8 hours # 8 Valtrex # 7 - Physical Exam General Appearance: alert, no apparent distress EENT: other (HSV resolving over lips with crusting), No scleral icterus Respiratory: lungs clear, No respiratory distress Cardiac/Chest: regular rate, rhythm Abdomen: non-tender, No distended Skin: No rash - Line/s RUE PICC Lines: No drainage, No erythema ICD10 Worksheet Patient Problems: Problems Problem Status Onset Anorexia Acute Dehydration Acute Diarrhea Acute Malignancy Acute
--- NOTE | 2018-03-19 16:46 | PDIAF ---
- Diagnosis Diagnosis: MSSA bacteremia Code Status: Full Code - Medication Management [employer] Antibiotics: Vancomycin 3 g IV Q 24 hr by continuous infusion [employer] Antibiotic Stop Date: 04/11/18 Discharge Medications: electronically signed and located in the Home Medication List. PICC Care - Routine: Yes - Orders Services needed: Home Residential Care Face to Face: I certify that this patient was under my care and that I had the required [id number] encounter meeting the encounter requirements on the discharge day. My findings support the fact that the patient is homebound as defined in Home Care Face to Face Continued: CMS Chapter 7 Medicare Benefits Manual 30.1.1 , The condition of the patient is such that there exists a normal inability to leave home and consequently, leaving home would require a considerable and taxing effort. - Labs/Radiology CBC w/diff Date: 03/24/18 CMP Date: 03/24/18 Creatinine Date: 03/27/18 Vanco Random Date: 03/24/18 (Weekly Q Saturday and ) Call or Fax Lab and Imaging Results to: Dr. Martinez, - Follow Up Care Current Providers and Referrals: Storm Prater MD [Primary Care Provider] - As per Instructions
--- NOTE | 2018-03-19 18:30 | HOSPPROG ---
Hospitalist Progress Note Assessment/Plan: The patient is a 32-year-old male with PMH localized melanoma who was admitted for diarrhea, hyponatremia, nausea and vomiting, malnutrition-- found to have melanoma metastases. 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 MSSA bacteremia, a/w PICC line DVT RUE, a/w PICC line Malabsorption 2/2 diffuse gastroenteritis 2/2 metastases -w/ diarrhea which is slowly improving. Vomiting resolved. Hyponatremia Hypocalcemia Hypoalbuminemia, 2/2 malabsorption/cancer Anasarca, 2/2 hypoalbuminemia/cancer Severe protein calorie malnutrition, 2/2 to cancer HSV infection, orolabial Normocytic anemia, stable Leukocytosis, 2/2 infection/blood clot Coagulopathy, resolved -ID recs appreciated. Pt on vanco TID, Valtrex. -Continue po intake as tolerated. Encouraged pt to eat as much as he can tolerate. -Change PICC today. -Discussed DC planning w/ pt's today -- what to expect, support needed, etc. -Oncology recs appreciated- pt on anti-BRAF Tx and immunotherapy -typical antidiarrheals have not helped; using prn haloperidol now which was recommended by Palliative Care. Additional Pall Med recs appreciated. -Discussed w/ ID, Onc, Pharmacist. -Order PT. VTE prophylaxis: Lovenox, full dose Code Status: Full code Status: Inpatient for greater than 2 midnight stay. Disposition: Med surg -- start DC planning potentially for Saturday, if ok w/ Onc and ID. ____ SUBJECTIVE: Today pt reports smaller volume and less frequency of diarrhea. He did not have emesis o/n or today and is tolerating chicken noodle soup and some other light foods. OBJECTIVE: Physical Exam: General: The patient is a male who is alert and in no acute distress. HEENT: normocephalic, extraocular movements intact, conjunctivae clear. Mucous membranes moist. Neck: trachea midline. CV: +S1/S2, tachy rate R R, no MRG. Resp: unlabored, CTAB no RRW. Abd: soft and mildly distended. Nontender throughout. Musculoskeletal: Normal muscle tone/bulk. Neuro: cranial nerves II XII grossly intact. Intact gross motor and sensory function. Psych: Appropriate mood and appropriate affect. Skin: + pallor. No petechiae. Heme/lymph: +3 peripheral edema at bilateral lower extremities, +2 bilateral arms/hands. Labs/Imaging/Other Tests: Personally reviewed/interpreted. Abdomen/pelvis CT with contrast: Impression: 1. Multiple lytic osseous lesions consistent with metastases or less likely myeloma. 2. Multiple low-attenuation hepatic lesions, suspicious for metastases, but indeterminate. 3. No definite primary malignancy identified. 4. Diffuse bowel wall thickening, with trace ascites. 5. Mildly prominent mesenteric lymph nodes without pathologic enlargement. 6. Additional findings as above. Bone scan: No bone scan correlates for multiple osseous metastases seen on the comparisons. Brain MRI: calvarium mass, no brain masses. Chest CT w/ contrast: Suspicious for small lung parenchymal, bone and hepatic metastases. CTA chest: Impression: 1. No evidence of pulmonary embolus using CT protocol. 2. Small less than 5 mm pulmonary metastatic lesions as well as small lucent osseous metastatic lesions once again noted. 3. Small hepatic lesions were better seen with ultrasound. Head CT w/o contrast: Impression: 1. No evidence of intracranial hemorrhage. 2. Clival and left mandibular osseous metastases. Bilat Doppler Venous UE/LE: Impression: 1. Positive deep venous thrombosis in the right arm brachial vein associated with the PIC line. 2. Minimal superficial thrombophlebitis in the left antecubital cephalic vein. Impression: No deep venous thrombosis bilateral legs. Biopsies: Liver, gastric, ileum, duodenum - metastic melanoma. Repeat Blood cultures 03/14 - negative for growth x 2 sets. Objective: Vital Signs Temp Pulse Resp BP Pulse Ox 37.4 C 116 H 18 161/86 H 93 03/19/18 16:50 03/19/18 16:50 03/19/18 16:50 03/19/18 16:50 03/19/18 16:50 Microbiology 03/14/18 05:35 Blood Culture - Final Blood 03/14/18 05:02 Blood Culture - Final Blood Laboratory Results 03/18/18 05:35 03/19/18 06:23 03/18/18 03/19/18 03/20/18 05:59 05:59 05:59 Intake Total 2222.2 4869 450 Output Total 6000 3975 1750 Balance -3777.8 894 -1300 PT 13.7 SEC (12.0-15.0) 03/17/18 05:00 INR 1.03 (0.83-1.16) 03/17/18 05:00 - Time Spent With Patient Time Spent with Patient: greater than 35 minutes Time Spent with Patient: Greater than 35 minutes spent on this patients care, greater than 50% of time spent counseling, educating, and coordinating care regarding the above mentioned plan. ICD10 Worksheet Patient Problems: Problems Problem Status Onset Anorexia Acute Dehydration Acute Diarrhea Acute Malignancy Acute
[2018-03-19] MEDS: TPN W/ FAMOTIDINE 1 EA BAG IV SCH (21:26)
[2018-03-20] MEDS: VANCOMYCIN 1.25 GM in NS 250 ML IV SCH ×3 (02:02→17:16)
[2018-03-20] MEDS: LR 1,000 ML IV SCH ×2 (03:30→20:21)
[2018-03-20] MEDS: ONDANSETRON 4 MG/2 ML VIAL IVP SCH ×3 (03:32→19:34)
[2018-03-20] MEDS: LORazepam 2 MG/ML INJ IVP PRN ×2 (03:32→21:50)
[2018-03-20] MEDS: LOPERAMIDE HCL 2 MG CAP PO SCH ×4 (07:29→21:41)
--- NOTE | 2018-03-20 08:19 | PDPCPN ---
Palliative Care Progress Note Assessment/Plan: Assessment: [facility] [address] [place] [id number] (O) [phone](F) PALLIATIVE CARE NOTE NAME: Ganga Dejesus : 85, 32 VISIT TYPE: Initial LOCATION: [facility] LEVEL OF CARE: Hospice eligible DIAGNOSES: 1. Metastatic melanoma CC: Initial palliative care visit HPI: Mister Dejesus is a 32-year-old male who was diagnosed in 2016 with stage I melanoma. He had wide excision with clean margins at that time. He has had continued monitoring since that time. Approximately 2 weeks ago he began having intractable nausea, vomiting and diarrhea. He sought medical care and was admitted to the inpatient unit at [facility]. Scans were completed and he was found to have multiple sites of metastases including bone liver lung and a calvarial mass. A liver biopsy has been completed which is positive for melanoma. Molecular studies are pending at this time. His scan also indicated diffuse thickening of his bowel. His nausea vomiting and diarrhea have persisted despite antiemetics and antidiarrheal medications. PMH: As above ALLERGIES: FAMILY HISTORY: SOCIAL HISTORY: Lives in [facility] with his and 3 children. 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 Control of his nausea vomiting and diarrhea 2. Start treatment ACTIVE SYMPTOMS/ASSESSMENTS/RECOMMENDATIONS: 1. Metastatic melanoma: C 34.9: Await molecular studies to determine first- line therapy. 2. Nausea/vomiting R 11: Would encourage use of promethazine for nausea and vomiting. Would recommend GI consult for possible endoscopy to further determine the cause of nausea and vomiting. 3. Diarrhea R 19.7: Continue current regimen. 4. Protein calorie malnutrition E 46: Dietary consult. Would consider TPN with his marked hypoalbuminemia. MODIFIED [place] SYMPTOM ASSESSMENT SCALE: 0-none; 1-3 mild; 4-6 moderate; 7-10 severe Unable to Respond: No [ ] Delirium: 0-none Depression: 0-none Anxiety: 3 Tiredness (fatigue): 5 Drowsiness (sleepiness): 0-none Pain: 0-none Nausea: 0-none Anorexia: 0-none Shortness of Breath: 0-none Secretions: 0-none Constipation: 0-none Symptom and side effect management: (acceptable to patient and family) RISK FACTORS FOR RE-HOSPITALIZATION: o CAREGIVER ANXIETY o DISEASE EDUCATION DEFICIT OBJECTIVE FINDINGS Palliative Performance Score: 70 FAST: Not applicable NYHA: n/a Vital Signs: Wt: MAC: Neuro: A&O to person, place, time and event HEENT: Normocephalic; atraumatic RESP: Regular, deep, symmetrical. No cough or wheezing CV: no LE edema GI: soft, round bowel sounds hyperactive : no dysuria or hematuria MSK: Marked muscle wasting. Ambulatory SKIN: intact LAB Data: N/A Disposition: Inpatient hospitalization ADVANCE CARE PLANNING DISCUSSION Sakshi has been designated as medical power of ip technology transactions attorney PLAN: 1. admit to community palliative services upon discharge 2. will need social work support upon discharge Thank you for the opportunity to participate in the care of this patient. TIME SPENT: [id number] 75 min >50% of the time spent counseling, educating and coordinating the above topics. Mkbridget Wells ANPBC Plan: 03/07/18 07:34 Subjective: [facility] [address] [place] [id number] (O) [phone](F) PALLIATIVE CARE NOTE NAME: Ganga Dejesus : 85, 32 Date: 03/19/2018 VISIT TYPE: Follow-up hospital palliative visit LOCATION: [facility] LEVEL OF CARE: Hospice eligible DIAGNOSES: 1. Metastatic melanoma CC: Initial palliative care visit HPI: Mister Dejesus is a 32-year-old male who was diagnosed in 2016 with stage I melanoma. He had wide excision with clean margins at that time. He has had continued monitoring since that time. Approximately 4 weeks ago he began having intractable nausea, vomiting and diarrhea. He sought medical care and was admitted to the inpatient unit at [facility]. Scans were completed and he was found to have multiple sites of metastases including bone liver lung and a calvarial mass. A liver biopsy has been completed which is positive for melanoma. Molecular studies indicate the BRAF mutation. His scan also indicated diffuse thickening of his bowel. He has undergone endoscopy and sigmoidoscopy and biopsies are positive for melanoma. He continues on TPN. His oral intake has improved. His nausea and vomiting have improved at this time. His diarrhea has improved with decreased frequency and volume and consistency. He received 1 dose of immunotherapy and has been started on the medications for the molecular mutation. He appears to be tolerating these well at this time. PMH: As above ALLERGIES: FAMILY HISTORY: SOCIAL HISTORY: Lives in [facility] with his and 3 children. 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 Control of his nausea vomiting and diarrhea 2. Start treatment ACTIVE SYMPTOMS/ASSESSMENTS/RECOMMENDATIONS: 1. Metastatic melanoma: C 34.9: He is positive for molecular mutation and has been started on the oral medication for this. He received 1 dose of immunotherapy. 2. Nausea/vomiting R 11: His nausea has improved. he continues on scheduled Zofran. 3. Diarrhea R 19.7: Continue current regimen. his diarrhea has improved. He does have Haldol available on a when necessary basis. Would recommend scheduling 1 mg every 6 hours. This can be reduced as his diarrhea continues to improve. 4. Protein calorie malnutrition E 46: continue TPN. Oral intake has improved however his calorie count remains between 500-750 alicia per day. His albumin remains remarkably low at 1.0. MODIFIED [place] SYMPTOM ASSESSMENT SCALE: 0-none; 1-3 mild; 4-6 moderate; 7-10 severe Unable to Respond: No [ ] Delirium: 0-none Depression: 0-none Anxiety: 3 Tiredness (fatigue): 5 Drowsiness (sleepiness): 0-none Pain: 0-none Nausea: 1 Anorexia: 0-none Shortness of Breath: 0-none Secretions: 0-none Constipation: 0-none Symptom and side effect management: (acceptable to patient and family) RISK FACTORS FOR RE-HOSPITALIZATION: o CAREGIVER ANXIETY o DISEASE EDUCATION DEFICIT OBJECTIVE FINDINGS Palliative Performance Score: 70 FAST: Not applicable NYHA: n/a Vital Signs: Wt: MAC: Neuro: A&O to person, place, time and event HEENT: Normocephalic; atraumatic RESP: Regular, deep, symmetrical. No cough or wheezing CV: anasarca GI: soft, round bowel sounds hyperactive : no dysuria or hematuria MSK: Marked muscle wasting. Ambulatory SKIN: intact LAB Data: N/A Disposition: Inpatient hospitalization ADVANCE CARE PLANNING DISCUSSION Sakshi has been designated as medical power of ip technology transactions attorney. PLAN: 1. admit to community palliative services upon discharge 2. will need social work support upon discharge Thank you for the opportunity to participate in the care of this patient. TIME SPENT: [id number] 25 min >50% of the time spent counseling, educating and coordinating the above topics. Mk Wells [facility] Objective: Vital Signs Temp Pulse Resp BP Pulse Ox 36.9 C 115 H 16 122/66 H 96 03/20/18 03:28 03/20/18 03:28 03/20/18 03:28 03/20/18 03:28 03/20/18 03:28 Microbiology 03/14/18 05:35 Blood Culture - Final Blood 03/14/18 05:02 Blood Culture - Final Blood Laboratory Results 03/18/18 05:35 03/19/18 06:23 03/19/18 03/20/18 03/21/18 05:59 05:59 05:59 Intake Total 4869 1450 1732 Output Total 3975 5500 Balance 894 -4050 1732 PT 13.7 SEC (12.0-15.0) 03/17/18 05:00 INR 1.03 (0.83-1.16) 03/17/18 05:00 ICD10 Worksheet Patient Problems: Problems Problem Status Onset Anorexia Acute Dehydration Acute Diarrhea Acute Malignancy Acute
--- NOTE | 2018-03-20 08:22 | PDPCPN ---
Palliative Care Progress Note Assessment/Plan: Assessment: [facility] [address] [place] [phone] (O) [phone](F) PALLIATIVE CARE NOTE NAME: Ganga Dejesus : 85, 32 VISIT TYPE: Initial LOCATION: [facility] LEVEL OF CARE: Hospice eligible DIAGNOSES: 1. Metastatic melanoma CC: Initial palliative care visit HPI: Mister Dejesus is a 32-year-old male who was diagnosed in 2016 with stage I melanoma. He had wide excision with clean margins at that time. He has had continued monitoring since that time. Approximately 2 weeks ago he began having intractable nausea, vomiting and diarrhea. He sought medical care and was admitted to the inpatient unit at [facility]. Scans were completed and he was found to have multiple sites of metastases including bone liver lung and a calvarial mass. A liver biopsy has been completed which is positive for melanoma. Molecular studies are pending at this time. His scan also indicated diffuse thickening of his bowel. His nausea vomiting and diarrhea have persisted despite antiemetics and antidiarrheal medications. PMH: As above ALLERGIES: FAMILY HISTORY: SOCIAL HISTORY: Lives in [facility] with his and 3 children. 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 Control of his nausea vomiting and diarrhea 2. Start treatment ACTIVE SYMPTOMS/ASSESSMENTS/RECOMMENDATIONS: 1. Metastatic melanoma: C 34.9: Await molecular studies to determine first- line therapy. 2. Nausea/vomiting R 11: Would encourage use of promethazine for nausea and vomiting. Would recommend GI consult for possible endoscopy to further determine the cause of nausea and vomiting. 3. Diarrhea R 19.7: Continue current regimen. 4. Protein calorie malnutrition E 46: Dietary consult. Would consider TPN with his marked hypoalbuminemia. MODIFIED [place] SYMPTOM ASSESSMENT SCALE: 0-none; 1-3 mild; 4-6 moderate; 7-10 severe Unable to Respond: No [ ] Delirium: 0-none Depression: 0-none Anxiety: 3 Tiredness (fatigue): 5 Drowsiness (sleepiness): 0-none Pain: 0-none Nausea: 0-none Anorexia: 0-none Shortness of Breath: 0-none Secretions: 0-none Constipation: 0-none Symptom and side effect management: (acceptable to patient and family) RISK FACTORS FOR RE-HOSPITALIZATION: o CAREGIVER ANXIETY o DISEASE EDUCATION DEFICIT OBJECTIVE FINDINGS Palliative Performance Score: 70 FAST: Not applicable NYHA: n/a Vital Signs: Wt: MAC: Neuro: A&O to person, place, time and event HEENT: Normocephalic; atraumatic RESP: Regular, deep, symmetrical. No cough or wheezing CV: no LE edema GI: soft, round bowel sounds hyperactive : no dysuria or hematuria MSK: Marked muscle wasting. Ambulatory SKIN: intact LAB Data: N/A Disposition: Inpatient hospitalization ADVANCE CARE PLANNING DISCUSSION Sakshi has been designated as medical power of admitted attorneys PLAN: 1. admit to community palliative services upon discharge 2. will need social work support upon discharge Thank you for the opportunity to participate in the care of this patient. TIME SPENT: [id number] 75 min >50% of the time spent counseling, educating and coordinating the above topics. Mk Wells ANPBC Plan: 03/07/18 07:34 Subjective: Palliative Care Progress Note Assessment/Plan: Assessment: [facility] [address] [place] [phone] (O) [phone](F) PALLIATIVE CARE NOTE NAME: Ganga Dejesus : 85, 32 VISIT TYPE: Initial LOCATION: [facility] LEVEL OF CARE: Hospice eligible DIAGNOSES: 1. Metastatic melanoma CC: Initial palliative care visit HPI: Mister Dejesus is a 32-year-old male who was diagnosed in 2016 with stage I melanoma. He had wide excision with clean margins at that time. He has had continued monitoring since that time. Approximately 2 weeks ago he began having intractable nausea, vomiting and diarrhea. He sought medical care and was admitted to the inpatient unit at [facility]. Scans were completed and he was found to have multiple sites of metastases including bone liver lung and a calvarial mass. A liver biopsy has been completed which is positive for melanoma. Molecular studies are pending at this time. His scan also indicated diffuse thickening of his bowel. His nausea vomiting and diarrhea have persisted despite antiemetics and antidiarrheal medications. PMH: As above ALLERGIES: FAMILY HISTORY: SOCIAL HISTORY: Lives in [facility] with his and 3 children. 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 Control of his nausea vomiting and diarrhea 2. Start treatment ACTIVE SYMPTOMS/ASSESSMENTS/RECOMMENDATIONS: 1. Metastatic melanoma: C 34.9: Await molecular studies to determine first- line therapy. 2. Nausea/vomiting R 11: Would encourage use of promethazine for nausea and vomiting. Would recommend GI consult for possible endoscopy to further determine the cause of nausea and vomiting. 3. Diarrhea R 19.7: Continue current regimen. 4. Protein calorie malnutrition E 46: Dietary consult. Would consider TPN with his marked hypoalbuminemia. MODIFIED [place] SYMPTOM ASSESSMENT SCALE: 0-none; 1-3 mild; 4-6 moderate; 7-10 severe Unable to Respond: No [ ] Delirium: 0-none Depression: 0-none Anxiety: 3 Tiredness (fatigue): 5 Drowsiness (sleepiness): 0-none Pain: 0-none Nausea: 0-none Anorexia: 0-none Shortness of Breath: 0-none Secretions: 0-none Constipation: 0-none Symptom and side effect management: (acceptable to patient and family) RISK FACTORS FOR RE-HOSPITALIZATION: o CAREGIVER ANXIETY o DISEASE EDUCATION DEFICIT OBJECTIVE FINDINGS Palliative Performance Score: 70 FAST: Not applicable NYHA: n/a Vital Signs: Wt: MAC: Neuro: A&O to person, place, time and event HEENT: Normocephalic; atraumatic RESP: Regular, deep, symmetrical. No cough or wheezing CV: no LE edema GI: soft, round bowel sounds hyperactive : no dysuria or hematuria MSK: Marked muscle wasting. Ambulatory SKIN: intact LAB Data: N/A Disposition: Inpatient hospitalization ADVANCE CARE PLANNING DISCUSSION Sakshi has been designated as medical power of admitted attorneys PLAN: 1. admit to community palliative services upon discharge 2. will need social work support upon discharge Thank you for the opportunity to participate in the care of this patient. TIME SPENT: [id number] 75 min >50% of the time spent counseling, educating and coordinating the above topics. Mk Wells [facility] Plan: 03/07/18 07:34 Subjective: [facility] [address] [place] [phone] (O) [phone](F) PALLIATIVE CARE NOTE NAME: OlegGanga : 85, 32 Date: 03/19/2018 VISIT TYPE: Follow-up hospital palliative visit LOCATION: [facility] LEVEL OF CARE: Hospice eligible DIAGNOSES: 1. Metastatic melanoma CC: Initial palliative care visit HPI: Mister Dejesus is a 32-year-old male who was diagnosed in 2016 with stage I melanoma. He had wide excision with clean margins at that time. He has had continued monitoring since that time. Approximately 4 weeks ago he began having intractable nausea, vomiting and diarrhea. He sought medical care and was admitted to the inpatient unit at [facility]. Scans were completed and he was found to have multiple sites of metastases including bone liver lung and a calvarial mass. A liver biopsy has been completed which is positive for melanoma. Molecular studies indicate the BRAF mutation. His scan also indicated diffuse thickening of his bowel. He has undergone endoscopy and sigmoidoscopy and biopsies are positive for melanoma. He continues on TPN. His oral intake has improved. His nausea and vomiting have improved at this time. His diarrhea has improved with decreased frequency and volume and consistency. He received 1 dose of immunotherapy and has been started on the medications for the molecular mutation. He appears to be tolerating these well at this time. PMH: As above ALLERGIES: FAMILY HISTORY: SOCIAL HISTORY: Lives in [facility] with his and 3 children. 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 Control of his nausea vomiting and diarrhea 2. Start treatment ACTIVE SYMPTOMS/ASSESSMENTS/RECOMMENDATIONS: 1. Metastatic melanoma: C 34.9: He is positive for molecular mutation and has been started on the oral medication for this. He received 1 dose of immunotherapy. 2. Nausea/vomiting R 11: His nausea has improved. he continues on scheduled Zofran. 3. Diarrhea R 19.7: Continue current regimen. his diarrhea has improved. He does have Haldol available on a when necessary basis. Would recommend scheduling 1 mg every 6 hours. This can be reduced as his diarrhea continues to improve. 4. Protein calorie malnutrition E 46: continue TPN. Oral intake has improved however his calorie count remains between 500-750 alicia per day. His albumin remains remarkably low at 1.0. MODIFIED [place] SYMPTOM ASSESSMENT SCALE: 0-none; 1-3 mild; 4-6 moderate; 7-10 severe Unable to Respond: No [ ] Delirium: 0-none Depression: 0-none Anxiety: 3 Tiredness (fatigue): 5 Drowsiness (sleepiness): 0-none Pain: 0-none Nausea: 1 Anorexia: 0-none Shortness of Breath: 0-none Secretions: 0-none Constipation: 0-none Symptom and side effect management: (acceptable to patient and family) RISK FACTORS FOR RE-HOSPITALIZATION: o CAREGIVER ANXIETY o DISEASE EDUCATION DEFICIT OBJECTIVE FINDINGS Palliative Performance Score: 70 FAST: Not applicable NYHA: n/a Vital Signs: Wt: MAC: Neuro: A&O to person, place, time and event HEENT: Normocephalic; atraumatic RESP: Regular, deep, symmetrical. No cough or wheezing CV: anasarca GI: soft, round bowel sounds hyperactive : no dysuria or hematuria MSK: Marked muscle wasting. Ambulatory SKIN: intact LAB Data: N/A Disposition: Inpatient hospitalization ADVANCE CARE PLANNING DISCUSSION Sakshi has been designated as medical power of admitted attorneys. PLAN: 1. admit to community palliative services upon discharge 2. will need social work support upon discharge Thank you for the opportunity to participate in the care of this patient. TIME SPENT: [id number] 25 min >50% of the time spent counseling, educating and coordinating the above topics. Mk Wells [facility] Objective: Vital Signs Temp Pulse Resp BP Pulse Ox 36.9 C 115 H 16 122/66 H 96 03/20/18 03:28 03/20/18 03:28 03/20/18 03:28 03/20/18 03:28 03/20/18 03:28 Microbiology 03/14/18 05:35 Blood Culture - Final Blood 03/14/18 05:02 Blood Culture - Final Blood Laboratory Results 03/18/18 05:35 03/19/18 06:23 03/19/18 03/20/18 03/21/18 05:59 05:59 05:59 Intake Total 4869 1450 1732 Output Total 3975 5500 Balance 894 -4050 1732 PT 13.7 SEC (12.0-15.0) 03/17/18 05:00 INR 1.03 (0.83-1.16) 03/17/18 05:00 ICD10 Worksheet Patient Problems: Problems Problem Status Onset Anorexia Acute Dehydration Acute Diarrhea Acute Malignancy Acute Objective: Vital Signs Temp Pulse Resp BP Pulse Ox 36.9 C 115 H 16 122/66 H 96 03/20/18 03:28 03/20/18 03:28 03/20/18 03:28 03/20/18 03:28 03/20/18 03:28 Microbiology 03/14/18 05:35 Blood Culture - Final Blood 03/14/18 05:02 Blood Culture - Final Blood Laboratory Results 03/18/18 05:35 03/19/18 06:23 03/19/18 03/20/18 03/21/18 05:59 05:59 05:59 Intake Total 3231 1450 1732 Output Total 2528 1320 Balance 894 -4050 1732 PT 13.7 SEC (12.0-15.0) 03/17/18 05:00 INR 1.03 (0.83-1.16) 03/17/18 05:00 ICD10 Worksheet Patient Problems: Problems Problem Status Onset Anorexia Acute Dehydration Acute Diarrhea Acute Malignancy Acute
[2018-03-20] MEDS: HALOPERIDOL 1 MG TAB PO PRN ×2 (08:58→17:16)
[2018-03-20] MEDS: ENOXAPARIN 80 MG/0.8 ML SYR SC SCH ×2 (08:58→21:40)
[2018-03-20] MEDS: DIPHENOXYLATE/ATROPINE LOMOTIL 1 TAB PO SCH ×2 (08:58→21:40)
[2018-03-20] MEDS: SIMETHICONE 80 MG TAB CHEW PO SCH ×4 (08:58→21:41)
[2018-03-20] MEDS: valACYclovir 500 MG TAB PO SCH (08:58)
--- NOTE | 2018-03-20 10:26 | PDPCPN ---
Palliative Care Progress Note Assessment/Plan: Assessment: [facility] [address] [place] [phone] (O) [phone](F) PALLIATIVE CARE NOTE NAME: Ganga Dejesus : 85, 32 VISIT TYPE: Initial LOCATION: [facility] LEVEL OF CARE: Hospice eligible DIAGNOSES: 1. Metastatic melanoma CC: Initial palliative care visit HPI: Mister Dejesus is a 32-year-old male who was diagnosed in 2016 with stage I melanoma. He had wide excision with clean margins at that time. He has had continued monitoring since that time. Approximately 2 weeks ago he began having intractable nausea, vomiting and diarrhea. He sought medical care and was admitted to the inpatient unit at [facility]. Scans were completed and he was found to have multiple sites of metastases including bone liver lung and a calvarial mass. A liver biopsy has been completed which is positive for melanoma. Molecular studies are pending at this time. His scan also indicated diffuse thickening of his bowel. His nausea vomiting and diarrhea have persisted despite antiemetics and antidiarrheal medications. PMH: As above ALLERGIES: FAMILY HISTORY: SOCIAL HISTORY: Lives in [facility] with his and 3 children. 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 Control of his nausea vomiting and diarrhea 2. Start treatment ACTIVE SYMPTOMS/ASSESSMENTS/RECOMMENDATIONS: 1. Metastatic melanoma: C 34.9: Await molecular studies to determine first- line therapy. 2. Nausea/vomiting R 11: Would encourage use of promethazine for nausea and vomiting. Would recommend GI consult for possible endoscopy to further determine the cause of nausea and vomiting. 3. Diarrhea R 19.7: Continue current regimen. 4. Protein calorie malnutrition E 46: Dietary consult. Would consider TPN with his marked hypoalbuminemia. MODIFIED [place] SYMPTOM ASSESSMENT SCALE: 0-none; 1-3 mild; 4-6 moderate; 7-10 severe Unable to Respond: No [ ] Delirium: 0-none Depression: 0-none Anxiety: 3 Tiredness (fatigue): 5 Drowsiness (sleepiness): 0-none Pain: 0-none Nausea: 0-none Anorexia: 0-none Shortness of Breath: 0-none Secretions: 0-none Constipation: 0-none Symptom and side effect management: (acceptable to patient and family) RISK FACTORS FOR RE-HOSPITALIZATION: o CAREGIVER ANXIETY o DISEASE EDUCATION DEFICIT OBJECTIVE FINDINGS Palliative Performance Score: 70 FAST: Not applicable NYHA: n/a Vital Signs: Wt: MAC: Neuro: A&O to person, place, time and event HEENT: Normocephalic; atraumatic RESP: Regular, deep, symmetrical. No cough or wheezing CV: no LE edema GI: soft, round bowel sounds hyperactive : no dysuria or hematuria MSK: Marked muscle wasting. Ambulatory SKIN: intact LAB Data: N/A Disposition: Inpatient hospitalization ADVANCE CARE PLANNING DISCUSSION Sakshi has been designated as medical power of rotary shear cutter PLAN: 1. admit to community palliative services upon discharge 2. will need social work support upon discharge Thank you for the opportunity to participate in the care of this patient. TIME SPENT: [id number] 75 min >50% of the time spent counseling, educating and coordinating the above topics. Mkbridget Wells ANPBC Plan: 03/07/18 07:34 Subjective: [facility] [address] [place] [phone] (O) [phone](F) PALLIATIVE CARE NOTE NAME: Ganga Dejesus : 85, 32 Date: 03/19/2018 VISIT TYPE: Follow-up hospital palliative visit LOCATION: [facility] LEVEL OF CARE: Hospice eligible DIAGNOSES: 1. Metastatic melanoma CC: Initial palliative care visit HPI: Mister Dejesus is a 32-year-old male who was diagnosed in 2016 with stage I melanoma. He had wide excision with clean margins at that time. He has had continued monitoring since that time. Approximately 4 weeks ago he began having intractable nausea, vomiting and diarrhea. He sought medical care and was admitted to the inpatient unit at [facility]. Scans were completed and he was found to have multiple sites of metastases including bone liver lung and a calvarial mass. A liver biopsy has been completed which is positive for melanoma. Molecular studies indicate the BRAF mutation. His scan also indicated diffuse thickening of his bowel. He has undergone endoscopy and sigmoidoscopy and biopsies are positive for melanoma. He continues on TPN. His oral intake has improved. His nausea and vomiting have improved at this time. His diarrhea has improved with decreased frequency and volume and consistency. He received 1 dose of immunotherapy and has been started on the medications for the molecular mutation. He appears to be tolerating these well at this time. PMH: As above ALLERGIES: FAMILY HISTORY: SOCIAL HISTORY: Lives in [facility] with his and 3 children. 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 Control of his nausea vomiting and diarrhea 2. Start treatment ACTIVE SYMPTOMS/ASSESSMENTS/RECOMMENDATIONS: 1. Metastatic melanoma: C 34.9: He is positive for molecular mutation and has been started on the oral medication for this. He received 1 dose of immunotherapy. 2. Nausea/vomiting R 11: His nausea has improved. he continues on scheduled Zofran. 3. Diarrhea R 19.7: Continue current regimen. his diarrhea has improved. He does have Haldol available on a when necessary basis. Would recommend scheduling 1 mg every 6 hours. This can be reduced as his diarrhea continues to improve. 4. Protein calorie malnutrition E 46: continue TPN. Oral intake has improved however his calorie count remains between 500-750 alicia per day. His albumin remains remarkably low at 1.0. MODIFIED [place] SYMPTOM ASSESSMENT SCALE: 0-none; 1-3 mild; 4-6 moderate; 7-10 severe Unable to Respond: No [ ] Delirium: 0-none Depression: 0-none Anxiety: 3 Tiredness (fatigue): 5 Drowsiness (sleepiness): 0-none Pain: 0-none Nausea: 1 Anorexia: 0-none Shortness of Breath: 0-none Secretions: 0-none Constipation: 0-none Symptom and side effect management: (acceptable to patient and family) RISK FACTORS FOR RE-HOSPITALIZATION: o CAREGIVER ANXIETY o DISEASE EDUCATION DEFICIT OBJECTIVE FINDINGS Palliative Performance Score: 70 FAST: Not applicable NYHA: n/a Vital Signs: Wt: MAC: Neuro: A&O to person, place, time and event HEENT: Normocephalic; atraumatic RESP: Regular, deep, symmetrical. No cough or wheezing CV: anasarca GI: soft, round bowel sounds hyperactive : no dysuria or hematuria MSK: Marked muscle wasting. Ambulatory SKIN: intact LAB Data: N/A Disposition: Inpatient hospitalization ADVANCE CARE PLANNING DISCUSSION Sakshi has been designated as medical power of rotary shear cutter. PLAN: 1. admit to community palliative services upon discharge 2. will need social work support upon discharge Thank you for the opportunity to participate in the care of this patient. TIME SPENT: [id number] 25 min >50% of the time spent counseling, educating and coordinating the above topics. Mk Wells [facility] Objective: Vital Signs Temp Pulse Resp BP Pulse Ox 37.1 C 110 H 18 123/66 H 97 03/20/18 08:36 03/20/18 08:36 03/20/18 08:36 03/20/18 08:36 03/20/18 08:36 Microbiology 03/14/18 05:35 Blood Culture - Final Blood 03/14/18 05:02 Blood Culture - Final Blood Laboratory Results 03/18/18 05:35 03/19/18 06:23 03/19/18 03/20/18 03/21/18 05:59 05:59 05:59 Intake Total 4869 1450 1732 Output Total 3975 5500 Balance 894 -4050 1732 PT 13.7 SEC (12.0-15.0) 03/17/18 05:00 INR 1.03 (0.83-1.16) 03/17/18 05:00 ICD10 Worksheet Patient Problems: Problems Problem Status Onset Anorexia Acute Dehydration Acute Diarrhea Acute Malignancy Acute
--- NOTE | 2018-03-20 10:31 | PDPCPN ---
Palliative Care Progress Note Assessment/Plan: Assessment: [facility] [address] [place] [phone] (O) [phone](F) PALLIATIVE CARE NOTE NAME: Ganga Dejesus : 85, 32 Date: 03/19/2018 VISIT TYPE: Follow-up hospital palliative visit LOCATION: [facility] LEVEL OF CARE: Hospice eligible DIAGNOSES: 1. Metastatic melanoma CC: Initial palliative care visit HPI: Mister Dejesus is a 32-year-old male who was diagnosed in 2016 with stage I melanoma. He had wide excision with clean margins at that time. He has had continued monitoring since that time. Approximately 4 weeks ago he began having intractable nausea, vomiting and diarrhea. He sought medical care and was admitted to the inpatient unit at [facility]. Scans were completed and he was found to have multiple sites of metastases including bone liver lung and a calvarial mass. A liver biopsy has been completed which is positive for melanoma. Molecular studies indicate the BRAF mutation. His scan also indicated diffuse thickening of his bowel. He has undergone endoscopy and sigmoidoscopy and biopsies are positive for melanoma. He continues on TPN. His oral intake has improved. His nausea and vomiting have improved at this time. His diarrhea has improved with decreased frequency and volume and consistency. He received 1 dose of immunotherapy and has been started on the medications for the molecular mutation. He appears to be tolerating these well at this time. PMH: As above ALLERGIES: FAMILY HISTORY: SOCIAL HISTORY: Lives in [facility] with his and 3 children. 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 Control of his nausea vomiting and diarrhea 2. Start treatment ACTIVE SYMPTOMS/ASSESSMENTS/RECOMMENDATIONS: 1. Metastatic melanoma: C 34.9: He is positive for molecular mutation and has been started on the oral medication for this. He received 1 dose of immunotherapy. 2. Nausea/vomiting R 11: His nausea has improved. he continues on scheduled Zofran. 3. Diarrhea R 19.7: Continue current regimen. his diarrhea has improved. He does have Haldol available on a when necessary basis. Would recommend scheduling 1 mg every 6 hours. This can be reduced as his diarrhea continues to improve. 4. Protein calorie malnutrition E 46: continue TPN. Oral intake has improved however his calorie count remains between 500-750 alicia per day. His albumin remains remarkably low at 1.0. MODIFIED [place] SYMPTOM ASSESSMENT SCALE: 0-none; 1-3 mild; 4-6 moderate; 7-10 severe Unable to Respond: No [ ] Delirium: 0-none Depression: 0-none Anxiety: 3 Tiredness (fatigue): 5 Drowsiness (sleepiness): 0-none Pain: 0-none Nausea: 1 Anorexia: 0-none Shortness of Breath: 0-none Secretions: 0-none Constipation: 0-none Symptom and side effect management: (acceptable to patient and family) RISK FACTORS FOR RE-HOSPITALIZATION: o CAREGIVER ANXIETY o DISEASE EDUCATION DEFICIT OBJECTIVE FINDINGS Palliative Performance Score: 70 FAST: Not applicable NYHA: n/a Vital Signs: Wt: MAC: Neuro: A&O to person, place, time and event HEENT: Normocephalic; atraumatic RESP: Regular, deep, symmetrical. No cough or wheezing CV: anasarca GI: soft, round bowel sounds hyperactive : no dysuria or hematuria MSK: Marked muscle wasting. Ambulatory SKIN: intact LAB Data: N/A Disposition: Inpatient hospitalization ADVANCE CARE PLANNING DISCUSSION Sakshi has been designated as medical power of estate attorney. PLAN: 1. admit to community palliative services upon discharge 2. will need social work support upon discharge Thank you for the opportunity to participate in the care of this patient. TIME SPENT: [id number] 25 min >50% of the time spent counseling, educating and coordinating the above topics. Mk Wells [facility] Plan: 03/20/18 10:31 Objective: Vital Signs Temp Pulse Resp BP Pulse Ox 37.1 C 110 H 18 123/66 H 97 03/20/18 08:36 03/20/18 08:36 03/20/18 08:36 03/20/18 08:36 03/20/18 08:36 Microbiology 03/14/18 05:35 Blood Culture - Final Blood 03/14/18 05:02 Blood Culture - Final Blood Laboratory Results 03/18/18 05:35 03/19/18 06:23 03/19/18 03/20/18 03/21/18 05:59 05:59 05:59 Intake Total 4869 1450 1732 Output Total 3975 5500 Balance 894 -4050 1732 PT 13.7 SEC (12.0-15.0) 03/17/18 05:00 INR 1.03 (0.83-1.16) 03/17/18 05:00 ICD10 Worksheet Patient Problems: Problems Problem Status Onset Anorexia Acute Dehydration Acute Diarrhea Acute Malignancy Acute
[2018-03-20] MEDS: DABRAFENIB 75 MG PO SCH ×2 (11:03→21:45)
[2018-03-20 11:30] LABS: PLATELET COUNT 324 10^3/uL (150-400)
--- NOTE | 2018-03-20 13:57 | SOAPPROG ---
SOAP Progress Note Assessment/Plan: Assessment: * Metastatic melanoma, BRAF mutated: Prior to the results of the testing he received 1 dose of nivolumab 03/13. He started Dabrafenib/Trametenib 03/14. He is tolerating treatment without new symptoms, but the typical side effects, such as fever and rash tend to show up about a week or 2 later. * Diarrhea, poor p.o. Intake, cachexia: This is secondary to metastatic involvement of the bowels. His BMs are becoming more normal. He is trying to eat more. He ate an omelet and some nuts. Cyclic TPN is still needed as an outpatient until he is substantially better. He is severely protein malnourished. * Catheter-related DVT: Recommend continuing low molecular weight heparin for now. Once he is able to take p.o. and it is clearly absorbing well we could consider switching him to a DOAC. * Oral Herpetic eruption: On Valtrex. Improving. * MSSA bacteremia: ID is assisting with management. Source is probably right side PICC line. He is currently on vancomycin. He is clearly feeling better. He was able to walk in the [place]ore. [employer] is to arrange for him to be discharged to home tomorrow. Follow up should be with Dr. Bekah French next week. Plan: - Continue BRAF/MEK inhibitor combo - Continue TPN. Change to cyclic - Change to DOAC when taking PO well. - Abx per ID - Probable d/c to home 21 MAR 2018 - Dr. Bekah French will be his primary oncologist as an outpatient. Subjective: Feels better. Trying to eat as much as he can. Objective: Vital Signs Temp Pulse Resp BP Pulse Ox 36.9 C 111 H 18 112/71 96 03/20/18 11:42 03/20/18 11:42 03/20/18 11:42 03/20/18 11:42 03/20/18 11:42 Microbiology 03/14/18 05:35 Blood Culture - Final Blood 03/14/18 05:02 Blood Culture - Final Blood Laboratory Results 03/20/18 11:10 03/18/18 03/19/18 03/20/18 23:59 23:59 23:59 Intake Total 4719 600 2732 Output Total 3975 3700 1800 Balance 744 -3100 932 PT 13.7 SEC (12.0-15.0) 03/17/18 05:00 INR 1.03 (0.83-1.16) 03/17/18 05:00 Physical Exam - Physical Exam General Appearance: alert, mild distress Respiratory: lungs clear Cardiac/Chest: regular rate, rhythm Extremities: pedal edema (3+ bipedal and scrotal edema due to severe hypoalbuminemia) Neuro/Psych: alert, normal mood/affect, oriented x 3 ICD10 Worksheet Patient Problems: Problems Problem Status Onset Anorexia Acute Dehydration Acute Diarrhea Acute Malignancy Acute
[2018-03-20 14:07] LABS: PLATELET COUNT 358 10^3/uL (150-400)
--- NOTE | 2018-03-20 15:11 | PDIAF ---
- Diagnosis Diagnosis: MSSA bacteremia Code Status: Full Code - Medication Management Anesthesiology Faculty Antibiotics: Vancomycin 3 g IV Q 24 hr by continuous infusion Anesthesiology Faculty Antibiotic Stop Date: 04/11/18 Discharge Medications: electronically signed and located in the Home Medication List. PICC Care - Routine: Yes - Orders Services needed: Home [facility] Care Face to Face: I certify that this patient was under my care and that I had the required [id number] encounter meeting the encounter requirements on the discharge day. My findings support the fact that the patient is homebound as defined in Home Care Face to Face Continued: CMS Chapter 7 Medicare Benefits Manual 30.1.1 , The condition of the patient is such that there exists a normal inability to leave home and consequently, leaving home would require a considerable and taxing effort. - Labs/Radiology CBC w/diff Date: 03/24/18 CMP Date: 03/24/18 Creatinine Date: 03/27/18 Call or Fax Lab and Imaging Results to: Dr. Martinez, - Follow Up Care Current Providers and Referrals: Storm Prater MD [Primary Care Provider] - As per Instructions Frandy Martinez MD [Medical Doctor] - 04/02/18 2:30 pm
--- NOTE | 2018-03-20 15:16 | PCMIDPN ---
Assessment/Plan: Assessment/Plan: * MSSA bacteremia most likely PICC associated with concomitant DVT: Continue vancomycin the setting of penicillin and cephalosporin allergy. Anticipate 4 week course of therapy post negative blood cultures with administration by continuous infusion. Will obtain weekly CBC and CMP with twice weekly creatinine and vancomycin random level. Side effects of vancomycin including potential for allergic reactions, rash, kidney toxicity, laboratory abnormalities, or hearing loss discussed with patient. * Oral HSV: Resolved. Will begin Valtrex 1 g orally daily a suppressive therapy giving ongoing immunosuppression. * Rash: Rash present over left upper extremity which appears irritant in nature. Continue to observe over time. 03/20/18 15:14 Subjective: Patient feels better. Up ambulating in halls. Eating more but still relatively limited quantities. Diarrhea improved but still ongoing. Status post PICC line exchange yesterday now with double lumen for TPN and antibiotic therapy. Objective: Vital Signs Temp Pulse Resp BP Pulse Ox 36.9 C 111 H 18 112/71 96 03/20/18 11:42 03/20/18 11:42 03/20/18 11:42 03/20/18 11:42 03/20/18 11:42 Laboratory Results 03/20/18 13:50 03/20/18 13:50 03/19/18 03/20/18 03/21/18 05:59 05:59 05:59 Intake Total 4869 1450 1732 Output Total 3975 5500 Balance 894 -4050 1732 Vancomycin # 9 Valtrex 1 g p.o. Twice daily Blood cultures 03/14/2018 no growth - Physical Exam General Appearance: alert, no apparent distress EENT: other (Oral HSV resolve), No scleral icterus, No conjunctival petechiae Respiratory: lungs clear, No respiratory distress Cardiac/Chest: regular rate, rhythm, No systolic murmur Extremities: pedal edema Abdomen: non-tender, No distended Skin: rash (Irritant type rash over left lateral upper extremity) - Line/s RUE PICC Lines: No drainage, No erythema ICD10 Worksheet Patient Problems: Problems Problem Status Onset Anorexia Acute Dehydration Acute Diarrhea Acute Malignancy Acute
--- NOTE | 2018-03-20 15:40 | PDIAF ---
- Diagnosis Diagnosis: MSSA bacteremia Code Status: Full Code - Medication Management Developmental Writing Instructor Antibiotics: Vancomycin 3 g IV Q 24 hr by continuous infusion Developmental Writing Instructor Antibiotic Stop Date: 04/11/18 Discharge Medications: electronically signed and located in the Home Medication List. PICC Care - Routine: Yes - Orders Services needed: Home Long-Term Care Face to Face: I certify that this patient was under my care and that I had the required [id number] encounter meeting the encounter requirements on the discharge day. My findings support the fact that the patient is homebound as defined in Home Care Face to Face Continued: CMS Chapter 7 Medicare Benefits Manual 30.1.1 , The condition of the patient is such that there exists a normal inability to leave home and consequently, leaving home would require a considerable and taxing effort. - Labs/Radiology CBC w/diff Date: 03/24/18 CMP Date: 03/24/18 Creatinine Date: 03/27/18 (Weekly Q Saturday and ) Vanco Random Date: 03/24/18 (Weekly Q Saturday and ) Call or Fax Lab and Imaging Results to: Dr. Martinez, - Follow Up Care Current Providers and Referrals: Storm Prater MD [Primary Care Provider] - As per Instructions Frandy Martinez MD [Medical Doctor] - 04/02/18 2:30 pm
--- NOTE | 2018-03-20 15:56 | HOSPPROG ---
Hospitalist Progress Note Assessment/Plan: The patient is a 32-year-old male with PMH localized melanoma who was admitted for diarrhea, hyponatremia, nausea and vomiting, malnutrition-- found to have melanoma metastases. 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 MSSA bacteremia, a/w PICC line DVT RUE, a/w PICC line Malabsorption 2/2 diffuse gastroenteritis 2/2 metastases -w/ diarrhea which is slowly improving. Vomiting resolved. Hyponatremia Hypocalcemia Hypoalbuminemia, 2/2 malabsorption/cancer Anasarca, 2/2 hypoalbuminemia/cancer Severe protein calorie malnutrition, 2/2 to cancer HSV infection, orolabial Normocytic anemia, stable Leukocytosis, 2/2 infection/blood clot Coagulopathy, resolved -ID recs appreciated. Pt on vanco TID, Valtrex. Plan to switch to daily continuous vanco infusions at home for DC planning. -Continue po intake as tolerated. Encouraged pt to eat as much as he can tolerate. -Discussed DC planning w/ pt and his mother today. -Oncology recs appreciated- pt on anti-BRAF Tx and immunotherapy -typical antidiarrheals have not helped; using prn haloperidol now which was recommended by Palliative Care. Additional Pall Med recs appreciated. -Discussed w/ ID, Onc, Pharmacist, CM, RNs. -PT. -Check AM labs. -Tonight - switch from continuous TPN to cyclic in preparation for DC. VTE prophylaxis: Lovenox, full dose Code Status: Full code Status: Inpatient for greater than 2 midnight stay. Disposition: Med surg -- start DC planning potentially for Saturday, if ok w/ Onc and ID. ____ SUBJECTIVE: Today pt has not had emesis o/n. Diarrhea has become more liquid again. Tolerates po - had an omelette, chicken noodle soup, and cashews ( softened) today. OBJECTIVE: Physical Exam: General: The patient is a male who is alert and in no acute distress. HEENT: normocephalic, extraocular movements intact, conjunctivae clear. Mucous membranes moist. Neck: trachea midline. Resp: unlabored. Abd: soft and mildly distended. Musculoskeletal: Normal muscle tone/bulk. Neuro: cranial nerves II XII grossly intact. Intact gross motor and sensory function. Psych: Appropriate mood and appropriate affect. Skin: + pallor. No petechiae. Heme/lymph: +3 peripheral edema at bilateral lower extremities, +2 bilateral arms/hands. Labs/Imaging/Other Tests: Personally reviewed/interpreted. Abdomen/pelvis CT with contrast: Impression: 1. Multiple lytic osseous lesions consistent with metastases or less likely myeloma. 2. Multiple low-attenuation hepatic lesions, suspicious for metastases, but indeterminate. 3. No definite primary malignancy identified. 4. Diffuse bowel wall thickening, with trace ascites. 5. Mildly prominent mesenteric lymph nodes without pathologic enlargement. 6. Additional findings as above. Bone scan: No bone scan correlates for multiple osseous metastases seen on the comparisons. Brain MRI: calvarium mass, no brain masses. Chest CT w/ contrast: Suspicious for small lung parenchymal, bone and hepatic metastases. CTA chest: Impression: 1. No evidence of pulmonary embolus using CT protocol. 2. Small less than 5 mm pulmonary metastatic lesions as well as small lucent osseous metastatic lesions once again noted. 3. Small hepatic lesions were better seen with ultrasound. Head CT w/o contrast: Impression: 1. No evidence of intracranial hemorrhage. 2. Clival and left mandibular osseous metastases. Bilat Doppler Venous UE/LE: Impression: 1. Positive deep venous thrombosis in the right arm brachial vein associated with the PIC line. 2. Minimal superficial thrombophlebitis in the left antecubital cephalic vein. Impression: No deep venous thrombosis bilateral legs. Biopsies: Liver, gastric, ileum, duodenum - metastic melanoma. Repeat Blood cultures 03/14 - negative for growth x 2 sets. Objective: Vital Signs Temp Pulse Resp BP Pulse Ox 37.5 C 112 H 14 118/75 94 03/20/18 15:46 03/20/18 15:46 03/20/18 15:46 03/20/18 15:46 03/20/18 15:46 Laboratory Results 03/20/18 13:50 03/20/18 13:50 03/19/18 03/20/18 03/21/18 05:59 05:59 05:59 Intake Total 4869 1450 1732 Output Total 3975 5500 900 Balance 894 -4050 832 PT 13.7 SEC (12.0-15.0) 03/17/18 05:00 INR 1.03 (0.83-1.16) 03/17/18 05:00 - Time Spent With Patient Time Spent with Patient: greater than 35 minutes Time Spent with Patient: Greater than 35 minutes spent on this patients care, greater than 50% of time spent counseling, educating, and coordinating care regarding the above mentioned plan. ICD10 Worksheet Patient Problems: Problems Problem Status Onset Anorexia Acute Dehydration Acute Diarrhea Acute Malignancy Acute
[2018-03-20] MEDS: TPN W/ FAMOTIDINE 1 EA BAG IV SCH (21:40)
[2018-03-21] MEDS: VANCOMYCIN 1.25 GM in NS 250 ML IV SCH ×3 (01:18→18:05)
[2018-03-21] MEDS: HALOPERIDOL 1 MG TAB PO PRN (01:18)
[2018-03-21] MEDS: ONDANSETRON 4 MG/2 ML VIAL IVP SCH ×3 (03:59→20:09)
[2018-03-21 05:12] LABS: PLATELET COUNT 320 10^3/uL (150-400)
[2018-03-21] MEDS: LOPERAMIDE HCL 2 MG CAP PO SCH ×4 (05:52→20:09)
[2018-03-21] MEDS ORDERED: CALCIUM GLUCONATE 50 ML IV ONE ×4 (05:52→19:23)
[2018-03-21] MEDS ORDERED: POTASSIUM Cl (KCl) 100 ML IV SCH (06:00)
[2018-03-21] MEDS ORDERED: CALCIUM GLUCONATE 1 GM in D5W 50 ML IV ONE ×3 (06:00→20:00)
[2018-03-21] MEDS: SIMETHICONE 80 MG TAB CHEW PO SCH ×4 (09:21→20:08)
[2018-03-21] MEDS: valACYclovir 500 MG TAB PO SCH (09:21)
[2018-03-21] MEDS: DIPHENOXYLATE/ATROPINE LOMOTIL 1 TAB PO SCH ×2 (09:22→20:09)
[2018-03-21] MEDS: ENOXAPARIN 80 MG/0.8 ML SYR SC SCH ×2 (09:23→20:11)
[2018-03-21] MEDS: DABRAFENIB 75 MG PO SCH ×2 (10:31→21:17)
--- NOTE | 2018-03-21 12:21 | HOSPPROG ---
Hospitalist Progress Note Assessment/Plan: The patient is a 32-year-old male with PMH localized melanoma who was admitted for diarrhea, hyponatremia, nausea and vomiting, malnutrition-- found to have extensive melanoma metastases. ASSESSMENT/PLAN: Stage IV melanoma -metastases to liver, GI tract (stomach, small bowel, liver), calvarium/bones /lung. MSSA bacteremia, a/w PICC line DVT RUE, a/w PICC line Malabsorption 2/2 diffuse gastroenteritis 2/2 metastases -w/ diarrhea which is slowly improving. Vomiting resolved. Anasarca, 2/2 hypoalbuminemia/cancer Hyponatremia Hypocalcemia Hypoalbuminemia, 2/2 malabsorption/cancer Severe protein calorie malnutrition, 2/2 to malabsorption/cancer HSV infection, orolabial Normocytic anemia, stable Leukocytosis, 2/2 infection/blood clot Coagulopathy, resolved -Calcium replaced twice today. -ID recs appreciated. Pt on vanco TID, Valtrex. Plan to switch to daily continuous vanco infusions at home for DC planning. -PICC line replaced. -Continue po intake as tolerated. -Discussed DC planning w/ pt and his family today. Once pt is a bit more stable and is tolerating cyclic TPN, may be DC'd to home w/ family support/C and close Onc FU. -Oncology recs appreciated- pt on anti-BRAF/MEK Tx. Response should start in a few weeks from start of therapy. -typical antidiarrheals have not helped much; using prn haloperidol now which was recommended by Palliative Care. Additional Pall Med recs appreciated. -Discussed w/ Onc, Pharmacist, CM, RNs. -PT. -Check AM labs. -Tonight - switch from continuous TPN to cyclic in preparation for DC. VTE prophylaxis: Lovenox, full dose Code Status: Full code Status: Inpatient for greater than 2 midnight stay. Disposition: Med surg -- started DC planning - pt to get [facility] w/ [facility] for TPN /IV fluids, additional meds. Has good family support (/sister will learn how to network support administrator IVs). Will be followed closely by [facility] - needs frequent labs for TPN which can be drawn by [facility]. ____ SUBJECTIVE: Today pt has not had emesis o/n. Diarrhea still liquid (had BM last night and this AM). Tolerates po but has persistent diarrhea. OBJECTIVE: Physical Exam: General: The patient is a male who is alert and in no acute distress. HEENT: normocephalic, extraocular movements intact, conjunctivae clear. Mucous membranes moist. Neck: trachea midline. Resp: unlabored. Abd: soft and mildly distended. Musculoskeletal: Normal muscle tone/bulk. Neuro: cranial nerves II - XII grossly intact. Intact gross motor and sensory function. Psych: Appropriate mood and appropriate affect. Skin: + pallor. No petechiae. +crusted vesicular lesions on mouth. Heme/lymph: +3 peripheral edema at bilateral lower extremities, +2 bilateral arms/hands. Labs/Imaging/Other Tests: Personally reviewed/interpreted. Abdomen/pelvis CT with contrast: Impression: 1. Multiple lytic osseous lesions consistent with metastases or less likely myeloma. 2. Multiple low-attenuation hepatic lesions, suspicious for metastases, but indeterminate. 3. No definite primary malignancy identified. 4. Diffuse bowel wall thickening, with trace ascites. 5. Mildly prominent mesenteric lymph nodes without pathologic enlargement. 6. Additional findings as above. Bone scan: No bone scan correlates for multiple osseous metastases seen on the comparisons. Brain MRI: calvarium mass, no brain masses. Chest CT w/ contrast: Suspicious for small lung parenchymal, bone and hepatic metastases. CTA chest: Impression: 1. No evidence of pulmonary embolus using CT protocol. 2. Small less than 5 mm pulmonary metastatic lesions as well as small lucent osseous metastatic lesions once again noted. 3. Small hepatic lesions were better seen with ultrasound. Head CT w/o contrast: Impression: 1. No evidence of intracranial hemorrhage. 2. Clival and left mandibular osseous metastases. Bilat Doppler Venous UE/LE: Impression: 1. Positive deep venous thrombosis in the right arm brachial vein associated with the PIC line. 2. Minimal superficial thrombophlebitis in the left antecubital cephalic vein. Impression: No deep venous thrombosis bilateral legs. Biopsies: Liver, gastric, ileum, duodenum - metastic melanoma. Repeat Blood cultures 03/14 - negative for growth x 2 sets. Objective: Vital Signs Temp Pulse Resp BP Pulse Ox 36.9 C 114 H 16 114/69 96 03/21/18 12:00 03/21/18 12:00 03/21/18 12:00 03/21/18 12:00 03/21/18 12:00 Laboratory Results 03/21/18 05:00 03/21/18 05:00 03/20/18 03/21/18 03/22/18 05:59 05:59 05:59 Intake Total 1450 3382 1057 Output Total 5500 5350 Balance -4050 -1968 1057 PT 13.7 SEC (12.0-15.0) 03/17/18 05:00 INR 1.03 (0.83-1.16) 03/17/18 05:00 - Time Spent With Patient Time Spent with Patient: greater than 35 minutes Time Spent with Patient: Greater than 35 minutes spent on this patients care, greater than 50% of time spent counseling, educating, and coordinating care regarding the above mentioned plan. ICD10 Worksheet Patient Problems: Problems Problem Status Onset Anorexia Acute Dehydration Acute Diarrhea Acute Malignancy Acute
[2018-03-21] MEDS ORDERED: CALCIUM GLUCONATE 2 GM in NS 50 ML IV ONE (12:35)
--- NOTE | 2018-03-21 12:59 | SOAPPROG ---
SOAP Progress Note Assessment/Plan: Assessment: * Metastatic melanoma, BRAF mutated: Prior to the results of the testing he received 1 dose of nivolumab 03/13. He started Dabrafenib/Trametenib 03/14. He is tolerating treatment without new symptoms, but the typical side effects, such as fever and rash tend to show up about a week or 2 later. * Diarrhea, poor p.o. Intake, cachexia: This is secondary to metastatic involvement of the bowels. His BMs are becoming more normal. He ate a tuna fish sandwich yesterday. Albumin is still <1.0. He continues to require TPN. * Catheter-related DVT: Recommend continuing low molecular weight heparin for now. Once he is able to take p.o. and it is clearly absorbing well we could consider switching him to a DOAC. * Oral Herpetic eruption: On Valtrex. Improving. * MSSA bacteremia: ID is assisting with management. Source is probably right side PICC line. He is currently on vancomycin. Will go home with a pump He is clearly feeling better. He was able to walk in the [place]. [employer] is to arrange for him to be discharged to home tomorrow. He wants follow up in [place] and would like to see Dr. Venegsa there. I notified Dr. Venegas and Dr. French Plan: - Continue BRAF/MEK inhibitor combo - Continue TPN. Change to cyclic - Change to DOAC when taking PO well. - Abx per ID - Probable d/c to home 21 MAR 2018 - Dr. Venegas will be his primary oncologist as an outpatient per patient request. Subjective: Ate, BMs slowing down. Objective: Vital Signs Temp Pulse Resp BP Pulse Ox 36.9 C 114 H 16 114/69 96 03/21/18 12:00 03/21/18 12:00 03/21/18 12:00 03/21/18 12:00 03/21/18 12:00 Laboratory Results 03/21/18 05:00 03/21/18 05:00 03/19/18 03/20/18 03/21/18 23:59 23:59 23:59 Intake Total 600 3982 1457 Output Total 3700 6450 700 Balance -3100 -2468 757 PT 13.7 SEC (12.0-15.0) 03/17/18 05:00 INR 1.03 (0.83-1.16) 03/17/18 05:00 Physical Exam - Physical Exam General Appearance: alert, no apparent distress Respiratory: lungs clear Cardiac/Chest: regular rate, rhythm Abdomen: distended Skin: pallor Extremities: pedal edema Neuro/Psych: alert, normal mood/affect, oriented x 3 ICD10 Worksheet Patient Problems: Problems Problem Status Onset Anorexia Acute Dehydration Acute Diarrhea Acute Malignancy Acute
--- NOTE | 2018-03-21 16:23 | ASMTCMCOM ---
CM Note CM Note Notes: CM met with family and discussed discharge needs with MD, RN and pharmacy. Family is linked with the following services: -[facility] for Home Health -[facility] -[facility] -[facility] -[facility] ([place]) CM discussed discharge plan with family. They were concerned about their medications and CM spoke with RN from [facility] and they said they will deliver chemo meds when needed but MD will have to send other meds to preferred pharmacy prior to discharge and family will have to fruit picker. CM informed and is agreeable. CM to follow. Date Signed: 03/21/2018 04:22 PM Electronically Signed By:MINE Ryan
[2018-03-21] MEDS: TPN W/ FAMOTIDINE 1 EA BAG IV SCH (20:12)
[2018-03-21] MEDS: LORazepam 2 MG/ML INJ IVP PRN (21:24)
[2018-03-22] MEDS: VANCOMYCIN 1.25 GM in NS 250 ML IV SCH ×2 (01:13→09:55)
[2018-03-22] MEDS: ONDANSETRON 4 MG/2 ML VIAL IVP SCH (04:00)
[2018-03-22] MEDS: LOPERAMIDE HCL 2 MG CAP PO SCH ×3 (04:53→15:14)
[2018-03-22 05:15] LABS: PLATELET COUNT 355 10^3/uL (150-400)
[2018-03-22] MEDS ORDERED: CALCIUM GLUCONATE 2 GM in D5W 50 ML IV ONE ×2 (06:45→07:00)
[2018-03-22] MEDS: ENOXAPARIN 80 MG/0.8 ML SYR SC SCH (08:47)
[2018-03-22] MEDS: SIMETHICONE 80 MG TAB CHEW PO SCH ×2 (08:47→15:14)
[2018-03-22] MEDS: DIPHENOXYLATE/ATROPINE LOMOTIL 1 TAB PO SCH (08:47)
[2018-03-22] MEDS: valACYclovir 500 MG TAB PO SCH (08:47)
[2018-03-22] MEDS: DABRAFENIB 75 MG PO SCH (09:57)
[2018-03-22] MEDS ORDERED: LORazepam 1 MG TAB PO PRN (10:10)
[2018-03-22] MEDS ORDERED: ONDANSETRON DISINTEGRATING 4 MG TAB PO SCH (12:00)
[2018-03-22 12:29] VITALS: BP 113/74
--- NOTE | 2018-03-22 13:14 | PDDCSUM ---
Discharge Summary Discharge Summary: Date of Admission: 03/03/2018 Date of Discharge: 03/22/2018 Consultants: oncology, gastroenterology, infectious disease, palliative care Studies/Procedures: 1. Chest and abdominal CT 2. Brain MRI 3. Ultrasound guided liver biopsy 4. PICC line insertion with subsequent exchange 5. Extremity doppler venous ultrasound 6. EGD 7. Colonoscopy 8. CTA chest Discharge Diagnoses: 1. Metastatic malignant melanoma (liver, stomach, small bowel, bones, likely lung) 2. Vomiting/diarrhea and malabsorption 2/2 GI mets 3. Severe hypoalbuminemia/severe protein calorie malnutrition on TPN 4. Anasarca 5. PICC-associated RUE DVT on anticoagulation 6. MSSA bacteremia associated with PICC line 7. Hyponatremia 8. Nutritional coagulopathy 9. Normocytic anemia 10. Orolabial HSV infection 11. Leukocytosis Brief Hospital Course: 32yo M with history of local melanoma s/p resection in 2015 presented with 10 days of worsening nausea, vomiting, and diarrhea. Imaging in the ED showed diffuse lesions consistent with metastases (bone, liver, calvarium, likely lung) . Liver biopsy was consistent with malignant melanoma. Molecular studies returned + for BRAF mutation and he was started on Dabrafenib/Trametenib on (he did receive 1 dose of nivolumab on 03/13 prior to BRAF results returning) . He is to follow up with Dr Venegas in oncology clinic. His hospital course was quite complicated. His GI symptoms were severe. GI was consulted and performed EGD and colonoscopy with biopsies showing metastatic disease in the stomach and small bowel. This caused significant malabsorption and complications related to this: cachexia, hypoalbuminemia with resultant anasarca, and electrolyte disturbances. His diarrhea had slowed and was tolerating PO at discharge. His coagulopathy resolved with administration of vitamin K. A RUE PICC was placed for initiation of TPN. Within 24 hours of PICC placement, he developed a catheter-associated RUE DVT for which he was anticoagulated with Lovenox. He was not switched to an oral agent due to concerns for malabsorption. Unfortunately, he then developed MSSA bacteremia which was felt to be PICC-associated as well. ID was consulted and he was treated with IV vancomycin (penicillin and cephalosporin allergy) with plans to complete a 4 week course from negative blood cultures on 03/14. He also developed oral herpes and, per ID recs, is to remain on valtrex 1g daily for suppression. Lastly, he was established with palliative care and they will follow as outpatient. Additionally, we set him up with home health RN and PT. Medications: Please refer to EMR for complete list. Follow Up Plan: 1. To see Dr Venegas in oncology clinic on Saturday 03/24 Physical Exam: Vitals reviewed, remains mildly tachycardic, afebrile and normotensive. Alert and oriented. Cachectic. Tachycardic, no murmur. Lungs clear. Abdomen soft and nontender. Diffuse edema in legs and scrotum. No rashes. PICC line site c/d/i.
--- NOTE | 2018-03-22 13:14 | PDIAF ---
- Diagnosis Diagnosis: MSSA bacteremia Code Status: Full Code - Medication Management Woods Superintendent Antibiotics: Vancomycin 3 g IV Q 24 hr by continuous infusion Woods Superintendent Antibiotic Stop Date: 04/11/18 Additional Medication Instructions: Ok if patient needs to receive IV zofran and IV fluids at home. - IV ondansetron 8mg PRN q8H. Use if not tolerating PO. - Normal saline at 150ml/hr for 12 hours then re-assess if tolerating PO. Discharge Medications: electronically signed and located in the Home Medication List. PICC Care - Routine: Yes - Orders Services needed: Home Care, Registered Nurse, Physical Therapy Home Care Face to Face: I certify that this patient was under my care and that I had the required omvp-pp-ecre encounter meeting the encounter requirements on the discharge day. My findings support the fact that the patient is homebound as defined in Home Care Face to Face Continued: [facility] Chapter 7 Medicare Benefits Manual 30.1.1 , The condition of the patient is such that there exists a normal inability to leave home and consequently, leaving home would require a considerable and taxing effort. Diet Recommendation: no restrictions on diet Diet Texture: Dysphagia 3 - Advanced - Moist, Bite-Size Additional Instructions: Here are your discharge instructions: I sent the following medications to the [facility] in [place]: 1. Lovenox 80mg twice daily. These are the injections to treat your blood clot. 2. Ativan 1mg. Use as needed for nausea. 3. Lomotil 1 tablet. Take twice daily for diarrhea. 4. Haldol 1mg. Use as needed for diarrhea. 5. Zofran 8mg disintegrating tablets. Use just prior to each meal to prevent nausea. 6. Zofran IV. I also sent an IV form so that your home health agency can supply this in case you need it. You likely will not be able to pick this up from your pharmacy but I wanted you to have it on your medication list. 7. Valtrex. Take 1000mg daily to help prevent mouth sores. 8. You should parts picker the following wirb-wvx-tkhpzyt medications: - Imodium (also called loperamide). Take 4mg four times daily for diarrhea. - Simethicone (also called gas-x). Take as needed for bloating. Dr Martinez has set up for you to get your vancomycin (antibiotic). Our showcase trimmer has set up for you to get your TPN for 12 hours each night. Take your chemotherapy (dabrafenib and trametinib) as prescribed. Please follow up with Dr Venegas on Saturday as scheduled. We are setting you up with a home health nurse and physical therapist to make sure things are going smoothly. I have discontinued your metoprolol and amlodipine. Stop taking these. - Labs/Radiology CBC w/diff Date: 03/24/18 CMP Date: 03/24/18 Creatinine Date: 03/27/18 (Weekly Q Saturday and ) Call or Fax Lab and Imaging Results to: Dr. Martinez, - Follow Up Care Current Providers and Referrals: Storm Prater MD [Primary Care Provider] - As per Instructions Frandy Martinez MD [Medical Doctor] - 04/02/18 2:30 pm
--- NOTE | 2018-03-22 13:16 | PDIAF ---
- Diagnosis Diagnosis: MSSA bacteremia Code Status: Full Code - Medication Management Master Esthetician Antibiotics: Vancomycin 3 g IV Q 24 hr by continuous infusion Master Esthetician Antibiotic Stop Date: 04/11/18 Additional Medication Instructions: Ok if patient needs to receive IV zofran and IV fluids at home. - IV ondansetron 8mg PRN q8H. Use if not tolerating PO. - Normal saline at 150ml/hr for 12 hours then re-assess if tolerating PO. Discharge Medications: electronically signed and located in the Home Medication List. PICC Care - Routine: Yes - Orders Services needed: Home Care, Registered Nurse, Physical Therapy Home Care Face to Face: I certify that this patient was under my care and that I had the required aqtz-gd-opte encounter meeting the encounter requirements on the discharge day. My findings support the fact that the patient is homebound as defined in Home Care Face to Face Continued: [facility] Chapter 7 Medicare Benefits Manual 30.1.1 , The condition of the patient is such that there exists a normal inability to leave home and consequently, leaving home would require a considerable and taxing effort. Diet Recommendation: no restrictions on diet Diet Texture: Dysphagia 3 - Advanced - Moist, Bite-Size Additional Instructions: Here are your discharge instructions: I sent the following medications to the [facility] in [place]: 1. Lovenox 80mg twice daily. These are the injections to treat your blood clot. 2. Ativan 1mg. Use as needed for nausea. 3. Lomotil 1 tablet. Take twice daily for diarrhea. 4. Haldol 1mg. Use as needed for diarrhea. 5. Zofran 8mg disintegrating tablets. Use just prior to each meal to prevent nausea. 6. Zofran IV. I also sent an IV form so that your home health agency can supply this in case you need it. You likely will not be able to pick this up from your pharmacy but I wanted you to have it on your medication list. 7. Valtrex. Take 1000mg daily to help prevent mouth sores. 8. You should picker tender the following nvqx-qqd-ybxgoig medications: - Imodium (also called loperamide). Take 4mg four times daily for diarrhea. - Simethicone (also called gas-x). Take as needed for bloating. Dr Martinez has set up for you to get your vancomycin (antibiotic). Our skilled nursing case manager has set up for you to get your TPN for 12 hours each night. Take your chemotherapy (dabrafenib and trametinib) as prescribed. Please follow up with Dr Venegas on Saturday as scheduled. We are setting you up with a home health nurse and physical therapist to make sure things are going smoothly. I have discontinued your metoprolol and amlodipine. Stop taking these. We have referred you to be followed by [facility] in the outpatient setting as well. - Labs/Radiology CBC w/diff Date: 03/24/18 CMP Date: 03/24/18 Creatinine Date: 03/27/18 (Weekly Q Saturday and ) Call or Fax Lab and Imaging Results to: Dr. Martinez, - Follow Up Care Current Providers and Referrals: Storm Prater MD [Primary Care Provider] - As per Instructions Frandy Martinez MD [Medical Doctor] - 04/02/18 2:30 pm
--- NOTE | 2018-03-22 15:05 | ASMTDCNOTE ---
Case Management Discharge Discharge Order Complete? Answers: Yes Patient to Obtain Answers: via Family Medications Transportation Arranged Answers: Family/Friends Faxed Final Orders Answers: Yes Agency/Facility Transfer Answers: Yes Report Printed & Faxed to Receiving Agency Family Notified Answers: Yes Discharge Comments Notes: CM discussed discharge plan with pt, family, RN and MD. CM submit discharge ppwk and provided contact numbers for family. [facility] and [facility] will meet with family this evening at 7pm. CM answered questions and concerns. No other CM needs at this time. Date Signed: 03/22/2018 03:04 PM Electronically Signed By:MINE Ryan
--- NOTE | 2018-03-22 15:08 | ASDISCHSUM ---
Discharge Information Plan Status:Home with Home Health Medically Cleared to Leave: Discharge Date: D/C Disposition:Home Health Service [facility] D/C [facility] Projected Discharge Date:03/08/2018 11:00 AM Transportation at D/C:Family Discharge Delay Reason: Follow-Up Date:03/08/2018 11:00 AM Discharge Slot: Final Diagnosis: Placement Information Referral Type:Palliative Care Referral ID:[id number] Provider Name:[facility] Address 1:[address] Phone Number: Address 2: Fax Number: City:[place] Selection Factors: State:[place] Referral Type:Home Infusion Referral ID:[id number] Provider Name:[facility] Address 1:[address] Address 2: City:[place] Selection Factors: State:[place] Referral Type:*Home Health Care Services Referral ID:[id number] Provider Name:[facility] Address 1:[address] Address 2: City:[place] Selection Factors: State:[place] Patient Contact Information Contact Name:JJ Relationship: Address:[phone] Phone: City:[facility] Phone: [facility]/Zip Code:[place] [address] Email: Financial Information Financial Class:[facility] Primary Plan Desc: OUT OF [facility] Primary Plan Number:[id number] Secondary Plan Desc: Secondary Plan Number: Assessment Information LACE LACE Length of stay for Answers: 14 days or more current admission Acuity / Level of Answers: Yes Care: Did the patient have an inpatient admission? Comorbidities - select Answers: Any tumor (including all that apply lymphoma or leukemia) # of Emergency department Answers: 1-2 visits in the last 6 months Score: 13 Date Signed: 03/22/2018 03:05 PM Electronically Signed By:MINE Ryan [facility] CM Progress Note CM Note CM Note Notes: Patient admitted via ED with c/o anorexia and diarrhea. 32 year old male who had melanoma removed sometime ago. Has had follow up and now presents to the ED with likely metastatic disease via imaging. He lives in [place] with his and children. 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 CM to follow for needs, Kurt alvarez requested on his behalf. Plan: TBD Date Signed: 03/03/2018 01:54 PM Electronically Signed By:Cira Wellington RN [facility] CM Progress Note CM Note CM Note Notes: Met with patient per his request. He is frustrated over timing of testings. I explained my role as gearcase assembler to help him with with any care needs when he is medically ready to discharge or help home connect to resources in the community. Cm to follow for needs. Biopsy today. Pln: TBD Date Signed: 03/04/2018 01:14 PM Electronically Signed By:Cira Wellington RN [facility] CM Progress Note CM Note CM Note Notes: Plan of care reviewed in rounds. Patient is a 32 year old male diagnosed with metastatic melanoma . He is and has 3 children,. Good support. Some testing pending. Palliative care ordered and patient seen by [facility]. He has challenged with oral intake and diarrhea. Medications adjusted. Will refer to [facility]" for support. CM to follow for needs. Plan: TBD Date Signed: 03/06/2018 02:40 PM Electronically Signed By:Cira Wellington RN [facility] Progress Note CM Note CM Note Notes: [facility] referral completed and sent to [facility]. They will follow-up with patient on Saturday to assess needs. CM will continue to follow case. Plan: TBD Date Signed: 03/06/2018 05:35 PM Electronically Signed By:Eusebia Baker RN [facility] Progress Note CM Note CM Note Notes: of pt requested that hospitalist complete Paid Disability papers for pt. [facility] hospitalists do not have all of the information necessary for the form; the family has been instructed to have as much filled out as necessary and then faxed in. This form has been left in front of the [address] [place] [address]'s computer and needs to be given to tomorrow's hospitalist if Dr Pope does not fill it out this evening. of pt is aware of this and will be chacking in on its progress tomorrow. Date Signed: 03/07/2018 05:05 PM Electronically Signed By:Joann Arroyo [facility] Progress Note CM Note CM Note Notes: Patient plan of care reviewed in am rounds. He is undergoing EGD for nausea and diarrhea. Met with his regarding paid disability paperwork. CM faxed in paperwork and verified fax receipt. Patient is not medically ready for discharge. Family is connected to " [facility]" and has good support from friends and community. CM to follow for needs. Plan: TBD Date Signed: 03/10/2018 05:02 PM Electronically Signed By:Cira Wellington RN [facility] Progress Note Note Note Notes: Patient plan of care reviewed in am rounds. He is to start on acycolvir for presentation of an oral viral outbreak. DOROTHY contacted his insurance regarding authorization of a dose of Nivolamad. His inpatient stay has been authorized. J code request placed in file. They do not guarantee benefits. His current authorization number is [id number]. Because he remains inpatient they will not create another authorization at this time. We can fax medical updates to [phone]. CM to follow for needs. Plan: To be determined. Date Signed: 03/11/2018 04:12 PM Electronically Signed By:Cira Wellington RN [facility] CM Progress Note CM Note CM Note Notes: Patient reviewed in rounds. 32 year old male with metastatic melenoma. He had a stat call this am due to tachycardia. Spoke with his and re-faxed his disability paper work per her request . She is also seeking [employer] support to seek a second opinion. [facility] following and "[facility]" is involves as well. Needs remain indeterminant at present. On TPN for nutritional support. Plan: TBD Date Signed: 03/12/2018 01:41 PM Electronically Signed By:Cira Wellington RN [facility] CM Progress Note CM Note CM Note Notes: Patient plan of care reviewed in am rounds. He is likely to start immunotherapy today. He still is having profuse amounts of liquid stool. On TPN for nutrition. Supportive family and social network. Per RN taking in more orally Per pharmacy, electrolytes repleted. Being followed by [facility] and [facility]" involved for family support CM to follow. Plan: TBD Date Signed: 03/14/2018 03:11 PM Electronically Signed By:Cira Wellington RN [facility] CM Progress Note CM Note CM Note Notes: Patient chart reviewed. He is tolerating some foods. Energy a little better. [facility]. Plan: Likely home with HHC and home infusion services. Date Signed: 03/16/2018 04:30 PM Electronically Signed By:Cira Wellington RN [facility] Progress Note CM Note CM Note Notes: Chart reviewed for discharge planning purposes. He is tolerating some orals. Really needs PT and OT. On TPN for nutritional support. Current with [facility] and [facility]" , CM to continue to follow for developing needs. Plan: Likely home with supportive services, HHC, Infusion services when medically cleared for discharge. Date Signed: 03/18/2018 02:25 PM Electronically Signed By:Cira Wellington RN [facility] DOROTHY Progress Note CM Note CM Note Notes: CM met with family and discussed discharge needs with MD, RN and pharmacy. Family is linked with the following services: -[facility] -[facility] -[facility] -[facility] -[facility] CM discussed discharge plan with family. They were concerned about their medications and CM spoke with RN from [facility] and they said they will deliver chemo meds when needed but MD will have to send other meds to preferred pharmacy prior to discharge and family will have to picker and sorter load and unload. CM informed and is agreeable. CM to follow. Date Signed: 03/21/2018 04:22 PM Electronically Signed By:MINE Ryan Case Management Discharge Plan Note Case Management Discharge Discharge Order Complete? Answers: Yes Patient to Obtain Answers: via Family Medications Transportation Arranged Answers: Family/Friends Faxed Final Orders Answers: Yes Agency/Facility Transfer Answers: Yes Report Printed & Faxed to Receiving Agency Family Notified Answers: Yes Discharge Comments Notes: CM discussed discharge plan with pt, family, RN and MD. CM submit discharge ppwk and provided contact numbers for family. [facility] and [facility] will meet with family this evening at 7pm. CM answered questions and concerns. No other CM needs at this time. Date Signed: 03/22/2018 03:04 PM Electronically Signed By:MINE Ryan Intervention Information
== END 2018-03-22 15:26 | disposition home health service (06) | DRG 374 ==
LOC: F1N 12:22
PROVIDERS: ADMIT Internal Medicine; ATTEND Internal Medicine
PROC: 0FB03ZX Excision of Liver, Percutaneous Approach, Diagnostic (ICD-10-PCS; 2018-03-04)
PROC: 30233L1 Transfusion of Nonautologous Fresh Plasma into Peripheral Vein, Percutaneous Approach (ICD-10-PCS; 2018-03-04)
PROC: 02H633Z Insertion of Infusion Device into Right Atrium, Percutaneous Approach (ICD-10-PCS; 2018-03-07)
PROC: 0DB98ZX Excision of Duodenum, Via Natural or Artificial Opening Endoscopic, Diagnostic (ICD-10-PCS; principal; 2018-03-10 08:00)
PROC: 0DBE8ZX Excision of Large Intestine, Via Natural or Artificial Opening Endoscopic, Diagnostic (ICD-10-PCS; principal; 2018-03-10 08:00)
PROC: 0DBB8ZX Excision of Ileum, Via Natural or Artificial Opening Endoscopic, Diagnostic (ICD-10-PCS; principal; 2018-03-10 08:00)
PROC: 0DB68ZX Excision of Stomach, Via Natural or Artificial Opening Endoscopic, Diagnostic (ICD-10-PCS; principal; 2018-03-10 08:00)
PROC: 02HV33Z Insertion of Infusion Device into Superior Vena Cava, Percutaneous Approach (ICD-10-PCS; 2018-03-19)
DX: C78.4 Secondary malignant neoplasm of small intestine (principal); E43 Unspecified severe protein-calorie malnutrition; C78.7 Secondary malignant neoplasm of liver and intrahepatic bile duct; C79.51 Secondary malignant neoplasm of bone; E87.1 Hypo-osmolality and hyponatremia; R78.81 Bacteremia; T82.7XXA Infection and inflammatory reaction due to other cardiac and vascular devices, implants and grafts, initial encounter; T85.868A Thrombosis due to other internal prosthetic devices, implants and grafts, initial encounter; B95.61 Methicillin susceptible Staphylococcus aureus infection as the cause of diseases classified elsewhere; E86.0 Dehydration; D72.825 Bandemia; B00.1 Herpesviral vesicular dermatitis; I10 Essential (primary) hypertension; E86.1 Hypovolemia; Z68.22 Body mass index [BMI] 22.0-22.9, adult; Z85.820 Personal history of malignant melanoma of skin; Z88.0 Allergy status to penicillin
CPT/HCPCS: 82103-90; 82435-PO; 82565-PO; 82784-90; 82947-PO; 83516-90; 84132-PO; 84295-PO; 84520-PO; 85014-PO; 85520-90; 86334-90; 86704-90; 96374; 97110-GP; 97116-GP; 97162-GP; 97166-GO; A9503; A9585; C1751; G0472; J0133; J0610; J1100; J1644; J1650; J1815; J2060; J2250; J2310; J2405; J2550; J2704; J3010; J3370; J3430; J3475; J3480; J9299; P9016; P9017; Q9967

== ENCOUNTER 2018-03-26 16:16 | Inpatient (IN) | payer BC | END 2018-04-02 15:28 | disposition home or self-care (01) | LOC: F1N 16:16 ==

== ENCOUNTER 2018-05-05 11:34 | Inpatient (IN) | payer BC ==
[2018-05-05] MEDS ORDERED: NS 1,000 ML IV ONE (12:52)
[2018-05-05 12:59] LABS: PLATELET COUNT 396 10^3/uL (150-400)
--- NOTE | 2018-05-05 13:06 | GHP ---
[f rep st] HISTORY AND PHYSICAL DATE OF ADMISSION: 05/05/2018 HISTORY OF PRESENT ILLNESS: The patient is a pleasant 32-year-old gentleman with a recent diagnosis of metastatic melanoma. He has a history of a localized melanoma involving the right lower back exci sed in December of 2015. In February of 2018, he was admitted to [facility] with diarrhea, fatigue, and poor o ral intake. A CT of the abdomen and pelvis done at that time revealed multiple hepatic lesions, diff use small bowel thickening, and osseous metastasis. A liver biopsy unfortunately confirmed metastati c melanoma with a BRAF V600E mutation. 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 He had a second admission for anasarca and was on TPN, which was discontinued in early March. He has requ ired intermittent electrolyte infusions. More recently, his trametinib was held. He was continued on single agent dabrafenib. A restaging PE T-CT scan done April 22, 2018, reveals evidence of response with decreased pulmonary nodules, decre ased liver metastasis, and decrease in metabolic activity in his osseous lucencies. The patient recently had worsening nausea, vomiting, and diarrhea. He has been using Imodium and Lom otil for his diarrhea, which have been marginally effective. He is having approximately 7 diarrheal stools per day. He denies associated abdominal pain or fever. He was seen in the office and referre d to the emergency department for admission and hydration. When seen, he is accompanied by his . PAST MEDICAL HISTORY: Hypertension. FAMILY MEDICAL HISTORY: Noncontributory. SOCIAL HISTORY: The patient lives in [place]. He is . He has 2 children, ages 7 and 5. He is a nonsmoker. He drinks alcohol occasionally. REVIEW OF SYSTEMS: As outlined above. Additionally, denies chest pain, cough, exertional dyspnea. Reports weight loss. Remainder of 10-point review of systems otherwise negative. PHYSICAL EXAMINATION: GENERAL: The patient is somewhat lethargic. He is in no acute distress. CALIN NT: Mucous membranes dry. HEART: Regular. LUNGS: Clear bilaterally. ABDOMEN: Soft, nontender, nondistended, with no organomegaly or mass. EXTREMITIES: Patient has 1+ pitting edema over the lowe r extremities. SKIN: There is no visible skin rash. NEUROLOGICAL: He is alert, oriented, and appr opriate. LABORATORY STUDIES: Drawn in the ER and are pending currently. IMPRESSION: 1. Metastatic melanoma with hepatic, pulmonary, osseous, and gastrointestinal involvement. 2. Nausea, vomiting, and diarrhea, secondary to gastrointestinal involvement from metastatic melanom a. 3. Volume depletion from nausea, vomiting, and diarrhea. PLAN: The patient is a pleasant 32-year-old gentleman with diffuse metastatic melanoma, who is admit jeff with nausea, vomiting, and diarrhea, likely secondary to known GI involvement from his primary di sease process. He is responding to targeted therapy with dabrafenib and trametinib, though has had s ome difficulty tolerating the medications. Both have been held. He did receive a second dose of imm unotherapy in the form of pembrolizumab (Keytruda) on May 02. He does not appear to have any t oxicity related to that medication currently. I have discussed this case with my partner, Dr. Venegas. The patient will be admitted. I recommend aggressive IV fluid hydration and electrolyte replacement as needed. I recommend putting him on dexamethasone 4 mg IV q.8 hours. I suspect there may be a component of astrid wel wall edema contributing to his diarrhea which may improve with steroids. If his overall condition improves, I think we could resume his dabrafenib. Given that he does appear to be responding to the combination of a BRAF and MEK inhibitor, he would b e a potential candidate to switch to encorafenib plus binimetinib, which is a new FDA approved BRAF/M EK inhibitor combination. This may be better tolerated. If the patient's nausea, vomiting, and diarrhea do not improve over the next 24 hours, I would favor reinstituting TPN. The above plan was discussed with the patient and his . Their questions were answered. Our serv ice will continue to follow him during this hospital stay. Total time for today's visit was approximately 45 minutes, of which greater than 50% was spent in cou nseling and care coordination. /[id number]/MODL
--- NOTE | 2018-05-05 13:16 | EDPHY ---
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 He is being followed by [facility]. He has had difficulty over the last week or so with nausea vomiting and diarrhea. He has been to the clinic 3 times for hydration and electrolyte replacement. Today he called their office and they recommended he come here for admission the hospital. No fever. No blood in his vomit or stool. No rash. He denies abdominal pain. Severity: Severe Modifying factors: Moderately improved with treatment from the clinic REVIEW OF SYSTEMS: Constitutional: denies: chills, fever, recent illness, recent injury EENTM: denies: blurred vision, double vision, nose congestion Respiratory: denies: cough, shortness of breath Cardiac: denies: chest pain, irregular heart rate, lightheadedness, palpitations Gastrointestinal/Abdominal: See HPI Genitourinary: denies: dysuria, frequency, hematuria, pain Musculoskeletal: denies: joint pain, muscle pain Skin: denies: lesions, rash, jaundice, bruising Neurological: denies: headache, numbness, paresthesia, tingling, dizziness, weakness Hematologic/Lymphatic: denies: blood clots, easy bleeding, easy bruising Immunologic/allergic: denies: HIV/AIDS, transplant 10 systems reviewed and negative except as noted EXAM: GENERAL: Thin, pale, moderate distress HEAD: Atraumatic, normocephalic. EYES: Pupils equal round and reactive to light, extraocular movements intact, sclera anicteric, conjunctiva are normal. ENT: TMs normal, nares patent, oropharynx clear without exudates. Moist mucous membranes. NECK: Normal range of motion, supple without lymphadenopathy or JVD. LUNGS: Breath sounds clear to auscultation bilaterally and equal. No wheezes rales or rhonchi. HEART: Regular rate and rhythm without murmurs, rubs or gallops. ABDOMEN: Soft, nontender, normoactive bowel sounds. No guarding, no rebound. No masses appreciated. BACK: No CVA tenderness, no spinal tenderness, step-offs or deformities EXTREMITIES: Normal range of motion, no pitting or edema. No clubbing or cyanosis. NEUROLOGICAL: Cranial nerves II through XII grossly intact. Normal speech, normal gait. 5/5 strength, normal movement in all extremities, normal sensation , normal reflexes PSYCH: Normal mood, normal affect. SKIN: Warm, dry, normal turgor, no visible rashes or lesions. Source: Patient Exam Limitations: No limitations - Personal History Current Tetanus/Diphtheria Vaccine: Yes Current Tetanus Diphtheria and Acellular Pertussis (TDAP): Yes - Medical/Surgical History Hx Asthma: No Hx Chronic Respiratory Disease: No Hx Diabetes: No Hx Cardiac Disease: No Hx Renal Disease: No Hx Cirrhosis: No Hx Alcoholism: No Hx HIV/AIDS: No Hx Splenectomy or Spleen Trauma: No Other PMH: Metastatic melanoma, DVT, HTN- no meds - Family History Significant Family History: No pertinent family hx - Social History Smoking Status: Never smoked Alcohol Use: Sober Constitutional: Initial Vital Signs Temperature (C) 36.6 C 05/05/18 11:53 Heart Rate 114 H 05/05/18 11:53 Respiratory Rate 20 05/05/18 11:53 Blood Pressure 96/72 L 05/05/18 11:53 O2 Sat (%) 98 05/05/18 11:53 O2 Delivery Mode Room Air Allergies/Adverse Reactions: cephalexin monohydrate [From Keflex] Allergy (Unknown, Verified 11/04/15 17:18) Unknown Penicillins Allergy (Unknown, Verified 11/04/15 17:18) Unknown adhesive Allergy (Verified 03/03/18 12:54) promethazine [From Phenergan] Allergy (Verified 03/13/18 15:20) Tacchycardia (180) Red skin Home Medications: Medication Instructions Recorded Diphenoxylate HCl/Atrop Sulf 1 tab PO BID #60 tab 03/22/18 [Lomotil Tab (*)] valACYclovir [Valtrex (*)] 1,000 mg PO DAILY #60 tab 03/22/18 LORazepam [Ativan (*)] 0.5 mg PO TID PRN 03/26/18 Ondansetron Odt [Zofran Odt 4 mg 8 mg PO 05,13,21 PRN 03/26/18 (*)] Simethicone [Mylicon] 80 mg PO PCHS PRN 03/26/18 Calcium Carbonate [Tums 500MG (*)] 1,000 mg PO TID #90 tab.chew 04/02/18 Cholecalciferol Vit D3 [Vitamin D3 1,000 units PO DAILY #30 tab 04/02/18 (*)] Cyanocobalamin [Vitamin B12 (*)] 1,000 mcg PO DAILY #30 tab 04/02/18 Enoxaparin [Lovenox 100 MG (*)] 100 mg SC BID 30 Days #60 syr 04/02/18 Metoprolol Tartrate [Lopressor 25 12.5 mg PO BID #60 tab 04/02/18 mg (*)] Acetaminophen [Tylenol 325mg (*)] 325 mg PO Q6 PRN 05/05/18 Furosemide [Lasix 40 MG (*)] 80 mg PO BID@0900,1500 05/05/18 Loperamide HCl [Imodium 2 mg (*)] 4 mg PO QID PRN 05/05/18 Potassium Cl [Klor-Con 20 meq (*)] 20 meq PO TID 05/05/18 Prochlorperazine Maleate 10 mg PO TID PRN 05/05/18 [Compazine 10mg (*)] Medical Decision Making ED Course/Re-evaluation: Patient's labs have been drawn. He is receiving IV fluids. He currently declines nausea medication. We will continue to observe and admit. 1:40 p.m. discussed the case with medical service who will admit. Will replete magnesium. Differential Diagnosis: Partial list of the Differential diagnosis considered include but were not limited to; dehydration, electrolyte abnormality, persistent vomiting and although unlikely based on the history and physical exam, I also considered obstruction, ischemia, perforation. - Data Points Laboratory Results: Laboratory Results 05/05/18 12:39 05/05/18 12:39 05/05/18 05/05/18 12:39 12:39 WBC 6.98 10^3/uL 10^3/uL (3.80-9.50) RBC 4.94 10^6/uL 10^6/uL (4.40-6.38) Hgb 15.5 g/dL g/dL (13.7-17.5) Hct 47.5 % % (40.0-51.0) MCV 96.2 fL fL (81.5-99.8) MCH 31.4 pg pg (27.9-34.1) MCHC 32.6 g/dL g/dL (32.4-36.7) RDW 14.6 % % (11.5-15.2) Plt Count 396 10^3/uL 10^3/uL (150-400) MPV 10.2 fL fL (8.7-11.7) Neut % (Auto) 52.6 % % (39.3-74.2) Lymph % (Auto) 31.1 % % (15.0-45.0) Woods % (Auto) 14.2 % H % (4.5-13.0) Eos % (Auto) 0.7 % % (0.6-7.6) Baso % (Auto) 0.7 % % (0.3-1.7) Nucleat RBC Rel Count 0.0 % % (0.0-0.2) Absolute Neuts (auto) 3.67 10^3/uL 10^3/uL (1.70-6.50) Absolute Lymphs (auto) 2.17 10^3/uL 10^3/uL (1.00-3.00) Absolute Monos (auto) 0.99 10^3/uL H 10^3/uL (0.30-0.80) Absolute Eos (auto) 0.05 10^3/uL 10^3/uL (0.03-0.40) Absolute Basos (auto) 0.05 10^3/uL 10^3/uL (0.02-0.10) Absolute Nucleated RBC 0.00 10^3/uL 10^3/uL (0-0.01) Immature Gran % 0.7 % % (0.0-1.1) Immature Gran # 0.05 10^3/uL 10^3/uL (0.00-0.10) Sodium 134 mEq/L L mEq/L (135-145) Potassium 3.8 mEq/L mEq/L (3.5-5.2) Chloride 105 mEq/L mEq/L (97-110) Carbon Dioxide 28 mEq/l mEq/l (22-31) Anion Gap 1 mEq/L L mEq/L (6-14) BUN 18 mg/dL mg/dL (7-23) Creatinine 1.1 mg/dL mg/dL (0.7-1.3) Estimated GFR > 60 Glucose 85 mg/dL mg/dL (70-100) Calcium 6.8 mg/dL L mg/dL (8.5-10.4) Magnesium 1.4 mg/dL L mg/dL (1.6-2.3) Medications Given: Potassium Chloride/Sodium Chloride (Ns W/ 20 Kcl/L) 1,000 mls @ 125 mls/hr IV CONT FAISAL Stop: 11/01/18 14:59 Last Admin: 05/05/18 15:01 Dose: 1,000 mls Discontinued Medications Sodium Chloride (Ns) 1,000 mls @ 0 mls/hr IV ONCE ONE; Wide Open PRN Reason: Protocol Stop: 05/05/18 12:53 Last Admin: 05/05/18 12:54 Dose: 1,000 mls Magnesium Sulfate (Magnesium Sulf 2 Gm (Premix)) 50 mls @ 50 mls/hr IV EDNOW ONE Stop: 05/05/18 14:40 Last Admin: 05/05/18 14:04 Dose: 50 mls Departure - Departure Disposition: [facility] Acute Clinical Impression: Dehydration, Vomiting and diarrhea Condition: Fair
[2018-05-05] MEDS ORDERED: MAGNESIUM SULF 2 GM/WATER 50 ML IV ONE (13:41)
[2018-05-05] MEDS ORDERED: HYDROCODONE/APAP 5/325 TAB PO PRN (14:55)
[2018-05-05] MEDS ORDERED: oxyCODONE IR 5 MG TAB PO PRN (14:55)
[2018-05-05] MEDS ORDERED: PROTOCOL POTASSIUM 1 DOSE MISC PRN (14:57)
[2018-05-05] MEDS ORDERED: PROTOCOL MAGNESIUM 1 DOSE IV PRN (14:57)
[2018-05-05] MEDS: NS W/ 20 KCl/L 1,000 ML IV SCH ×2 (15:01→23:15)
[2018-05-05] MEDS: DEXAMETHASONE 4 MG/ML VIAL IVP SCH ×2 (15:14→22:24)
[2018-05-05] MEDS: ONDANSETRON 4 MG/2 ML VIAL IVP PRN ×2 (15:15→20:49)
[2018-05-05] MEDS ORDERED: SIMETHICONE 80 MG TAB CHEW PO PRN (15:19)
[2018-05-05] MEDS ORDERED: PROCHLORPERAZINE MALEATE 10 MG TAB PO PRN (15:19)
--- NOTE | 2018-05-05 15:46 | PDGENHP ---
History and Physical - Chief Complaint diarrhea - History of Present Illness 32 yo male with h/o metastatic melanoma, treatment course has been complicated by diarrhea and anasarca, required TPN in 02/2018 for malnutrition, presents to ED with ongoing diarrhea. There has been some concern that his diarrhea is secondary to cancer invading his small bowel. He was treated with Dabrafenib and Trametinib, but the latter was held when he developed anasarca. He has most recently been on monotherapy with Dabrafenib and received Keytruda on 2017. His last CT scan was at the end of March and did show good response to therapy with decreased metastatic disease. However, diarrhea has been an ongoing problem. He was having watery stools up to 8 times a day, but with imodium and lomotil, they have been able to control it to 3 times daily. He has also had some nausea and vomiting. He uses Zofran, Prochlorperazine and Ativan at home to control this. He has been unable to tolerate po for past 48 hrs and reports 10 lb weight loss in past 3 days. Over the past few days, his diarrhea is more frequent, back up to 8 times daily. He denies bloody stools or melena. He reports low grade fevers of ~100 with some sweats and chills. He is admitted for hydration and further management. History Information - Allergies/Home Medication List Allergies/Adverse Reactions: cephalexin monohydrate [From Keflex] Allergy (Unknown, Verified 11/04/15 17:18) Unknown Penicillins Allergy (Unknown, Verified 11/04/15 17:18) Unknown adhesive Allergy (Verified 03/03/18 12:54) promethazine [From Phenergan] Allergy (Verified 03/13/18 15:20) Tacchycardia (180) Red skin Home Medications: LORazepam [Ativan (*)] 0.5 mg PO TID PRN 03/26/18 [Last Taken 05/04/18] Ondansetron Odt [Zofran Odt 4 mg (*)] 8 mg PO 05,13,21 PRN 03/26/18 [Last Taken 03/26/18 13:00] Simethicone [Mylicon] 80 mg PO PCHS PRN 03/26/18 [Last Taken 03/25/18] Acetaminophen [Tylenol 325mg (*)] 325 mg PO Q6 PRN 05/05/18 [Last Taken Unknown] Furosemide [Lasix 40 MG (*)] 80 mg PO BID@0900,1500 05/05/18 [Last Taken ] Loperamide HCl [Imodium 2 mg (*)] 4 mg PO QID PRN 05/05/18 [Last Taken Unknown] Potassium Cl [Klor-Con 20 meq (*)] 20 meq PO TID 05/05/18 [Last Taken 05/04/18] Prochlorperazine Maleate [Compazine 10mg (*)] 10 mg PO TID PRN 05/05/18 [Last Taken Unknown] I have personally reviewed and updated: family history, medical history, social history, surgical history - Past Medical History cancer (cancerous mole), DVT, hypertension Additional medical history: severe protein calorie malnutrition with albumin < 1. 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 Review of Systems Review of Systems: ROS: 10pt was reviewed & negative except for what was stated in HPI & below Physical Exam Physical Exam: Temp Pulse Resp BP Pulse Ox 36.8 C 105 H 16 116/67 96 05/05/18 14:53 05/05/18 14:53 05/05/18 14:53 05/05/18 14:53 05/05/18 14:53 Constitutional: no apparent distress, chronically ill appearing, cachectic Eyes: PERRL Ears, Nose, Mouth, Throat: moist mucous membranes Cardiovascular: regular rate and rhythym Respiratory: no respiratory distress, clear to auscultation Gastrointestinal: normoactive bowel sounds, soft, non-tender abdomen Skin: warm Musculoskeletal: full muscle strength Neurologic: AAOx3 Psychiatric: interacting appropriately Lab Data & Imaging Review 05/05/18 12:39 05/05/18 12:39 WBC 6.98 10^3/uL (3.80-9.50) 05/05/18 12:39 RBC 4.94 10^6/uL (4.40-6.38) 05/05/18 12:39 Hgb 15.5 g/dL (13.7-17.5) 05/05/18 12:39 Hct 47.5 % (40.0-51.0) 05/05/18 12:39 MCV 96.2 fL (81.5-99.8) 05/05/18 12:39 MCH 31.4 pg (27.9-34.1) 05/05/18 12:39 MCHC 32.6 g/dL (32.4-36.7) 05/05/18 12:39 RDW 14.6 % (11.5-15.2) 05/05/18 12:39 Plt Count 396 10^3/uL (150-400) 05/05/18 12:39 MPV 10.2 fL (8.7-11.7) 05/05/18 12:39 Neut % (Auto) 52.6 % (39.3-74.2) 05/05/18 12:39 Lymph % (Auto) 31.1 % (15.0-45.0) 05/05/18 12:39 Parker % (Auto) 14.2 % (4.5-13.0) H 05/05/18 12:39 Eos % (Auto) 0.7 % (0.6-7.6) 05/05/18 12:39 Baso % (Auto) 0.7 % (0.3-1.7) 05/05/18 12:39 Nucleat RBC Rel Count 0.0 % (0.0-0.2) 05/05/18 12:39 Absolute Neuts (auto) 3.67 10^3/uL (1.70-6.50) 05/05/18 12:39 Absolute Lymphs (auto) 2.17 10^3/uL (1.00-3.00) 05/05/18 12:39 Absolute Monos (auto) 0.99 10^3/uL (0.30-0.80) H 05/05/18 12:39 Absolute Eos (auto) 0.05 10^3/uL (0.03-0.40) 05/05/18 12:39 Absolute Basos (auto) 0.05 10^3/uL (0.02-0.10) 05/05/18 12:39 Absolute Nucleated RBC 0.00 10^3/uL (0-0.01) 05/05/18 12:39 Immature Gran % 0.7 % (0.0-1.1) 05/05/18 12:39 Immature Gran # 0.05 10^3/uL (0.00-0.10) 05/05/18 12:39 Sodium 134 mEq/L (135-145) L 05/05/18 12:39 Potassium 3.8 mEq/L (3.5-5.2) 05/05/18 12:39 Chloride 105 mEq/L (97-110) 05/05/18 12:39 Carbon Dioxide 28 mEq/l (22-31) 05/05/18 12:39 Anion Gap 1 mEq/L (6-14) L 05/05/18 12:39 BUN 18 mg/dL (7-23) 05/05/18 12:39 Creatinine 1.1 mg/dL (0.7-1.3) 05/05/18 12:39 Estimated GFR > 60 05/05/18 12:39 Glucose 85 mg/dL (70-100) 05/05/18 12:39 Calcium 6.8 mg/dL (8.5-10.4) L 05/05/18 12:39 Magnesium 1.4 mg/dL (1.6-2.3) L 05/05/18 12:39 Assessment & Plan Assessment: Diarrhea with N/V, volume depletion and weight loss - concern this is related to cancer invading small bowel versus chemo side effect -hydrate with NS, plus albumin boluses to help keep fluid intravascular given his poor albumin status -send GI PCR to r/o infectious etiologies (if neg, will resume imodium and lomotil) -dex 4 mg IV q8h to decrease bowel inflammation, which may be contributing to diarrhea -anti-emetics, supportive care Metastatic melanoma involving bowel, liver and bone - has had some response to therapy -chemo currently on hold -oncology following -dex as above SPCM - 10 lb weight loss over past few days, pt reports recent albumin <1 -low threshold for PICC/TPN if symptoms don't improve by tomorrow -check albumin status DVT - related to PICC in RUE -cont therapeutic Lovenox, dose adjusted for current weight Hypoalbuminemia - Albumin 25% 100 mL bolus q6h H/O Anasarca - thought secondary to chemo agent -hold lasix for now given profound volume depletion Hypertension / Tachycardia - on Metoprolol bid for this -will continue low dose BB as tolerated with hold parameters Possible protein losing enteropathy Full code Dispo - admit to inpt, anticipate >48 hrs hospitalization for ongoing management of diarrhea, volume depletion and metastatic melanoma
[2018-05-05] MEDS: LORazepam 2 MG/ML INJ IVP PRN ×2 (16:21→22:24)
--- NOTE | 2018-05-05 16:38 | ASMTCMCOM ---
CM Note CM Note Notes: Patient well known to oncology services. Admitted via ED for ongoing diarrhea. Has had infusion services, [facility] and [facility] as well as [facility] previously involved with patient. CM to monitor for needs. Plan: TBD Date Signed: 05/05/2018 04:37 PM Electronically Signed By:Cira Wellington RN
--- NOTE | 2018-05-05 16:58 | PDMN ---
Medical Necessity Medical necessity: MCG: M123 dehydration/ M87 chemo A- 2 day: 32 yr old M with N/V/D volume depletion and wt.loss PMHx: met. melanoma - involving bowel , liver, and bone, on chemo= diarrhea X 8/day with recent 10lb wt loss in 3 days - concern for Ca invading sm. bowel vs chemo side effects. - chemo currently on hold oncology consult- following- anticipate > 2 MN ongoing med nec care:
[2018-05-05] MEDS: ALBUMIN 25% 100 ML IV SCH ×2 (17:48→23:15)
[2018-05-05] MEDS: CALCIUM CARBONATE 500 MG CHEWABLE TAB PO SCH ×2 (17:48→20:44)
[2018-05-05] MEDS: ENOXAPARIN 80 MG/0.8 ML SYR SC SCH (20:44)
[2018-05-05] MEDS: POTASSIUM CL 20 MEQ TAB PO SCH (20:45)
[2018-05-05] MEDS: DIPHENOXYLATE/ATROPINE LOMOTIL 1 TAB PO PRN (20:46)
[2018-05-05] MEDS ORDERED: METOPROLOL TARTRATE 25 MG TAB PO SCH (21:00)
[2018-05-05] MEDS ORDERED: ENOXAPARIN 100 MG/ML SYR SC SCH (21:00)
[2018-05-06] MEDS: ALBUMIN 25% 100 ML IV SCH ×3 (05:15→17:45)
[2018-05-06] MEDS: DEXAMETHASONE 4 MG/ML VIAL IVP SCH (06:22)
[2018-05-06] MEDS ORDERED: PROTOCOL CALCIUM 1 DOSE IV PRN (06:40)
[2018-05-06] MEDS ORDERED: NS 1,000 ML IV ONE ×2 (06:44→16:34)
[2018-05-06] MEDS: ONDANSETRON 4 MG/2 ML VIAL IVP PRN ×2 (08:45→16:50)
[2018-05-06 08:47] LABS: PLATELET COUNT 246 10^3/uL (150-400)
[2018-05-06] MEDS ORDERED: ENOXAPARIN 40 MG/0.4 ML SYR SC SCH (09:00)
[2018-05-06] MEDS: CYANO/VITAMIN B12 1000 MCG TAB PO SCH (09:02)
[2018-05-06] MEDS: CHOLECALCIFEROL VIT D3 1,000 UNITS TAB PO SCH (09:02)
[2018-05-06] MEDS: CALCIUM CARBONATE 500 MG CHEWABLE TAB PO SCH ×3 (09:02→17:41)
[2018-05-06] MEDS ORDERED: POTASSIUM CL 10 MEQ TAB PO ONE (09:17)
--- NOTE | 2018-05-06 10:49 | HOSPPROG ---
Hospitalist Progress Note Assessment/Plan: Diarrhea with N/V, volume depletion and weight loss - concern this is related to cancer invading small bowel versus chemo side effect -Cont NS along with albumin boluses -GI PCR neg, cont prn imodium and lomotil -cont dexamethasone, decrease to BID per onc -anti-emetics, supportive care Fever - Could be 2/2 Dabrafenib per onc. Had low BP this am in setting of T38.4 , which responded to NS bolus. Lactate nl. WBC's low, but not neutropenic. Abdominal exam reassuring, thus low suspicion for intra-abdominal infection. -GI PCR neg -CXR without e/o pna -RVP panel neg -UA neg -BCx's pending -observe off atbx, follow fever curve Metastatic melanoma involving bowel, liver and bone - has had some response to therapy -chemo currently on hold given above -oncology following -dex as above SPCM - 10 lb weight loss over past few days, pt reports recent albumin <1, now 1.2 -low threshold for PICC/TPN, defer for now given improved oral intake -dietary consult DVT - related to PICC in RUE -cont therapeutic Lovenox, dose adjusted for current weight Hypoalbuminemia - Albumin 25% 100 mL bolus q6h x4 doses H/O Anasarca - thought secondary to chemo agent, has been on high dose lasix as outpt -hold lasix for now given profound volume depletion Hypertension / Tachycardia - holding BB due to hypotension 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 No abdominal pain. He vomited after eating this am, but is currently tolerating PB&J. +fever this am with chills, which has occurred past few days prior to admission. No CP, SOB, cough, abdominal pain, diarrhea or dysuria. Objective: Vital Signs Temp Pulse Resp BP Pulse Ox 37.7 C 122 H 20 95/52 L 96 05/06/18 08:40 05/06/18 08:40 05/06/18 08:40 05/06/18 08:40 05/06/18 08:40 Microbiology 05/05/18 15:45 Gastrointestinal Tract Panel (PCR) - Final Stool No Organism Detected By Pcr Laboratory Results 05/06/18 07:16 05/06/18 04:35 05/05/18 05/06/18 05/07/18 05:59 05:59 05:59 Intake Total 2350 Output Total 1500 250 Balance 850 -250 - Physical Exam Constitutional: no apparent distress, chronically ill appearing Eyes: PERRL Ears, Nose, Mouth, Throat: moist mucous membranes Cardiovascular: regular rate and rhythym Respiratory: no respiratory distress, clear to auscultation Gastrointestinal: normoactive bowel sounds, soft, non-tender abdomen Skin: warm Musculoskeletal: full muscle strength Neurologic: AAOx3 Psychiatric: interacting appropriately ICD10 Worksheet Patient Problems: Problems Problem Status Onset Dehydration Acute Vomiting and diarrhea Acute Anorexia Acute Diarrhea Acute Malignancy Acute
[2018-05-06] MEDS: POTASSIUM CL 20 MEQ TAB PO SCH ×2 (11:08→21:30)
[2018-05-06] MEDS: ENOXAPARIN 80 MG/0.8 ML SYR SC SCH ×2 (11:08→21:34)
[2018-05-06] MEDS: valACYclovir 500 MG TAB PO SCH (11:09)
[2018-05-06] MEDS: LORazepam 2 MG/ML INJ IVP PRN ×2 (11:19→20:16)
[2018-05-06] MEDS: ACETAMINOPHEN 325 MG TAB PO PRN ×2 (11:20→21:14)
--- NOTE | 2018-05-06 13:01 | SOAPPROG ---
SOAP Progress Note Assessment/Plan: Assessment: 1) Metastatic melanoma with liver, lung, bone, and diffuse GI involvement 2) Diarrhea secondary to #1 3) Treatment related nausea 4) Fever 5) Volume depletion 6) Hypocalcemia 7) H/O PICC related DVT February 2018 Plan: Doing somewhat better. Rate of diarrhea has slowed, but it persists. Will add Octreotide 100 mcg SC TID in an attempt to decrease volume of diarrhea. Continue IV hydration. Avoid diuretics. Continue Albumin infusion for Anasarca. His nausea is better on Dexamethasone, so will continue for now. Will reduce dose to BID. Hold off on TPN, now that he is eating. He will receive IV calcium today per protocol. Continue BID Lovenox given h/o DVT. custodial, I favor transitioning him to Ecorafenib / Binimetinib (new BRAF/MEK combination) which may be better tolerated. His recent PET scan showed a clear response to targeted therapy. He is interested in this, and I will ask Dr. Venegas (his primary Oncologist) to initiate this process. Fever is of unclear etiology. ? related to recent therapy. No clear evidence of infection. Will continue to monitor closely. Patient and had multiple questions which were answered. Case d/w Dr. Alegre. 05/06/18 12:54 05/06/18 13:01 05/06/18 13:03 Subjective: Diarrhea improved, though persists. Denies abdominal pain. Now eating a small amount. at bedside. Objective: Vital Signs Temp Pulse Resp BP Pulse Ox 37.5 C 128 H 20 91/43 L 93 05/06/18 11:46 05/06/18 11:46 05/06/18 11:46 05/06/18 11:46 05/06/18 11:46 Microbiology 05/06/18 10:51 Respiratory Panel (PCR) - Final Nasal, Sinus - [place] Viral Transport No Organism Detected By Pcr 05/05/18 15:45 Gastrointestinal Tract Panel (PCR) - Final Stool No Organism Detected By Pcr Laboratory Results 05/06/18 07:16 05/06/18 04:35 05/05/18 05/06/18 05/07/18 05:59 05:59 05:59 Intake Total 2350 Output Total 1500 250 Balance 850 -250 - Time Spent With Patient Time Spent With Patient: 40 minutes Physical Exam - Physical Exam General Appearance: no apparent distress, other (Lethargic) EENT: PERRL/EOMI, pale conjunctiva (R), pale conjunctiva (L), No scleral icterus (R), No scleral icterus (L) Abdomen: non-tender, soft Skin: pallor Neuro/Psych: alert, oriented x 3 ICD10 Worksheet Patient Problems: Problems Problem Status Onset Dehydration Acute Vomiting and diarrhea Acute Anorexia Acute Diarrhea Acute Malignancy Acute
--- NOTE | 2018-05-06 15:05 | ASMTCMCOM ---
CM Note CM Note Notes: Plan of care reviewed in am rounds. Still having nausea and vomiting as well as loose stools. CM to follow for needs. Has had multiple services in the past with [facility], [facility] and [facility] CM to follow for needs. Morton: TBD Date Signed: 05/06/2018 03:04 PM Electronically Signed By:Cira Wellington RN
[2018-05-06] MEDS ORDERED: ACETAMINOPHEN 650 MG SUPP PR PRN (16:34)
[2018-05-06] MEDS ORDERED: MEROPENEM 1 GM in NS 100 ML IV SCH (17:00)
[2018-05-06] MEDS ORDERED: NS 2,300 ML IV ONE (17:21)
[2018-05-06] MEDS ORDERED: VANCOMYCIN 1.25 GM in NS 250 ML IV SCH (17:30)
[2018-05-06] MEDS ORDERED: LIDOCAINE 1% 300 MG/30 ML SDV ONE (17:35)
--- NOTE | 2018-05-06 17:40 | PDCONSULT ---
Order Management Specialist Note: ASSESSMENT 32-year-old male with metastatic melanoma with bowel invasion on Pembrolizumab ( Keytruda - anti PD-1 L, checkpoint inhibitor) and recently stoped drabafenib ( BRAF Kinase Inhibitor) as well as other immunotherapy transferred to the ICU with septic shock fevers and encephalopathy # septic shock. 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 Related to poor perfusion from hypotension. # diarrhea, GI PCR negative. Tumor invasion plus medications. Received dexamethasone while on the floor # tachycardia # hypotension # metastatic melanoma # history of PICC related DVT PLAN # aggressive IV fluid # broad-spectrum antibiotics-vancomycin and meropenem per Dr. Martinez # will place central venous catheter for vasopressor use # NE and vasopressin # avoid further steroids (received dexamethasone on the floor) if possible, as they will inhibit efficacy of Keytruda (checkpoint immunotherapy) # continue lovenox, will transition to heparin gtt if renal function worsens # CT abdomen and pelvis after stabilized # guarded prognosis # Feeding - NPO # Analgesia APAP, fentanyl # Sedation none # Thromboprophylaxis - lovenox # Head of bed elevated # Ulcer prophylaxis - H2 chay # Glucose SSI # Skin no skin breakdown # Delirium - delirium precautions Patient is critical ill due to life threatening organ dysfunction and is at high risk for decompensation and . Total critical care time, excluding procedures: 128 min ABX vanc, priscila 05/13-present EVENTS 05/06/18 CVC, ICU transfer CX Data 05/06/18 BCx pending IMAGING reviewed. Chest x-ray clear Chief complaint Altered mental status, tachycardia hypotension Consult I was asked by Dr. Alegre of Hospital Medicine to evaluate this patient for ICU care in the setting of severe sepsis impending septic shock HPI 32-year-old male with metastatic melanoma with bowel wall invasion Pembrolizumab (Keytruda - anti PD-1 L, checkpoint inhibitor) and recently stoped drabafenib (BRAF Kinase Inhibitor) initially presented with severe did diarrhea and dehydration. His outpatient course has been complicated by refractory diarrhea, nausea, vomiting and anasarca requiring TPN. After being admitted he underwent stool testing with GI PCR was negative for infectious etiologies. Was given dexamethasone 4 mg IV q.8 hours decreased bowel inflammation. Today he became increasingly somnolent developed high fevers, tachycardia and relative hypotension that was not responding adequately to fluid boluses. He was transferred to the ICU. He complained of malaise, chills , mild abdominal discomfort, nausea, diarrhea. He had a right upper extremity PICC related DVT from February is on Lovenox as an outpatient. 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 Review of systems A comprehensive 10 point review of systems was obtained is negative except as per HPI Physical exam Febrile to 102, sinus tachycardia 150, blood pressure 78/32, tachypneic respiratory rate 24, 100% on 2 L GEN: Ill-appearing lying in bed NEURO: Somnolent, interactive A&Ox3, CN 2-12 GI HEENT: PERRL, EOMI, MMM, OP clear NECK: supple, trachea midline CHEST normal shape, no pes excavatum CVS: Tachy no m/r/g PULM: CTA B, no wheezes/rales/rhonchi ABD: soft, NT, ND, NABS EXT: Bilateral lower extremity edema SKIN: warm, dry, intact, no rash PSYCH CAM negative, appropriate affect Labs-reviewed
[2018-05-06] MEDS: NOREPINEPHRINE BITARTRATE 4 MG in NS 500 ML IV SCH (17:46)
--- NOTE | 2018-05-06 18:04 | PCMIDPN ---
Assessment/Plan: Assessment/Plan: * Fever/hypotension: Primary concern is for possibility of sepsis/septic shock with other consideration being association with ongoing melanoma treatment ( received Keytruda on 05/02/2018, discontinued dabrafenib approximately 04/24/18). In the setting of ongoing diarrhea, possible that patient has developed sepsis from GI translocation of enteric sherron. GI pathogen panel by PCR testing and respiratory pathogen panel by PCR testing are both negative. Patient does not have concomitant respiratory symptoms and has not had indwelling central line in place since march. Recurrent MSSA bacteremia would also be of consideration although suspect this would be less likely given initial infection PICC associated and patient received 4 weeks of vancomycin therapy ending on 04/11/2018. Will begin empiric vancomycin and meropenem (prior allergy to cephalosporins in the form of rash reviewed). Agree with plans for CT scan of abdomen and pelvis. Will follow up blood cultures as available. Will check serum immunoglobulins in the setting of protein-losing enteropathy as this would be other potential risk factor for severe infection. * Recent history of PICC associated MSSA bacteremia: Completed 4 weeks of IV vancomycin on 04/11/2018 with no signs or symptoms of ongoing bacteremia at close of therapy. Time spent, greater than 35 min, of which greater than half was spent in education/counseling/coordination of care related to possible septic shock and plan of care including empiric antibiotic treatment with vancomycin and meropenem. Care coordinated with nursing staff, Dr. Alegre and Dr. Nassar. Plan of care reviewed with patient's family. 05/06/18 17:56 05/06/18 18:20 Subjective: Patient known to me from prior care for MSSA bacteremia which was associated with PICC line and concomitant PICC associated DVT. Completed 4 weeks of vancomycin on 04/11/2018 with vancomycin being utilized due to concerns about prior beta-lactam allergy. Patient with metastatic melanoma affecting the liver and upper GI tract with history of diarrhea and protein losing enteropathy. No recent use of central line. Reviewed history with patient's who notes that he has experienced worsening diarrhea, nausea and vomiting over the last 2 weeks. Based on these findings, his dabrafenib was discontinued and he received his 1st dose of Keytruda on 05/02/2018. Over the preceding weekend, he was noted to have low-grade temperatures in the 100 degree range. This was associated with decreased oral intake and poor ability to tolerate p.o. Intake. Based on those findings, he was admitted for ongoing care. Overnight, he developed recurrent fever or with onset of hypotension. This afternoon he developed higher grade fever with temperature maximum of 39.7. Patient with continued nausea, vomiting and diarrhea. No significant abdominal pain. Lower extremity edema is significantly decreased. No respiratory symptoms. Patient has been receiving Decadron since hospital admission. Patient is now being transferred to the intensive care unit for concerns regarding sepsis or septic shock. Based on these findings, now asked to assist in his ongoing management by Dr. Alegre. Past medical/past surgical/current medications/allergies/social history all reviewed Objective: Vital Signs Temp Pulse Resp BP Pulse Ox 39.4 C H 132 H 20 89/31 L 100 05/06/18 17:46 05/06/18 17:46 05/06/18 17:46 05/06/18 17:46 05/06/18 17:46 Microbiology 05/06/18 10:51 Respiratory Panel (PCR) - Final Nasal, Sinus - [place] Viral Transport No Organism Detected By Pcr 05/05/18 15:45 Gastrointestinal Tract Panel (PCR) - Final Stool No Organism Detected By Pcr Laboratory Results 05/06/18 07:16 05/06/18 04:35 05/05/18 05/06/18 05/07/18 05:59 05:59 05:59 Intake Total 2350 Output Total 1500 950 Balance 850 -950 T-max 39.7 degrees GI pathogen panel and respiratory pathogen panel by PCR negative Blood cultures x2 pending Chest x-ray shows no acute infiltrate - Physical Exam General Appearance: alert, other (Ill-appearing) EENT: dry mucous membranes, No scleral icterus, No conjunctival petechiae Respiratory: lungs clear, No respiratory distress Cardiac/Chest: tachycardia, No systolic murmur Extremities: pedal edema (Significantly less prominent), No inflammation Abdomen: non-tender, soft, No distended Skin: No rash, No embolic lesions ICD10 Worksheet Patient Problems: Problems Problem Status Onset Malignancy Acute Diarrhea Acute Anorexia Acute Dehydration Acute Vomiting and diarrhea Acute
[2018-05-06] MEDS: OCTREOTIDE 100 MCG/1 ML INJ SC SCH ×2 (18:09→23:44)
[2018-05-06] MEDS ORDERED: traZODone 50 MG TAB PO PRN (18:27)
[2018-05-06] MEDS ORDERED: LACTATED RINGERS IV ONE (18:30)
[2018-05-06] MEDS: MEROPENEM 1 GM in NS 100 ML IV SCH (18:32)
[2018-05-06] MEDS: VASOPRESSIN 25 UNIT in NS 250 ML IV SCH (18:46)
[2018-05-06] MEDS ORDERED: PHENYLEPHRINE HCL 50 MG in NS 250 ML IV SCH (19:00)
[2018-05-06] MEDS: VANCOMYCIN 1.25 GM in NS 250 ML IV SCH (19:28)
[2018-05-06] MEDS ORDERED: HYDROCORTISONE 100 MG/2 ML VIAL IVP SCH (19:45)
[2018-05-06] MEDS: ASCORBIC ACID 1,500 MG in D5W 100 ML IV SCH (20:00)
[2018-05-06] MEDS: DIPHENOXYLATE/ATROPINE LOMOTIL 1 TAB PO PRN (20:41)
[2018-05-06] MEDS ORDERED: DEXAMETHASONE 4 MG/ML VIAL IVP SCH (21:00)
[2018-05-06] MEDS: THIAMINE HCL 200 MG in NS 100 ML IV SCH (21:34)
[2018-05-06] MEDS: NS W/ 20 KCl/L 1,000 ML IV SCH (21:39)
[2018-05-07] MEDS: CALCIUM CARBONATE 500 MG CHEWABLE TAB PO SCH ×4 (00:42→23:14)
[2018-05-07] MEDS: ALBUMIN 25% 100 ML IV SCH ×4 (00:55→17:33)
[2018-05-07] MEDS: NOREPINEPHRINE BITARTRATE 4 MG in NS 500 ML IV SCH ×3 (02:24→15:21)
[2018-05-07] MEDS: MEROPENEM 1 GM in NS 100 ML IV SCH ×3 (02:25→17:07)
[2018-05-07] MEDS: ASCORBIC ACID 1,500 MG in D5W 100 ML IV SCH ×4 (02:30→20:41)
[2018-05-07] MEDS: VANCOMYCIN 1.25 GM in NS 250 ML IV SCH ×2 (06:19→18:21)
[2018-05-07] MEDS ORDERED: POTASSIUM CL 10 MEQ TAB PO ONE (07:23)
[2018-05-07] MEDS ORDERED: CALCIUM GLUCONATE 50 ML IV ONE (07:24)
[2018-05-07] MEDS ORDERED: MAGNESIUM SULF 2 GM/WATER 50 ML IV ONE (07:24)
[2018-05-07] MEDS: THIAMINE HCL 200 MG in NS 100 ML IV SCH ×2 (07:35→18:42)
[2018-05-07] MEDS: ONDANSETRON 4 MG/2 ML VIAL IVP PRN ×2 (07:49→17:45)
[2018-05-07] MEDS: valACYclovir 500 MG TAB PO SCH (08:31)
[2018-05-07] MEDS: POTASSIUM CL 20 MEQ TAB PO SCH (08:31)
[2018-05-07] MEDS: ENOXAPARIN 80 MG/0.8 ML SYR SC SCH ×2 (08:32→21:40)
--- NOTE | 2018-05-07 08:39 | PDINTPN ---
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 Improved today. Related to poor perfusion from hypotension. # diarrhea, GI PCR negative. Tumor invasion plus medications. No improvement with dexamethasone on floor # tachycardia # hypotension # metastatic melanoma # anemia # history of PICC related DVT # hypervolemia PLAN # continue NE and vasopressin, wean as able # broad-spectrum antibiotics-vancomycin and meropenem per ID # avoid further steroids (received dexamethasone on the floor) if possible, as they will inhibit efficacy of Keytruda (checkpoint immunotherapy) # continue vitamin C and thiamine for 4 days # add scheduled low dose oral haldol per palliative care as this has worked in the past. # lasix and spironolactone # continue lovenox, will transition to heparin gtt if renal function worsens # Feeding - as tolerated. No TPN at this juncture # Analgesia APAP, fentanyl # Sedation none # Thromboprophylaxis - lovenox # Head of bed elevated # Ulcer prophylaxis - NA # Glucose SSI # Skin no skin breakdown # Delirium - delirium precautions Patient is critical ill due to life threatening organ dysfunction and is at high risk for decompensation and . Total critical care time, excluding procedures: 55 min ABX vanc, priscila 05/13-present EVENTS 05/06/18 CVC, ICU transfer CX Data 05/06/18 BCx pending IMAGING reviewed. Chest x-ray clear 05/07/18 16:11 Subjective: transferred to ICU for septic shock, CVC emergently placed. Required NE 30, Vaso 0.04, still on pressors this AM but feeling better, HR down Objective: Vital Signs Temp Pulse Resp BP Pulse Ox 37.2 C 78 19 111/74 99 05/07/18 07:30 05/07/18 07:30 05/07/18 07:30 05/07/18 07:30 05/07/18 07:30 Microbiology 05/06/18 10:51 Respiratory Panel (PCR) - Final Nasal, Sinus - [place] Viral Transport No Organism Detected By Pcr Laboratory Results 05/07/18 06:15 05/07/18 06:15 05/06/18 05/07/18 05/08/18 05:59 05:59 05:59 Intake Total 2350 8255 Output Total 1500 1850 Balance 850 6405 Physical Exam - Physical Exam EENT: PERRL/EOMI, normal ENT inspection Neck: non-tender, full range of motion Respiratory: chest non-tender, normal breath sounds Cardiac/Chest: other (, improved from yesterday.) Abdomen: other (Mildly tender to palpation) Back: Normal inspection Skin: other (Pallor, no rash) Neuro/Psych: no motor/sensory deficits, alert, normal mood/affect, oriented x 3 ICD10 Worksheet Patient Problems: Problems Problem Status Onset Dehydration Acute Vomiting and diarrhea Acute Anorexia Acute Diarrhea Acute Malignancy Acute
[2018-05-07] MEDS ORDERED: FUROSEMIDE 40 MG/4 ML VIAL IVP ONE (08:40)
[2018-05-07] MEDS: LORazepam 2 MG/ML INJ IVP PRN ×2 (08:42→19:19)
[2018-05-07] MEDS: CYANO/VITAMIN B12 1000 MCG TAB PO SCH (09:00)
[2018-05-07] MEDS: CHOLECALCIFEROL VIT D3 1,000 UNITS TAB PO SCH (09:00)
[2018-05-07] MEDS: SPIRONOLACTONE 25 MG TAB PO SCH (09:59)
[2018-05-07] MEDS: OCTREOTIDE 100 MCG/1 ML INJ SC SCH ×3 (09:59→21:40)
--- NOTE | 2018-05-07 10:14 | SOAPPROG ---
SOAP Progress Note Assessment/Plan: Assessment: 1) Metastatic melanoma with liver, lung, bone, and diffuse GI involvement 2) Diarrhea secondary to #1 3) Treatment related nausea 4) Fever 5) Volume depletion 6) Hypocalcemia 7) H/O PICC related DVT February 2018 8) Hypotension / possible sepsis Plan: Patient has been transferred to ICU with worsening hypotension and possible sepsis. Blood cultures from last evening are negative to date. ID now involved. CT abd planned for later today to look for source of infections. He is now receiving low dose pressor support with an improvement in his blood pressure. Yesterday I added Octreotide 100 mcg SC TID in an attempt to decrease volume of diarrhea. This seems to have helped, so for now will continue Octreotide. Continue Albumin infusion for Anasarca. If his blood cultures remain negative over next 24 hours, I favor starting him on TPN tomorrow. I do not think that his recent Immunotherapy (Keytruda) has contributed to his current condition. Dexamethasone has been stopped. Continue BID Lovenox given h/o DVT. care home, I favor transitioning him to Ecorafenib / Binimetinib (new BRAF/MEK combination) which may be better tolerated. His recent PET scan showed a clear response to targeted therapy. Dr. Venegas (his primary Oncologist) has initiated the process of obtaining these medications, and I am hopeful that we could start these early next week during this hospital stay. Patient and had multiple questions which were answered. Case d/w ICU nursing. Subjective: Developed fever with hypotension yesterday and was transferred to ICU. Now on pressors. at bedside. Reports diarrhea improved. Denies abdominal pain. Taking fairly little PO. Objective: Vital Signs Temp Pulse Resp BP Pulse Ox 37.2 C 102 H 20 122/81 H 93 05/07/18 07:30 05/07/18 08:40 05/07/18 08:40 05/07/18 08:40 05/07/18 08:40 Microbiology 05/06/18 10:51 Respiratory Panel (PCR) - Final Nasal, Sinus - [place] Viral Transport No Organism Detected By Pcr Laboratory Results 05/07/18 06:15 05/07/18 06:15 05/06/18 05/07/18 05/08/18 05:59 05:59 05:59 Intake Total 2350 8255 Output Total 1500 1850 Balance 850 6405 - Time Spent With Patient Time Spent With Patient: 30 minutes Physical Exam - Physical Exam General Appearance: alert, no apparent distress, other (Lethargic) EENT: pale conjunctiva (R), pale conjunctiva (L), No scleral icterus (R), No scleral icterus (L) Abdomen: non-tender, soft, No mass Skin: pallor, No rash Extremities: pedal edema Neuro/Psych: alert, oriented x 3 ICD10 Worksheet Patient Problems: Problems Problem Status Onset Dehydration Acute Vomiting and diarrhea Acute Anorexia Acute Diarrhea Acute Malignancy Acute
[2018-05-07] MEDS ORDERED: IOHEXOL 300 mgI/ML (OMNIPAQUE) 150 ML BTL IV ONE (10:52)
--- NOTE | 2018-05-07 10:53 | PCMIDPN ---
Assessment/Plan: Assessment: 32-year-old man with sepsis syndrome complicating therapy with pembrolizumab given on 05/02/2018. No positive microbiologic testing but he continues to fever will continue with antibiotic therapy. 1. Fever and hypotension, no positive microbiologic testing to date 2. History of metastatic melanoma to the GI tract; most recent treatment with pembrolizumab on 05/02/2018 3. Lymphocytosis, likely secondary to immune activation from chemotherapy 4. Acute anemia Plan: 1. Continue meropenem and vancomycin 2. Plan vancomycin trough for tomorrow, if no MRSA recovered from blood cultures or other site can target a goal trough of 10-15 Kris Duncan MD Infectious Diseases 05/07/18 10:57 Subjective: Fever overnight with shaking chills. Diarrhea may be slightly better. No rash , myalgias, arthralgias. Continues with an occasional nonproductive cough and feels he is unable to take a deep inspiration due to right upper quadrant discomfort. No abdominal pain overall. Objective: Vital Signs Temp Pulse Resp BP Pulse Ox 37.2 C 101 H 21 H 119/80 98 05/07/18 07:30 05/07/18 10:00 05/07/18 10:00 05/07/18 10:00 05/07/18 10:00 Microbiology 05/06/18 10:51 Respiratory Panel (PCR) - Final Nasal, Sinus - [place] Viral Transport No Organism Detected By Pcr Laboratory Results 05/07/18 06:15 05/07/18 06:15 05/06/18 05/07/18 05/08/18 05:59 05:59 05:59 Intake Total 2350 8255 Output Total 1500 1850 500 Balance 850 6405 -500 Microbiology 05/06/18 10:51 Nasal, Sinus - [place] Viral Transport Respiratory Panel ( PCR) - Final No Organism Detected By Pcr 05/05/18 15:45 Stool Gastrointestinal Tract Panel (PCR) - Final No Organism Detected By Pcr 05/06/18 08:25 Blood Blood Culture - Preliminary 05/06/18 07:16 Blood Blood Culture - Preliminary Laboratory Tests 05/05/18 05/06/18 05/06/18 12:39 04:35 07:16 WBC 6.98 3.08 L Hgb 15.5 9.4 L Plt Count 396 246 Absolute Seg Neuts 0.83 L Absolute Band Neuts 1.02 H Creatinine 1.0 TSH 05/06/18 05/07/18 05/07/18 18:00 06:15 06:15 WBC 10.64 H Hgb 10.1 L Plt Count Absolute Seg Neuts 3.72 Absolute Band Neuts 3.83 H Creatinine 0.8 TSH 1.160 Medications Generic Name Dose Route Start Last Admin Trade Name Freq PRN Reason Stop Dose Admin Meropenem 1 gm/ Sodium 120 mls @ 120 mls/hr 05/06/18 17:00 05/07/18 09:59 Chloride IV 06/05/18 16:59 120 mls Q8H FAISAL Protocol Vancomycin HCl 1.25 gm/ Sodium 250 mls @ 166.667 mls/hr 05/06/18 18:00 06:19 Chloride IV 06/05/18 17:59 250 mls Q12H FAISAL Discontinued Medications Generic Name Dose Route Start Last Admin Trade Name Freq PRN Reason Stop Dose Admin Vancomycin HCl 1 each 05/06/18 17:00 Vancomycin Pharmacy To Dose, 10-15 Mcg/Ml [facility] [place] 11/02/18 16:59 AD FAISAL Protocol Vancomycin HCl 1.25 gm/ Sodium 250 mls @ 166.667 mls/hr 05/06/18 17:30 Chloride IV 06/05/18 17:29 Q12H FAISAL - Physical Exam General Appearance: no apparent distress, thin, non-toxic EENT: No scleral icterus Respiratory: lungs clear, normal breath sounds, No respiratory distress, No crackles, No wheezing Neck: full range of motion, supple Cardiac/Chest: regular rate, rhythm, tachycardia, No bradycardia, No diastolic murmur, No systolic murmur Extremities: normal inspection, No erythema Abdomen: non-tender, No distended, No guarding (Abdomen firm to palpation) Skin: No rash, No erythema Neuro/Psych: alert, oriented x 3, depressed affect, No confused - Time Spent With Patient Time Spent with Patient: greater than 35 minutes Time Spent with Patient: Greater than 35 minutes spent on this patients care, greater than 50% of time spent counseling, educating, and coordinating care regarding the above mentioned plan. ICD10 Worksheet Patient Problems: Problems Problem Status Onset Dehydration Acute Vomiting and diarrhea Acute Anorexia Acute Diarrhea Acute Malignancy Acute
[2018-05-07] MEDS ORDERED: PROTOCOL POTASSIUM 1 DOSE MISC PRN (12:09)
[2018-05-07] MEDS: DIPHENOXYLATE/ATROPINE LOMOTIL 1 TAB PO PRN ×2 (12:35→22:02)
[2018-05-07] MEDS: LOPERAMIDE HCL 2 MG CAP PO PRN ×2 (12:35→17:40)
--- NOTE | 2018-05-07 13:11 | HOSPPROG ---
Hospitalist Progress Note Assessment/Plan: 32 yo M w metastatic melanoma, fever, septic physiology Diarrhea with N/V, volume depletion and weight loss - likely chemo related no mass sen on ct -Cont NS along with albumin boluses -GI PCR neg, cont prn imodium and lomotil -anti-emetics, supportive care tpn 05/08 if blood cx remain neg sepsis: fever, tachycardia weaning pressors today remains on levophed and vasopressin Fever - Could be 2/2 Dabrafenib per onc. Had low BP this am in setting of T38.4 , which responded to NS bolus. Lactate nl. WBC's low, but not neutropenic. Abdominal exam reassuring, thus low suspicion for intra-abdominal infection. -GI PCR neg -CXR without e/o pna -RVP panel neg -UA neg -BCx's pending, neg thus far -agree w empiric vanc meropenem, day 2/5 if blood cx neg Metastatic melanoma involving bowel, liver and bone - has had some response to therapy -chemo currently on hold given above -oncology following SPCM - 10 lb weight loss over past few days, pt reports recent albumin <1, now 1.2 -low threshold for PICC/TPN, defer for now given improved oral intake -dietary consult DVT - related to PICC in RUE -cont therapeutic Lovenox, dose adjusted for current weight Hypoalbuminemia - Albumin 25% 100 mL bolus q6h x4 doses H/O Anasarca - thought secondary to chemo agent, has been on high dose lasix as outpt -hold lasix for now given profound volume depletion Hypertension / Tachycardia - holding BB due to hypotension dispo: icu 40 min crit care Subjective: case d/w dr mathis. blood cx neg X 24 hours Objective: Vital Signs Temp Pulse Resp BP Pulse Ox 37.2 C 107 H 18 105/70 98 05/07/18 07:30 05/07/18 12:30 05/07/18 12:30 05/07/18 12:30 05/07/18 12:30 Microbiology 05/06/18 10:51 Respiratory Panel (PCR) - Final Nasal, Sinus - [place] Viral Transport No Organism Detected By Pcr Laboratory Results 05/07/18 06:15 05/06/18 05/07/18 05/08/18 05:59 05:59 05:59 Intake Total 2350 8255 Output Total 1500 1850 1000 Balance 850 6405 -1000 - Physical Exam Constitutional: no apparent distress, appears nourished Eyes: PERRL, anicteric sclera Ears, Nose, Mouth, Throat: moist mucous membranes, hearing normal Cardiovascular: regular rate and rhythym, tachycardia, edema Respiratory: no respiratory distress, no rales or rhonchi Gastrointestinal: normoactive bowel sounds, soft, non-tender abdomen Genitourinary: No donovan in urethra Skin: warm, normal color Musculoskeletal: full muscle strength Neurologic: AAOx3 Psychiatric: interacting appropriately ICD10 Worksheet Patient Problems: Problems Problem Status Onset Dehydration Acute Vomiting and diarrhea Acute Anorexia Acute Diarrhea Acute Malignancy Acute
[2018-05-07] MEDS: VASOPRESSIN 25 UNIT in NS 250 ML IV SCH ×2 (14:33→23:11)
[2018-05-07] MEDS: HALOPERIDOL 1 MG TAB PO SCH ×3 (14:35→21:40)
[2018-05-07] MEDS: POTASSIUM Cl (KCl) 50 ML IV SCH ×3 (14:36→15:53)
--- NOTE | 2018-05-07 16:05 | PDPCPN ---
Palliative Care Progress Note Assessment/Plan: Assessment: [facility] [address] [place] [id number] [phone]) PALLIATIVE CARE NOTE NAME: Ganga Dejesus : 85, 32 Date: 05/07/2018 VISIT TYPE: Follow-up hospital palliative visit LOCATION: [facility] LEVEL OF CARE: Hospice eligible DIAGNOSES: 1. Metastatic melanoma CC: Nausea vomiting diarrhea HPI: Mister Dejesus is a 32-year-old male who was diagnosed in 2015 with stage I melanoma. He had wide excision with clean margins at that time. He has had continued monitoring since that time. In February 2018 he was found to have widely metastatic disease. He is biopsies were positive for the BRAF mutation. He was started on darafenib. This was fairly recently discontinued as he began to develop nausea and vomiting which they were contributing to the medication. He was then started on Truvada. He has had worsening of nausea vomiting and diarrhea. He was running low-grade fevers in the 99.6 range prior to admission. Since admission his fever has increased and he became hypotensive. He remains in the intensive care unit on pressor support. He continues to have significant nausea vomiting and diarrhea. PMH: hypertension, melanoma ALLERGIES: FAMILY HISTORY: SOCIAL HISTORY: Lives in [facility] with his and 3 children. 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 Control of his nausea vomiting and diarrhea 2. Start treatment ACTIVE SYMPTOMS/ASSESSMENTS/RECOMMENDATIONS: 1. Metastatic melanoma: C 34.9: He is positive for molecular mutation. Darafenib recently discontinued. Currently receiving Truvada. He will be started on another oral medication for the molecular mutation. He had a repeat CT scan this morning with results pending. 2. Nausea/vomiting R 11: significant. Continues on Compazine and Ativan. Recommend starting Haldol 1 mg every 4 hours. 3. Diarrhea R 19.7: significant diarrhea with 7-10 stools per day. He continues on Lomotil and Imodium. Recommend starting Haldol 1 mg every 4 hours 4. Protein calorie malnutrition E 46: He had been eating fairly well up until approximately 2-1/2-3 weeks ago. We'll continue to follow. 5. Anasarca R 60.1: has improved significantly. MODIFIED [place] SYMPTOM ASSESSMENT SCALE: 0-none; 1-3 mild; 4-6 moderate; 7-10 severe Unable to Respond: No [ ] Delirium: 0-none Depression: 0-none Anxiety: 3 Tiredness (fatigue): 5 Drowsiness (sleepiness): 0-none Pain: 0-none Nausea: 4 Anorexia: 0-none Shortness of Breath: 0-none Secretions: 0-none Constipation: 0-none Symptom and side effect management: (acceptable to patient and family) RISK FACTORS FOR RE-HOSPITALIZATION: o CAREGIVER ANXIETY o DISEASE EDUCATION DEFICIT OBJECTIVE FINDINGS Palliative Performance Score: 70 FAST: Not applicable NYHA: n/a Vital Signs: Wt: MAC: Neuro: A&O to person, place, time and event HEENT: Normocephalic; atraumatic RESP: Regular, deep, symmetrical. No cough or wheezing CV: +2 pitting edema in the lower extremities extending to the knee. GI: soft, round bowel sounds hyperactive : no dysuria or hematuria MSK: Marked muscle wasting. Ambulatory SKIN: intact LAB Data: N/A Disposition: Inpatient hospitalization ADVANCE CARE PLANNING DISCUSSION Sakshi has been designated as medical power of state's attorney. PLAN: 1. community palliative services upon discharge 2. will need social work support upon discharge Thank you for the opportunity to participate in the care of this patient. TIME SPENT: [id number] 35 min >50% of the time spent counseling, educating and coordinating the above topics. [facility] Plan: 05/07/18 16:05 Objective: Vital Signs Temp Pulse Resp BP Pulse Ox 37.2 C 100 22 H 112/72 95 05/07/18 07:30 05/07/18 15:00 05/07/18 15:00 05/07/18 15:00 05/07/18 15:00 Microbiology 05/06/18 10:51 Respiratory Panel (PCR) - Final Nasal, Sinus - [place] Viral Transport No Organism Detected By Pcr Laboratory Results 05/07/18 06:15 05/07/18 12:40 05/06/18 05/07/18 05/08/18 05:59 05:59 05:59 Intake Total 2350 8255 Output Total 1500 1850 1000 Balance 850 6405 -1000 ICD10 Worksheet Patient Problems: Problems Problem Status Onset Dehydration Acute Vomiting and diarrhea Acute Anorexia Acute Diarrhea Acute Malignancy Acute
[2018-05-07] MEDS ORDERED: POTASSIUM Cl (KCl) 50 ML IV ONE (18:26)
[2018-05-08] MEDS: ALBUMIN 25% 100 ML IV SCH ×2 (00:11→05:31)
[2018-05-08] MEDS: ASCORBIC ACID 1,500 MG in D5W 100 ML IV SCH ×4 (00:11→19:21)
[2018-05-08] MEDS: POTASSIUM CL 20 MEQ TAB PO SCH ×3 (00:12→21:27)
[2018-05-08] MEDS: MEROPENEM 1 GM in NS 100 ML IV SCH ×2 (01:30→09:04)
[2018-05-08] MEDS: HALOPERIDOL 1 MG TAB PO SCH ×6 (03:20→22:36)
[2018-05-08] MEDS: ONDANSETRON 4 MG/2 ML VIAL IVP PRN ×3 (04:10→14:58)
[2018-05-08] MEDS: POTASSIUM Cl (KCl) 50 ML IV SCH ×6 (04:13→23:13)
[2018-05-08] MEDS: VANCOMYCIN 1.25 GM in NS 250 ML IV SCH (06:39)
[2018-05-08] MEDS: LOPERAMIDE HCL 2 MG CAP PO PRN ×4 (07:11→20:05)
[2018-05-08] MEDS: THIAMINE HCL 200 MG in NS 100 ML IV SCH ×2 (07:48→18:09)
[2018-05-08] MEDS: LORazepam 2 MG/ML INJ IVP PRN ×3 (09:04→19:31)
[2018-05-08] MEDS ORDERED: POTASSIUM Cl (KCl) 50 ML IV SCH (09:30)
[2018-05-08] MEDS: CHOLECALCIFEROL VIT D3 1,000 UNITS TAB PO SCH (09:36)
[2018-05-08] MEDS: SPIRONOLACTONE 25 MG TAB PO SCH (09:36)
[2018-05-08] MEDS: valACYclovir 500 MG TAB PO SCH (09:37)
[2018-05-08] MEDS: CYANO/VITAMIN B12 1000 MCG TAB PO SCH (09:38)
[2018-05-08] MEDS: CALCIUM CARBONATE 500 MG CHEWABLE TAB PO SCH ×3 (09:39→22:36)
[2018-05-08] MEDS: ENOXAPARIN 80 MG/0.8 ML SYR SC SCH ×2 (09:39→21:26)
[2018-05-08] MEDS: OCTREOTIDE 100 MCG/1 ML INJ SC SCH ×3 (09:40→22:36)
[2018-05-08] MEDS ORDERED: POTASSIUM Cl (KCl) 50 ML IV ONE ×3 (10:00→13:10)
--- NOTE | 2018-05-08 10:30 | PDINTPN ---
Crisis Clinician Progress Note Assessment/Plan: ASSESSMENT 32-year-old male with metastatic melanoma with bowel invasion on Pembrolizumab ( Keytruda - anti PD-1 L, checkpoint inhibitor) and recently stoped drabafenib ( BRAF Kinase Inhibitor) as well as other immunotherapy transferred to the ICU with septic shock fevers and encephalopathy # septic shock. 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 Improved today. Related to poor perfusion from hypotension. # diarrhea, GI PCR negative. Tumor invasion plus medications. No improvement with dexamethasone on floor # tachycardia # hypotension # metastatic melanoma # anemia # history of PICC related DVT # hypervolemia # hypogammaglobulinemia PLAN # continue NE and vasopressin, wean off as able # broad-spectrum antibiotics-vancomycin and meropenem per ID # starting IVIG for hypogamaglobulinemia # cancer therapy per Dr. Thornton # will start tube feeds in coming days # avoid further steroids (received dexamethasone on the floor) if possible, as they will inhibit efficacy of Keytruda (checkpoint immunotherapy) # continue vitamin C and thiamine for 4 days # low dose oral haldol per palliative care as this has worked in the past. # lasix and spironolactone # continue lovenox, will transition to heparin gtt if renal function worsens # Feeding - as tolerated. No TPN at this juncture # Analgesia APAP, fentanyl # Sedation none # Thromboprophylaxis - lovenox # Head of bed elevated # Ulcer prophylaxis - NA # Glucose SSI # Skin no skin breakdown # Delirium - delirium precautions Patient is critical ill due to life threatening organ dysfunction and is at high risk for decompensation and . Total critical care time, excluding procedures: 55 min ABX vanc, priscila 05/13-present EVENTS 05/06/18 CVC, ICU transfer CX Data 05/06/18 BCx NGTD IMAGING reviewed. Chest x-ray clear 05/07/18 16:11 05/08/18 17:29 Subjective: still requiring vasopressors albeit less, less tachycardic. Still with nausea and emesis. Mental status improving. No new fevers, chest pain, rash Objective: Vital Signs Temp Pulse Resp BP Pulse Ox 36.9 C 104 H 19 104/59 L 96 05/08/18 04:00 05/08/18 07:30 05/08/18 07:30 05/08/18 07:30 05/08/18 07:30 Laboratory Results 05/07/18 06:15 05/08/18 05:40 05/07/18 05/08/18 05/09/18 05:59 05:59 05:59 Intake Total 8255 6075 Output Total 1577 0558 Balance 4011 3084 Physical Exam - Physical Exam General Appearance: cachetic, thin EENT: PERRL/EOMI, normal ENT inspection Neck: non-tender, full range of motion Respiratory: chest non-tender, lungs clear Cardiac/Chest: other (Tachycardic, no murmurs or gallops) Abdomen: other (Abdomen mildly tender to palpation) Back: Normal inspection Skin: warm/dry, pallor Extremities: non-tender, pedal edema, swelling Neuro/Psych: no motor/sensory deficits, alert, normal mood/affect, oriented x 3 ICD10 Worksheet Patient Problems: Problems Problem Status Onset Dehydration Acute Vomiting and diarrhea Acute Anorexia Acute Diarrhea Acute Malignancy Acute
[2018-05-08] MEDS: FUROSEMIDE 40 MG/4 ML VIAL IVP SCH ×2 (10:57→14:24)
--- NOTE | 2018-05-08 12:36 | SOAPPROG ---
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 He is now off pressors. CT shows bowel wall edema, but no obvious source of infection. For now, continue Octreotide 100 mcg SC TID which seems to have helped reduce his geovanna frequency and volume. Continue Albumin infusion for Anasarca. Start TPN today. I do not think that his recent Immunotherapy (Keytruda) has contributed to his current condition. Dexamethasone has been stopped. Continue BID Lovenox given h/o DVT. joint terminal attack controller plan is to transition him to Ecorafenib / Binimetinib (new BRAF/MEK combination) which may be better tolerated. His recent PET scan showed a clear response to targeted therapy. Dr. Venegas (his primary Oncologist) has initiated the process of obtaining these medications, and I am hopeful that we could start these early next week during this hospital stay. For now, I would like to restart his Dabrafenib at his previous dose of 150 mg BID until we can get the new medication. I discussed this with patient and his . She will get his Dabrafenib to the [facility] pharmacy and we will dispense as a non formulary medication. For his hypogammaglobulinemia I agree with a dose of IVIG (400 mg/kg). Risks/ benefits reviewed with patient. He consents. Will give this today. Will send Cosintrophin stim test Patient and had multiple questions which were answered. Case d/w, Critical Care, ID, Hospitalist Case d/w ICU nursing. 05/08/18 12:15 05/08/18 12:37 Subjective: Somewhat better. No recent fevers. Now off pressors. Diarrhea persists, but better. Objective: Vital Signs Temp Pulse Resp BP Pulse Ox 37.0 C 121 H 24 H 106/60 100 05/08/18 10:00 05/08/18 10:00 05/08/18 10:00 05/08/18 10:00 05/08/18 10:00 Laboratory Results 05/07/18 06:15 05/08/18 05:40 05/07/18 05/08/18 05/09/18 05:59 05:59 05:59 Intake Total 6587 6067 Output Total 8403 1459 Balance 4628 5485 - Time Spent With Patient Time Spent With Patient: 40 minutes Physical Exam - Physical Exam General Appearance: alert, no apparent distress, other (Lethargic) EENT: PERRL/EOMI, pale conjunctiva (R), pale conjunctiva (L), No scleral icterus (R), No scleral icterus (L) Abdomen: non-tender, soft Skin: pallor, other (Anasarca), No rash Neuro/Psych: alert, normal mood/affect ICD10 Worksheet Patient Problems: Problems Problem Status Onset Dehydration Acute Vomiting and diarrhea Acute Anorexia Acute Diarrhea Acute Malignancy Acute
[2018-05-08] MEDS ORDERED: IMMUNE GLOBULIN 20 GM/200 ML VIAL IV ONE (12:45)
[2018-05-08] MEDS ORDERED: IMMUNE GLOBULIN 5 GM/50 ML VIAL IV ONE (12:45)
[2018-05-08] MEDS ORDERED: IMMUNE GLOBULIN 10 GM/100 ML VIAL IV ONE (12:45)
[2018-05-08] MEDS ORDERED: D10W 1,000 ML IV PRN (12:52)
[2018-05-08 13:42] LABS: PLATELET COUNT 223 10^3/uL (150-400)
[2018-05-08 13:52] LABS: INR 1.61 (0.83-1.16); PROTIME(PATIENT) 19.3 SEC (12.0-15.0)
[2018-05-08] MEDS ORDERED: diphenhydrAMINE 50 MG CAP PO ONE (14:15)
[2018-05-08] MEDS: ACETAMINOPHEN 325 MG TAB PO PRN (14:24)
--- NOTE | 2018-05-08 16:09 | HOSPPROG ---
Hospitalist Progress Note Assessment/Plan: 32 yo M w metastatic melanoma, fever, septic physiology Diarrhea with N/V, volume depletion and weight loss - likely chemo related no mass sen on ct -Cont NS along with albumin boluses -GI PCR neg, cont prn imodium and lomotil -anti-emetics, supportive care start tpn sepsis: fever, tachycardia weaning pressors today off pressors Fever - Could be 2/2 Dabrafenib per onc. -GI PCR neg -CXR without e/o pna -RVP panel neg -UA neg -BCx's pending, neg thus far -agree w empiric vanc meropenem, day 3/5 if blood cx neg Metastatic melanoma involving bowel, liver and bone - has had some response to therapy -chemo currently on hold given above, plans to restart soon -oncology following SPCM - 10 lb weight loss over past few days, pt reports recent albumin <1, now 1.2 -low threshold for PICC/TPN, defer for now given improved oral intake -dietary consult DVT - related to PICC in RUE -cont therapeutic Lovenox, dose adjusted for current weight Hypoalbuminemia - Albumin 25% 100 mL bolus q6h x4 doses H/O Anasarca - thought secondary to chemo agent, has been on high dose lasix as outpt -hold lasix for now given profound volume depletion Hypertension / Tachycardia - holding BB due to hypotension dispo: icu Subjective: case d/w king elizabeth berngard. still w significant diarhea Objective: Vital Signs Temp Pulse Resp BP Pulse Ox 37.2 C 136 H 18 103/62 100 05/08/18 15:05 05/08/18 15:05 05/08/18 15:05 05/08/18 15:05 05/08/18 15:05 Laboratory Results 05/08/18 13:20 05/08/18 13:20 05/07/18 05/08/18 05/09/18 05:59 05:59 05:59 Intake Total 8255 6075 Output Total 1850 3450 2775 Balance 6405 2625 -2775 PT 19.3 SEC (12.0-15.0) H 05/08/18 13:20 INR 1.61 (0.83-1.16) H 05/08/18 13:20 - Physical Exam Constitutional: no apparent distress, No appears nourished Eyes: PERRL, anicteric sclera Ears, Nose, Mouth, Throat: moist mucous membranes, hearing normal Cardiovascular: no murmur, rub, or gallop, tachycardia Respiratory: no respiratory distress, no rales or rhonchi Gastrointestinal: normoactive bowel sounds, soft, non-tender abdomen Genitourinary: no bladder fullness, No donovan in urethra Skin: warm, normal color Musculoskeletal: full muscle strength, no muscle tenderness Neurologic: AAOx3 ICD10 Worksheet Patient Problems: Problems Problem Status Onset Dehydration Acute Vomiting and diarrhea Acute Anorexia Acute Diarrhea Acute Malignancy Acute
--- NOTE | 2018-05-08 16:18 | PCMIDPN ---
Assessment/Plan: Assessment/Plan: * Septic shock: Marked clinical improvement with resolution of hypotension and no further requirement for pressor support. Blood cultures remain no growth. Sepsis may be related to GI translocation in association with diarrhea and profound hypoalbuminemia. In this setting, blood cultures may remain negative. Given no isolation of MRSA or Pseudomonas, will transition from vancomycin and meropenem to ertapenem monotherapy. CT scan of abdomen and pelvis raise question of possible mild descending colon colitis although this could represent bowel wall edema related to hypoalbuminemia. * Recent history of PICC associated MSSA bacteremia: Completed 4 weeks of IV vancomycin on 04/11/2018. Repeat blood cultures have not shown growth of MSSA. * Hypogammaglobulinemia: Profound decrease in a IgG likely associated with protein losing enteropathy. Plans for replacement IVIG by Oncology today. Reviewed with patient potential side effects including hypersensitivity reactions or aseptic meningitis. Hope repletion will lower likelihood of future complications related to infection. Time spent, greater than 35 min, of which greater than half was spent in education/counseling/coordination of care related to sepsis/ hypogammaglobulinemia and plan of care including narrowing of antibiotic therapy and repletion of antibodies with IVIG. Care coordinated with patient, family, and Cesario Douglass and George. Participated in ICU rounds this a.m. 05/08/18 16:12 Subjective: Patient feels clinically improved. Mild abdominal pain present. Diarrhea persists. Objective: Vital Signs Temp Pulse Resp BP Pulse Ox 37.2 C 136 H 18 103/62 100 05/08/18 15:05 05/08/18 15:05 05/08/18 15:05 05/08/18 15:05 05/08/18 15:05 Laboratory Results 05/08/18 13:20 05/08/18 13:20 05/07/18 05/08/18 05/09/18 05:59 05:59 05:59 Intake Total 8255 6075 Output Total 1850 3450 2775 Balance 6405 2625 -2775 Blood cultures x2 no growth CT abdomen/pelvis scan with possible mild colitis of descending colon versus edema related to hypoalbuminemia Laboratory Tests 05/06/18 18:10 IgG 125 L IgA 29 L IgM 24 L - Physical Exam General Appearance: alert, no apparent distress, non-toxic EENT: No scleral icterus, No thrush, No conjunctival petechiae Respiratory: lungs clear, No respiratory distress Cardiac/Chest: tachycardia Extremities: pedal edema, No inflammation Abdomen: non-tender, No distended Skin: No rash Neuro/Psych: No confused - Line/s other Lines: other (Triple-lumen catheter in left subclavian region without erythema) , No drainage, No erythema ICD10 Worksheet Patient Problems: Problems Problem Status Onset Dehydration Acute Vomiting and diarrhea Acute Anorexia Acute Diarrhea Acute Malignancy Acute
[2018-05-08] MEDS: ERTAPENEM 1 GM in NS 100 ML IV SCH (16:55)
[2018-05-08] MEDS: ENCORAFENIB 75 MG PO SCH (19:48)
[2018-05-08] MEDS: DIPHENOXYLATE/ATROPINE LOMOTIL 1 TAB PO PRN (20:05)
[2018-05-08] MEDS ORDERED: DABRAFENIB 75 MG PO SCH (21:00)
[2018-05-08] MEDS: BINIMETINIB 15 MG PO SCH (21:27)
[2018-05-08] MEDS ORDERED: HALOPERIDOL 2 MG TAB PO SCH (22:00)
[2018-05-09] MEDS: ASCORBIC ACID 1,500 MG in D5W 100 ML IV SCH ×4 (00:09→19:10)
[2018-05-09] MEDS ORDERED: POTASSIUM Cl (KCl) 50 ML IV ONE ×3 (01:56→13:17)
[2018-05-09] MEDS ORDERED: HALOPERIDOL 2 MG TAB PO SCH (02:00)
[2018-05-09] MEDS: HALOPERIDOL 1 MG TAB PO SCH ×6 (02:16→21:27)
[2018-05-09] MEDS: THIAMINE HCL 200 MG in NS 100 ML IV SCH ×2 (05:57→18:07)
[2018-05-09 06:16] LABS: PLATELET COUNT 197 10^3/uL (150-400)
[2018-05-09 06:25] LABS: INR 1.77 (0.83-1.16); PROTIME(PATIENT) 20.7 SEC (12.0-15.0)
[2018-05-09] MEDS: LOPERAMIDE HCL 2 MG CAP PO PRN ×4 (08:11→21:26)
[2018-05-09] MEDS: DIPHENOXYLATE/ATROPINE LOMOTIL 1 TAB PO PRN ×4 (08:11→21:26)
[2018-05-09] MEDS: FUROSEMIDE 40 MG/4 ML VIAL IVP SCH ×2 (08:11→15:23)
[2018-05-09] MEDS: LORazepam 2 MG/ML INJ IVP PRN ×2 (08:30→21:17)
[2018-05-09] MEDS: ENOXAPARIN 80 MG/0.8 ML SYR SC SCH ×2 (08:53→21:27)
[2018-05-09] MEDS: ERTAPENEM 1 GM in NS 100 ML IV SCH (08:53)
[2018-05-09] MEDS: OCTREOTIDE 100 MCG/1 ML INJ SC SCH (08:54)
[2018-05-09] MEDS: CHOLECALCIFEROL VIT D3 1,000 UNITS TAB PO SCH (08:54)
[2018-05-09] MEDS: SPIRONOLACTONE 25 MG TAB PO SCH (08:54)
[2018-05-09] MEDS: CYANO/VITAMIN B12 1000 MCG TAB PO SCH (08:54)
[2018-05-09] MEDS: CALCIUM CARBONATE 500 MG CHEWABLE TAB PO SCH ×3 (09:44→21:25)
[2018-05-09] MEDS: POTASSIUM CL 20 MEQ TAB PO SCH ×2 (09:44→21:27)
[2018-05-09] MEDS: ENCORAFENIB 75 MG PO SCH (09:56)
[2018-05-09] MEDS: valACYclovir 500 MG TAB PO SCH (09:56)
[2018-05-09] MEDS: BINIMETINIB 15 MG PO SCH ×2 (09:56→21:18)
[2018-05-09] MEDS ORDERED: COSYNTROPIN 0.25 MG/2 ML SYRINGE IVP SCH ×2 (10:30)
[2018-05-09] MEDS ORDERED: K PHOS 10 MMOL in D5W 250 ML IV ONE (12:00)
--- NOTE | 2018-05-09 14:09 | SOAPPROG ---
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 His nausea has improved, and he is beginning to eat. Haldol seemed to make the biggest difference. For now, continue Octreotide 100 mcg SC TID which seems to have helped reduce his stool frequency and volume. Continue Albumin infusion for Anasarca. Start TPN today. I do not think that his recent Immunotherapy (Keytruda) has contributed to his current condition. Dexamethasone has been stopped. Continue BID Lovenox given h/o DVT. Ecorafenib / Binimetinib (new BRAF/MEK combination) were started last evening. So far, he is tolerating them. His recent PET scan showed a clear response to targeted therapy. He received a dose of IVIG (400 mg/kg) yesterday and tolerated this. Cortisol values do not appear c/w adrenal insufficiency. Patient and had multiple questions which were answered. Case d/w ICU nursing. Subjective: Feels much better today. Remains off pressors. Nausea resolved. He is now eating. Stools forming with continued decrease in diarrhea at bedside Objective: Vital Signs Temp Pulse Resp BP Pulse Ox 36.6 C 115 H 16 98/63 L 93 05/09/18 12:00 05/09/18 12:00 05/09/18 12:00 05/09/18 12:00 05/09/18 12:00 Laboratory Results 05/09/18 05:55 05/09/18 11:50 05/08/18 05/09/18 05/10/18 05:59 05:59 05:59 Intake Total 6075 4084 Output Total 3450 1375 3000 Balance 0245 -8742 -3000 PT 20.7 SEC (12.0-15.0) H 05/09/18 05:55 INR 1.77 (0.83-1.16) H 05/09/18 05:55 - Time Spent With Patient Time Spent With Patient: 25 minutes Physical Exam - Physical Exam General Appearance: alert, no apparent distress, other (More alert today) EENT: PERRL/EOMI Abdomen: non-tender, soft Skin: pallor Neuro/Psych: alert, normal mood/affect ICD10 Worksheet Patient Problems: Problems Problem Status Onset Dehydration Acute Vomiting and diarrhea Acute Anorexia Acute Diarrhea Acute Malignancy Acute
--- NOTE | 2018-05-09 15:28 | HOSPPROG ---
Hospitalist Progress Note Assessment/Plan: 32 yo M w metastatic melanoma, fever, septic physiology Diarrhea with N/V, volume depletion and weight loss - likely chemo related no mass sen on ct -Cont NS along with albumin boluses -GI PCR neg, cont prn imodium and lomotil -anti-emetics, supportive care start tpn improving w octreotide sepsis: fever, tachycardia weaning pressors today off pressors abx de-escalated to ertapenem Fever - Could be 2/2 Dabrafenib per onc. -GI PCR neg -CXR without e/o pna -RVP panel neg -UA neg -BCx's pending, neg thus far -ertapenem Metastatic melanoma involving bowel, liver and bone - has had some response to therapy restarted po chemo last stacey -oncology following SPCM - 10 lb weight loss over past few days, pt reports recent albumin <1, now 1.2 -low threshold for PICC/TPN, defer for now given improved oral intake -dietary consult DVT - related to PICC in RUE -cont therapeutic Lovenox, dose adjusted for current weight Hypoalbuminemia - Albumin 25% 100 mL bolus q6h x4 doses H/O Anasarca - thought secondary to chemo agent, has been on high dose lasix as outpt -hold lasix for now given profound volume depletion Hypertension / Tachycardia - holding BB due to hypotension dispo: icu Subjective: case d.w luis mathis and brian. improved today Objective: Vital Signs Temp Pulse Resp BP Pulse Ox 36.6 C 115 H 16 98/63 L 93 05/09/18 12:00 05/09/18 12:00 05/09/18 12:00 05/09/18 12:00 05/09/18 12:00 Laboratory Results 05/09/18 05:55 05/09/18 11:50 05/08/18 05/09/18 05/10/18 05:59 05:59 05:59 Intake Total 6075 4084 Output Total 3450 6775 3000 Balance 2625 -4591 -3000 PT 20.7 SEC (12.0-15.0) H 05/09/18 05:55 INR 1.77 (0.83-1.16) H 05/09/18 05:55 - Physical Exam Constitutional: no apparent distress, appears nourished Eyes: PERRL, anicteric sclera Ears, Nose, Mouth, Throat: moist mucous membranes, hearing normal Cardiovascular: regular rate and rhythym, no murmur, rub, or gallop, tachycardia , edema Respiratory: no respiratory distress, no rales or rhonchi Gastrointestinal: normoactive bowel sounds, soft, non-tender abdomen Genitourinary: No donovan in urethra Skin: warm, normal color Musculoskeletal: full muscle strength Neurologic: AAOx3 Psychiatric: interacting appropriately ICD10 Worksheet Patient Problems: Problems Problem Status Onset Dehydration Acute Vomiting and diarrhea Acute Anorexia Acute Diarrhea Acute Malignancy Acute
[2018-05-09] MEDS ORDERED: PROTOCOL POTASSIUM 1 DOSE MISC PRN (16:43)
--- NOTE | 2018-05-09 17:04 | PDINTPN ---
[facility] Progress Note Assessment/Plan: ASSESSMENT 32-year-old male with metastatic melanoma with bowel invasion on Pembrolizumab ( Keytruda - anti PD-1 L, checkpoint inhibitor) and recently stoped drabafenib ( BRAF Kinase Inhibitor) as well as other immunotherapy transferred to the ICU with septic shock fevers and encephalopathy # septic shock. 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 Improved today. Related to poor perfusion from hypotension. # diarrhea, GI PCR negative. Tumor invasion plus medications. No improvement with dexamethasone on floor # secondary adrenal insufficiency. mild due to sepsis. clinically improved. LH was normal # sick euthyroid. normal free T4. nothing to do # tachycardia, resolved. # hypotension, resolved # metastatic melanoma # anemia # history of PICC related DVT # hypervolemia # hypogammaglobulinemia PLAN # broad-spectrum antibiotics-vancomycin and meropenem per ID # IVIG for hypogamaglobulinemia # no significant endocrinopathy based on work up # cancer therapy per Dr. Thornton # TPN starting tonight # no role for steroids # continue vitamin C and thiamine for 4 days # low dose oral haldol per palliative care as this has worked in the past. # lasix and spironolactone, decreased to 40 daily # continue lovenox, will transition to heparin gtt if renal function worsens # Feeding - as tolerated. No TPN at this juncture # Analgesia APAP, fentanyl # Sedation none # Thromboprophylaxis - lovenox # Head of bed elevated # Ulcer prophylaxis - NA # Glucose SSI # Skin no skin breakdown # Delirium - delirium precautions # agree with floor transferre time, excluding procedures: 55 min ABX vanc, priscila 05/13-present EVENTS 05/06/18 CVC, ICU transfer CX Data 05/06/18 BCx NGTD IMAGING reviewed. Chest x-ray clear LABS AM cortisol 4.8, max stem 6.6 to 17.5 Subjective: Clinically improved. Weaned off vasopressors yesterday. Responded well to diuresis. Serum potassium generally preserved. Started on chemotherapy yesterday. No new shortness of breath, nausea vomiting, fevers or rash Objective: Vital Signs Temp Pulse Resp BP Pulse Ox 36.7 C 103 H 16 98/59 L 95 05/09/18 15:58 05/09/18 15:58 05/09/18 15:58 05/09/18 15:58 05/09/18 15:58 Laboratory Results 05/09/18 05:55 05/09/18 11:50 05/08/18 05/09/18 05/10/18 05:59 05:59 05:59 Intake Total 6075 4084 Output Total 3450 6775 3000 Balance 2625 -2691 -3000 PT 20.7 SEC (12.0-15.0) H 05/09/18 05:55 INR 1.77 (0.83-1.16) H 05/09/18 05:55 Physical Exam - Physical Exam General Appearance: alert, no apparent distress EENT: PERRL/EOMI, normal ENT inspection, pharynx normal Neck: non-tender, full range of motion Respiratory: chest non-tender, lungs clear, other (Left CVC subclavian placed) Cardiac/Chest: normal peripheral pulses, regular rate, rhythm Abdomen: normal bowel sounds, non-tender Back: Normal inspection Skin: warm/dry, pallor, No cyanosis Extremities: normal range of motion, non-tender, swelling Neuro/Psych: no motor/sensory deficits, alert, normal mood/affect, oriented x 3 ICD10 Worksheet Patient Problems: Problems Problem Status Onset Dehydration Acute Vomiting and diarrhea Acute Anorexia Acute Diarrhea Acute Malignancy Acute
[2018-05-09] MEDS ORDERED: HALOPERIDOL 1 MG TAB PO ONE (17:30)
[2018-05-09] MEDS: TPN 1 EA BAG IV SCH (21:25)
[2018-05-10] MEDS: ASCORBIC ACID 1,500 MG in D5W 100 ML IV SCH ×3 (01:08→14:02)
[2018-05-10] MEDS: HALOPERIDOL 1 MG TAB PO SCH ×3 (01:08→09:46)
[2018-05-10] MEDS: THIAMINE HCL 200 MG in NS 100 ML IV SCH (05:46)
[2018-05-10] MEDS: LOPERAMIDE HCL 2 MG CAP PO PRN ×2 (05:50→08:49)
[2018-05-10] MEDS: DIPHENOXYLATE/ATROPINE LOMOTIL 1 TAB PO PRN ×2 (05:50→17:33)
[2018-05-10 05:51] LABS: PLATELET COUNT 221 10^3/uL (150-400)
[2018-05-10 06:22] LABS: INR 1.25 (0.83-1.16); PROTIME(PATIENT) 15.9 SEC (12.0-15.0)
[2018-05-10] MEDS ORDERED: POTASSIUM CL 10 MEQ TAB PO ONE ×2 (07:46→20:06)
[2018-05-10] MEDS: LORazepam 2 MG/ML INJ IVP PRN ×3 (08:36→21:38)
[2018-05-10] MEDS: ONDANSETRON 4 MG/2 ML VIAL IVP PRN (08:37)
[2018-05-10] MEDS: CALCIUM CARBONATE 500 MG CHEWABLE TAB PO SCH ×3 (08:44→21:39)
[2018-05-10] MEDS: FUROSEMIDE 40 MG/4 ML VIAL IVP SCH (08:44)
[2018-05-10] MEDS: CYANO/VITAMIN B12 1000 MCG TAB PO SCH (08:44)
[2018-05-10] MEDS: SPIRONOLACTONE 25 MG TAB PO SCH (08:45)
[2018-05-10] MEDS: POTASSIUM CL 20 MEQ TAB PO SCH ×2 (08:45→21:08)
[2018-05-10] MEDS: valACYclovir 500 MG TAB PO SCH (08:45)
[2018-05-10] MEDS: ENOXAPARIN 80 MG/0.8 ML SYR SC SCH ×2 (08:46→21:39)
[2018-05-10] MEDS: ERTAPENEM 1 GM in NS 100 ML IV SCH (08:58)
[2018-05-10] MEDS: CHOLECALCIFEROL VIT D3 1,000 UNITS TAB PO SCH (08:59)
--- NOTE | 2018-05-10 09:16 | HOSPPROG ---
Hospitalist Progress Note Assessment/Plan: 32 yo M w metastatic melanoma, fever, septic physiology Diarrhea with N/V, volume depletion and weight loss - likely chemo related no mass sen on ct -Cont NS along with albumin boluses -GI PCR neg, cont prn imodium and lomotil -anti-emetics, supportive care start tpn improving w octreotide 05/20- diarrhea improving sepsis: fever, tachycardia weaning pressors today off pressors abx de-escalated to ertapenem Fever - Could be 2/2 Dabrafenib per onc. -GI PCR neg -CXR without e/o pna -RVP panel neg -UA neg -BCx's pending, neg thus far -ertapenem 05/10- afebrile since 05/06 Metastatic melanoma involving bowel, liver and bone - has had some response to therapy restarted po chemo last stacey -oncology following he has had a good response to immune therapy SPCM - 10 lb weight loss over past few days, pt reports recent albumin <1, now 1.2 -tpn DVT - related to PICC in RUE -cont therapeutic Lovenox, dose adjusted for current weight Hypoalbuminemia - Albumin 25% 100 mL bolus q6h x4 doses H/O Anasarca - thought secondary to chemo agent, has been on high dose lasix as outpt -hold lasix for now given profound volume depletion Hypertension / Tachycardia - holding BB due to hypotension dispo: inpt Subjective: improved. case d/w dr torres Objective: Vital Signs Temp Pulse Resp BP Pulse Ox 37 C 101 H 16 107/68 93 05/10/18 09:00 05/10/18 09:00 05/10/18 09:00 05/10/18 09:00 05/10/18 09:00 Laboratory Results 05/10/18 05:41 05/10/18 05:41 05/09/18 05/10/18 05/11/18 05:59 05:59 05:59 Intake Total 4084 1944 Output Total 6781 3000 Balance -2691 -1056 PT 15.9 SEC (12.0-15.0) H 05/10/18 05:41 INR 1.25 (0.83-1.16) H 05/10/18 05:41 - Physical Exam Constitutional: no apparent distress, not in pain, No appears nourished Eyes: PERRL, anicteric sclera Ears, Nose, Mouth, Throat: moist mucous membranes, hearing normal Cardiovascular: regular rate and rhythym, no murmur, rub, or gallop, edema, No tachycardia Respiratory: no respiratory distress, no rales or rhonchi Gastrointestinal: normoactive bowel sounds, soft, non-tender abdomen, distension , No guarding, No rebound Genitourinary: no bladder fullness, No donovan in urethra Skin: warm, normal color Musculoskeletal: No full muscle strength Neurologic: AAOx3 Psychiatric: interacting appropriately ICD10 Worksheet Patient Problems: Problems Problem Status Onset Dehydration Acute Vomiting and diarrhea Acute Anorexia Acute Diarrhea Acute Malignancy Acute
[2018-05-10] MEDS: ENCORAFENIB 75 MG PO SCH (09:40)
[2018-05-10] MEDS: BINIMETINIB 15 MG PO SCH ×2 (09:42→21:43)
--- NOTE | 2018-05-10 10:58 | ASMTCMCOM ---
CM Note CM Note Notes: CM reviewed chart, pt has metastatic melanoma. He is on chemo treatment but has been plagued by n/v/d. Pt started on TPN. Pt lives at home with his and children Dc needs uncertain but was cleared for home by PT, CM will follow. DC Plan: TBD Date Signed: 05/10/2018 10:57 AM Electronically Signed By:Josephine Gross RN
--- NOTE | 2018-05-10 11:17 | PCMIDPN ---
Assessment/Plan: Assessment: 32-year-old man with sepsis syndrome complicating therapy with pembrolizumab given on 05/02/2018. She overall improved but does have ascending colitis which may be a consequence of his chemotherapy medication or represent GI organism translocation. Will finish out planned course of ertapenem which can be completed as an outpatient if he is discharged home. 1. Descending colitis, stable 2. History of metastatic melanoma to the GI tract; most recent treatment with pembrolizumab on 05/02/2018 3. Lymphocytosis, likely secondary to immune activation from chemotherapy; resolved 4. Acute anemia 5. Malnutrition manifesting as hypoalbuminemia Plan: 1. Continue ertapenem 1 g daily; anticipated stop date 05/13/2018 Kris Duncan MD Infectious Diseases 05/10/18 11:17 Subjective: No fever or chills in the past 24 hr. Mild abdominal discomfort has not changed. He continues to have some loose stools periodically up to 5 times a day. No new rashes and tolerating his TPN fine. Objective: Vital Signs Temp Pulse Resp BP Pulse Ox 37 C 101 H 16 107/68 93 05/10/18 09:00 05/10/18 09:00 05/10/18 09:00 05/10/18 09:00 05/10/18 09:00 Laboratory Results 05/10/18 05:41 05/10/18 05:41 05/09/18 05/10/18 05/11/18 05:59 05:59 05:59 Intake Total 4084 1944 Output Total 6744 0121 900 Balance -2692 -1056 -900 Medications Generic Name Dose Route Start Last Admin Trade Name Freq PRN Reason Stop Dose Admin Ertapenem 1 gm/ Sodium 100 mls @ 200 mls/hr 05/08/18 17:00 05/10/18 08:58 Chloride IV 06/07/18 16:59 100 mls DAILY FAISAL Protocol Laboratory Tests 05/09/18 05/10/18 05/10/18 05:55 05:41 05:41 WBC 5.09 6.23 Hgb 8.7 L 9.7 L Plt Count 197 221 Creatinine 0.5 L AST 9 L ALT 20 L Medications Discontinued Medications Generic Name Dose Route Start Last Admin Trade Name Freq PRN Reason Stop Dose Admin Vancomycin HCl 1.25 gm/ Sodium 250 mls @ 166.667 mls/hr 05/06/18 18:00 06:39 Chloride IV 06/05/18 17:59 250 mls Q12H FAISAL Meropenem 1 gm/ Sodium 120 mls @ 120 mls/hr 05/06/18 17:00 05/08/18 09:04 Chloride IV 06/05/18 16:59 120 mls Q8H FAISAL Protocol Vancomycin HCl 1 each 05/06/18 17:00 Vancomycin Pharmacy To Dose, 10-15 Mcg/[place] [facility] [place]02[place]18 16:59 AD FAISAL Protocol Vancomycin HCl 1.25 gm/ Sodium 250 mls @ 166.667 mls/hr 05/06/18 17:30 Chloride IV 06/05/18 17:29 Q12H FAISAL ICD10 Worksheet Patient Problems: Problems Problem Status Onset Dehydration Acute Vomiting and diarrhea Acute Anorexia Acute Diarrhea Acute Malignancy Acute
[2018-05-10] MEDS ORDERED: CALCIUM GLUCONATE 50 ML IV ONE (11:38)
[2018-05-10] MEDS: HALOPERIDOL 2 MG TAB PO SCH ×3 (14:15→21:39)
--- NOTE | 2018-05-10 14:29 | SOAPPROG ---
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 I do not think that his recent Immunotherapy (Keytruda) has contributed to his current condition. Dexamethasone has been stopped. Continue BID Lovenox given h/o DVT. Ecorafenib / Binimetinib (new BRAF/MEK combination) were started [id number]. So far, he is tolerating them. His recent PET scan showed a clear response to targeted therapy. Subjective: nausea is still the biggest issue. Did have diarrhea twice today. Objective: Vital Signs Temp Pulse Resp BP Pulse Ox 37 C 101 H 16 107/68 93 05/10/18 09:00 05/10/18 09:00 05/10/18 09:00 05/10/18 09:00 05/10/18 09:00 Laboratory Results 05/10/18 05:41 05/10/18 05:41 05/08/18 05/09/18 05/10/18 23:59 23:59 23:59 Intake Total 4789 1854 1344 Output Total 8275 3000 900 Balance -3486 -1146 444 PT 15.9 SEC (12.0-15.0) H 05/10/18 05:41 INR 1.25 (0.83-1.16) H 05/10/18 05:41 Physical Exam - Physical Exam General Appearance: alert, mild distress Respiratory: lungs clear Cardiac/Chest: regular rate, rhythm Abdomen: non-tender, soft Skin: pallor Neuro/Psych: oriented x 3, depressed affect ICD10 Worksheet Patient Problems: Problems Problem Status Onset Dehydration Acute Vomiting and diarrhea Acute Anorexia Acute Diarrhea Acute Malignancy Acute
[2018-05-10] MEDS: TPN 1 EA BAG IV SCH (21:38)
[2018-05-10] MEDS: POTASSIUM Cl (KCl) 100 ML IV SCH ×2 (22:35→23:35)
[2018-05-11] MEDS: POTASSIUM Cl (KCl) 100 ML IV SCH ×3 (00:35→22:45)
[2018-05-11] MEDS: HALOPERIDOL 2 MG TAB PO SCH ×6 (02:58→21:12)
[2018-05-11 05:40] LABS: PLATELET COUNT 240 10^3/uL (150-400)
[2018-05-11 05:50] LABS: INR 1.05 (0.83-1.16); PROTIME(PATIENT) 13.9 SEC (12.0-15.0)
[2018-05-11] MEDS: ENOXAPARIN 80 MG/0.8 ML SYR SC SCH ×2 (08:43→21:12)
[2018-05-11] MEDS: DIPHENOXYLATE/ATROPINE LOMOTIL 1 TAB PO PRN (08:43)
[2018-05-11] MEDS: CHOLECALCIFEROL VIT D3 1,000 UNITS TAB PO SCH (08:45)
[2018-05-11] MEDS: CYANO/VITAMIN B12 1000 MCG TAB PO SCH (08:45)
[2018-05-11] MEDS: CALCIUM CARBONATE 500 MG CHEWABLE TAB PO SCH ×3 (08:45→21:12)
[2018-05-11] MEDS: valACYclovir 500 MG TAB PO SCH (08:45)
[2018-05-11] MEDS: SPIRONOLACTONE 25 MG TAB PO SCH (08:45)
[2018-05-11] MEDS: ERTAPENEM 1 GM in NS 100 ML IV SCH (08:45)
[2018-05-11] MEDS: POTASSIUM CL 20 MEQ TAB PO SCH ×2 (08:45→21:17)
--- NOTE | 2018-05-11 08:57 | HOSPPROG ---
Hospitalist Progress Note Assessment/Plan: 32 yo M w metastatic melanoma, fever, septic physiology Diarrhea with N/V, volume depletion and weight loss - likely chemo related no mass sen on ct -Cont NS along with albumin boluses -GI PCR neg, cont prn imodium and lomotil -anti-emetics, supportive care start tpn improving w octreotide 05/10- diarrhea improving 05/11: continue prn immodium. i told him it was reasonable to expect some diarrhea sepsis: fever, tachycardia weaning pressors today off pressors abx de-escalated to ertapenem abx through 05/13 Fever - Could be 2/ Dabrafenib per onc. -GI PCR neg -CXR without e/o pna -RVP panel neg -UA neg -BCx's pending, neg thus far -ertapenem 05/10- afebrile since 05/06 Metastatic melanoma involving bowel, liver and bone - has had some response to therapy restarted po chemo last stacey -oncology following he has had a good response to immune therapy SPCM - 10 lb weight loss over past few days, pt reports recent albumin <1, now 1.2 -tpn started will go to cyclic DVT - related to PICC in RUE -cont therapeutic Lovenox, dose adjusted for current weight Hypoalbuminemia - Albumin 25% 100 mL bolus q6h x4 doses H/O Anasarca - thought secondary to chemo agent, has been on high dose lasix as outpt -hold lasix for now given profound volume depletion Hypertension / Tachycardia - holding BB due to hypotension dispo: inpt Subjective: case d/w dr peres. 2 episodes diarrhea this am, 1 large. three doses antidiarrheal yesterday Objective: Vital Signs Temp Pulse Resp BP Pulse Ox 36.8 C 111 H 18 100/67 96 05/11/18 05:17 05/11/18 05:17 05/11/18 05:17 05/11/18 05:17 05/11/18 05:17 Laboratory Results 05/11/18 05:25 05/11/18 05:25 05/10/18 05/11/18 05/12/18 05:59 05:59 05:59 Intake Total 1944 720 Output Total 3000 900 Balance -1056 -180 PT 13.9 SEC (12.0-15.0) 05/11/18 05:25 INR 1.05 (0.83-1.16) 05/11/18 05:25 - Physical Exam Constitutional: no apparent distress Eyes: PERRL, anicteric sclera Ears, Nose, Mouth, Throat: moist mucous membranes, hearing normal Cardiovascular: regular rate and rhythym, no murmur, rub, or gallop Respiratory: no respiratory distress, no rales or rhonchi, clear to auscultation Gastrointestinal: normoactive bowel sounds, soft, non-tender abdomen Genitourinary: no bladder fullness, No donovan in urethra Skin: warm Musculoskeletal: full muscle strength Neurologic: AAOx3, sensation intact bilaterally ICD10 Worksheet Patient Problems: Problems Problem Status Onset Dehydration Acute Vomiting and diarrhea Acute Anorexia Acute Diarrhea Acute Malignancy Acute
[2018-05-11] MEDS: LORazepam 2 MG/ML INJ IVP PRN ×2 (08:59→21:10)
[2018-05-11] MEDS: BINIMETINIB 15 MG PO SCH ×2 (09:12→21:16)
[2018-05-11] MEDS: ENCORAFENIB 75 MG PO SCH (09:12)
[2018-05-11] MEDS: FUROSEMIDE 40 MG/4 ML VIAL IVP SCH (09:51)
--- NOTE | 2018-05-11 10:21 | ASMTCMCOM ---
CM Note CM Note Notes: Chart reviewed. Patient now on cyclic TPN. Given nature of his disease will likely require home TPN. Referral in allscripts to [facility]. CM to follow. Likely need [facility] for HHC RN. Plan: s above. Date Signed: 05/11/2018 10:20 AM Electronically Signed By:Cira Wellington RN
[2018-05-11] MEDS ORDERED: CALCIUM GLUCONATE 50 ML IV ONE (12:05)
--- NOTE | 2018-05-11 14:20 | PCMIDPN ---
Assessment/Plan: Assessment: 32-year-old man with sepsis syndrome complicating therapy with pembrolizumab given on 05/02/2018. No change to Plan with ertapenem through 05/13. 1. Descending colitis, stable 2. History of metastatic melanoma to the GI tract; most recent treatment with pembrolizumab on 05/02/2018 3. Lymphocytosis, likely secondary to immune activation from chemotherapy; resolved 4. Acute anemia 5. Malnutrition manifesting as hypoalbuminemia Plan: 1. Continue ertapenem 1 g daily; anticipated stop date 05/13/2018 Kris Duncan MD Infectious Diseases 05/11/18 14:19 Subjective: No fever or chills. Diarrhea mostly unchanged with 3 episodes of loose stools today by the afternoon. He notes no new rashes. No new concerns today. Objective: Vital Signs Temp Pulse Resp BP Pulse Ox 36.5 C 124 H 16 103/68 96 05/11/18 09:15 05/11/18 11:45 05/11/18 09:15 05/11/18 09:15 05/11/18 09:15 Microbiology 05/06/18 08:25 Blood Culture - Final Blood 05/06/18 07:16 Blood Culture - Final Blood Laboratory Results 05/11/18 05:25 05/11/18 05:25 05/10/18 05/11/18 05/12/18 05:59 05:59 05:59 Intake Total 1944 720 Output Total 3000 900 Balance -1056 -180 Medications Generic Name Dose Route Start Last Admin Trade Name Freq PRN Reason Stop Dose Admin Ertapenem 1 gm/ Sodium 100 mls @ 200 mls/hr 05/08/18 17:00 05/11/18 08:45 Chloride IV 05/13/18 23:00 100 mls DAILY FAISAL Protocol Microbiology 05/06/18 10:51 Nasal, Sinus - [place] Viral Transport Respiratory Panel ( PCR) - Final No Organism Detected By Pcr 05/06/18 08:25 Blood Blood Culture - Final 05/06/18 07:16 Blood Blood Culture - Final 05/05/18 15:45 Stool Gastrointestinal Tract Panel (PCR) - Final No Organism Detected By Pcr Laboratory Tests 05/10/18 05/11/18 05/11/18 05:41 05:25 05:25 WBC 6.23 6.48 Hgb 9.7 L 9.7 L Plt Count 221 240 Absolute Seg Neuts 1.62 L 0.84 L Absolute Lymphocytes 2.80 4.02 H Creatinine 0.4 L AST 10 L ALT 18 L - Physical Exam General Appearance: no apparent distress, thin, non-toxic Neck: full range of motion Extremities: No erythema Skin: No erythema Neuro/Psych: alert, oriented x 3, depressed affect, No confused ICD10 Worksheet Patient Problems: Problems Problem Status Onset Dehydration Acute Vomiting and diarrhea Acute Anorexia Acute Diarrhea Acute Malignancy Acute
--- NOTE | 2018-05-11 14:50 | SOAPPROG ---
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 I do not think that his recent Immunotherapy (Keytruda) has contributed to his current condition. Dexamethasone has been stopped. Continue BID Lovenox given h/o DVT. Ecorafenib / Binimetinib (new BRAF/MEK combination) were started [id number]. So far, he is tolerating them. His recent PET scan showed a clear response to targeted therapy. Overall plan is to discharge [place] to home once he is finished with IV Abx, he is on cyclic TPN, and he is able to reliably hold down his meds. I would anticipate discharge Saturday or Saturday. Subjective: 5 liquid stools yesterday. No N/V today. Held down pills. Ate an egg burrito this morning. Objective: Vital Signs Temp Pulse Resp BP Pulse Ox 36.5 C 124 H 16 103/68 96 05/11/18 09:15 05/11/18 11:45 05/11/18 09:15 05/11/18 09:15 05/11/18 09:15 Microbiology 05/06/18 08:25 Blood Culture - Final Blood 05/06/18 07:16 Blood Culture - Final Blood Laboratory Results 05/11/18 05:25 05/11/18 05:25 05/09/18 05/10/18 05/11/18 23:59 23:59 23:59 Intake Total 1854 1764 300 Output Total 3000 900 Balance -1146 864 300 PT 13.9 SEC (12.0-15.0) 05/11/18 05:25 INR 1.05 (0.83-1.16) 05/11/18 05:25 Physical Exam - Physical Exam General Appearance: alert, no apparent distress Respiratory: lungs clear Cardiac/Chest: regular rate, rhythm Abdomen: normal bowel sounds Skin: pallor, No rash Neuro/Psych: alert, normal mood/affect, oriented x 3 ICD10 Worksheet Patient Problems: Problems Problem Status Onset Dehydration Acute Vomiting and diarrhea Acute Anorexia Acute Diarrhea Acute Malignancy Acute
[2018-05-11] MEDS: TPN 1 EA BAG IV SCH (21:11)
[2018-05-12] MEDS: HALOPERIDOL 2 MG TAB PO SCH ×6 (04:34→21:26)
[2018-05-12 05:50] LABS: PLATELET COUNT 259 10^3/uL (150-400)
[2018-05-12 06:02] LABS: INR 1.01 (0.83-1.16); PROTIME(PATIENT) 13.5 SEC (12.0-15.0)
[2018-05-12] MEDS: LORazepam 2 MG/ML INJ IVP PRN ×2 (09:13→20:31)
[2018-05-12] MEDS: ERTAPENEM 1 GM in NS 100 ML IV SCH (09:43)
[2018-05-12] MEDS: DIPHENOXYLATE/ATROPINE LOMOTIL 1 TAB PO PRN ×3 (09:44→18:23)
[2018-05-12] MEDS: LOPERAMIDE HCL 2 MG CAP PO PRN ×3 (09:45→18:23)
[2018-05-12] MEDS: BINIMETINIB 15 MG PO SCH ×2 (09:52→21:36)
[2018-05-12] MEDS: ENCORAFENIB 75 MG PO SCH (09:54)
[2018-05-12] MEDS: CALCIUM CARBONATE 500 MG CHEWABLE TAB PO SCH ×3 (10:05→21:26)
[2018-05-12] MEDS: SPIRONOLACTONE 25 MG TAB PO SCH (10:05)
[2018-05-12] MEDS: valACYclovir 500 MG TAB PO SCH (10:05)
[2018-05-12] MEDS: POTASSIUM CL 20 MEQ TAB PO SCH ×2 (10:05→21:26)
[2018-05-12] MEDS: CHOLECALCIFEROL VIT D3 1,000 UNITS TAB PO SCH (10:06)
[2018-05-12] MEDS: ENOXAPARIN 80 MG/0.8 ML SYR SC SCH ×2 (10:06→21:25)
[2018-05-12] MEDS: CYANO/VITAMIN B12 1000 MCG TAB PO SCH (10:06)
[2018-05-12] MEDS: FUROSEMIDE 40 MG/4 ML VIAL IVP SCH (10:07)
[2018-05-12] MEDS: ONDANSETRON 4 MG/2 ML VIAL IVP PRN (13:01)
[2018-05-12] MEDS: ONDANSETRON DISINTEGRATING 4 MG TAB PO PRN ×2 (13:07→20:31)
[2018-05-12] MEDS ORDERED: CALCIUM GLUCONATE 50 ML IV ONE (13:15)
[2018-05-12] MEDS ORDERED: NS 1,000 ML IV ONE (16:05)
--- NOTE | 2018-05-12 16:07 | HOSPPROG ---
Hospitalist Progress Note Assessment/Plan: 32 yo M w metastatic melanoma, fever, septic physiology Diarrhea with N/V, volume depletion and weight loss - likely chemo related no mass sen on ct -Cont NS along with albumin boluses -GI PCR neg, cont prn imodium and lomotil -anti-emetics, supportive care start tpn improving w octreotide 05/10- diarrhea improving 05/11: continue prn immodium. i told him it was reasonable to expect some diarrhea tachycardia: likely intravascular volume depletion give 1 L NS sepsis: fever, tachycardia weaning pressors today off pressors abx de-escalated to ertapenem abx through 05/13 Fever - Could be 2/ Dabrafenib per onc. -GI PCR neg -CXR without e/o pna -RVP panel neg -UA neg -BCx's pending, neg thus far -ertapenem 05/10- afebrile since 05/06 Metastatic melanoma involving bowel, liver and bone - has had some response to therapy restarted po chemo last stacey -oncology following he has had a good response to immune therapy SPCM - 10 lb weight loss over past few days, pt reports recent albumin <1, now 1.2 -tpn started will go to cyclic 2. DVT - related to PICC in RUE -cont therapeutic Lovenox, dose adjusted for current weight Hypoalbuminemia - Albumin 25% 100 mL bolus q6h x4 doses H/O Anasarca - thought secondary to chemo agent, has been on high dose lasix as outpt -hold lasix for now given profound volume depletion Hypertension / Tachycardia - holding BB due to hypotension dispo: inpt Subjective: case d/w dr morin. still w diarrhea Objective: Vital Signs Temp Pulse Resp BP Pulse Ox 36.6 C 130 H 96 H 111/82 H 96 05/12/18 15:32 05/12/18 15:32 05/12/18 15:32 05/12/18 15:32 05/12/18 15:32 Microbiology 05/06/18 08:25 Blood Culture - Final Blood 05/06/18 07:16 Blood Culture - Final Blood Laboratory Results 05/12/18 05:30 05/12/18 05:30 05/11/18 05/12/18 05/13/18 05:59 05:59 05:59 Intake Total 720 2575 Output Total 900 420 950 Balance -180 2155 -950 PT 13.5 SEC (12.0-15.0) 05/12/18 05:30 INR 1.01 (0.83-1.16) 05/12/18 05:30 - Physical Exam Constitutional: no apparent distress, appears nourished Eyes: PERRL, anicteric sclera, EOMI Ears, Nose, Mouth, Throat: moist mucous membranes, hearing normal Cardiovascular: no murmur, rub, or gallop, tachycardia Respiratory: no respiratory distress, no rales or rhonchi Gastrointestinal: normoactive bowel sounds, soft, non-tender abdomen Genitourinary: no bladder fullness, No donovan in urethra Skin: warm, normal color Musculoskeletal: full muscle strength Neurologic: AAOx3 ICD10 Worksheet Patient Problems: Problems Problem Status Onset Dehydration Acute Vomiting and diarrhea Acute Anorexia Acute Diarrhea Acute Malignancy Acute
--- NOTE | 2018-05-12 18:55 | SOAPPROG ---
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 #Sepsis Unknown etiology, finishing ertapenem 05/13 #Nausea, vomiting, diarrhea Unknown etiology of nausea, presumed from previous BRAF inhibitor, seems to be controlled at this point. Diarrhea is likely from protein losing enteropathy/GI involvement of melanoma. -recommend scheduling anti-diarrheal medications as he reports he won't remember to take meds PRN #Hypoalbuminemia Likely from protein losing enteropathy from GI involvement of melanoma and malnourishment -continue cyclic TPN (plan tonight) #BRAF mutated metastatic melanoma -continue Ecorafenib / Binimetinib (new BRAF/MEK combination)- started [id number]. Recent PET scan showed a clear response to targeted therapy. Received one dose of nivolumab and one dose of keytruda as well Overall plan is to discharge to home once he is finished with IV Abx, he is on cyclic TPN, and he is able to reliably hold down his meds and diarrhea is somewhat symptomatically controlled 05/12/18 18:55 Subjective: patient reports diarrhea is still an issue, maybe 10 BM yesterday but limited immodium (forgets to ask for it). No new symptoms Objective: Vital Signs Temp Pulse Resp BP Pulse Ox 36.6 C 130 H 96 H 111/82 H 96 05/12/18 15:32 05/12/18 15:32 05/12/18 15:32 05/12/18 15:32 05/12/18 15:32 Laboratory Results 05/12/18 05:30 05/12/18 05:30 05/11/18 05/12/18 05/13/18 05:59 05:59 05:59 Intake Total 720 2575 800 Output Total 900 420 950 Balance -180 2155 -150 PT 13.5 SEC (12.0-15.0) 05/12/18 05:30 INR 1.01 (0.83-1.16) 05/12/18 05:30 General: no acute distress, chronically ill appearing HEENT: PERRL, no icterus or pallor, oral mucosa without lesions Neck:supple CV: tachycardic rate and regular rhythm, no rubs or gallops Chest: CTA and percussion bilateral posterior lungs Abdomen: soft, nontender, non distended, no organomegaly Extremities: no edema ICD10 Worksheet Patient Problems: Problems Problem Status Onset Dehydration Acute Vomiting and diarrhea Acute Anorexia Acute Diarrhea Acute Malignancy Acute
[2018-05-12] MEDS: TPN 1 EA BAG IV SCH (21:25)
[2018-05-13] MEDS: HALOPERIDOL 2 MG TAB PO SCH ×4 (02:31→14:11)
[2018-05-13 07:27] VITALS: BP 107/53
[2018-05-13] MEDS: LORazepam 2 MG/ML INJ IVP PRN (08:52)
[2018-05-13] MEDS: ONDANSETRON DISINTEGRATING 4 MG TAB PO PRN (08:56)
[2018-05-13] MEDS: CYANO/VITAMIN B12 1000 MCG TAB PO SCH (09:21)
[2018-05-13] MEDS: ENOXAPARIN 80 MG/0.8 ML SYR SC SCH (09:21)
[2018-05-13] MEDS: CHOLECALCIFEROL VIT D3 1,000 UNITS TAB PO SCH (09:22)
[2018-05-13] MEDS: CALCIUM CARBONATE 500 MG CHEWABLE TAB PO SCH (09:22)
[2018-05-13] MEDS: ERTAPENEM 1 GM in NS 100 ML IV SCH (09:25)
[2018-05-13] MEDS: BINIMETINIB 15 MG PO SCH (09:40)
[2018-05-13] MEDS: ENCORAFENIB 75 MG PO SCH (09:42)
[2018-05-13] MEDS: valACYclovir 500 MG TAB PO SCH (10:19)
[2018-05-13] MEDS: SPIRONOLACTONE 25 MG TAB PO SCH (10:20)
[2018-05-13] MEDS: POTASSIUM CL 20 MEQ TAB PO SCH (10:20)
[2018-05-13] MEDS: LOPERAMIDE HCL 2 MG CAP PO PRN (10:35)
[2018-05-13] MEDS ORDERED: ALTEPLASE 2 MG VIAL IVP PRN (10:57)
[2018-05-13] MEDS ORDERED: FUROSEMIDE 40 MG TAB PO ONE (10:58)
--- NOTE | 2018-05-13 13:07 | CPEKG ---
Test Reason : OPEN Blood Pressure : / mmHG Vent. Rate : 111 BPM Atrial Rate : 111 BPM P-R Int : 125 ms QRS Dur : 079 ms QT Int : 323 ms P-R-T Axes : 071 054 045 degrees QTc Int : 439 ms Sinus tachycardia Confirmed by Justin Newton ([id number]) on 05/13/2018 1:07:03 PM Referred By: Tara Alegre Confirmed By:Justin Newton
--- NOTE | 2018-05-13 13:09 | PDIAF ---
- Diagnosis Diagnosis: Sepsis, diarrhea Code Status: Full Code - Medication Management Discharge Medications: electronically signed and located in the Home Medication List. - Orders Services needed: Home Care, Registered Nurse Home Care Face to Face: I certify that this patient was under my care and that I had the required [id number] encounter meeting the encounter requirements on the discharge day. My findings support the fact that the patient is homebound as defined in Home Care Face to Face Continued: CMS Chapter 7 Medicare Benefits Manual 30.1.1 , The condition of the patient is such that there exists a normal inability to leave home and consequently, leaving home would require a considerable and taxing effort. Isolation Type: Chemotherapy Isolation Diet Recommendation: no restrictions on diet, other (TPN as ordered) Additional Instructions: Check your weight daily; if gain more than 3 pounds in 1 day, increase Lasix to 80mg BID - Labs/Radiology CBC w/diff Date: 05/14/18 CMP Date: 05/14/18 Other Lab Name, Date and Time: Mg, Phos tomorrow - Follow Up Care Current Providers and Referrals: Storm Prater MD [Primary Care Provider] - As per Instructions
--- NOTE | 2018-05-13 13:37 | PDIAF ---
- Diagnosis Diagnosis: Sepsis, diarrhea Code Status: Full Code - Medication Management Discharge Medications: electronically signed and located in the Home Medication List. - Orders Services needed: Home Care, Registered Nurse Home Care Face to Face: I certify that this patient was under my care and that I had the required [id number] encounter meeting the encounter requirements on the discharge day. My findings support the fact that the patient is homebound as defined in Home Care Face to Face Continued: CMS Chapter 7 Medicare Benefits Manual 30.1.1 , The condition of the patient is such that there exists a normal inability to leave home and consequently, leaving home would require a considerable and taxing effort. Isolation Type: Chemotherapy Isolation Diet Recommendation: no restrictions on diet, other (TPN as ordered) Additional Instructions: Check your weight daily; if gain more than 3 pounds in 1 day, increase Lasix to 80mg BID - Labs/Radiology CBC w/diff Date: 05/14/18 CMP Date: 05/14/18 Other Lab Name, Date and Time: Mg, Phos tomorrow - Follow Up Care Current Providers and Referrals: Storm Prater MD [Primary Care Provider] - As per Instructions
--- NOTE | 2018-05-13 13:56 | ASMTCMCOM ---
CM Note CM Note Notes: Patient medically cleared for dc. PICC placed for cyclic TPN. [facility] and [facility] sent final orders in allscripts. TPN formula faxed to [facility] Home RN to assist with PICC care and lab draws. Patient not requiring PT/OT at this time. CM available should other needs arise. Plan: Home on TPN with C RN Date Signed: 05/13/2018 01:56 PM Electronically Signed By:Cira Wellington RN
--- NOTE | 2018-05-13 13:57 | ASMTLACE ---
LACE Length of stay for Answers: 7-13 days current admission Comorbidities - select Answers: Any tumor (including all that apply lymphoma or leukemia) Other Notes: HTN # of Emergency department Answers: 1-2 visits in the last 6 months Score: 9 Date Signed: 05/13/2018 01:56 PM Electronically Signed By:Cira Wellington RN
[2018-05-13] MEDS ORDERED: FUROSEMIDE 40 MG TAB ONE (14:17)
--- NOTE | 2018-05-13 17:54 | GDS ---
[f rep st] DISCHARGE SUMMARY DISCHARGE DIAGNOSES: 1. Metastatic melanoma. 2. Severe protein caloric malnutrition. 3. Diarrhea with nausea, vomiting. 4. Sepsis. 5. Fever. 6. Peripherally inserted central catheter related deep venous thrombosis, right upper extremity. 7. Hypertension/tachycardia. 8. Hypoalbuminemia. 9. Septic shock, suspect translocation from gut. 10. Encephalopathy. HISTORY OF PRESENT ILLNESS: A 32-year-old male with metastatic melanoma, whose course was complicated by diarrhea and anasarca requiring TPN, February 2018, for malnutrition. He presented to the ED 05/05 with ongoing diarrhea. There was concern it was secondary to invasive cancer in the small bowel. He has been treated with dabrafenib and trametinib, but the latter was held due to anasarca. He has recently been on monotherapy with dabrafenib and received Keytruda 05/02/2018. Last CT scan end of March showed good response to therapy with decreased metastatic disease. He has been having watery stools up to 8 times a day, but with Imodium and Lomotil they have been able to control it 3 times daily. He has had nausea, vomiting. HOSPITAL COURSE BY PROBLEM: 1. Septic shock: The patient was febrile, required pressors, likely secondary to gram-negative translocation from gut in setting of immunocompromise from a malignancy. He completed a course of imipenem today. 2. Metabolic encephalopathy: This was related to acute infection, is now at baseline. 3. Diarrhea: GI panel was negative. May be secondary to tumor invasion plus medications. Better controlled with Lomotil and Imodium. Continue this. 4. Nausea and vomiting: Has had good response to Haldol. We will continue this with Compazine. EKG was reviewed. QTc was 439. 5. Hypotension: Secondary to acute infection. This is improved. 6. Metastatic melanoma: Continue encorafenib/binimetinib which was started May 08. Follow up with Oncology. 7. 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 He will be discharged on cyclic TPN with frequent labs. 8. Anasarca: Albumin was 1.2. He was receiving TPN. Was receiving albumin in -house. Lasix and Aldactone.. 9. History of tachycardia: He may resume metoprolol in the next couple days once BP improves. 10. PICC associated DVT: Decrease Lovenox to 80 mg twice daily. DISPOSITION: Patient is stable for discharge home with his . Home health has been arranged for labs and TPN. FOLLOWUP: Oncology. MEDICATIONS: see med rec PHYSICAL EXAMINATION: Today: VITAL SIGNS: Temperature 36.9, blood pressure 107/53, heart rate 100, respirations , 95% on room air. GENERAL: Pale, no acute distress. He is walking in the unit. HEENT: PERRLA. Moist mucous membranes. CV: Regular rate and rhythm. +1 pitting edema lower legs. CHEST: Lungs are clear. No crackles. ABDOMEN: Soft, nontender. PICC line in place without signs of infection. MUSCULOSKELETAL: Moving all 4 extremities. NEURO: 2 through 12 intact. PSYCH: Alert and oriented x3. Time spent on discharge greater than 45 minutes, bedside counseling patient and on medications, coordinating home care with Case Management. /[id number]/MODL MTDD
== END 2018-05-13 15:37 | disposition home health service (06) | DRG 871 ==
LOC: OBSVTOIN 13:41 → F1N 14:40 → F2N 05-06 17:24 → F1N 05-09 15:51
PROVIDERS: ADMIT Hospitalist; ATTEND Hospitalist
PROC: 02HV33Z Insertion of Infusion Device into Superior Vena Cava, Percutaneous Approach (ICD-10-PCS; principal; 2018-05-13)
DX: A41.9 Sepsis, unspecified organism (principal); R65.21 Severe sepsis with septic shock; G93.41 Metabolic encephalopathy; E43 Unspecified severe protein-calorie malnutrition; T82.868A Thrombosis due to vascular prosthetic devices, implants and grafts, initial encounter; C78.7 Secondary malignant neoplasm of liver and intrahepatic bile duct; C79.51 Secondary malignant neoplasm of bone; E86.0 Dehydration; R19.7 Diarrhea, unspecified; I10 Essential (primary) hypertension; E88.09 Other disorders of plasma-protein metabolism, not elsewhere classified; Z85.820 Personal history of malignant melanoma of skin
CPT/HCPCS: 82947-QW; 96365; 97116-GP; 97161-GP; C1751; J0610; J0834; J1100; J1335; J1459; J1650; J1940; J2060; J2185; J2354; J2405; J3370; J3411; J3475; J3480; P9047; Q9967

== ENCOUNTER 2018-05-15 16:37 | Inpatient (IN) | payer BC ==
--- NOTE | 2018-05-15 17:08 | EDPHY ---
H & P Stated Complaint: n/v/d, tachy, fever, RUE swelling Time Seen by Provider: 05/15/18 17:01 HPI/ROS: HPI: This is a 32-year-old male who presents with Chief Complaint: n/v/d, tachy, fever, RUE swelling Location: GI, cardiac Quality: Nausea, vomiting, tachycardia, fever Duration: Since this morning around 1:00 a.m. Signs and Symptoms: no fever, + nausea, + vomiting x1, no hematemesis, no blood in stool, no abdominal bloating, + diarrhea 3-4 times per day, no back pain, no urinary symptoms, no testicular/groin pain, no indigestion, no chest pain, no shortness of breath Timing: Acute, intermittent episodes Severity: Moderate Context: Patient has a history of metastatic melanoma with severe protein caloric malnutrition on TPN continuous at night presents from outpatient oncology with concerns of a fever of 100.1 oral F yesterday evening relieved with Tylenol accompanied by nausea, 1 episode of vomiting and 3-4 episodes of diarrhea. Patient reports that the diarrhea has improved since is last admission 2018 for sepsis and pick associated DVT in his right upper extremity-on Lovenox. Sepsis was likely secondary to gram-negative translocation from cut in setting of immunocompromise from malignant see. He completed a 7 day course of imipenem. He does have a history of anasarca with low albumin and receives TPN. He received albumin at the oncology office today. He takes Lasix and Aldactone at baseline. Patient has a history of tachycardia normally in the 100 but yesterday evening and today his heart rate has been as high as 150s. He has been taking his metoprolol. Significant other at bedside notes that he has had low blood pressures throughout the day. Patient reports that he has no cough, nasal congestion, sore throat, neck stiffness, headache, abdominal pain, joint pain, rash. 4 lb weight gain in 24 hr. PICC line exchange was in February. New PICC line placed in right upper extremity was 05/13/2018. Oncology, Dr. Low. Modifying Factors: Patient received 500 cc normal saline in the oncology office prior to arrival in the emergency room Comment: ROS: A comprehensive 10 system review of systems is otherwise negative aside from elements mentioned in the history of present illness. MEDICAL/SURGICAL/SOCIAL HISTORY: Medical history: Metastatic melanoma, DVT, HTN- no meds Surgical history: Denies Social history: Disabled. Never smoked. . Family history noncontributory. CONSTITUTIONAL: Chronically ill appearing adult white male, awake and alert, no obvious distress HEENT: Atraumatic and normocephalic, PERRL, EOMI. Nares patent; no rhinorrhea; no nasal mucosal edema. Tympanic membranes clear. Oropharynx clear, no exudate and moist pink mucosa. Airway patent. No lymphadenopathy. No meningismus. Cardiovascular: Normal S1/S2, tachycardia, regular rhythm, without murmur rub or gallop. PULMONARY/CHEST: Symmetrical and nontender. Clear to auscultation bilaterally. Good air movement. No accessory muscle usage. ABDOMEN: Soft, nondistended, nontender, no rebound, no guarding, no peritoneal signs, no masses or organomegaly. No CVAT. EXTREMITIES: 2/2 pulses, right upper extremity is twice the size of the left upper extremity with pitting in the hand. PICC line present right upper extremity. strength 5/5, no deformities, no clubbing, no cyanosis or edema. NEUROLOGICAL: no focal neuro deficits. GCS 15. SKIN: Warm and dry, no erythema. no rash. Good capillary refill. Source: Patient, Family Exam Limitations: No limitations - Personal History Current Tetanus/Diphtheria Vaccine: Yes Current Tetanus Diphtheria and Acellular Pertussis (TDAP): Yes - Medical/Surgical History Hx Asthma: No Hx Chronic Respiratory Disease: No Hx Diabetes: No Hx Cardiac Disease: No Hx Renal Disease: No Hx Cirrhosis: No Hx Alcoholism: No Hx HIV/AIDS: No Hx Splenectomy or Spleen Trauma: No Other PMH: Metastatic melanoma, DVT, HTN- no meds - Social History Smoking Status: Never smoked Constitutional: Initial Vital Signs Temperature (C) 36.7 C 05/15/18 16:48 Heart Rate 153 H 05/15/18 16:48 Respiratory Rate 16 05/15/18 16:48 Blood Pressure 110/82 H 05/15/18 16:48 O2 Sat (%) 97 05/15/18 16:48 O2 Delivery Mode Room Air Allergies/Adverse Reactions: cephalexin monohydrate [From Keflex] Allergy (Unknown, Verified 05/15/18 16:46) Unknown Penicillins Allergy (Unknown, Verified 05/15/18 16:46) Unknown adhesive Allergy (Verified 05/15/18 16:46) promethazine [From Phenergan] Allergy (Verified 05/15/18 16:46) Tacchycardia (180) Red skin Home Medications: Medication Instructions Recorded valACYclovir [Valtrex (*)] 1,000 mg PO DAILY #60 tab 03/22/18 LORazepam [Ativan (*)] 0.5 mg PO TID PRN 03/26/18 Ondansetron Odt [Zofran Odt 4 mg 8 mg PO ,, PRN 03/26/18 (*)] Calcium Carbonate [Tums 500MG (*)] 1,000 mg PO TID #90 tab.chew 04/02/18 Cholecalciferol Vit D3 [Vitamin D3 1,000 units PO DAILY #30 tab 04/02/18 (*)] Cyanocobalamin [Vitamin B12 (*)] 1,000 mcg PO DAILY #30 tab 04/02/18 Metoprolol Tartrate [Lopressor 25 12.5 mg PO BID #60 tab 04/02/18 mg (*)] Loperamide HCl [Imodium 2 mg (*)] 4 mg PO QID PRN 05/05/18 Enoxaparin [Lovenox 80 MG (*)] 80 mg SC BID #60 syr 05/13/18 Furosemide [Lasix 40 MG (*)] 40 mg PO BID #60 tab 05/13/18 Potassium Cl [Klor-Con 20 meq (*)] 20 meq PO DAILY #30 tab 05/13/18 Prochlorperazine Maleate 10 mg PO TID PRN #90 tab 05/13/18 [Compazine 10mg (*)] Spironolactone [Aldactone 25 MG 25 mg PO DAILY #30 tab 05/13/18 (*)] TPN [Hyperalimentation] 1 ea IV DAILY21 bag 05/13/18 Acetaminophen [Tylenol 325mg (*)] 650 mg PO Q4 PRN 05/15/18 Binimetinib [Mektovi] 45 mg PO BID 05/15/18 Diphenoxylate HCl/Atrop Sulf 1 tab PO QID 05/15/18 [Lomotil Tab (*)] Encorafenib [Braftovi] 450 mg PO DAILY 02/21/19 Haloperidol [Haldol 1 MG (*)] 1 mg PO DAILY@03 PRN 05/15/18 Haloperidol [Haldol 1 MG (*)] 1 mg PO TID@10,14,20 05/15/18 Herbals/Supplements -Info Only 1 ea PO DAILY 05/15/18 Loperamide HCl [Imodium 2 mg (*)] 2 mg PO QID 05/15/18 Medical Decision Making - Diagnostics Imaging Results: Imaging Impressions Extremity Venous Study 05/15/18 17:07 Impression: 1. Since 03/31/2018, there has been resolution of previously-noted forearm cephalic superficial venous thrombosis. 2. There is a tiny focus of thrombus along the anterior margin of one of the paired brachial veins, which contains a PICC line. There is no other evidence of DVT. Findings were discussed with Alisha Dickey PA-C at 18:28, on 05/15/2018. ED Course/Re-evaluation: Vital signs reviewed and show low normal blood pressure with heart rate in the 150s. Will obtain peripheral access and hold off on more IV fluids and PICC line use in the setting that this may be the source of infection verses worsening right upper extremity DVT. Laboratory studies, EKG, respiratory pathogen panel, right upper extremity ultrasound ordered Patient is currently afebrile. Placed on telemetry. 1726: EKG my read with attending shows sinus tachycardia with a rate of 133 beats per minute, PVC, borderline prolonged QT at 469. Patient has a history of borderline prolonged QT last admission was 439. 1805: Labs reviewed. WBC 18 K and 1 day ago it was 17 K, platelet count 414, lactic acid 1.6, sodium 132, potassium 4.0, creatinine 0.5, albumin 1.2 1819: Called by Radiology who advised that right upper extremity ultrasound shows small segment of thrombus in 1 brachial vein dyspnea anterior to the indwelling PICC, unable to visualize basilic vein. Patient's right cephalic superficial thrombus has not resolved from last ultrasound. 1820: Discussed patient with attending, Dr. Clifford. 1835: ED decision to consult Oncology. Spoke with Dr. Regan Saucedo who recommends random Lovenox level now and then repeat 4 hr after Lovenox [address] Saucedo wants Lovenox increased from 80 mg to 90 mg twice daily. Last Lovenox dose was at 8:00 a.m. He wants to remove the PICC line and culture the tip. He does not want to start antibiotics empirically. 1857: Discussed oncology recommendation, laboratory and imaging results and plan of care with patient and significant other. Patient is willing to come into the hospital. ED decision to consult hospitalist for admission. Spoke with Dr. Alegre who kindly agrees to admit patient and provide further care. This patient was seen under the supervision of my primary supervising physician. I evaluated care for this patient with attending. Discussed this patient with Dr. Clifford. Differential Diagnosis: Adult fever including but not limited to viral syndromes including influenza, urinary tract infection, pneumonia and sepsis. - Data Points Laboratory Results: Laboratory Results 05/15/18 17:47 05/15/18 17:47 05/15/18 05/15/18 05/15/18 17:47 17:47 17:47 WBC 18.12 10^3/uL H 10^3/uL (3.80-9.50) RBC 4.00 10^6/uL L 10^6/uL (4.40-6.38) Hgb 12.2 g/dL L g/dL (13.7-17.5) Hct 37.3 % L % (40.0-51.0) MCV 93.3 fL fL (81.5-99.8) MCH 30.5 pg pg (27.9-34.1) MCHC 32.7 g/dL g/dL (32.4-36.7) RDW 14.6 % % (11.5-15.2) Plt Count 414 10^3/uL H 10^3/uL (150-400) MPV 10.2 fL fL (8.7-11.7) Neut % (Auto) Pending Lymph % (Auto) Pending [place] % (Auto) Pending Eos % (Auto) Pending Baso % (Auto) Pending Nucleat RBC Rel Count Pending Absolute Neuts (auto) Pending Absolute Lymphs (auto) Pending Absolute Monos (auto) Pending Absolute Eos (auto) Pending Absolute Basos (auto) Pending Absolute Nucleated RBC Pending Immature Gran % Pending Immature Gran # Pending Platelet Estimate Pending PT 13.1 SEC SEC (12.0-15.0) INR 0.97 (0.83-1.16) APTT 33.9 SEC SEC (23.0-38.0) VBG Lactic Acid Sodium 132 mEq/L L mEq/L (135-145) Potassium 4.0 mEq/L mEq/L (3.5-5.2) Chloride 105 mEq/L mEq/L (97-110) Carbon Dioxide 26 mEq/l mEq/l (22-31) Anion Gap 1 mEq/L L mEq/L (6-14) BUN 18 mg/dL mg/dL (7-23) Creatinine 0.5 mg/dL L mg/dL (0.7-1.3) Estimated GFR > 60 Glucose 99 mg/dL mg/dL (70-100) Calcium 6.9 mg/dL L mg/dL (8.5-10.4) Total Bilirubin < 0.1 mg/dL L mg/dL (0.1-1.4) Conjugated Bilirubin Pending Unconjugated Bilirubin 0.0 mg/dL mg/dL (0.0-1.1) AST 40 IU/L IU/L (17-59) ALT 44 IU/L IU/L (21-72) Alkaline Phosphatase 100 IU/L IU/L (38-126) Total Protein 2.6 g/dL L g/dL (6.3-8.2) Albumin 1.2 g/dL L g/dL (3.5-5.0) Procalcitonin Pending 05/15/18 17:01 WBC RBC Hgb Hct MCV MCH MCHC RDW Plt Count MPV Neut % (Auto) Lymph % (Auto) [place] % (Auto) Eos % (Auto) Baso % (Auto) Nucleat RBC Rel Count Absolute Neuts (auto) Absolute Lymphs (auto) Absolute Monos (auto) Absolute Eos (auto) Absolute Basos (auto) Absolute Nucleated RBC Immature Gran % Immature Gran # Platelet Estimate PT INR APTT VBG Lactic Acid 1.6 mmol/L mmol/L (0.7-2.1) Sodium Potassium Chloride Carbon Dioxide Anion Gap BUN Creatinine Estimated GFR Glucose Calcium Total Bilirubin Conjugated Bilirubin Unconjugated Bilirubin AST ALT Alkaline Phosphatase Total Protein Albumin Procalcitonin Departure - Departure Disposition: [facility] Acute Clinical Impression: 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, Sinus tachycardia, Hypoalbuminemia, Chronic anticoagulation Deep vein thrombosis (DVT) of brachial vein of right upper extremity Qualifiers: Chronicity: acute Qualified Code(s): I82.621 - Acute embolism and thrombosis of deep veins of right upper extremity Fever Qualifiers: Fever type: unspecified Qualified Code(s): R50.9 - Fever, unspecified Complication associated with peripherally inserted central catheter (PICC) Qualifiers: Encounter type: initial encounter Qualified Code(s): T82.9XXA - Unspecified complication of cardiac and vascular prosthetic device, implant and graft, initial encounter Condition: Fair
[2018-05-15 18:03] LABS: PLATELET COUNT 414 10^3/uL (150-400)
[2018-05-15] MEDS ORDERED: ENOXAPARIN 100 MG/ML SYR SC ONE (19:00)
[2018-05-15 19:05] LABS: INR 0.97 (0.83-1.16); PROTIME(PATIENT) 13.1 SEC (12.0-15.0)
[2018-05-15] MEDS ORDERED: ACETAMINOPHEN 325 MG TAB PO PRN ×2 (19:27→19:59)
[2018-05-15] MEDS ORDERED: ONDANSETRON 4 MG/2 ML VIAL IVP PRN (19:27)
--- NOTE | 2018-05-15 19:27 | CPEKG ---
Test Reason : OPEN Blood Pressure : / mmHG Vent. Rate : 133 BPM Atrial Rate : 133 BPM P-R Int : 117 ms QRS Dur : 075 ms QT Int : 315 ms P-R-T Axes : 067 045 037 degrees QTc Int : 469 ms Sinus tachycardia Borderline prolonged QT interval Confirmed by Kristal Clifford ([id number]) on 05/15/2018 7:26:58 PM Referred By: Kristal Clifford Confirmed By:Kristal Clifford
[2018-05-15] MEDS ORDERED: PROCHLORPERAZINE MALEATE 10 MG TAB PO PRN (19:59)
[2018-05-15] MEDS: LORazepam 0.5 MG TAB PO PRN (21:10)
[2018-05-15] MEDS: DIPHENOXYLATE/ATROPINE LOMOTIL 1 TAB PO SCH (21:10)
[2018-05-15] MEDS: LOPERAMIDE HCL 2 MG CAP PO SCH (21:11)
[2018-05-15] MEDS: HALOPERIDOL 2 MG TAB PO SCH (21:13)
[2018-05-15] MEDS: BINIMETINIB 15 MG PO SCH (21:22)
[2018-05-15] MEDS: CALCIUM CARBONATE 500 MG CHEWABLE TAB PO SCH (21:25)
[2018-05-15] MEDS: ONDANSETRON DISINTEGRATING 4 MG TAB PO PRN (21:28)
[2018-05-15] MEDS ORDERED: D10W 1,000 ML IV PRN (22:47)
--- NOTE | 2018-05-15 22:58 | PDGENHP ---
History and Physical - Chief Complaint tachycardia - History of Present Illness 32 yo male with h/o metastatic melanoma involving bowel wall presents to ED with ongoing low grade fevers and tachycardia. His course has been complicated by MSSA bacteremia in 02/2018 and severe diarrhea, which has finally improved. He has required TPN for nutrition. He also has a h/o PICC associated DVT during his treatment for MSSA bacteremia and that prior PICC was removed. A new PICC was placed in his RUE during a hospitalization last week. At that time he was treated for septic shock presumed secondary to bacterial gut translocation and required ongoing TPN to due poor nutrition with an albumin of 1.2. He completed a course of Ertapenem on 05/13/2017 prior to hospital discharge. His initial Lovenox dose was initially 100 mg BID, though it was noted at that time has had significant anasarca. Upon admission earlier this month, his weight was down to 75 kg after diuresis and his Lovenox dose was decreased to 80 mg BID. A repeat u/s of his RUE today revealed resolution of the prior DVT, but showed a "tiny focus of thrombosis" in the brachial vein, associated with his new PICC. His diarrhea has nearly resolved. His pain is controlled. He denies CP or SOB. He continues to have rapid HR and low grade fevers. He was seen at [facility] today and it was recommended he return to the hospital due to tachycardia and increased RUE swelling. He is admitted for further management. History Information - Allergies/Home Medication List Allergies/Adverse Reactions: cephalexin monohydrate [From Keflex] Allergy (Unknown, Verified 05/15/18 16:46) Unknown Penicillins Allergy (Unknown, Verified 05/15/18 16:46) Unknown adhesive Allergy (Verified 05/15/18 16:46) promethazine [From Phenergan] Allergy (Verified 05/15/18 16:46) Tacchycardia (180) Red skin Home Medications: LORazepam [Ativan (*)] 0.5 mg PO BID PRN 03/26/18 [Last Taken 05/15/18 07:30] Ondansetron Odt [Zofran Odt 4 mg (*)] 8 mg PO BID@06,16 PRN 03/26/18 [Last Taken 05/15/18 16:00] Loperamide HCl [Imodium 2 mg (*)] 2 mg PO QID PRN 05/05/18 [Last Taken 05/15/18 16:00] Acetaminophen [Tylenol 325mg (*)] 650 mg PO Q4 PRN 05/15/18 [Last Taken 01:45] Binimetinib [Mektovi] 45 mg PO BID 05/15/18 [Last Taken 05/15/18 08:00] Diphenoxylate HCl/Atrop Sulf [Lomotil Tab (*)] 1 tab PO QID 05/15/18 [Last Taken Unknown] Encorafenib [Braftovi] 450 mg PO DAILY 05/15/18 [Last Taken 05/15/18] Haloperidol [Haldol 1 MG (*)] 1 mg PO DAILY@03 PRN 05/15/18 [Last Taken Unknown] Haloperidol [Haldol 1 MG (*)] 1 mg PO TID@10,,20 05/15/18 [Last Taken 14:00] Herbals/Supplements -Info Only 1 ea PO DAILY 05/15/18 [Last Taken Unknown] Loperamide HCl [Imodium 2 mg (*)] 2 mg PO QID 05/15/18 [Last Taken 05/15/18 16: 00] I have personally reviewed and updated: family history, medical history, social history, surgical history - Past Medical History cancer (cancerous mole), DVT, hypertension Additional medical history: severe protein calorie malnutrition with albumin ~ 1. diarrhea, n/v. catheter associated dvt. likely protein losing enteropathy. MSSA bacteremia 02/2018. 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 Review of Systems Review of Systems: ROS: 10pt was reviewed & negative except for what was stated in HPI & below Physical Exam Physical Exam: Temp Pulse Resp BP Pulse Ox 36.5 C 120 H 21 H 108/73 95 05/15/18 20:38 05/15/18 20:38 05/15/18 20:38 05/15/18 20:38 05/15/18 20:38 Constitutional: no apparent distress Eyes: PERRL Ears, Nose, Mouth, Throat: moist mucous membranes Cardiovascular: tachycardia Respiratory: no respiratory distress, clear to auscultation Gastrointestinal: normoactive bowel sounds, soft, non-tender abdomen Skin: warm Musculoskeletal: full muscle strength, other (2+ b/l LE edema) Neurologic: AAOx3 Psychiatric: interacting appropriately Lab Data & Imaging Review 05/15/18 17:47 05/15/18 17:47 WBC 18.12 10^3/uL (3.80-9.50) H 05/15/18 17:47 RBC 4.00 10^6/uL (4.40-6.38) L 05/15/18 17:47 Hgb 12.2 g/dL (13.7-17.5) L 05/15/18 17:47 Hct 37.3 % (40.0-51.0) L 05/15/18 17:47 MCV 93.3 fL (81.5-99.8) 05/15/18 17:47 MCH 30.5 pg (27.9-34.1) 05/15/18 17:47 MCHC 32.7 g/dL (32.4-36.7) 05/15/18 17:47 RDW 14.6 % (11.5-15.2) 05/15/18 17:47 Plt Count 414 10^3/uL (150-400) H 05/15/18 17:47 MPV 10.2 fL (8.7-11.7) 05/15/18 17:47 Neut % (Auto) Not Reported 05/15/18 17:47 Lymph % (Auto) Not Reported 05/15/18 17:47 [place] % (Auto) Not Reported 05/15/18 17:47 Eos % (Auto) Not Reported 05/15/18 17:47 Baso % (Auto) Not Reported 05/15/18 17:47 Nucleat RBC Rel Count Not Reported 05/15/18 17:47 Absolute Neuts (auto) Not Reported 05/15/18 17:47 Absolute Lymphs (auto) Not Reported 05/15/18 17:47 Absolute Monos (auto) Not Reported 05/15/18 17:47 Absolute Eos (auto) Not Reported 05/15/18 17:47 Absolute Basos (auto) Not Reported 05/15/18 17:47 Absolute Nucleated RBC Not Reported 05/15/18 17:47 Immature Gran % Not Reported 05/15/18 17:47 Seg Neutrophils % 40.0 % 05/15/18 17:47 Band Neutrophils % 6.0 % 05/15/18 17:47 Lymphocytes % 34.0 % 05/15/18 17:47 Monocytes % 9.0 % 05/15/18 17:47 Eosinophils % 1.0 % 05/15/18 17:47 Basophils % 3.0 % 05/15/18 17:47 Metamyelocytes % 5.0 % 05/15/18 17:47 Myelocytes % 2.0 % 05/15/18 17:47 Promyelocytes % 0.0 % 05/15/18 17:47 Blast Cells % 0.0 % 05/15/18 17:47 Immature Gran # Not Reported 05/15/18 17:47 Absolute Seg Neuts 7.25 10^3/uL (1.70-6.50) H 05/15/18 17:47 Absolute Band Neuts 1.09 10^3/uL (0.00-0.70) H 05/15/18 17:47 Absolute Lymphocytes 6.16 10^3/uL (1.00-3.00) H 05/15/18 17:47 Absolute Monocytes 1.63 10^3/uL (0.30-0.80) H 05/15/18 17:47 Absolute Eosinophils 0.18 10^3/uL (0.03-0.40) 05/15/18 17:47 Absolute Basophils 0.54 10^3/uL (0.02-0.10) H 05/15/18 17:47 Absolute Metamyelocyte 0.91 10^3/mL (0.00-0.00) H 05/15/18 17:47 Absolute Myelocytes 0.36 10^3/mL (0.00-0.00) H 05/15/18 17:47 Absolute Promyelocytes 0.00 10^3/uL (0.00-0.00) 05/15/18 17:47 Absolute Plasma Cells 0.00 10^3/uL (0.00-0.00) 05/15/18 17:47 Absolute Blast Cells 0.00 10^3/uL (0.00-0.00) 05/15/18 17:47 Plasma Cells % 0.0 % 05/15/18 17:47 Platelet Estimate ADEQUATE (ADEQ) 05/15/18 17:47 PT 13.1 SEC (12.0-15.0) 05/15/18 17:47 INR 0.97 (0.83-1.16) 05/15/18 17:47 APTT 33.9 SEC (23.0-38.0) 05/15/18 17:47 VBG Lactic Acid 1.6 mmol/L (0.7-2.1) 05/15/18 17:01 Sodium 132 mEq/L (135-145) L 05/15/18 17:47 Potassium 4.0 mEq/L (3.5-5.2) 05/15/18 17:47 Chloride 105 mEq/L (97-110) 05/15/18 17:47 Carbon Dioxide 26 mEq/l (22-31) 05/15/18 17:47 Anion Gap 1 mEq/L (6-14) L 05/15/18 17:47 BUN 18 mg/dL (7-23) 05/15/18 17:47 Creatinine 0.5 mg/dL (0.7-1.3) L 05/15/18 17:47 Estimated GFR > 60 05/15/18 17:47 Glucose 99 mg/dL (70-100) 05/15/18 17:47 Calcium 6.9 mg/dL (8.5-10.4) L 05/15/18 17:47 Total Bilirubin < 0.1 mg/dL (0.1-1.4) L 05/15/18 17:47 Conjugated Bilirubin < 0.1 mg/dL (0.0-0.5) 05/15/18 17:47 Unconjugated Bilirubin 0.0 mg/dL (0.0-1.1) 05/15/18 17:47 AST 40 IU/L (17-59) 05/15/18 17:47 ALT 44 IU/L (21-72) 05/15/18 17:47 Alkaline Phosphatase 100 IU/L (38-126) 05/15/18 17:47 Total Protein 2.6 g/dL (6.3-8.2) L 05/15/18 17:47 Albumin 1.2 g/dL (3.5-5.0) L 05/15/18 17:47 Procalcitonin 0.11 ng/mL (0.02-0.10) H 05/15/18 17:47 Assessment & Plan Assessment: PICC associated DVT - 2nd occurrence with 2nd PICC while on Lovenox. His original DVT has resolved and now there is a new "tiny focus" of thrombosis associated with this PICC. Discussed with heme/onc and pt and his . Pt wishes to maintain PICC for TPN. -Anti-10a level sent and is pending -Lovenox is increased by 10% from 80 mg bid to 90 mg bid -per heme, recheck anti-10a level after 4 doses to ensure therapeutic on higher dose -will keep PICC in place, likely warrants serial u/s given recurrent DVT on Lovenox Metastatic melanoma - has had multiple different chemo medications, as well as immunotherapy with good response -oncology aware of admission and will see tomorrow SPCM with hypoalbuminemia - Albumin remains quite low at 1,2 -on TPN, will continue -q6h IV Albumin for now Tachycardia - His HR has trended up since hospital dc. This may be related to his cancer, but I suspect he is intravascularly dry with diuresis. -hold lasix and spironolactone -IV Albumin as above Leukocytosis - again, may be related to cancer vs recurrent infection vs volume contraction. He just completed a course of Ertapenem 05/13, BCx's were negative. He has a normal lactate and low PCT. -will defer atbx for now and monitor clinical course and fever curve -trend wbc's Fevers - he reports ongoing low grade fevers, but is afebrile here. His prior chemo agent, Dabrafenib, is known to cause fevers. -monitor fever curve Full code Dispo - admit to inpt, anticipate >48 hrs hospitalization for ongoing management of DVT, tachycardia, melanoma
[2018-05-15] MEDS: ALBUMIN 25% 100 ML IV SCH (23:42)
[2018-05-16 00:17] LABS: INR 1.08 (0.83-1.16); PROTIME(PATIENT) 14.2 SEC (12.0-15.0)
[2018-05-16] MEDS ORDERED: HALOPERIDOL 1 MG TAB PO PRN (03:00)
[2018-05-16] MEDS ORDERED: NS 1,000 ML IV ONE (03:15)
[2018-05-16] MEDS ORDERED: NOREPINEPHRINE BITARTRATE 4 MG in NS 500 ML IV SCH (04:30)
[2018-05-16 04:46] LABS: PLATELET COUNT 268 10^3/uL (150-400)
[2018-05-16 04:54] LABS: INR 1.16 (0.83-1.16)
[2018-05-16] MEDS: DIPHENOXYLATE/ATROPINE LOMOTIL 1 TAB PO SCH ×4 (05:42→21:17)
[2018-05-16] MEDS: ALBUMIN 25% 100 ML IV SCH ×3 (05:42→17:33)
[2018-05-16] MEDS: LOPERAMIDE HCL 2 MG CAP PO SCH ×4 (05:42→21:17)
[2018-05-16] MEDS ORDERED: ONDANSETRON DISINTEGRATING 4 MG TAB PO PRN (06:00)
[2018-05-16] MEDS: BINIMETINIB 15 MG PO SCH ×2 (09:17→21:17)
[2018-05-16] MEDS: ENOXAPARIN 80 MG/0.8 ML SYR SC SCH ×2 (09:18→12:45)
[2018-05-16] MEDS: Encorafenib [Braftovi] 75 MG PO SCH (09:19)
[2018-05-16] MEDS: CHOLECALCIFEROL VIT D3 1,000 UNITS TAB PO SCH (09:19)
[2018-05-16] MEDS: CALCIUM CARBONATE 500 MG CHEWABLE TAB PO SCH ×3 (09:19→21:17)
[2018-05-16] MEDS: valACYclovir 500 MG TAB PO SCH (09:25)
--- NOTE | 2018-05-16 09:47 | PDMN ---
Medical Necessity Medical necessity: MCG: GRG vascular disease: 32 yo M with RUE thrombosis- pt presents to ED with low grade temp, tachycardia, RUE swelling, leukocytosis, SPCM with hypoalbuminemia, - U/S shows "tiny focus of thrombosis" in the brachial vein, associated with his new PICC line( 1 week ago ) . pt on Lovenox, Prior PICC line with DVT- MRSA bacteremia. PMHx: met. melanoma involving bowel wall- pt with PICC line for TPN- anticipate > 2 MN ongoing med nec care- further monitoring and tx
--- NOTE | 2018-05-16 09:50 | ASMTCASEMG ---
Living Arrangements What is your living Answers: With Spouse arrangement? Who do you live with? Type Of Residence What kind of residence do Answers: House you live in? Discharge Plan Comments Coordination Status Comments Notes: Patient is a 32yo male with hx of metastatic melanoma involving the bowel wall with ongoing fevers and tachycardia. Patient is being admitted for ongoing management of DVT, tachycardia, and melanoma. OT eval has been ordered. Patient lives in [place]. He most likely will d/c independent. CM will follow. Date Signed: 05/16/2018 09:49 AM Electronically Signed By:Hollie Jennings LCSW
[2018-05-16] MEDS: HALOPERIDOL 2 MG TAB PO SCH ×3 (10:45→21:17)
[2018-05-16] MEDS: ENOXAPARIN 100 MG/ML SYR SC SCH ×2 (11:28→21:17)
[2018-05-16] MEDS: LOPERAMIDE HCL 2 MG CAP PO PRN (14:34)
--- NOTE | 2018-05-16 15:25 | HOSPPROG ---
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 Objective: Vital Signs Temp Pulse Resp BP Pulse Ox 36.2 C 117 H 18 122/69 H 98 05/16/18 08:00 05/16/18 12:00 05/16/18 12:00 05/16/18 12:00 05/16/18 12:00 Laboratory Results 05/16/18 04:30 05/16/18 04:30 05/15/18 05/16/18 05/17/18 05:59 05:59 05:59 Intake Total 3050 Output Total 850 Balance 3050 -850 PT 15.0 SEC (12.0-15.0) 05/16/18 04:30 INR 1.16 (0.83-1.16) 05/16/18 04:30 old chart reviewed extensively - multiple recent admissions for infectious complications d/w Dr. owen ICU rounds US - small new thrombus - Physical Exam Constitutional: no apparent distress, appears nourished, not in pain Cardiovascular: regular rate and rhythym, no murmur, rub, or gallop, edema (4+) Respiratory: no respiratory distress, no rales or rhonchi, clear to auscultation Gastrointestinal: normoactive bowel sounds, soft, non-tender abdomen, no palpable masses Skin: no rashes or abrasions, no fluctuance, no induration Neurologic: AAOx3, sensation intact bilaterally ICD10 Worksheet Patient Problems: Problems Problem Status Onset Chronic anticoagulation Acute Complication associated with peripherally inserted central catheter (PICC) Acute Deep vein thrombosis (DVT) of brachial vein of right upper extremity Acute Fever Acute Hypoalbuminemia Acute 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 Acute Sinus tachycardia Acute Anorexia Acute Dehydration Acute Diarrhea Acute Malignancy Acute Vomiting and diarrhea Acute
--- NOTE | 2018-05-16 19:00 | PDCONSULT ---
Security Monitor Note: Patient is a 32-year-old male with a recent diagnosis of be ref mutated metastatic melanoma admitted for tachycardia and concerns for sepsis and septic shock. [facility] with diarrhea fatigue and poor oral intake. A CT of the abdomen and pelvis done at that time revealed multiple hepatic lesions, diffuse small bowel thickening and osseous metastasis. Liver biopsy confirmed metastatic melanoma with to be raphe 600 E mutation. He was given a dose of no vola Mab while inpatient while waiting for be ref status as well as given concerns for protein losing enteropathy and malabsorption. He was socially started on dabrafenib and treatment trimetinib. He had a second admission in March for anasarca thought to perhaps be secondary to traumatic neb and hypoalbuminemia. He was continued on single agent dabrafenib and a restaging PET CT scan done on April 22, 2018 revealed evidence of a response with decreased pulmonary nodules decreased liver metastases decrease in metabolic activity in his osseous lesions. His most recent admission in early April was for worsening nausea vomiting and diarrhea. At that visit/hospitalization he also had/ experienced shock physiology and required admission to the intensive care unit and administration of broad-spectrum antibiotics and pressors. He was continued on ertapenem until 05/13/2018, that day he was also discharged with his diarrhea relatively under control with scheduled Lomotil. A PICC was also placed for ongoing cyclical TPN. His Lovenox dosing for a right upper extremity DVT was also decreased to 80 mg twice daily given his weight loss. Patient was again seen in the ER on 05/15/2018 for a rapid heart rate and low- grade fevers. He was also felt to have increased right upper extremity swelling. A ultrasound of the right upper extremity in the ER showed a tiny focus of thrombosis in 1 of the brachial veins with resolution of his prior pack -related DVT. His Lovenox was then increased to 90 mg twice daily his heart rate in the emergency room was in the 150s however was sinus tachycardia. White blood cell count was elevated at 18,000. Patient was afebrile. Respiratory viral PCR was negative blood cultures without any growth. For unknown reasons he again developed shock physiology overnight and was placed on pressors for a brief period of time. This subsequently resolved spontaneously. Patient reports feeling well currently. He denies any fevers chills or drenching night sweats. He continues on cyclical TPN at home. He denies any infectious symptoms.Patient is currently on BRAF/MEK inhibitor. Past medical history: Hypertension Hypoalbuminemia Malnutrition Right upper extremity PICC line related DVT Past surgical history: Unremarkable Social history: Patient currently lives in [facility] he is with 2 kids she is a non -smoker and has occasional alcohol use Family history: Noncontributory Review of systems: A complete 12 point review of systems was obtained and found to be negative unless indicated in the history of the present illness Physical examination: Temp Pulse Resp BP Pulse Ox 36.2 C 120 H 18 123/70 H 99 05/16/18 08:00 05/16/18 18:00 05/16/18 18:00 05/16/18 18:00 05/16/18 18:00 General: No acute distress nontoxic appearing male HEENT: Pupils equal round and reactive to light no scleral icterus mild conjunctival pallor is appreciated oral mucosa is moist without any evidence of oral pharyngeal lesions Neck: Supple Cardiovascular: Tachycardic rate normal rhythm without rubs thrills gallops or murmurs Chest: Clear to auscultation and percussion bilateral posterior lungs Abdomen: Soft nontender without any hepatosplenomegaly. Subcutaneous edema Extremities: Warm and well perfused, 1+ bilateral lower extremity edema up to the chest wall Allergy/AdvReac Type Severity Reaction Status Date / Time cephalexin monohydrate Allergy Unknown Unknown Verified 05/15/18 16:46 [From Keflex] Penicillins Allergy Unknown Unknown Verified 05/15/18 16:46 adhesive Allergy Verified 05/15/18 16:46 promethazine [From Phenergan] Allergy Tacchycardia Verified 05/15/18 16:46 (180) Red skin Generic Name Dose Route Start Last Admin Trade Name Freq PRN Reason Stop Dose Admin Acetaminophen 650 mg 05/15/18 19:27 Tylenol PO 11/11/18 19:26 Q4HRS PRN Pain, Mild/Fever, Can Take PO Calcium Carbonate 1,000 mg 05/15/18 22:00 05/16/18 17:33 Tums PO 11/11/18 21:59 1,000 mg TID FIASAL Administration Cholecalciferol 1,000 units 05/16/18 09:00 05/16/18 09:19 Vitamin D PO 11/12/18 08:59 1,000 units DAILY FAISAL Administration Diphenoxylate HCl/Atropine 1 tab 05/15/18 21:00 05/16/18 17:33 Lomotil PO 11/11/18 20:59 1 tab QID FAISAL Administration Enoxaparin Sodium 100 mg 05/16/18 11:15 05/16/18 11:28 Lovenox SC 11/12/18 11:14 100 mg BID FAISAL Administration Haloperidol 1 mg 05/16/18 03:00 Haldol PO 11/12/18 02:59 DAILY@03 PRN Nausea/Vomiting With Chemo Haloperidol 1 mg 05/15/18 20:00 05/16/18 14:18 Haldol PO 11/11/18 19:59 1 mg TID@10,14,20 FAISAL Administration Dextrose 1,000 mls @ 0 mls/hr 05/15/18 22:47 05/16/18 05:00 D10w IV 11/11/18 22:46 1,000 mls PRN PRN Administration TPN interruption As Directed Albumin Human 100 mls @ 0 mls/hr 05/15/18 23:23 05/16/18 17:33 Flexbumin 25 % (Premix) IV 11/11/18 23:22 100 mls Q6H FAISAL Administration As Directed Norepinephrine 4 mg/ Sodium 504 mls @ 0 mls/hr 05/16/18 04:30 05/16/18 05:00 Chloride IV 11/12/18 04:29 504 mls CONT FAISAL Administration Protocol Per Protocol Loperamide HCl 2 mg 05/15/18 21:00 05/16/18 14:34 Imodium PO 11/11/18 20:59 Not Given QID FAISAL Loperamide HCl 2 mg 05/15/18 19:59 05/16/18 14:34 Imodium PO 11/11/18 19:58 2 mg QID PRN Administration Diarrhea/Loose Stools Lorazepam 0.5 mg 05/15/18 19:59 05/15/18 21:10 Ativan PO 11/11/18 19:58 0.5 mg BID PRN Administration Before chemo doses (n/v) Miscellaneous Medication 45 mg 05/15/18 21:00 05/16/18 09:17 Binimetinib [Mektovi] PO 11/11/18 20:59 3 tab BID FAISAL Administration Miscellaneous Medication 450 mg 05/16/18 09:00 05/16/18 09:19 Encorafenib [Braftovi] PO 11/12/18 08:59 6 tab DAILY FAISAL Administration Miscellaneous Medication 1 ea 05/15/18 21:00 05/15/18 21:10 Tpn IV 11/11/18 20:59 1,500 ml DAILY21 FAISAL Administration Ondansetron HCl 4 mg 05/15/18 19:27 Zofran IVP 11/11/18 19:26 Q4HRS PRN Nausea/Vomiting, Can't Take PO Ondansetron HCl 4 mg 05/15/18 19:27 05/15/18 21:28 Zofran Odt PO 11/11/18 19:26 4 mg Q4HRS PRN Administration Nausea/Vomiting, Use 1st Ondansetron HCl 8 mg 05/16/18 06:00 Zofran Odt PO 11/12/18 05:59 BID@06,16 PRN Nausea/Vomiting, Use 2nd Prochlorperazine Maleate 10 mg 05/15/18 19:59 Compazine PO 11/11/18 19:58 TID PRN Nausea/Vomiting, Use 3rd Total Parenteral Nutrition 1 ea 05/15/18 23:00 Pharmacy To DoseTpn MISC 11/11/18 22:59 AD FAISAL Valacyclovir HCl 1,000 mg 05/16/18 09:00 05/16/18 09:25 Valtrex PO 06/15/18 08:59 1,000 mg DAILY FAISAL Administration Vitamin B Complex 1,000 mcg 05/17/18 09:00 Vitamin B12 PO 11/13/18 08:59 DAILY FAISAL Assessment and plan: Patient is a 32-year-old male with recent diagnosis of be ref mutated metastatic melanoma admitted for concerns for sepsis and worsening PICC related DVT. Problem #1 - systemic inflammatory response syndrome Patient has had multiple episodes of fevers high heart rate and low blood pressure. This admission the also required a short period of time on vasopressors. The etiology of these events is unknown. Perhaps he has some fever/low-grade fevers from the be ref inhibitor which is just enough to tip him hemodynamically over the edge given such a low intravascular oncotic pressure. His pro-calcitonin is unremarkable and he has no infectious symptoms otherwise. His heart rate seems to respond to albumin infusion which may support this theory. The hope is that with ongoing treatment of his melanoma these events will become less frequent. Problem #2 - BRAF mutated metastatic melanoma Patient has had a clear radiographic response to be BRAF inhibition - he continues currently on Binimetinib and Encorafenib. The presence of some worsening edema today is somewhat concerning for SE from MEK inhibitor which he has had in the past. He has received both a dose of nivolumab and pembrolizumab given concerns for absorption given GI involvement. -continue Binimetinib and Encorafenib Problem #3 - malnutrition secondary to bowel involvement of melanoma -Continue TPN Problem #4 - PICC line associated DVT Patient is now had 2 PICC associated DVTs. This most recent event was on therapeutic Lovenox. Although he could certainly be being underdosed. Given the clot was on Lovenox I would increase the dose by roughly 10% to 90 mg twice daily and check a anti-10 A level after the fourth dose to determine whether he is in the therapeutic range. We will continue to follow along
[2018-05-16] MEDS ORDERED: ALBUMIN 25% 100 ML IV SCH ×2 (20:00)
[2018-05-16] MEDS: LORazepam 0.5 MG TAB PO PRN (20:21)
--- NOTE | 2018-05-16 22:35 | GCON ---
[f rep st] CONSULTATION CRITICAL CARE CONSULT HISTORY OF PRESENT ILLNESS: This patient is 32-year-old male with a known diagnosis of widely metast atic melanoma. He was first diagnosed in December 2017 and thought to have local disease, but was adm itted to [facility] 03/13/2018, and found to have extensive metastatic disease involving his small bowel, astrid raj, lungs, and liver. He had a PICC line placed at that time, and within 24 hours developed a deep vein thrombosis of the right subclavian and basilic veins. He was treated with Lovenox at 100 mg twi ce b.i.d. He did have a PICC exchange the following day. He was discharged on the . His course was complicated at that time by multiple issues, particularly GI where he had anasarca requiring end oscopy from above and below, and TPN. He was also given vitamin K at that time. Developed MSSA bact eremia, but eventually recovered. He had repeat admissions to [facility] on 03/26 through 04/02/2018, as we ll as 05/05 through 05/13, where he had an episode of sepsis requiring pressors and dehydration with diarrhea. In any case, he was on Lovenox for his PICC-associated DVT. The dose was decreased to 80 mg twice b.i.d. Yesterday, in clinic, he complained of upper extremity edema, some low-grade fevers and was sent back for evaluation and was found to have a new, but tiny thrombus that was in the right brachial vein containing a PICC. A Xa level was drawn, and he was treated with Lovenox at 100 mg cu rrently. At some point, his blood pressure was low. He was given IV fluids and did not respond. He recently completed antibiotics, though his white count was 18,000 when he came in. This corrected t o normal without intervention, and blood cultures are negative to date. He may have been hypovolemic . REVIEW OF SYSTEMS: Otherwise, negative. PAST MEDICAL HISTORY: Includes: 1. Melanoma as described above. 2. DVT as described. 3. Hypertension. 4. Severe protein calorie malnutrition with an albumin about 1. 5. MSSA bacteremia. 6. Septic shock. SURGICAL HISTORY: Currently, is none. FAMILY HISTORY: Noncontributory. SOCIAL HISTORY: He is a nonsmoker. No alcohol or IV drug use. CURRENT MEDICATIONS: Include albumin 25% q.6 hours, Tums, vitamin D, Lomotil, Lovenox, Haldol p.r.n. , and scheduled Imodium, Ativan, Mektovi and other chemo medications that are currently unknown, Braf tovi as well, Levophed, Zofran, Compazine, TPN, Valtrex. PHYSICAL EXAM: VITAL SIGNS: He has been afebrile in the hospital. Blood pressure currently 122/69, heart rate 117, respirations 18, oxygen saturation 98% on room air. GENERAL: He is a pleasant susan g man in no apparent distress and able to speak in full sentences without using accessory muscles for breathing. HEENT: Pupils equally round and reactive to light. Nonicteric and noninjected. Mucous membranes moist without erythema or exudate. NECK: Supple without adenopathy or jugular vein diste ntion. LUNGS: Breath sounds are clear to auscultation bilaterally without wheezes, rubs, or rales. HEART: Regular rate and rhythm without obvious murmurs, rubs, gallops. ABDOMEN: Soft, nontender, nondistended without hepatosplenomegaly. EXTREMITIES: Show 2+ edema bilaterally including his right upper extremity. Pulses are otherwise normal. NEUROLOGIC: Nonfocal. OBJECTIVE DATA: Includes ultrasound as described above. His white count of 18 is down to 10.1, ta tocrit 21.7, hemoglobin 7.2, platelets of 268. INR was 1.16. Basic metabolic panel essentially norm al. Ionized calcium 1.05. LFTs were normal. Albumin 1.0. Alkaline phosphatase normal. Total bili low. Procalcitonin 0.11. Anti-Xa level is pending from this morning. ASSESSMENT AND PLAN: 1. Deep vein thrombosis: He does appear to have thrombus despite Lovenox. It is not clear to me wh ether this drop in dosage is actually the root cause. It depends on what his Xa level is and whether he has actually broken through this. His weight is 78 kg, so 80 mg b.i.d. would be appropriate ther apeutic dose. Lovenox does carry about a 5% breakthrough despite the best of circumstances. The fac t that he has an underlying active malignancy as well as an indwelling peripherally-inserted central catheter are also factors to consider. At the moment, we will leave him on Lovenox. We could discus s other agents with Oncology once they arrive. 2. Hypotension: The etiology here I suspect is hypovolemia, though he did get some intravenous flui ds. He is rapidly weaning off Levophed. There is no sign of active infection at this time. Should he drop his pressure again, I would be quick to replace him with albumin in a situation where his alb umin is already low despite his scheduled albumin. 3. Leukocytosis: I believe this is reactive in nature and does not represent infection. He had blo od cultures drawn yesterday, which are negative to date, and a nasal swab, which was also normal, and a negative chest x-ray. I doubt this has anything to do with a pulmonary embolism, and do not feel that a CT scan is warranted at this time. /[id number]/MODL
[2018-05-17] MEDS: ALBUMIN 25% 100 ML IV SCH ×5 (00:06→21:56)
[2018-05-17] MEDS: LOPERAMIDE HCL 2 MG CAP PO SCH ×4 (05:41→21:56)
[2018-05-17] MEDS: DIPHENOXYLATE/ATROPINE LOMOTIL 1 TAB PO SCH ×4 (05:41→21:56)
[2018-05-17 05:55] LABS: INR 1.09 (0.83-1.16); PROTIME(PATIENT) 14.3 SEC (12.0-15.0)
[2018-05-17 06:18] LABS: PLATELET COUNT 336 10^3/uL (150-400)
[2018-05-17] MEDS: CALCIUM CARBONATE 500 MG CHEWABLE TAB PO SCH ×3 (09:01→21:56)
[2018-05-17] MEDS: ENOXAPARIN 100 MG/ML SYR SC SCH ×2 (09:01→21:46)
[2018-05-17] MEDS: CYANO/VITAMIN B12 1000 MCG TAB PO SCH (09:01)
[2018-05-17] MEDS: CHOLECALCIFEROL VIT D3 1,000 UNITS TAB PO SCH (09:01)
[2018-05-17] MEDS: valACYclovir 500 MG TAB PO SCH (09:01)
[2018-05-17] MEDS: HALOPERIDOL 2 MG TAB PO SCH ×3 (09:01→23:07)
[2018-05-17] MEDS: Encorafenib [Braftovi] 75 MG PO SCH (09:04)
[2018-05-17] MEDS: BINIMETINIB 15 MG PO SCH ×2 (09:06→21:44)
--- NOTE | 2018-05-17 11:17 | SOAPPROG ---
SOAP Progress Note Assessment/Plan: Assessment: Ganga is a 32 yo with metastatic BRAF positive melanoma. 1. Hypotension and tachycardia: His hypotension has resolved but tachycardia persists. He did have slight leukocytosis on admission but that has improved. Previous history of bacteremia, but blood cultures are negative. I suspect this is intravascular volume depletion related to his profound hypoalbuminemia. 2. Hypoalbuminemia: We have struggled with this from his initial diagnosis. The thought was this could be from his BRAF/MEK but was discontinued and did not improve and symptoms actually got worse. 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 Even though pervious PET/Ct is being read as response, you can still see thickening and slight uptake within the small bowel. I think we should continue therapy and see if he can improve absorption with time. Will need to continue TPN outpatient. 3. Metastatic BRAF positive melanoma: Continue encorafenib binimetinib. Did receive one dose of Nivo and one dose of Pembro. He might need to continue immunotherapy as well given how he rebounds off therapy. 4. Leukocytosis: Cultures negative. 5. Line related DVT: Lovenox increased yesterday to 100mg. I have ordered a anti -XA level. Needs to be drawn 3-4 h after the 4th dose which is tomorrow. 05/17/18 11:10 Subjective: Feeling well this AM. No symptoms of presyncope or syncope. eating and drinking without any significant issues. Diarrhea persists. No abdominal pain, CP, SOB. Objective: Vital Signs Temp Pulse Resp BP Pulse Ox 36.5 C 122 H 15 111/65 97 05/17/18 08:00 05/17/18 08:00 05/17/18 08:00 05/17/18 08:00 05/17/18 08:00 Laboratory Results 05/17/18 05:35 05/17/18 05:35 05/16/18 05/17/18 05/18/18 05:59 05:59 05:59 Intake Total 3050 3982 Output Total 2950 600 Balance 3050 1032 -600 PT 14.3 SEC (12.0-15.0) 05/17/18 05:35 INR 1.09 (0.83-1.16) 05/17/18 05:35 Gen: Thin male, NAD HEENT: Dry mucuosal membranes, OP clear, EOmi CV: Tachy, regular rhythm Abd: Soft, nt, nd, bs+ Ext: Bl 1+ edema LE and tr UE, right PICC in place Psych: Appropriate affect Neuro: Cn2-12 intact, motor and sensation intact Skin: No skin lesions ICD10 Worksheet Patient Problems: Problems Problem Status Onset Chronic anticoagulation Acute Complication associated with peripherally inserted central catheter (PICC) Acute Deep vein thrombosis (DVT) of brachial vein of right upper extremity Acute Fever Acute Hypoalbuminemia Acute 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 Acute Sinus tachycardia Acute Anorexia Acute Dehydration Acute Diarrhea Acute Malignancy Acute Vomiting and diarrhea Acute
--- NOTE | 2018-05-17 13:15 | PDINTPN ---
Capacity Planning Engineer Progress Note Assessment/Plan: 32 M with widely metastatic malignant melanoma undergoing active chemo who developed a PICC associated DVT on previous admission. He was initially treated with 100 mg lovenox based on weight protocol, but was reduced to 80 after weight loss. He was seen in onc clinic and reported increased UE edema and marginal BP so was sent to the ER where he required levophed and an US revealed new, but tiny, DVT around the PICC. Complicating his course has been severe hypoalbuminemia requiring frequent transfusion. After admission, his HCT seemed to drop but monica without intervention and there has been no obvious active bleeding. * DVT- he has multiple thrmbogenic risk factors including recent prolonged hospitalization for sepsis, active malignancy and a PICC line. His Xa level on admission was subtherapeutic, which may be why he developed DVT in the first place. I suspect his hypoalbuminemia is also playing a role, eg less bound antithrombin so higher LMWH required than standard dosing. Repeat Xa level pending. * Hypotension- resolved with IVF. He reported a week of mostly diarrhea prior to admission and responded fairly well to IVF. He is still tachy, but we will recheck after scheduled albumin. No current evidence to support infection, adrenal insufficiency, ACS. PE is possible but manageent unchanged at this point so I dont believe CTA needed. * Discussed in detail with both family and rounds team. * Agree with transfer to floor Subjective: feels well; decreased edema and remains off levophed. Objective: Vital Signs Temp Pulse Resp BP Pulse Ox 36.5 C 122 H 15 111/65 97 05/17/18 08:00 05/17/18 08:00 05/17/18 08:00 05/17/18 08:00 05/17/18 08:00 Laboratory Results 05/17/18 05:35 05/17/18 05:35 05/16/18 05/17/18 05/18/18 05:59 05:59 05:59 Intake Total 3050 3982 Output Total 2950 600 Balance 3050 1032 -600 PT 14.3 SEC (12.0-15.0) 05/17/18 05:35 INR 1.09 (0.83-1.16) 05/17/18 05:35 Physical Exam - Physical Exam General Appearance: WD/WN, alert, no apparent distress, thin EENT: PERRL/EOMI, No scleral icterus (R), No scleral icterus (L) Neck: full range of motion, supple Respiratory: lungs clear, normal breath sounds, No respiratory distress, No accessory muscle use Cardiac/Chest: regular rate, rhythm, edema, tachycardia Abdomen: non-tender, soft, No distended Skin: normal color, warm/dry, No cyanosis, No rash Lymphatic: no adenopathy Extremities: pedal edema Neuro/Psych: alert, normal mood/affect, oriented x 3 ICD10 Worksheet Patient Problems: Problems Problem Status Onset Chronic anticoagulation Acute Complication associated with peripherally inserted central catheter (PICC) Acute Deep vein thrombosis (DVT) of brachial vein of right upper extremity Acute Fever Acute Hypoalbuminemia Acute 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 Acute Sinus tachycardia Acute Anorexia Acute Dehydration Acute Diarrhea Acute Malignancy Acute Vomiting and diarrhea Acute
--- NOTE | 2018-05-17 15:13 | HOSPPROG ---
Hospitalist Progress Note Assessment/Plan: * Shock - sepsis felt to be less likely - currently off antibiotics -rapidly weaned off pressors on 05/16 -suspect volume due hypoalbuminemia/anemia -low threshold to start abx if any sign of infection given previous hx of bacteremia, however blood cultures remain negative * Metastatic melanoma - bone/lung/liver/GI tract -Continue encorafenib, binimetinib per oncology -oncology following, recommending * PICC associated DVT -small residual clot despite Lovenox 80 mg BID -Lovenox dose increased to 100 mg BID -checking Anti-10a level after 4th dose Lovenox tomorrow 1 AM * 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 -diffuse GI involvement with melanoma -chronic diarrhea - Imodium/Lomotil -Continue TPN * Edema due to hypoalbuminemia -IV albumin q6hrs per Oncology -holding diuretics due to hypotension * Worsening anemia -Hgb dropped 12.2 -> 7.2 from 05/15 to 05/16, unclear if all hemodilution - Hgb has remained stable with no s/s of bleeding - Continue to monitor H/H, transfuse <7/20 * Recent MSSA bacteremia, and sepsis due to GI translocation s/p ertapenem, completed on 05/13 Subjective: Patient reports some bruising on RUE this AM Objective: Vital Signs Temp Pulse Resp BP Pulse Ox 36.5 C 122 H 15 111/65 97 05/17/18 08:00 05/17/18 08:00 05/17/18 08:00 05/17/18 08:00 05/17/18 08:00 Laboratory Results 05/17/18 05:35 05/17/18 05:35 05/16/18 05/17/18 05/18/18 05:59 05:59 05:59 Intake Total 3050 3982 Output Total 2950 600 Balance 3050 1032 -600 PT 14.3 SEC (12.0-15.0) 05/17/18 05:35 INR 1.09 (0.83-1.16) 05/17/18 05:35 - Physical Exam Constitutional: chronically ill appearing Eyes: PERRL Ears, Nose, Mouth, Throat: moist mucous membranes Cardiovascular: regular rate and rhythym, edema Respiratory: no respiratory distress Gastrointestinal: soft, non-tender abdomen Skin: warm Musculoskeletal: full muscle strength Neurologic: AAOx3 Psychiatric: interacting appropriately ICD10 Worksheet Patient Problems: Problems Problem Status Onset Chronic anticoagulation Acute Complication associated with peripherally inserted central catheter (PICC) Acute Deep vein thrombosis (DVT) of brachial vein of right upper extremity Acute Fever Acute Hypoalbuminemia Acute 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 Acute Sinus tachycardia Acute Anorexia Acute Dehydration Acute Diarrhea Acute Malignancy Acute Vomiting and diarrhea Acute
[2018-05-17] MEDS: ONDANSETRON DISINTEGRATING 4 MG TAB PO PRN (19:34)
[2018-05-17] MEDS: LORazepam 0.5 MG TAB PO PRN (20:28)
[2018-05-17] MEDS ORDERED: TPN W/ FAMOTIDINE 1 EA BAG IV SCH (21:00)
[2018-05-17] MEDS ORDERED: TPN 1 EA BAG IV SCH (21:00)
[2018-05-17] MEDS: HALOPERIDOL 1 MG TAB PO SCH (22:08)
[2018-05-18 02:06] LABS: INR 1.16 (0.83-1.16)
[2018-05-18] MEDS: LOPERAMIDE HCL 2 MG CAP PO SCH ×3 (05:01→17:36)
[2018-05-18] MEDS: ALBUMIN 25% 100 ML IV SCH ×2 (05:01→11:57)
[2018-05-18] MEDS: DIPHENOXYLATE/ATROPINE LOMOTIL 1 TAB PO SCH ×3 (05:01→17:36)
[2018-05-18] MEDS: ENOXAPARIN 100 MG/ML SYR SC SCH (08:41)
[2018-05-18] MEDS: LORazepam 0.5 MG TAB PO PRN (08:42)
[2018-05-18] MEDS: Encorafenib [Braftovi] 75 MG PO SCH (10:30)
[2018-05-18] MEDS: BINIMETINIB 15 MG PO SCH (10:31)
[2018-05-18] MEDS: CYANO/VITAMIN B12 1000 MCG TAB PO SCH (11:10)
[2018-05-18] MEDS: CALCIUM CARBONATE 500 MG CHEWABLE TAB PO SCH ×2 (11:10→17:36)
[2018-05-18] MEDS: HALOPERIDOL 1 MG TAB PO SCH ×2 (11:10→14:09)
[2018-05-18] MEDS: valACYclovir 500 MG TAB PO SCH (11:10)
[2018-05-18] MEDS: CHOLECALCIFEROL VIT D3 1,000 UNITS TAB PO SCH (11:10)
--- NOTE | 2018-05-18 11:15 | SOAPPROG ---
SOAP Progress Note Assessment/Plan: Assessment: Ganga is a 32 yo with metastatic BRAF positive melanoma. 1. Hypotension and tachycardia: His hypotension has resolved but tachycardia persists. He did have slight leukocytosis on admission but that has improved. Previous history of bacteremia, but blood cultures are negative. I suspect this is intravascular volume depletion related to his profound hypoalbuminemia. 2. Hypoalbuminemia: We have struggled with this from his initial diagnosis. The thought was this could be from his BRAF/MEK but was discontinued and did not improve and symptoms actually got worse. 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 Even though pervious PET/Ct is being read as response, you can still see thickening and slight uptake within the small bowel. I think we should continue therapy and see if he can improve absorption with time. Will need to continue TPN outpatient. 3. Metastatic BRAF positive melanoma: Continue encorafenib binimetinib. Did receive one dose of Nivo and one dose of Pembro. He might need to continue immunotherapy as well given how he rebounds off therapy. 4. Leukocytosis: Cultures negative. 5. Line related DVT: Lovenox increased yesterday to 100mg. I have ordered a anti -XA level which is pending today. 6. Anemia: No obvious blood loss. Recommend transfusion today. 7. 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 He was low at baseline with associated low TSH. I wonder if he has hypophysitis from immunotherapy. Will repeat a cortisol and TSH today. Will d/c him on low dose hydrocortisone. 05/18/18 11:13 Subjective: Feeling well today. No CP, SOB, abdominal pain. No bleeding symptoms. Ambulating without any difficulties. Objective: Vital Signs Temp Pulse Resp BP Pulse Ox 36.6 C 109 H 16 124/69 H 95 05/18/18 07:24 05/18/18 07:24 05/18/18 07:24 05/18/18 07:24 05/18/18 07:24 Laboratory Results 05/18/18 01:35 05/17/18 05:35 05/17/18 05/18/18 05/19/18 05:59 05:59 05:59 Intake Total 3982 2980 Output Total 2950 2600 Balance 1032 380 PT 15.0 SEC (12.0-15.0) 05/18/18 01:35 INR 1.16 (0.83-1.16) 05/18/18 01:35 General: thin male, NAD HEENT: OP clear, eomi CV: Tachy, regular rhythm Pulm: CTAB Abdomen: S/NT/ND/BS+ Ext: 1+ bl LE edema, RUE picc Skin: Scatter bruising noted ICD10 Worksheet Patient Problems: Problems Problem Status Onset Chronic anticoagulation Acute Complication associated with peripherally inserted central catheter (PICC) Acute Deep vein thrombosis (DVT) of brachial vein of right upper extremity Acute Fever Acute Hypoalbuminemia Acute 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 Acute Sinus tachycardia Acute Anorexia Acute Dehydration Acute Diarrhea Acute Malignancy Acute Vomiting and diarrhea Acute
[2018-05-18] MEDS: LOPERAMIDE HCL 2 MG CAP PO PRN (11:57)
--- NOTE | 2018-05-18 13:22 | PDDCSUM ---
Discharge Summary Discharge Summary: Dates of service 05/15-05/08/18 Consultations: oncology, pulmonary/critical care Procedures performed: extremity venous ultrasoun Hospital course by problem: * Shock/hypotension - sepsis felt to be less likely and presumed to be 2/2 hypovolemia with associated hypoalbuminemia/anemia with contribution of adrenal insufficiency -rapidly weaned off pressors on 05/16 and BP has been relatively normal since -will continue to hold BB and diuretics * adrenal insufficiency: -on prior hospitalization max stim performed with subnormal response and continue issues with hypotension as above -discussed with Dr. Venegas, repeat random cortisol ordered, will start on hydrocortisone and monitor for response, patient to f/u with oncology this week for ongoing evaluation * Metastatic melanoma - bone/lung/liver/GI tract -Continue encorafenib, binimetinib per oncology. Will f/u as scheduled with oncology after dc. 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 -diffuse GI involvement with melanoma -chronic diarrhea - Imodium/Lomotil -Continue TPN after discharge with home health, TG have been high and fat level being adjusted, oncology to follow * Edema due to hypoalbuminemia -IV albumin while in house, may continue to receive albumin infusions as OP -holding diuretics due to hypotension and hypovolemia as above * Worsening anemia -Hgb has been low with some fluctuation since arrival and given associated hypotension will transfuse 1 unit today prior to dc -no e/o active bleeding * Recent MSSA bacteremia, and sepsis due to GI translocation s/p ertapenem, completed on 05/13 * recent low TSH: with normal T4 and at the time presumed to be euthyroid sick , 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
--- NOTE | 2018-05-18 13:22 | PDIAF ---
- Diagnosis Code Status: Full Code - Medication Management Discharge Medications: electronically signed and located in the Home Medication List. - Orders Services needed: Home Care, Registered Nurse, Certified [employer], Physical Therapy, Occupational Therapy Home Care Face to Face: I certify that this patient was under my care and that I had the required [id number] encounter meeting the encounter requirements on the discharge day. My findings support the fact that the patient is homebound as defined in Home Care Face to Face Continued: CMS Chapter 7 Medicare Benefits Manual 30.1.1 , The condition of the patient is such that there exists a normal inability to leave home and consequently, leaving home would require a considerable and taxing effort. Isolation Type: Chemotherapy Isolation Diet Recommendation: no restrictions on diet - Labs/Radiology CBC w/diff Date: 05/20/18 (q weekly) CMP Date: 05/20/18 (q weekly) Other Lab Name, Date and Time: lipid panel 05/20/18 and weekly thereafter Call or Fax Lab and Imaging Results to: DR. Venegas - Follow Up Care Current Providers and Referrals: Storm Prater MD [Primary Care Provider] - As per Instructions
--- NOTE | 2018-05-18 13:59 | ASMTLACE ---
LACE Length of stay for Answers: 2 days current admission Acuity / Level of Answers: Yes Care: Did the patient have an inpatient admission? Comorbidities - select Answers: Other Notes: metastatic melanoma all that apply # of Emergency department Answers: 3-4 visits in the last 6 months Score: 9 Date Signed: 05/18/2018 01:59 PM Electronically Signed By:Cira Wellington RN
--- NOTE | 2018-05-18 13:59 | ASMTCMCOM ---
CM Note CM Note Notes: Patient has been medically cleared for discharge. Final orders in allscripts to [facility] and [facility]. Sakshi given Financial number to call regarding billing questions and concerns. CM available should other needs arise. Plan: Dc to home with HHC and Home infusion. Date Signed: 05/18/2018 01:58 PM Electronically Signed By:Cira Wellington RN
[2018-05-18 16:10] VITALS: BP 123/69
--- NOTE | 2018-05-19 10:09 | ASDISCHSUM ---
Discharge Information Plan Status:IV ABX/Infusion Medically Cleared to Leave:05/18/2018 Discharge Date:05/18/2018 06:17 PM D/C Disposition:Home Health Service [facility] D/C Disposition:Home, Routine, Self-Care Projected Discharge Date:05/18/2018 11:00 AM Transportation at D/C: Discharge Delay Reason: Follow-Up Date:05/18/2018 11:00 AM Discharge Slot: Final Diagnosis: Placement Information Referral Type:Home Infusion Referral ID:[id number] Provider Name:[facility] Address 1:[address] Address 2: City:[place] Selection Factors: State:[place] Referral Type:*Home Health Care Services Referral ID:[id number] Provider Name:[facility] [address] Address 2: City:[place] Selection Factors: State:[place] Patient Contact Information Contact Name:JJ Relationship: Address:[address] [place] [address] [address] [facility] Work Phone: City:[place] [facility] Phone: [facility]/Zip Code:[place] [address] Email: Financial Information Financial Class:[id number] Primary Plan Desc: OUT [facility] Primary Plan Number:[id number] Secondary Plan Desc: Secondary Plan Number: Assessment Information LACE LACE Length of stay for Answers: 2 days current admission Acuity / Level of Answers: Yes Care: Did the patient have an inpatient admission? Comorbidities - select Answers: Other Notes: metastatic melanoma all that apply # of Emergency department Answers: 3-4 visits in the last 6 months Score: 9 Date Signed: 05/18/2018 01:59 PM Electronically Signed By:Cira Wellington RN [facility] Initial CM Assessment Living Arrangements What is your living Answers: With Spouse arrangement? Who do you live with? Type Of Residence What kind of residence do Answers: House you live in? Discharge Plan Comments Coordination Status Comments Notes: Patient is a 32yo male with hx of metastatic melanoma involving the bowel wall with ongoing fevers and tachycardia. Patient is being admitted for ongoing management of DVT, tachycardia, and melanoma. OT eval has been ordered. Patient lives in [place]. He most likely will d/c independent. CM will follow. Date Signed: 05/16/2018 09:49 AM Electronically Signed By:Hollie Jennings LCSW [facility] CM Progress Note CM Note CM Note Notes: Patient has been medically cleared for discharge. Final orders in allscripts to [facility] and [facility]. Sakshi given Financial number to call regarding billing questions and concerns. CM available should other needs arise. Plan: Dc to home with HHC and Home infusion. Date Signed: 05/18/2018 01:58 PM Electronically Signed By:Cira Wellington RN Intervention Information
== END 2018-05-18 18:17 | disposition home or self-care (01) | DRG 314 ==
LOC: F2N 20:18 → F1N 05-17 18:21
PROVIDERS: ADMIT Hospitalist; ATTEND Hospitalist
PROC: 30233N1 Transfusion of Nonautologous Red Blood Cells into Peripheral Vein, Percutaneous Approach (ICD-10-PCS; principal; 2018-05-16)
DX: I95.9 Hypotension, unspecified (principal); R57.1 Hypovolemic shock; E27.40 Unspecified adrenocortical insufficiency; E88.09 Other disorders of plasma-protein metabolism, not elsewhere classified; E43 Unspecified severe protein-calorie malnutrition; T82.818A Embolism due to vascular prosthetic devices, implants and grafts, initial encounter; C79.51 Secondary malignant neoplasm of bone; C78.7 Secondary malignant neoplasm of liver and intrahepatic bile duct; C78.00 Secondary malignant neoplasm of unspecified lung; C78.80 Secondary malignant neoplasm of unspecified digestive organ; D64.9 Anemia, unspecified; I10 Essential (primary) hypertension; Z85.820 Personal history of malignant melanoma of skin; Z86.718 Personal history of other venous thrombosis and embolism
CPT/HCPCS: 84481-90; 85520-90; 97165-GO; J1650; P9016; P9021; P9047